=== PATIENT | female | born 1960 | race African-American/Black ===

== ENCOUNTER 2017-12-11 13:56 | Emergency (ER) | payer MEDICARE, MEDICAID ==
--- OUTSIDE RECORDS SUMMARY | 2017-12-11 14:58 | XMS REPORT ---
:1960 External Reference #:[id number] Author Organization [place] Address [address] [facility] [address] [place] [address] Phone [phone] Care Team Providers Name Role Phone Andrea Engle MD Primary Care Physician Unavailable Payers Type Date Identification Numbers Payment Provider Subscriber Medicare Primary Effective: Policy Number: Medicare Chasity Jefferson 2013 [id number] PayID: [id number] [address] [place] [address] Medigap Part B Effective: 2012 Policy Number: Medicaid Chasity Jefferson [id number] PayID: [id number] [address] [place] [address] Commercial Effective: Policy Number: [employer] Chasity Guerrero 2010 [id number] Medicaid Li Expires: 2012 PayID: [id number] [address] [address] [place] [address] Workers Compensation Onset: 2008 Policy Number: Antony Andrew Chasity Guerrero [id number] Li Group Number: [id number] [facility] [address] PayID: [id number] [place] [address] Advance Directives Type Date Description Status Comment Other Directive 06/17/2017 [facility] Care Proxy Current and Verified Problems Date Description Provider Status Onset: 08/25/2013 Type II diabetes mellitus Andrea Engle, Active uncontrolled Doc,FACP Onset: 06/02/2011 Essential hypertension Almaz Sherwood M.D. Active Onset: 06/02/2011 Tobacco user Yosvany Del Real M.D. Active Onset: 06/02/2011 Hyperlipidemia Milagros Tadeo M.D. Active Onset: 06/02/2011 Depressive disorder Yosvany Del Real M.D. Active Onset: 08/04/2011 Shoulder joint pain Yosvany Del Real M.D. Active Onset: 08/04/2011 Chronic obstructive lung disease Yosvany Del Real M.D. Active Onset: 09/17/2011 Disorder of lumbar disc Yosvany Del Real M.D. Active Onset: 01/03/2013 Morbid obesity Yosvany Del Real M.D. Active Onset: 02/08/2013 Lumbosacral spondylosis without Yosvany Del Real M.D. Active myelopathy Onset: 11/15/2014 Vaginal pessary in situ Kushal Clark M.D., FACP Note: for prolapse/incontinence Onset: 11/15/2014 Osteoarthritis of knee Andrea Engle M.D.,JAYSHREEP Active Note: LEFT Onset: 03/27/2016 Spinal stenosis of lumbar region Dipak Chavarria M.D. Active Onset: 04/23/2016 Microalbuminuria due to type 2 Kushal Clark diabetes mellitus Doc,FACP Onset: 06/02/2011 Type 2 diabetes mellitus Yosvany Del Real M.D. Inactive Inactive: 08/25/2013 Onset: 06/23/2012 Staphylococcal infectious disease Yosvany Del Real M.D. Inactive Inactive: 08/25/2013 Onset: 06/02/2011 Disruption Old Other Ligaments Of Yosvany Del Real M.D. Inactive Knee Inactive: 07/27/2014 Onset: 03/14/2013 Gastritis Yosvany Del Real M.D. Inactive Inactive: 11/15/2014 Onset: 11/27/2011 Mixed urinary incontinence Almaz hSerwood M.D. Inactive Inactive: 11/15/2014 Onset: 06/02/2011 Obesity Yosvany Del Real M.D. 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 Cigarette Use Former Cigarette Smoker 2 Packs Daily Cigarette Use Pack Years - 35 1-2 PPD from age [age], then cut down Cigarette Use 03/05/2017 Patient is a current 6 cigarettes per day cigarette smoker, smokes every day ETOH Use 04/23/2016 Denies alcohol use Recreational Drug Use Denies Drug Use Smoking Light tobacco smoker (10 1 cig daily or fewer cigarettes/day) Exercise Type/Frequency Does not exercise General Hx Text 4 children Allergies, Adverse Reactions, Alerts Date Description Reaction Status Severity Comments 09/25/2010 cashews active Moderate throat swelling 11/24/2012 Cymbalta dizziness, burning active sensation in back. 01/03/2013 Celebrex active 03/20/2016 Prandin active vomiting 03/20/2016 Lyrica active swelling 12/17/2011 No Known Drug Allergy inactive Medications Medication Date Status Form Strength Qnty SIG Indications Ordering Provider Opana 11/16 Active Tablets 10mg 120ta by mouth M54.42 bs four times Vladimir Engle, a day as Doc,FACP needed Jardiance 09/16 Active Tablets 25mg 30tab 1 by mouth s every day Vladimir Engle M.D.,FACP Cyclobenzaprine 12/12 Active Tablets 10mg 60tab Take 1 s Tablet By Vladimir Engle, Mouth Two M.Vladimir,FACP Times Daily as Needed Maximum Daily Dose Of 2 Per Day Flovent HFA 12/10 Active Aerosol 110mcg/Ac 12gm inhale two t puffs by Vladimir Engle mouth M.DSylwia,FACP twice a day Pen [place] 11/28 Active Misc 31G X 8 100un 3x/day for E11.9 mm its touangel and kenji Kimball M.D.,FACP Vitamin D 10/31 Active Tablets 1000Unit 30tab 2 tabs (Cholecalciferol) s once a day Vladimir Engle in Doc,FACP fall/winte r, 1 tab/day spring/ iemlda Onetouch Ultra 2 09/17 Active Kit w/Device 1unit test 3 E11.65 s times a Vladimir Engle, day and as Doc,FACP needed. dx: e11.65 last visit 09/17/16 Onetouch Ultra 09/17 Active Strips 200un test up to its 3 times a Vladimir Engle, day or as MGibson,FACP directed dx: e11.65, type 2 diabetes mellitus w/hypergly cemia last visit date: 09/17/16 Byetta 10 mcg Pen 09/17 Active Solution 10mcg/0.0 7.2ml inject 1 E11. Pen-Inject 4ML dose (10 Vladimir Engle, mcg) under M.DSylwia,FACP the skin two times daily Juan Daniel Davalosostar 07/16 Active Solution 300Unit/M 13.5m 50 units . Pen-Inject L l sc once a Vladimir Engle, gonsalo M.Vladimir,FACP Alcohol Swabs 06/15 Active Pads 1box use as 250.00 directed DIANA Brito for dm testing Metoprolol 03/28 Active Tablets 50mg 90tab Take 1 And Yosvany Tartrate s 1/2 Pachikara, Tablets By Doc Mouth Two Times Daily Bupropion HCL ER 01/23 Active Tablets ER 150mg 90tab take 1 Andrea (XL) 24HR s tablet by Vladimir Engle, mouth M.DSylwia,FACP every day Metformin HCL 10/19 Active Tablets 500mg 120ta Take 2 bs Tablets By Vladimir Engle, Mouth Two M.D.,FACP Times Daily Albuterol Sulfate 03/14 Active Nebulizer (2.5mg/3M 120un use 1 vial J44.9 L) 0.083% its via DIANA Maza nebulizer every 4 hours as needed Citalopram 03/14 Active Tablets 20mg 90tab take 1 F33.9 Andrea Hydrobromide s tablet by Vladimir Engle, mouth M.DSylwia,FACP every day Pravastatin 02/01 Active Tablets 20mg 90tab take one Andrea Sodium s tablet by Vladimir Engle, mouth at M.D.,FACP bedtime Lisinopril 02/01 Active Tablets 20mg 90tab take 1 I10 Andrea s tablet by D. Lacombe, mouth M.D.,FACP every day Proair HFA 01/06 Active Aerosol 108(90Bas 8.5un inhale two e) its puffs by Vladimir Engle, mcg/Act mouth M.D.,FACP every 6 hours as needed Hydrochlorothiazi 01/04 Active Tablets 25mg 90tab take one s tablet by Vladimir Engle, mouth once M.D.,FACP daily Azithromycin 11/11 Hx Tablets 250mg 6tabs 2 every day for 1 Vladimir Engle, - day, then M.D.,FACP 11/16 1 every day Hydromorphone HCL 10/16 Hx Tablets 4mg 28tab 1 tab by M54.42 s mouth Vladimir Engle, - every 6 M.D.,FACP 02 hours as needed Jardiance 06/17 Hx Tablets 10mg 30tab 1 by mouth s every Vladimir Engle, - night M.D.,FACP 09/16 Vitamin D 11/10 Hx Capsules [id number] 8caps 1 tablet E66.01 Rishi Higuera (Ergocalciferol) /2016 weekly for MD Gina - 8 weeks 01/05 Freestyle Lite 04/23 Hx Device 1unit check Andrea Blood Glucose s fingerstic Vladimir Engle, Monitoring System - k bid and M.D.,FACP 09/17 prn /201504/23/16 e11.65 Humalog 03/25 Hx Solution 100Unit/M 3ml 5 units E11.65 Cartridge L tid [facility] Vladimir Engle, - M.D.,FACP 03/25 Humalog Kwikpen 03/25 Hx Solution 100Unit/M 3ml 10 units E11.65 Pen-Inject L three Vladimir Engle, - times a M.D.,FACP 09/17 day before meal, if FS >150 Humalog Kwikpen 03/20 Hx Solution 200Unit/M 3ml 5 units E11.65 Pen-Inject L tid qac DSindy Monahan M.D.,[facility] 03/25 Opana 03/20 Hx Tablets 10mg 120ta by mouth M54.42 bs four times Vladimir Engle, - a day as Doc,[facility] 10/16 Clindamycin HCL 11/09 Hx Capsules 300mg 20cap 1 capsule Paulie s by mouth Cuban, SAMPLE CUTTER - four times 11/14 a day x' 5 days Clindamycin HCL 10/26 Hx Capsules 300mg 56cap 1 capsule K12.2 Paulie s by mouth Cuban, SAMPLE CUTTER - four times 11/09 a day x' 14 days Peridex 10/26 Hx Solution 0.12% 118ml rinse K12.2 mouth tid Cuban, SAMPLE CUTTER - after 03/11 brushing Augmentin 07/17 Hx Tablets 875-125mg 20tab 1 tab by J06.9 s mouth Cuban, SAMPLE CUTTER - twice a 07/27 day x's days Freestyle Lite 06/15 Hx Strips 2Boxe test up to 250.00 Paulie Test s 4 times a Daryl SAMPLE CUTTER - day dx 09/17 code: /2015 250.52 Opana 04/19 Hx Tablets 10mg 120ta po qid prn Sindy Yanez M.D.,[facility] 03/20 Amoxicillin/Clavu 01/24 Hx Tablets 875-125mg 20tab 1 tablet 461.0 Paulie lanate s by mouth Cuban, SAMPLE CUTTER - twice a 02/03 day x's days Prednisone 01/24 Hx Tablets 20mg 10tab 2 tablets 461.0 Paulie /2014 s by mouth Cuban, SAMPLE CUTTER - daily x's 04/17 5 days in the morning Flexeril 12/07 Hx Tablets 10mg 20tab take one s tablet by Sindy Kimball M.D.,[facility] 12/12 twice a day as needed; maximum 2 per day mdd 2 Omeprazole 11/[address] 20mg 90tab 1 by mouth 535.51 Paulie s every day Daryl SAMPLE CUTTER - 07/17 Clarithromycin 11/15 Hx Tablets 500mg 20tab 1 by mouth 490 Andrea /2015 s twice a Vladimir Engle, - day for 10 M.D.,FACP 11/25 days ( pravastati n when taking) Byetta 10 mcg Pen 11/15 Hx Solution 10mcg/0.0 7.2un inject 1 E11.65 Pen-Inject 4ML its dose DIANA Brito - (10mcg) 09/17 under the skin two times daily Lantus Solostar 07/27 Hx Solution 100Unit/M 15uni inject 75 E11. Pen-Inject L ts units DIANA Brito - under the 07/16 skin time daily Novofine 05/08 Hx Misc 30G X 8 30uni Use Every E11.9 mm ts Day DIANA Brito - 11/28 Victoza 02/28 Hx Solution 18mg/3ML 6unit inject 1.8 250.02 Pen-Inject s mg under Vladimir Engle - the skin Gibson,FACP 11/15 once daily Bupropion HCL ER 01/23 Hx Tablets ER 150mg 30tab 1 by mouth 311 12HR s qd [facility]ball [facility] 01/23 Metformin HCL 08/25 Hx Tablets 1000mg 180ta 1 po bid bs Sindy Kimball [facility].D[facility] 10/19 Lancets 28G 08/25 Hx Misc 28G 100un tid E11.65 Barry Hardy its diagnosis: Kirsty, - 250.02 M.D. 06/17 Prandin 08/25 Hx Tablets 1mg 90tab take one E11.65 s tablet by DIANA Brito - mouth 03/20 times a day with meals Flovent HFA 07/07 Hx Aerosol 110mcg/Ac 12uni inhale two t ts puffs by Daryl SAMPLE CUTTER - mouth 11/21 twice a /2015 day Novofine [id number] 04/26 Hx Misc 30G X 8 30uni once daily 250.00 Barry Hardy mm ts diagnosis: Kirsty, - 250.02 M.D. 05/08 Lantus Davalosostar 04/26 Hx Sopn 100Unit/M 5unit inject 40 250.00 [facility] 07/27 usly at bedtime, Alcohol Preps 04/26 Hx Misc 30uni once daily 250.00 Paulie ts Cuban, SAMPLE CUTTER - 06/15 Bupropion HCL XL 03/14 Hx Tablets ER 150mg 30tab once daily 311 24HR s in the Vladimir Engle - morning Doc,FACP 01/23 Omeprazole 03/14 Hx Capsules 20mg 30cap Take One 535.40 s Capsule By Vladimir Engle, - Mouth MGibson,[facility] 07/27 Every In The Morning On An Empty Stomach Oxybutynin 02/08 Hx Tablets 5mg 30tab 1 po qd 625.6 Sofiya Chloride Sindy Fraser M.D. 04/26 Bupropion HCL XL 02/01 Hx Tablets ER 300mg 30tab 1 po qd 311 24HR Sindy Diaz M.D. 03/14 Losartan 01/04 Hx Tablets 100mg 30tab 1 po qd Sindy Diaz M.D. 01/04 Lisinopril 01/04 Hx Tablets 10mg 30tab 1 po qd Sindy Diaz M.D. 02/01 Toprol XL 01/03 Hx Tablets ER 100mg 30tab 1 tab 401.9 24HR s daily Sindy Del Real M.D. 01/03 Wellbutrin XL 01/03 Hx Tablets ER 150mg 30tab 1 po qd x2 311 24HR s weeks then Nasima - 2/day Am M.DSylwia 02/01 Glipizide 01/03 Hx Tablets 10mg 60tab 1 tab bid Sindy Diaz M.D. 06/23 Metoprolol 01/03 Hx Tablets 50mg 60tab Take One Andrea Tartrate s Tablet By Vladimir Engle - Mouth Xavier.Vladimir,FACP 02/28 Twice A Day Citalopram 12/02 Hx Tablets 20mg 30tab 1 po qd [place] Hydrobromide s Sindy Del RealDSylwia 12/02 Citalopram 12/02 Hx Tablets 20mg 30tab 1 po qd [place] Hydrobromide s Sindy Del RealDSylwia 01/03 Celebrex 12/01 Hx Capsules 200mg 30cap 1 po qd s Nasima - Xavier.DSylwia 01/03 Flexeril 12/01 Hx Tablets 10mg 20tab Take One Andrea s Tablet By Vladimir Engle - Mouth Doc,FACP 07/27 Twice A Day as Needed; Maximum 2 Per Day Cymbalta 10/[address] 60mg 1 po qd Barry ESylwia Sindy Figueredo M.D. 11/24 Celebrex 09/08 Hx Capsules 200mg 30cap 1 po qd 722.93 s Sindy Del RealDSylwia 11/24 Lidoderm 09/08 Hx Patches 5% 30uni one patch 722.93 ts daily on Nasima, - for 12 h M.D. 02/08 Toprol XL 08/30 Hx Tablets ER 50mg 30tab 1 po qd 401.9 24HR s Sindy Del Real M.D. 02/01 Heating Pad For 07/05 Hx 1unit as 722.93 [facility] Back s ditected Nasima - M.DSylwia 11/24 Losartan 05/03 Hx Tablets 100-25mg 30tab 1 tab po [place] Potassium/Hydroch s every day Nasima lorothiazide - M.DSylwia 01/04 Toprol XL 03/10 Hx Tablets ER 25mg 30tab 1 tablet Nelia 24HR s by mouth Bear, - daily D.O. 08/30 Flexeril 03/09 Hx Tablets 10mg 30tab 1 po bid 722.93 Almaz /2012 s Sindy Sanabria M.D. 11/24 Chantix Starting 03/03 Hx Tablets 0.5mg X 1tabs use as 305.1 [place] 11 & directed Nasima, - 1 mg X M.D. 05/21 Azithromycin 03/02 Hx Tablets 250mg 6tabs 2 tab today and Nasima, - then 1tab M.DSylwia 05/21 Nicorette 12/23 Hx Gum 4mg 120un upto 4 its times Nasima, - daily M.D. 07/19 Nicoderm CQ 12/16 Hx Patches 14mg/24HR 30uni once daily 305.1 24HR ts Sindy Del Real M.D. 12/23 Proair HFA 12/16 Hx Aerosol 108(90Bas 1unit 2 puffs ih e) mcg/ac s q6h Sindy Restrepo M.D. 01/06 Sanctura 11/27 Hx Tablets 20mg 30tab 1 tab po 788.33 Almaz Sindy Kat M.D. 12/16 Amlodipine 10/15 Hx Tablets 5mg 30tab 1 po qd [place] Sindy Diaz M.D. 12/16 Tecturna 09/17 Hx 150mg 30uni once daily 401.9 Sindy Jarvis M.D. 10/15 Pulmicort 09/11 Hx Aerosol 180mcg/Ac 1mon 2 puffs Andrea Michaels t varsha Engle, - daily M.Vladimir,FACP 07/07 Diovan HCT 08/26 Hx Tablets 320-25mg 30tab 1 po qd 401.9 Sindy Diaz M.D. 05/21 BP Machine 08/26 Hx 401.9 Sindy Del Real M.D. 05/21 Opana ER 10/24 Hx Tablets ER 10mg 60tab 1 po 717.85 12HR s q12hrs Sindy Del Real M.D. 12/16 Opana 10/24 Hx Tablets 5mg 90tab 1 tab q 4h 717.85 s rosen Sindy Del Real M.D. 12/16 Mobic 07/09 Hx Tablets 15mg 30tab once daily 719.41 s Sindy Del Real M.D. 03/02 Diovan HCT 05/15 Hx Tablets 320-25mg 90tab 1 po qd 401.9 Sindy Barney M.D. 06/02 Vesicare 05/15 Hx Tablets 5mg 30tab 1 tab po 788.30 s every day Sindy Sherwood M.D. 06/02 Chantix Starter 04/23 Hx Tablets 1tabs use as 305.1 directed Sindy Del Real M.D. 03/03 Asmanex 30 03/14 Hx Aerosol 110mcg/In 1mon 1 [place] Metered Doses h inhalation Nasima - qd Doc 09/11 Zithromax Z-Luke 03/12 Hx Tablets 250mg 1tabs 2tab today 466.0 and 1tab Nasima - daily x Doc 03/26 4d Freestyle Lite 01/29 Hx 100un two times 250.00 Paulie Test its daily or Cuban, SAMPLE CUTTER - as needed 06/15 diagnosis: 250.02 Onglyza 01/22 Hx Tablets 5mg 30tab once daily 250.00 Sindy Diaz M.D. 03/12 Metformin HCL 01/22 Hx Tablets 500mg 120ta 2tab po 250.00 bs bid Sindy Del Real M.D. 12/16 Mobic 11/25 Hx Tablets 15mg 30tab once daily Sindy Diaz M.D. 01/29 Levaquin 11/19 Hx Tablets 750mg 7tabs once daily 466.0 Sindy Del Real M.D. 01/22 Kombiglyze XR 11/19 Hx Tablets ER 2.5-1000m 60tab 2 po qam 24HR g Sindy Diaz M.D. 01/22 Glipizide XL 15 Hx Tablets ER 10mg 60tab 1 tab po 24HR s bid Sindy Del Real M.D. 06/23 Diovan HCT 15 Hx Tablets 320-25mg 90tab 1 po qd Sindy Diaz M.D. 03/12 Simvastatin 12 Hx Tablets 80mg 90tab 1/2 po qhs Sindy Diaz M.D. 03/12 Citalopram 09/25 Hx Tablets 20mg 30tab 1 po qd [place] Hydrobromide Sindy Diaz M.D. 10/28 Metformin HCL ER 09/25 Hx Tablets ER 750mg 90tab Take 2 24HR s tabs daily Sindy Del Real M.D. 11/19 Flexeril 15 Hx Tablets 10mg 60tab 1 po tid s prn Sindy Del Real M.D. 06/02 Opana 15 Hx Tablets 10mg 90tab po q4h prn 719.46 Sindy Diaz M.D. 08/04 Ibuprofen 12/01 Hx Tablets 400mg 50tab po q4-6h Sylwia s prn Sindy Isidro M.D. 01/22 Flexeril 12/01 Hx Tablets 10mg 40tab 1 po tid Sylwia s prn For Sindy Isidro Muscle Doc 01/22 Spasms Ultram 10/24 Hx Tablets 50mg 50tab 1 Or 2 Sylwia s Tabs Q 4 Dwaine, - Hours gina Roach 11/25 Pain Aleve Hx Tablets 220mg po qday - 01/29 Ventolin HFA Hx Aerosol 108(90Bas 1mont 2 puffs po e) mcg/ac h qid Sindy Gutierrez M.D. 12/16 Metformin HCL Hx Tablets 500mg 60tab 1 po bid [facility] s Sindy Kimball M.D.,FACP 08/25 Metoprolol /00 Hx Tablets ER 25mg 30tab 2 qd Unknown Succinate ER /0000 24HR s - 06/23 Oxymorphone 00/ Hx Tablets 5mg 90tab 1 po Q Unknown Hydrochloride /0000 s 8HRS - 07/05 Januvia Hx Tablets 100mg 30tab 1 po qd [place] /0000 s Sindy Del Real M.D. 08/25 Thera Flu 00/ Hx Unknown /0000 - 09/08 Oxycodone HCL Hx Capsules 10mg 240ca 1-2 qid Unknown /0000 ps prn - 04/19 Immunizations CPT Code Status Date Vaccine Lot # [id number] Given 06/17/2017 Influenza Virus Vaccine, Quadrivalent, Split, [id number] Preservative Free [id number] Given 07/17/2015 Influenza Virus Vaccine, Quadrivalent, Split, [id number] Preservative Free 62565 Given 07/27/2014 Flu Vaccine Split Virus Preservative Free For [id number] Indiv 3Yr Older 37418 Given 08/25/2013 Flu Vaccine Split Virus Preservative Free For [id number] Indiv 3Yr Older 97962 Given 06/09/2012 Pneumonia Vaccine [id number] 39989 Given 06/09/2012 Influenza Virus 3Yrs & Over 54400 Given 07/09/2011 Influenza Virus 3Yrs & Over [id number] Vital Signs Date Vital Result Comment 11/23/2017 Weight 275.00 lb Heart Rate 90 /min BP Systolic 115 mmHg BP Diastolic 72 mmHg Body Temperature 98.8 F O2 % BldC Oximetry 93 % 11/11/2017 Weight 277.00 lb Heart Rate 74 /min BP Systolic Sitting 134 mmHg BP Diastolic Sitting 80 mmHg Body Temperature 98.4 F O2 % BldC Oximetry 98 % 09/16/2017 Weight 283.00 lb Heart Rate 88 /min BP Systolic Sitting 138 mmHg BP Diastolic Sitting 80 mmHg Body Temperature 97.3 F O2 % BldC Oximetry 98 % 06/17/2017 Weight 290.00 lb Heart Rate 75 /min BP Systolic Sitting 138 mmHg BP Diastolic Sitting 80 mmHg Body Temperature 98.5 F O2 % BldC Oximetry 95 % 03/05/2017 Height 64 inches 5'4" Weight 284.25 lb Heart Rate 86 /min BP Systolic Sitting 150 mmHg BP Diastolic Sitting 84 mmHg Body Temperature 97.8 F O2 % BldC Oximetry 98 % BMI (Body Mass Index) 48.8 kg/m2 12/10/2016 Weight 278.00 lb Heart Rate 93 /min BP Systolic Sitting 167 mmHg BP Diastolic Sitting 97 mmHg BP Systolic Recheck 130 mmHg BP Diastolic Recheck 84 mmHg Body Temperature 98.4 F O2 % BldC Oximetry 96 % 11/10/2016 Height 64.5 inches 5'4.50" Weight 277.00 lb Heart Rate 84 /min BP Systolic 140 mmHg BP Diastolic 80 mmHg Respiratory Rate 18 /min Body Temperature 97.4 F BMI (Body Mass Index) 46.8 kg/m2 10/31/2016 Height 64.5 inches 5'4.50" Weight 272.00 lb Heart Rate 80 /min BP Systolic Sitting 136 mmHg BP Diastolic Sitting 87 mmHg Body Temperature 97.8 F O2 % BldC Oximetry 97 % BMI (Body Mass Index) 46.0 kg/m2 09/29/2016 Height 64.5 inches 5'4.50" Weight 275.00 lb Heart Rate 80 /min BP Systolic Sitting 140 mmHg BP Diastolic Sitting 88 mmHg Respiratory Rate 18 /min Body Temperature 98.3 F BMI (Body Mass Index) 46.5 kg/m2 Neck Circumference in inches 16.5 Hip Circumference 55 Waist Circumference 55 Waist to Hip Ratio 1.0 09/17/2016 Height 64.5 inches 5'4.50" Weight 276.00 lb Heart Rate 102 /min BP Systolic Sitting 148 mmHg BP Diastolic Sitting 78 mmHg Body Temperature 98.4 F O2 % BldC Oximetry 94 % BMI (Body Mass Index) 46.6 kg/m2 07/16/2016 Height 64.5 inches 5'4.50" Weight 263.00 lb Heart Rate 94 /min BP Systolic Sitting 162 mmHg BP Diastolic Sitting 104 mmHg Body Temperature 97.7 F O2 % BldC Oximetry 98 % BMI (Body Mass Index) 44.4 kg/m2 04/23/2016 Height 64.5 inches 5'4.50" Weight 276.00 lb Heart Rate 100 /min BP Systolic Sitting 118 mmHg BP Diastolic Sitting 72 mmHg O2 % BldC Oximetry 98 % BMI (Body Mass Index) 46.6 kg/m2 03/27/2016 Height 64.5 inches 5'4.50" Weight 276.00 lb Heart Rate 82 /min BP Systolic Sitting 150 mmHg BP Diastolic Sitting 90 mmHg Pain Level 10 BMI (Body Mass Index) 46.6 kg/m2 03/20/2016 Height 64.5 inches 5'4.50" Weight 276.00 lb Heart Rate 97 /min BP Systolic Sitting 150 mmHg BP Diastolic Sitting 100 mmHg Body Temperature 98.0 F O2 % BldC Oximetry 97 % BMI (Body Mass Index) 46.6 kg/m2 03/11/2016 Height 64.5 inches 5'4.50" Weight 275.00 lb Heart Rate 86 /min BP Systolic Sitting 118 mmHg BP Diastolic Sitting 78 mmHg Body Temperature 96.7 F Pain Level 9 9/10 pain level O2 % BldC Oximetry 96 % BMI (Body Mass Index) 46.5 kg/m2 10/26/2015 Height 64.5 inches 5'4.50" Weight 265.00 lb Heart Rate 116 /min BP Systolic Sitting 120 mmHg BP Diastolic Sitting 80 mmHg Body Temperature 97.9 F O2 % BldC Oximetry 97 % BMI (Body Mass Index) 44.8 kg/m2 07/17/2015 Height 64.5 inches 5'4.50" Weight 264.00 lb Heart Rate 109 /min BP Systolic Sitting 146 mmHg BP Diastolic Sitting 98 mmHg Body Temperature 98.4 F O2 % BldC Oximetry 98 % BMI (Body Mass Index) 44.6 kg/m2 04/18/2015 Height 64.5 inches 5'4.50" Weight 278.38 lb Heart Rate 86 /min BP Systolic Sitting 181 mmHg left arm BP Diastolic Sitting 102 mmHg left arm Body Temperature 98.1 F O2 % BldC Oximetry 97 % BMI (Body Mass Index) 47.0 kg/m2 01/24/2015 Height 64.5 inches 5'4.50" Weight 294.00 lb Heart Rate 100 /min BP Systolic Sitting 122 mmHg BP Diastolic Sitting 80 mmHg O2 % BldC Oximetry 94 % BMI (Body Mass Index) 49.7 kg/m2 12/20/2014 Height 64.5 inches 5'4.50" Weight 252.50 lb Heart Rate 110 /min BP Systolic Sitting 130 mmHg BP Diastolic Sitting 68 mmHg O2 % BldC Oximetry 98 % BMI (Body Mass Index) 42.7 kg/m2 11/15/2014 Weight 293.50 lb BP Systolic Sitting 175 mmHg BP Diastolic Sitting 112 mmHg Body Temperature 98.4 F O2 % BldC Oximetry 98.0 % 07/27/2014 Weight 284.25 lb Heart Rate 86 /min BP Systolic Sitting 134 mmHg BP Diastolic Sitting 73 mmHg Body Temperature 97.0 F 02/28/2014 Weight 280.00 lb Heart Rate 92 /min BP Systolic Sitting 138 mmHg BP Diastolic Sitting 88 mmHg 10/19/2013 Height 64 inches 5'4" Weight 292.00 lb Heart Rate 84 /min BP Systolic Sitting 140 mmHg BP Diastolic Sitting 90 mmHg BMI (Body Mass Index) 50.1 kg/m2 08/25/2013 Weight 287.00 lb Heart Rate 88 /min BP Systolic Sitting 126 mmHg BP Diastolic Sitting 84 mmHg 06/23/2013 Height 64.25 inches 5'4.25" Weight 295.00 lb Heart Rate 91 /min BP Systolic Sitting 128 mmHg BP Diastolic Sitting 78 mmHg BMI (Body Mass Index) 50.2 kg/m2 04/26/2013 Weight 291.00 lb Heart Rate 89 /min BP Systolic Sitting 162 mmHg BP Diastolic Sitting 94 mmHg O2 % BldC Oximetry 98 % 03/14/2013 Weight 297.00 lb Heart Rate 96 /min BP Systolic Sitting 150 mmHg BP Diastolic Sitting 90 mmHg Body Temperature 98.2 F O2 % BldC Oximetry 98 % 96 before, after she walked 94 02/08/2013 Weight 297.00 lb Heart Rate 76 /min BP Systolic 164 mmHg BP Diastolic 100 mmHg BP Systolic Sitting 156 mmHg BP Diastolic Sitting 100 mmHg 02/01/2013 Height 64.50 inches 5'4.50" Weight 293.00 lb Heart Rate 80 /min BP Systolic Sitting 126 mmHg BP Diastolic Sitting 100 mmHg BMI (Body Mass Index) 49.5 kg/m2 01/03/2013 Height 65 inches 5'5" Weight 297.50 lb Heart Rate 96 /min BP Systolic Sitting 166 mmHg BP Diastolic Sitting 102 mmHg BMI (Body Mass Index) 49.5 kg/m2 11/24/2012 Height 65 inches 5'5" Weight 293.00 lb Heart Rate 94 /min BP Systolic Sitting 164 mmHg BP Diastolic Sitting 101 mmHg BMI (Body Mass Index) 48.8 kg/m2 10/28/2012 Height 65 inches 5'5" Weight 298.00 lb Heart Rate 94 /min BP Systolic Sitting 145 mmHg lower arm/auto cuff BP Diastolic Sitting 85 mmHg lower arm/auto cuff BMI (Body Mass Index) 49.6 kg/m2 09/08/2012 Height 64.25 inches 5'4.25" Weight 283.00 lb Heart Rate 88 /min BP Systolic Sitting 150 mmHg BP Diastolic Sitting 102 mmHg BMI (Body Mass Index) 48.2 kg/m2 08/30/2012 Height 64.25 inches 5'4.25" Weight 284.00 lb Heart Rate 89 /min BP Systolic Sitting 150 mmHg BP Diastolic Sitting 104 mmHg BMI (Body Mass Index) 48.4 kg/m2 07/19/2012 Height 64.25 inches 5'4.25" Weight 280.00 lb Heart Rate 105 /min BP Systolic Sitting 128 mmHg BP Diastolic Sitting 84 mmHg Body Temperature 97.4 F O2 % BldC Oximetry 97 % BMI (Body Mass Index) 47.7 kg/m2 07/05/2012 Height 64.25 inches 5'4.25" Weight 274.00 lb Heart Rate 100 /min BP Systolic Sitting 150 mmHg BP Diastolic Sitting 96 mmHg BMI (Body Mass Index) 46.7 kg/m2 06/23/2012 Height 64.25 inches 5'4.25" Weight 270.00 lb Heart Rate 76 /min BP Systolic Sitting 140 mmHg BP Diastolic Sitting 86 mmHg BMI (Body Mass Index) 46.0 kg/m2 06/09/2012 Height 64.25 inches 5'4.25" Weight 271.00 lb Heart Rate 80 /min BP Systolic Sitting 128 mmHg BP Diastolic Sitting 92 mmHg BMI (Body Mass Index) 46.2 kg/m2 05/21/2012 Height 64.25 inches 5'4.25" Weight 265.00 lb BMI (Body Mass Index) 45.1 kg/m2 03/10/2012 Height 64.25 inches 5'4.25" Weight 279.75 lb Heart Rate 84 /min Regular BP Systolic Sitting 110 mmHg BP Diastolic Sitting 80 mmHg BMI (Body Mass Index) 47.6 kg/m2 03/09/2012 Height 64.25 inches 5'4.25" Weight 281.00 lb Heart Rate 84 /min BP Systolic Sitting 146 mmHg BP Diastolic Sitting 90 mmHg BMI (Body Mass Index) 47.9 kg/m2 03/02/2012 Height 64.25 inches 5'4.25" Weight 277.00 lb BP Systolic Sitting 104 mmHg BP Diastolic Sitting 80 mmHg BMI (Body Mass Index) 47.2 kg/m2 01/13/2012 Height 64.25 inches 5'4.25" Weight 278.00 lb Heart Rate 82 /min BP Systolic Sitting 110 mmHg lg BP Diastolic Sitting 80 mmHg lg BMI (Body Mass Index) 47.3 kg/m2 12/17/2011 Height 64.25 inches 5'4.25" Weight 278.00 lb Heart Rate 96 /min BP Systolic Sitting 136 mmHg lg cuff BP Diastolic Sitting 96 mmHg lg cuff BMI (Body Mass Index) 47.3 kg/m2 11/27/2011 Height 64.25 inches 5'4.25" Weight 279.00 lb Heart Rate 80 /min BP Systolic Sitting 124 mmHg BP Diastolic Sitting 74 mmHg BMI (Body Mass Index) 47.5 kg/m2 09/17/2011 Height 64.25 inches 5'4.25" Weight 275.00 lb Heart Rate 100 /min BP Systolic Sitting 164 mmHg BP Diastolic Sitting 108 mmHg BMI (Body Mass Index) 46.8 kg/m2 08/26/2011 Height 64.25 inches 5'4.25" Weight 279.50 lb Heart Rate 92 /min BP Systolic Sitting 168 mmHg BP Diastolic Sitting 112 mmHg BMI (Body Mass Index) 47.6 kg/m2 08/04/2011 Height 64.75 inches 5'4.75" Weight 279.00 lb BP Systolic Sitting 145 mmHg BP Diastolic Sitting 100 mmHg BMI (Body Mass Index) 46.8 kg/m2 07/09/2011 Weight 273.00 lb Heart Rate 92 /min BP Systolic Sitting 148 mmHg BP Diastolic Sitting 84 mmHg 06/02/2011 Weight 262.00 lb Heart Rate 86 /min BP Systolic Sitting 138 mmHg BP Diastolic Sitting 82 mmHg 05/15/2011 Weight 264.00 lb Heart Rate 104 /min BP Systolic Sitting 168 mmHg BP Diastolic Sitting 108 mmHg 04/23/2011 Weight 264.00 lb Heart Rate 70 /min BP Systolic Sitting 142 mmHg BP Diastolic Sitting 86 mmHg 03/12/2011 Weight 265.00 lb Heart Rate 100 /min BP Systolic Sitting 138 mmHg BP Diastolic Sitting 88 mmHg Body Temperature 96.5 F lt ear 01/29/2011 Weight 276.00 lb Heart Rate 80 /min BP Systolic Sitting 142 mmHg BP Diastolic Sitting 96 mmHg 01/22/2011 Weight 282.00 lb Heart Rate 86 /min BP Systolic 140 mmHg BP Diastolic 90 mmHg 11/25/2010 Weight 247.00 lb Heart Rate 94 /min BP Systolic Sitting 140 mmHg BP Diastolic Sitting 100 mmHg 11/19/2010 Weight 277.00 lb Heart Rate 98 /min BP Systolic Sitting 147 mmHg BP Diastolic Sitting 100 mmHg Body Temperature 96.3 F O2 % BldC Oximetry 98 % 10/22/2010 Weight 279.00 lb Heart Rate 101 /min BP Systolic Sitting 158 mmHg BP Diastolic Sitting 90 mmHg O2 % BldC Oximetry 97 % 09/25/2010 Height 64 inches 5'4" Weight 282.00 lb Heart Rate 88 /min BP Systolic Sitting 166 mmHg BP Diastolic Sitting 110 mmHg BMI (Body Mass Index) 48.4 kg/m2 Results Test Date Test Result H/L Range Note Laboratory test 09/16/2017 Hemoglobin A1c 10.3 High 5-7 finding Laboratory test 07/14/2017 Surgical Interface SEE RESULT 1 finding Order BELOW Laboratory test 07/14/2017 Clotest SEE RESULT 2 finding BELOW Laboratory test 07/14/2017 Point of Care Glucose 82 mg/dL 70-100 3 finding Lipid Profile 06/16/2017 Triglycerides 318 mg/dL 4 (Trig/Chol/HDL) Cholesterol 234 mg/dL 5 HDL Cholesterol 43.3 mg/dL 6 LDL Cholesterol 127 mg/dL 7 Urine Microalbumin Random 06/16/2017 Urine Creatinine 102.50 mg/dL Ur Microalbumin (mg/L) 52.5 mg/L Urine Microalbumin/Creatinine 51.2 ug/mg High <31 Laboratory test 06/16/2017 Hemoglobin A1c (Glyco 11.1 % High Less than 6.0 8 finding HGB) Laboratory test 03/05/2017 Hemoglobin A1c 8.0 High 5-7 finding Laboratory test 12/10/2016 Hemoglobin A1c (Glyco 8.9 % High Less than 6.0 9 finding HGB) Comp Metabolic Panel 12/10/2016 Sodium 139 mmol/L 133-145 Potassium 4.5 mmol/L 3.5-5.0 Chloride 107 mmol/L 101-111 Co2 Carbon Dioxide 27 mmol/L 22-32 Anion Gap 5 mmol/L 2-11 Glucose 146 mg/dL High 70-100 Blood Urea Nitrogen 13 mg/dL 6-24 Creatinine 0.82 mg/dL 0.51-0.95 BUN/Creatinine Ratio 15.9 8-20 Calcium 9.8 mg/dL 8.6-10.3 Total Protein 6.7 g/dL 6.4-8.9 Albumin 3.8 g/dL 3.2-5.2 Globulin 2.9 g/dL 2-4 Albumin/Globulin Ratio 1.3 1-3 Total Bilirubin 0.50 mg/dL 0.2-1.0 Alkaline Phosphatase 96 U/L 34-104 Alt 13 U/L 7-52 Ast 16 U/L 13-39 Egfr Non- 71.6 >60 Egfr 92.1 >60 10 Bariatric Panel Pre-Op 10/14/2016 Ferritin 188.7 ng/mL 11-307 Vitamin B12 367 pg/mL 180-914 11 Folic Acid (Folate) 10.80 ng/mL >3.99 Vitamin D Total 25(Oh) 14.8 ng/mL Low 30-50 Vitamin B1 (Whole Blood) 94 nmol/L 70-180 12 Vitamin E Level 11.3 mg/L 5.5 - 17.0 13 TSH (Thyroid Stim Horm) 1.40 mcIU/mL 0.34-5.60 Cortisol 10.29 ?g/dL 14 Comp Metabolic Panel 10/14/2016 Sodium 138 mmol/L 133-145 Potassium 4.3 mmol/L 3.5-5.0 Chloride 107 mmol/L 101-111 Co2 Carbon Dioxide 26 mmol/L 22-32 Anion Gap 5 mmol/L 2-11 Glucose 85 mg/dL 70-100 Blood Urea Nitrogen 11 mg/dL 6-24 Creatinine 0.70 mg/dL 0.51-0.95 BUN/Creatinine Ratio 15.7 8-20 Calcium 8.9 mg/dL 8.6-10.3 Total Protein 6.6 g/dL 6.4-8.9 Albumin 3.7 g/dL 3.2-5.2 Globulin 2.9 g/dL 2-4 Albumin/Globulin Ratio 1.3 1-3 Total Bilirubin 0.50 mg/dL 0.2-1.0 Alkaline Phosphatase 98 U/L 34-104 Alt 14 U/L 7-52 Ast 14 U/L 13-39 Egfr Non- 86.2 >60 Egfr 110.9 >60 15 CBC Auto Diff 10/14/2016 White Blood Count 7.4 10^3/uL 3.5-10.8 Red Blood Count 4.69 10^6/uL 4.0-5.4 Hemoglobin 12.8 g/dL 12.0-16.0 Hematocrit 40 % 35-47 Mean Corpuscular Volume 84 fL 80-97 Mean Corpuscular Hemoglobin 27 pg 27-31 Mean Corpuscular HGB Conc 32 g/dL 31-36 Red Cell Distribution Width 14 % 10.5-15 Platelet Count 180 10^3/uL 150-450 Mean Platelet Volume 9 um3 7.4-10.4 Abs Neutrophils 4.7 10^3/uL 1.5-7.7 Abs Lymphocytes 2.1 10^3/uL 1.0-4.8 Abs Monocytes 0.3 10^3/uL 0-0.8 Abs Eosinophils 0.2 10^3/uL 0-0.6 Abs Basophils 0.1 10^3/uL 0-0.2 Abs Nucleated RBC 0 10^3/uL Granulocyte % 64.1 % 38-83 Lymphocyte % 28.3 % 25-47 Monocyte % 3.9 % 1-9 Eosinophil % 2.5 % 0-6 Basophil % 1.2 % 0-2 Nucleated Red Blood Cells % 0 Iron & Iron Binding Capacity 10/14/2016 Iron 52 g/dL 50-212 Unsaturated Iron Binding 302 g/dL Total Iron Binding Capacity 354 g/dL 250-450 % Iron Saturation 15 % 15-55 Laboratory test 10/14/2016 Hemoglobin A1c (Glyco 9.5 % High Less than 6.0 16 finding HGB) Laboratory test 09/17/2016 Hemoglobin A1c 11.0 High 5-7 finding Laboratory test 07/16/2016 Hemoglobin A1c 14.0 High 5-7 finding Laboratory test 03/21/2016 Hemoglobin A1c (Glyco 11.5 % High Less than 6.0 17 finding HGB) Lipid Profile 03/21/2016 Triglycerides 330 mg/dL 18 (Trig/Chol/HDL) Cholesterol 212 mg/dL 19 HDL Cholesterol 39.9 mg/dL 20 LDL Cholesterol 106 mg/dL 21 Comp Metabolic Panel 03/21/2016 Sodium 136 mmol/L 133-145 Potassium 4.3 mmol/L 3.5-5.0 Chloride 102 mmol/L 101-111 Co2 Carbon Dioxide 27 mmol/L 22-32 Anion Gap 7 mmol/L 2-11 Glucose 264 mg/dL High 70-100 Blood Urea Nitrogen 13 mg/dL 6-24 Creatinine 0.73 mg/dL 0.51-0.95 BUN/Creatinine Ratio 17.8 8-20 Calcium 9.2 mg/dL 8.6-10.3 Total Protein 6.7 g/dL 6.4-8.9 Albumin 3.9 g/dL 3.2-5.2 Globulin 2.8 g/dL 2-4 Albumin/Globulin Ratio 1.4 1-3 Total Bilirubin 0.50 mg/dL 0.2-1.0 Alkaline Phosphatase 119 U/L High 34-104 Alt 19 U/L 7-52 Ast 21 U/L 13-39 Egfr Non- 82.2 >60 Egfr 105.7 >60 22 Urine Microalbumin Random 03/21/2016 Ur Microalbumin (mg/L) 15.0 mg/L Urine Creatinine 31.25 mg/dL Urine Microalbumin/Creatinine 48.0 ug/mg High <31 Laboratory test finding 03/20/2016 Hemoglobin A1c 10.7 High 5-7 Urine Microalbumin Random 03/20/2016 Ur Microalbumin (mg/L) 40.0 mg/L Urine Creatinine 167.49 mg/dL Urine Microalbumin/Creatinine 23.8 ug/mg <31 Laboratory test 11/15/2014 Hemoglobin A1c 13.2 High 5-7 finding HIV 1/2 AB 07/27/2014 HIV 1 2 Antibody Nonreactive Nonreactive 23 Evaluation Laboratory test 07/27/2014 Hepatitis C Antibody Nonreactive Nonreactive finding Lipid Profile 07/27/2014 Triglycerides 192 mg/dL 24 (Trig/Chol/HDL) Cholesterol 199 mg/dL 25 HDL Cholesterol 52.1 mg/dL 26 LDL Cholesterol 109 mg/dL 27 Basic Metabolic Panel 07/27/2014 Sodium 138 mmol/L 133-145 Potassium 4.3 mmol/L 3.7-5.6 Chloride 101 mmol/L 101-111 Co2 Carbon Dioxide 28 mmol/L 22-32 Anion Gap 9 mmol/L 2-11 Glucose 101 mg/dL High 70-100 Blood Urea Nitrogen 8 mg/dL 6-24 Creatinine 0.78 mg/dL 0.51-0.95 BUN/Creatinine Ratio 10.3 8-20 Calcium 9.9 mg/dL 8.6-10.3 Egfr Non- 76.7 >60 Egfr 98.6 >60 28 Laboratory test finding 07/27/2014 Hemoglobin A1c 10.5 High 5-7 Laboratory test finding 02/28/2014 Hemoglobin A1c 13.7 High 5-7 Urine Microalbumin Random 02/28/2014 Ur Microalbumin (mg/L) 24.0 mg/dL & lt;30 29 Urine Creatinine 109.59 mg/dL Urine Microalbumin/Creatinine 21.8 Less Than 31 Ua Routine 08/25/2013 Ua Specific [place] 1.025 Ua PH 5 Ua Color yellow Ua Appera clear Ua WBC neg Ua Protein neg Ua Glucose neg Ua Ketones neg Ua Bilirubin neg Ua Urobilinogen neg Ua Nitrite neg Ua Occult Blood neg Laboratory test finding 08/25/2013 Hemoglobin A1c 12.3 High 5-7 Laboratory test finding 04/26/2013 Hemoglobin A1c 9.6 High 5-7 Laboratory test finding 02/08/2013 Cytology RUN DATE: 02/09/ <SEE NOTE> Urine Microalbumin 02/01/2013 Ur Microalbumin (Mg/L) 1.0 mg/L 31 Random Urine Creatinine < 6 mg/dL Urine Microalbumin/Creatinine 0 ug/mg Less Than 31 Laboratory test finding 01/03/2013 Hemoglobin A1c 8.5 High 5-7 Comp Metabolic Panel 08/30/2012 Sodium 139 mmol/L 133-145 Potassium 4.5 mmol/L 3.5-5.0 Chloride 109 mmol/L 101-111 Co2 Carbon Dioxide 26.0 mmol/L 22-32 Anion Gap 4.0 mmol/L 2-11 Glucose 145 mg/dL High 70-100 Blood Urea Nitrogen 10 mg/dL 6-24 Creatinine 0.70 mg/dL 0.50-1.40 BUN/Creatinine Ratio 14.3 8-20 Calcium 9.4 mg/dL 8.1-9.9 Total Protein 5.8 GM/DL Low 6.2-8.1 Albumin 3.6 GM/DL 3.6-5.4 Globulin 2.2 GM/DL 2-4 Albumin/Globulin Ratio 1.6 1-3 Total Bilirubin 0.4 mg/dL 0.1-1.0 32 Alkaline Phosphatase 85 U/L 30-110 Alt 19 U/L 14-54 Ast 18 U/L 12-42 Egfr Non- 87.5 >60 Egfr 112.6 >60 33 Lipid Profile (Trig/Chol/HDL) 08/30/2012 Triglycerides 169 mg/dL 40-200 Cholesterol 211 mg/dL High Less than 200 HDL Cholesterol 47 mg/dL 40-60 34 Cholesterol/HDL Ratio 4.5 AVERAGE High 1-4.44 LDL Cholesterol 130.2 mg/dL High Less Than 100 35 Laboratory test finding 05/21/2012 Hemoglobin A1c 6.9 5-7 CBC Auto Diff 05/15/2012 White Blood Count 11.4 CUMM High 4.8-10.8 36 Red Cell Count 4.58 CUMM 4.2-5.4 36 Hemoglobin 12.7 g/dL 12.0-16.0 36 Hematocrit 38 % 35-47 36 Mean Corpuscular Volume 84 um3 79-97 36 Mean Corpuscular Hemoglob 28 pg 27-31 36 Mean Corpuscular HGB Cone 33 g/dL 32-36 36 Redcell Distribution WDTH 16 % High 10.5-15 36 Platelet Count 246 CUMM 150-450 36 Mean Platelet Volume 8.8 um3 7.4-10.4 36 Gran % 70.9 % 38-83 36 Lymph % 21.0 % 20-45 36 Mononuclear % 5.3 % 1-9 36 Eosinophil % 1.7 % 0-6 36 Basophil % 1.1 % 0-2 36 Abs Lymphs 2.4 1.0-4.8 36 Abs Mononuclear 0.6 0-0.8 36 Absolute Neutrophil Count 8.1 High 1.5-7.7 36 Abs Eosinophils 0.2 0-0.6 36 Abs Basophils 0.1 0-0.2 36 Comp Metabolic Panel 05/15/2012 Sodium 135 mmol/L 135-145 36 Potassium 4.2 mmol/L 3.5-5.0 36 Chloride 104 mmol/L 101-111 36 Co2 (Carbon Dioxide) 22.0 mmol/L 22-32 36 Anion Gap 9.0 mmol/L 2-11 36, 37 Glucose 235 mg/dL High 70-100 36 BUN 15 mg/dL 6-24 36 Creatinine 1.1 mg/dL 0.50-1.40 36 One Over Creatinine 0.90 36 BUN/Creatinine Ratio 13.6 8-20 36 Calcium 9.9 mg/dL 8.1-9.9 36 Total Protein 6.9 GM/DL 6.2-8.1 36 Albumin 3.8 GM/DL 3.6-5.4 36 Globulin 3.1 GM/DL 2-4 36 Albumin/Globulin Ratio 1.2 1-3 36 Bilirubin Total 0.8 mg/dL 0.4-1.5 36, 38 Alkaline Phosphatase 88 U/L 30-110 36 Alt (SGPT) 18 U/L 14-54 36 Ast (Sgot) 22 U/L 12-42 36 eGFR Non- 52.0 > 60 36 eGFR 66.8 > 60 36, 39 Laboratory test 05/15/2012 C Reactive Protein 4.5 mg/dL High Less Than 0.5 36 finding Protime 05/15/2012 Inr 0.89 0.88-1.13 36, 40 Protime 10.6 SEC 10.3-13.5 36, 41 Laboratory test finding 05/15/2012 PTT (Aptt) 29.0 SEC 25.1-38.5 36 Culture And Sensitivity 04/26/2012 M 42 <SEE NOTE> Laboratory test finding 04/26/2012 PTT (Aptt) 27.0 SEC 25.1-38.5 International Normalized 04/26/2012 Inr 0.82 Low 0.88-1.13 43 Ratio Protime 9.7 SEC Low 10.3-13.5 44 Blood Culture 04/24/2012 M 45 <SEE NOTE> Culture And 04/24/2012 M 46 Sensitivity <SEE NOTE> Laboratory test 04/24/2012 C Reactive 1.2 mg/dL High Less Than finding Protein 0.5 Erythrocyte Sed Rate 35 MM/HR High 0-30 Comp Metabolic Panel 04/24/2012 Sodium 140 mmol/L 135-145 Potassium 4.2 mmol/L 3.5-5.0 Chloride 110 mmol/L 101-111 Co2 (Carbon Dioxide) 25.0 mmol/L 22-32 Anion Gap 5.0 mmol/L 2-11 47 Glucose 129 mg/dL High 70-100 BUN 12 mg/dL 6-24 Creatinine 0.7 mg/dL 0.50-1.40 One Over Creatinine 1.42 BUN/Creatinine Ratio 17.1 8-20 Calcium 9.1 mg/dL 8.1-9.9 Total Protein 7.1 GM/DL 6.2-8.1 Albumin 3.7 GM/DL 3.6-5.4 Globulin 3.4 GM/DL 2-4 Albumin/Globulin Ratio 1.1 1-3 Bilirubin Total 0.8 mg/dL 0.4-1.5 48 Alkaline Phosphatase 87 U/L 30-110 Alt (SGPT) 18 U/L 14-54 Ast (Sgot) 23 U/L 12-42 eGFR Non- 87.5 > 60 eGFR 112.6 > 60 49 CBC Auto Diff 04/24/2012 White Blood Count 5.0 CUMM 4.8-10.8 Red Cell Count 4.25 CUMM 4.2-5.4 Hemoglobin 12.2 g/dL 12.0-16.0 Hematocrit 36 % 35-47 Mean Corpuscular Volume 85 um3 79-97 Mean Corpuscular Hemoglob 29 pg 27-31 Mean Corpuscular HGB Cone 34 g/dL 32-36 Redcell Distribution WDTH 16 % High 10.5-15 Platelet Count 178 CUMM 150-450 Mean Platelet Volume 8.5 um3 7.4-10.4 Gran % 52.6 % 38-83 Lymph % 38.9 % 20-45 Mononuclear % 4.4 % 1-9 Eosinophil % 2.9 % 0-6 Basophil % 1.2 % 0-2 Abs Lymphs 1.9 1.0-4.8 Abs Mononuclear 0.2 0-0.8 Absolute Neutrophil Count 2.6 1.5-7.7 Abs Eosinophils 0.1 0-0.6 Abs Basophils 0.1 0-0.2 Comments 1 50 Urinalysis 03/17/2012 Ua Color YELLOW Yellow Appearance-Urine TURBID Clear Specific [place]-Ur 1.027 1.010-1.030 Esterase-Urine NEGATIVE Negative Nitrite NEGATIVE Negative [id number] NEGATIVE Negative Protein-Urine NEGATIVE Negative PH-Urine 5.0 5-9 Blood-Urine NEGATIVE Negative Ketones-Urine NEGATIVE Negative Bilirubin-Ur NEGATIVE Negative Glucose-Urine NEGATIVE Negative Protime 03/17/2012 Inr 0.85 Low 0.88-1.13 51 Protime 10.0 SEC Low 10.3-13.5 52 Laboratory test finding 03/17/2012 PTT (Aptt) 30.4 SEC 25.1-38.5 CBC No Diff 03/17/2012 White Blood Count 6.6 CUMM 4.8-10.8 Red Cell Count 4.68 CUMM 4.2-5.4 Hemoglobin 13.6 g/dL 12.0-16.0 Hematocrit 40 % 35-47 Mean Corpuscular Volume 84 um3 79-97 Mean Corpuscular Hemoglob 29 pg 27-31 Mean Corpuscular HGB Cone 34 g/dL 32-36 Redcell Distribution WDTH 15 % 10.5-15 Platelet Count 187 CUMM 150-450 Mean Platelet Volume 10.1 um3 7.4-10.4 Comp Metabolic Panel 03/17/2012 Sodium 137 mmol/L 135-145 Potassium 4.0 mmol/L 3.5-5.0 Chloride 104 mmol/L 101-111 Co2 (Carbon Dioxide) 27.0 mmol/L 22-32 Anion Gap 6.0 mmol/L 2-11 53 Glucose 102 mg/dL High 70-100 BUN 11 mg/dL 6-24 Creatinine 0.8 mg/dL 0.50-1.40 One Over Creatinine 1.25 BUN/Creatinine Ratio 13.8 8-20 Calcium 9.7 mg/dL 8.1-9.9 Total Protein 6.5 GM/DL 6.2-8.1 Albumin 3.7 GM/DL 3.6-5.4 Globulin 2.8 GM/DL 2-4 Albumin/Globulin Ratio 1.3 1-3 Bilirubin Total 0.5 mg/dL 0.4-1.5 54 Alkaline Phosphatase 90 U/L 30-110 Alt (SGPT) 20 U/L 14-54 Ast (Sgot) 20 U/L 12-42 eGFR Non- 75.0 > 60 eGFR 96.5 > 60 55 Type And Screen (Pre-Adm) 03/17/2012 Patient Blood Type B POSITIVE Antibody Screen NEGATIVE Specimen Discard Date 03/31/12 56 Laboratory test finding 03/02/2012 PTT (Aptt) 28.3 SEC 25.1-38.5 Protime 03/02/2012 Inr 0.84 Low 0.88-1.13 57 Protime 9.9 SEC Low 10.3-13.5 58 Manual Differential 03/02/2012 Polysegmented Neutrophil 63 % 38-83 Lymphocyte 32 % 25-47 Eosinophil 5 % 0-6 RBC Morphology NORMAL Comp Metabolic Panel 03/02/2012 Sodium 137 mmol/L 135-145 Potassium 4.4 mmol/L 3.5-5.0 Chloride 102 mmol/L 101-111 Co2 (Carbon Dioxide) 28.0 mmol/L 22-32 Anion Gap 7.0 mmol/L 2-11 59 Glucose 127 mg/dL High 70-100 BUN 13 mg/dL 6-24 Creatinine 0.8 mg/dL 0.50-1.40 One Over Creatinine 1.25 BUN/Creatinine Ratio 16.3 8-20 Calcium 9.6 mg/dL 8.1-9.9 Total Protein 6.8 GM/DL 6.2-8.1 Albumin 3.8 GM/DL 3.6-5.4 Globulin 3.0 GM/DL 2-4 Albumin/Globulin Ratio 1.3 1-3 Bilirubin Total 0.4 mg/dL 0.4-1.5 60 Alkaline Phosphatase 93 U/L 30-110 Alt (SGPT) 20 U/L 14-54 Ast (Sgot) 40 U/L 12-42 eGFR Non- 75.0 > 60 eGFR 96.5 > 60 61 CBC Auto Diff 03/02/2012 White Blood Count 5.8 CUMM 4.8-10.8 Red Cell Count 4.56 CUMM 4.2-5.4 Hemoglobin 13.1 g/dL 12.0-16.0 Hematocrit 39 % 35-47 Mean Corpuscular Volume 85 um3 79-97 Mean Corpuscular Hemoglob 29 pg 27-31 Mean Corpuscular HGB Cone 34 g/dL 32-36 Redcell Distribution WDTH 15 % 10.5-15 Platelet Count 202 CUMM 150-450 Mean Platelet Volume 10.1 um3 7.4-10.4 Absolute Neutrophil Count 3.7 1.5-7.7 62 Laboratory test finding 03/02/2012 Hemoglobin A1c 6.8 5-7 Comp Metabolic Panel 12/17/2011 Sodium 138 mmol/L 135-145 Potassium 4.5 mmol/L 3.5-5.0 Chloride 104 mmol/L 101-111 Co2 (Carbon Dioxide) 27.0 mmol/L 22-32 Anion Gap 7.0 mmol/L 2-11 63 Glucose 167 mg/dL High 70-100 BUN 10 mg/dL 6-24 Creatinine 0.8 mg/dL 0.50-1.40 One Over Creatinine 1.25 BUN/Creatinine Ratio 12.5 8-20 Calcium 9.6 mg/dL 8.1-9.9 Total Protein 7.0 GM/DL 6.2-8.1 Albumin 3.9 GM/DL 3.6-5.4 Globulin 3.1 GM/DL 2-4 Albumin/Globulin Ratio 1.3 1-3 Bilirubin Total 0.4 mg/dL 0.4-1.5 64 Alkaline Phosphatase 86 U/L 30-110 Alt (SGPT) 21 U/L 14-54 Ast (Sgot) 19 U/L 12-42 eGFR Non- 75.0 > 60 eGFR 96.5 > 60 65 Lipid Profile (Trig/Chol/HDL) 12/17/2011 Triglyceride 173 mg/dL 40-200 Cholesterol 206 mg/dL High Less Than 200 66 High Density Lipoprotein 49 mg/dL 40-60 67 Cholesterol/HDL Ratio 4.20 AVERAGE 1-4.44 Low Density Lipoprotein 122 mg/dL High Less Than 100 68 Urine Microalbumin Random 12/17/2011 Microalbumin (MG/L) 17.0 mg/L Urine Creatinine 118.0 mg/dL [place]/Creatinine Ratio 14.4 UG/MG Less Than 30 69 Laboratory test finding 12/17/2011 Cortisol 8.6 g/dL 70 TSH 1.77 MIU/ML 0.34-5.60 Lipid Panel - [facility] 12/17/2011 CPK (Creatine Kinase) 202 U/L High 0-170 Laboratory test finding 11/27/2011 Hemoglobin A1c 7.4 High 5-7 Oxycodone/Oxymorphone 08/04/2011 Oxycodone Quantitation NEGATIVE ng/mL ( ) Quant Oxymorphone Quant NEGATIVE ng/mL () 71 Drug Abuse 20 Urine 08/04/2011 Urine Ampetamines Negative ng/mL () 72 Urine Barbiturates Negative ng/mL () 73 Urine Benzodiazepines Negative ng/mL () 74 Urine Cocaine Negative ng/mL () 75 Urine Methadone Negative ng/mL () 76 Urine Opiates Negative ng/mL () 77 Urine Phencyclidine Negative ng/mL Cutoff: 25 Urine Propoxyphene Negative ng/mL () 78 Urine Tetrahydrocannabinol Negative ng/mL Cutoff: 20 79 Laboratory test finding 08/04/2011 Hemoglobin A1c 6.9 5-7 Urine Microalbumin Random 07/09/2011 Microalbumin (MG/L) 15.0 mg/L Urine Creatinine 57.79 mg/dL [place]/Creatinine Ratio 25.9 UG/MG Less Than 30 80 Laboratory test finding 06/02/2011 Hemoglobin A1c 8.3 High 5-7 Laboratory test finding 05/15/2011 Cytology 81 <SEE NOTE> Laboratory test finding 01/22/2011 Hemoglobin A1c 9.4 High 5-7 Comp Metabolic Panel 11/25/2010 Sodium 137 mmol/L 135-145 Potassium 4.4 mmol/L 3.5-5.0 Chloride 105 mmol/L 101-111 Co2 (Carbon Dioxide) 22.0 mmol/L 22-32 Anion Gap 10.0 mmol/L 2-11 82 Glucose 188 mg/dL High 70-100 BUN 11 mg/dL 6-24 Creatinine 0.70 mg/dL 0.50-1.40 One Over Creatinine 1.40 BUN/Creatinine Ratio 15.7 8-20 Calcium 9.0 mg/dL 8.1-9.9 Total Protein 6.3 GM/DL 6.2-8.1 Albumin 3.8 GM/DL 3.6-5.4 Globulin 2.5 GM/DL 2-4 Albumin/Globulin Ratio 1.5 1-3 Bilirubin Total 0.6 mg/dL 0.4-1.5 83 Alkaline Phosphatase 95 U/L 30-110 Alt (SGPT) 37 U/L 14-54 Ast (Sgot) 35 U/L 12-42 eGFR Non- 87.9 > 60 eGFR 113.0 > 60 84 Lipid Panel - [facility] 11/25/2010 CPK (Creatine Kinase) 187 U/L High 0-170 Lipid Profile 11/25/2010 Triglyceride 200 mg/dL 40-200 (Trig/Chol/HDL) Cholesterol 171 mg/dL Less Than 200 85 High Density Lipoprotein 49 mg/dL 40-60 86 Cholesterol/HDL Ratio 3.49 AVERAGE 1-4.44 Low Density Lipoprotein 82 mg/dL Less Than 100 87 Laboratory test finding 10/22/2010 Hemoglobin A1c 10.3 High 5-7 1 SEE RESULT BELOW Name: CHASITY JEFFERSON : [address]: Robbie Buck MD Acct: [id number] Unit: [id number] AGE: 56 Location: ENDO Re07/14/17 SEX: F Status: DEP REF SPEC: [id number] GE[place]GIN[place]: 07/14/17 [facility] DR: Robbie Buck MD REQ: [id number] RECD: 07/14/17-1252 STATUS: LADONNA CASTILLO DR: Andrea Engle MD _ ORDERED: LEVEL 4/2 FINAL DIAGNOSIS 1. Colon, descending, biopsy: -- Tubular adenoma. -- No high grade dysplasia or malignancy. 2. Colon, transverse, biopsy: -- Hyperplastic polyp. CLINICAL HISTORY Considering GI bleed POST-OPERATIVE DIAGNOSIS Larynx - symmetric; esophagus - normal x 40, snug, ? varices, CLOtest; stomach and duodenum - normal. Colonoscopy - poor prep - views fair - 2 nodules, all rest negative. Digital rectal exam - vaginal foreign body. Conclusions/Plan: Normal EGD; ? esophageal views; colon polyps, vaginal foreign body GROSS DESCRIPTION 1. The specimen is received in formalin labeled, Biopsy Descending Colon Polyp, and consists of a 0.7 x 0.2 x 0.2 cm kothari-pink irregular soft tissue fragment which is submitted entirely in one cassette. 2. The specimen is received in formalin labeled, Biopsy Transverse Colon Polyp, and consists of a 0.6 by up to 0.2 x 0.2 cm kothari-pink irregular soft tissue fragment which is submitted entirely in one cassette. Signed (signature on file) Shy Cerna MD 01/26 1043 END OF REPORT * ML=Testing performed at Main Lab DEPARTMENT OF PATHOLOGY, [address] [place] [address] Kev Tyler M.D. Director [facility] # [id number] 2 SEE RESULT BELOW Name: CHASITY JEFFERSON : [address]: Robbie Buck MD Acct: [id number] Unit: [id number] AGE: 56 Location: ENDO Re07/14/17 SEX: F Status: REG REF SPEC: [id number] [place]: 07/14/17 [facility] DR: Robbie Buck MD REQ: [id number] RECD: 07/14/17 STATUS: LEWIS CASTILLO DR: Andrea Engle MD _ SOURCE: GAS ANTRUM SPDESC: ORDERED: Clotest Procedure Result Reported Site Clotest Final 07/14/17- 1512 ML Clotest Positive * ML - MAIN LAB (PSC1) . END OF REPORT * ML=Testing performed at Main Lab DEPARTMENT OF PATHOLOGY, [address] [place] [address] Kev Tyler M.D. Director [facility] # [id number] 3 Nuclear Medicine Technician: [id number] Desirable <150 Borderline high 150-199 High 200-499 Very High >500 5 Desirable <200 Borderline high 200-239 High >239 6 Low <40 Desirable: 40-60 High: >60 7 Desirable: <100 mg/dL Near Optimal: 100-129 mg/dL Borderline High: 130-159 mg/dL High: 160-189 mg/dL Very High: >189 mg/dL 8 Therapeutic target for the treatment of diabetes Mellitus patients is <7% HBA1C, and in selective patients <6.0%.Please refer to [place] [employer] Diabetic care guidelines for further information. 9 Therapeutic target for the treatment of diabetes Mellitus patients is <7% HBA1C, and in selective patients <6.0%.Please refer to [place] [employer] Diabetic care guidelines for further information. 10 Because ethnic data is not always readily available, this report includes an eGFR for both -Americans and non- Americans. The National Kidney Disease Education Program (NKDEP) does not endorse the use of the MDRD equation for patients that are not between the ages of 18 and 70, are , have extremes of body size, muscle mass, or nutritional status, or are non- or non-. According to the National Kidney Foundation, irrespective of diagnosis, the stage of the disease is based on the level of kidney function: Stage Description GFR(mL/min/1.73 m(2)) 1 Kidney damage with normal or decreased GFR 90 2 Kidney damage with mild decrease in GFR 60-89 3 Moderate decrease in GFR 30-59 4 Severe decrease in GFR 15-29 5 Kidney failure <15 (or dialysis) 11 Normal Range 180 to 914 Indeterminate Range 145 to 180 Deficient Range <145 12 ADDITIONAL INFORMATION This test was developed and its performance characteristics determined by [facility] in a manner consistent with CLIA requirements. This test has not been cleared or approved by the U.S. Food and Drug Administration. Test Performed by: [facility] [place] [address] Provider Network Analyst: Pierre Park II, M.D., Ph.D. 13 ADDITIONAL INFORMATION This test was developed and its performance characteristics determined by [facility] in a manner consistent with CLIA requirements. This test has not been cleared or approved by the U.S. Food and Drug Administration. Test Performed by: [place] [address] Provider Network Analyst: Pierre Park II, M.D., Ph.D. 14 AM 8.7-22.4 PM <10 15 Because ethnic data is not always readily available, this report includes an eGFR for both -Americans and non- Americans. The National Kidney Disease Education Program (NKDEP) does not endorse the use of the MDRD equation for patients that are not between the ages of 18 and 70, are , have extremes of body size, muscle mass, or nutritional status, or are non- or non-. According to the National Kidney Foundation, irrespective of diagnosis, the stage of the disease is based on the level of kidney function: Stage Description GFR(mL/min/1.73 m(2)) 1 Kidney damage with normal or decreased GFR 90 2 Kidney damage with mild decrease in GFR 60-89 3 Moderate decrease in GFR 30-59 4 Severe decrease in GFR 15-29 5 Kidney failure <15 (or dialysis) 16 Therapeutic target for the treatment of diabetes Mellitus patients is <7% HBA1C, and in selective patients <6.0%.Please refer to [place] Diabetes Association Diabetic care guidelines for further information. 17 Therapeutic target for the treatment of diabetes Mellitus patients is <7% HBA1C, and in selective patients <6.0%.Please refer to [place] Diabetes Association Diabetic care guidelines for further information. 18 Desirable <150 Borderline high 150-199 High 200-499 Very High >500 19 Desirable <200 Borderline high 200-239 High >239 20 Low <40 Desirable: 40-60 High: >60 21 Desirable: <100 mg/dL Near Optimal: 100-129 mg/dL Borderline High: 130-159 mg/dL High: 160-189 mg/dL Very High: >189 mg/dL 22 Because ethnic data is not always readily available, this report includes an eGFR for both -Americans and non- Americans. The National Kidney Disease Education Program (NKDEP) does not endorse the use of the MDRD equation for patients that are not between the ages of 18 and 70, are , have extremes of body size, muscle mass, or nutritional status, or are non- or non-. According to the National Kidney Foundation, irrespective of diagnosis, the stage of the disease is based on the level of kidney function: Stage Description GFR(mL/min/1.73 m(2)) 1 Kidney damage with normal or decreased GFR 90 2 Kidney damage with mild decrease in GFR 60-89 3 Moderate decrease in GFR 30-59 4 Severe decrease in GFR 15-29 5 Kidney failure <15 (or dialysis) 23 It is recognized that currently available assays for the detection of antibodies to HIV-1 and/or HIV-2 may not detect all infected individuals. HIV antibodies may be undetectable in some stages of the infection and in some clinical conditions. The performance of this assay has not been established for populations of infants or children. Assayed by Chemiluminescence Microparticle Immunoassay on the Siemens Advia Centaur CP. Values obtained with different methods or kits cannot be used interchangeably.The diagnostic specificity of the ADVIA Centaur 1/O/2 Enhanced assay in the low risk population was 99.90% (6052/6058) with a 95% confidence interval of 99.78 to 99.96%. 24 Desirable <150 Borderline high 150-199 High 200-499 Very High >500 25 Desirable <200 Borderline high 200-239 High >239 26 Low <40 Desirable: 40-60 High: >60 27 Desirable <100 Near Optimal 100-129 Borderline high 130-159 High 160-189 Very High >189 28 Because ethnic data is not always readily available, this report includes an eGFR for both -Americans and non- Americans. The National Kidney Disease Education Program (NKDEP) does not endorse the use of the MDRD equation for patients that are not between the ages of 18 and 70, are , have extremes of body size, muscle mass, or nutritional status, or are non- or non-. According to the National Kidney Foundation, irrespective of diagnosis, the stage of the disease is based on the level of kidney function: Stage Description GFR(mL/min/1.73 m(2)) 1 Kidney damage with normal or decreased GFR 90 2 Kidney damage with mild decrease in GFR 60-89 3 Moderate decrease in GFR 30-59 4 Severe decrease in GFR 15-29 5 Kidney failure <15 (or dialysis) 29 Microalbuminuria in a random sample is defined as: Microalbumin/Creatinine ratio of 30-299 ug/mg. 30 RUN DATE: 02/09/13 [facility] LAB LIVE PAGE 1 RUN TIME: [address] [place] [address] Specimen Inquiry Name: CHASITY JEFFERSON : [address]: Sofiya Webber MD Acct: [id number] Unit: [id number] AGE: 52 Location: [facility] Re02/08/13 SEX: F Status: REG REF SPEC: [id number] GEORGINA: 02/08/13-9624 [facility] DR: Sofiya Webber MD REQ: [id number] RECD: 02/08/13 STATUS: SOUT _ ORDERED: IMAGE ANALYSIS FINAL DIAGNOSIS Negative for Intraepithelial lesion or Malignancy A. Ectocervical/Endocervical Specimen Adequacy: Satisfactory of evaluation Transformation zone component not identified Patient Information: HPV: Thin Layer Pap Test w/reflex to high risk HPV DNA testing when ASCUS Actual Specimen Date: 02/08/13 Post Menopausal?: Y Previous Abnormal Pap Smears?:N Signed (signature on file) DARRON Jeffers (ASCP) 02/09 7653 This Pap test was evaluated with the assistance of the ThinPrep Test Imaging System. Due to cytologic findings at the central sterile technician microscope, comprehensive manual rescreening by a General Counselor may be required. The Pap Smear is a screening test designed to aid in the detection of premalignant and malignant conditions of the uterine cervix. It is not a diagnostic procedure and should not be used as the sole means of detecting cervical cancer. Both false- positive and false- negative reports do occur. Depending on your risk status, a Pap smear shoudl be obtained and evaluated every 1-3 years. END OF REPORT * ML=Testing performed at Main Lab DEPARTMENT OF PATHOLOGY, [address] [place] [address] Kev Tyler M.D. Director [facility] Permit #[id number] 31 Microalbuminuria in a random sample is defined as: Microalbumin/Creatinine ratio of 30-299 ug/mg. 32 A metabolite of Naproxen, O-desmethylnaproxen, has been shown to interfere with the Jendrassik-Morro method for measuring total bilirubin. Samples from patients who have taken Naproxen have shown spurious elevation in total bilirubin levels. 33 Because ethnic data is not always readily available, this report includes an eGFR for both -Americans and non- Americans. The National Kidney Disease Education Program (NKDEP) does not endorse the use of the MDRD equation for patients that are not between the ages of 18 and 70, are , have extremes of body size, muscle mass, or nutritional status, or are non- or non-. According to the National Kidney Foundation, irrespective of diagnosis, the stage of the disease is based on the level of kidney function: Stage Description GFR(mL/min/1.73 m(2)) 1 Kidney damage with normal or decreased GFR 90 2 Kidney damage with mild decrease in GFR 60-89 3 Moderate decrease in GFR 30-59 4 Severe decrease in GFR 15-29 5 Kidney failure <15 (or dialysis) 34 HDL Interpretation: Undesirable: High Risk: Less than 40 MG/DL Desirable: Low Risk: Greater than 60 MG/DL 35 LDL Interpretation: Low Risk Optimal Level: LDL Less than 100 MG/DL Near or Above Optimal: LDL 100-129 MG/DL Borderline High Risk: LDL 130-159 MG/DL High Risk: LDL 160-189 MG/DL Very High Risk: LDL Greater than 189 MG/DL 36 COMMENTS: U 37 Anion gap measurement may be of limited value in the presence of any alkalosis, especially in a combined acid base disorder. . 38 A metabolite of Naproxen, O-desmethylnaproxen, has been shown to interfere with the Jendrassik-Morro method for measuring total bilirubin. Samples from patients who have taken Naproxen have shown spurious elevation in total bilirubin levels. 39 Because ethnic data is not always readily available, this report includes an eGFR for both -Americans and non- Americans. The National Kidney Disease Education Program (NKDEP) does not endorse the use of the MDRD equation for patients that are not between the ages of 18 and 70, are , have extremes of body size, muscle mass, or nutritional status, or are non- or non-. According to the National Kidney Foundation, irrespective of diagnosis, the stage of the disease is based on the level of kidney function: Stage Description GFR(mL/min/1.73 m(2)) 1 Kidney damage with normal or decreased GFR 90 2 Kidney damage with mild decrease in GFR 60-89 3 Moderate decrease in GFR 30-59 4 Severe decrease in GFR 15-29 5 Kidney failure <15 (or dialysis) 40 Recommended INR for Patients on Oral Anticoagulants Prophylaxis 2.0 - 3.0 Treatment of thrombosis 2.0 - 3.0 Prevention of embolism 2.0 - 3.0 Prevention of embolism from prosthetic heart valves 2.5 - 3.5 41 DIAGNOSIS,TREATMENT,AND THERAPY MUST BE BASED ON THE INR VALUE ALONE. 42 RUN DATE: 04/27/12 [facility] NMI LIVE PAGE 1 RUN TIME: 1128 Specimen Inquiry RUN USER: INTERFACE Name: CHASITY JEFFERSON Status: REG [facility] Re04/26/12 Age/Sex: 51/F Unit#: [id number] Location: [facility] : 56 SPEC #: [id number] GEORGINA: 04/26/12 STATUS: RES REQ #: [id number] RECD: 04/26/[address]: Kia DANIELLE,Alan Thompson SOURCE: WOUND ENTR: 04/26/[address]: Nasima DANIELLE, Yosvany Bowden SPDESC: KNEE,RIGHT ORDERED: CULT SENS/GS, ANAEROBIC CULT COMMENTS: LOOK FOR MRSA VRE ACT WKST: B 04/27/12 #1 Procedure Result Verified Site > CULTURE SENSITIVITY Preliminary -1127 ML PRELIMINARY: NO GROWTH DAY 1 > GRAM STAIN SMEAR Final -1514 ML POLYS FEW SMEAR: NO ORGANISMS SEEN BY DIRECT SMEAR > ANAEROBIC CULTURE Preliminary -1127 ML PRELIMINARY: NO GROWTH DAY 1 ML - [facility] Permit #[id number] [address] [place] [address] DEPARTMENT OF PATHOLOGY, [address] [place] [address] [facility] Permit #[id number] Doc Franco M.D. Physical Therapy Manager 43 Recommended INR for Patients on Oral Anticoagulants Prophylaxis 2.0 - 3.0 Treatment of thrombosis 2.0 - 3.0 Prevention of embolism 2.0 - 3.0 Prevention of embolism from prosthetic heart valves 2.5 - 3.5 44 DIAGNOSIS,TREATMENT,AND THERAPY MUST BE BASED ON THE INR VALUE ALONE. 45 RUN DATE: 04/29/12 [facility] NMI LIVE PAGE 1 RUN TIME: 3 Specimen Inquiry RUN USER: INTERFACE Name: JEFFERSONCHASITY Status: EMILY COULTER Re04/24/12 Age/Sex: 51/F Unit#: [id number] Location: [place] : 56 SPEC #: [id number] GEORGINA: 04/24/12-3 STATUS: LEWIS LOPEZ #: [id number] RECD: 04/24/12-1642 [facility] DR: Ed DANIELLE,Jaylon Thompson SOURCE: BLOOD ENTR: 04/24/12-[address]: Nasima DANIELLE, Yosvany Bowden [facility]: BLOOD,VENO ORDERED: BLOOD CULTURE ACT WKST: 04/25/12 #1 Procedure Result Verified Site > AEROBIC CULTURE BOTTLE Final ML NO GROWTH AFTER 5 DAYS > ANAEROBIC CULTURE BOTTLE Final ML NO GROWTH AFTER 5 DAYS ML - [facility] Permit #[id number] [address] [place] [address] DEPARTMENT OF PATHOLOGY, [address] [place] [address] [facility] Permit #[id number] Kev Tyler M.D. Director Dede Mendoza M.D. Physical Therapy Manager 46 RUN DATE: 04/26/12 [facility] NMI LIVE PAGE 1 RUN TIME: 1220 Specimen Inquiry RUN USER: INTERFACE Name: JEFFERSONCHASITY Status: EMILY COULTER Re04/24/12 Age/Sex: 51/F Unit#: [id number] Location: [place] [facility]. : 56 SPEC #: [id number] GEORGINA: 04/24/12 STATUS: LEWIS REQ #: [id number] RECD: 04/24/12 [facility] DR: Ed DANIELLE,Jaylon Thompson SOURCE: WOUND ENTR: 04/24/[address]: Nasima DANIELLE, Yosvany Bowden SPDESC: KNEE,RIGHT ORDERED: CULT SENS/GS ACT WKST: B 04/26/12 #1 Procedure Result Verified Site > CULTURE SENSITIVITY Final -1220 ML NORMAL CUTANEOUS ERVIN SUGGEST RESUBMISSION. > GRAM STAIN SMEAR Final -07 ML POLYS RARE SMEAR: FEW EPITHELIAL CELLS MANY GRAM POSITIVE COCCI MANY GRAM POSITIVE BACILLI ML - [facility] Permit #[id number] [address] [place] [address] DEPARTMENT OF PATHOLOGY, [address] [place] [address] [facility] Permit #[id number] Kev Tyler M.D. Director Dede Mendoza M.D. Physical Therapy Manager 47 Anion gap measurement may be of limited value in the presence of any alkalosis, especially in a combined acid base disorder. . 48 A metabolite of Naproxen, O-desmethylnaproxen, has been shown to interfere with the Jendrassik-Morro method for measuring total bilirubin. Samples from patients who have taken Naproxen have shown spurious elevation in total bilirubin levels. 49 Because ethnic data is not always readily available, this report includes an eGFR for both -Americans and non- Americans. The National Kidney Disease Education Program (NKDEP) does not endorse the use of the MDRD equation for patients that are not between the ages of 18 and 70, are , have extremes of body size, muscle mass, or nutritional status, or are non- or non-. According to the National Kidney Foundation, irrespective of diagnosis, the stage of the disease is based on the level of kidney function: Stage Description GFR(mL/min/1.73 m(2)) 1 Kidney damage with normal or decreased GFR 90 2 Kidney damage with mild decrease in GFR 60-89 3 Moderate decrease in GFR 30-59 4 Severe decrease in GFR 15-29 5 Kidney failure <15 (or dialysis) 50 [id number] 51 Recommended INR for Patients on Oral Anticoagulants Prophylaxis 2.0 - 3.0 Treatment of thrombosis 2.0 - 3.0 Prevention of embolism 2.0 - 3.0 Prevention of embolism from prosthetic heart valves 2.5 - 3.5 52 DIAGNOSIS,TREATMENT,AND THERAPY MUST BE BASED ON THE INR VALUE ALONE. 53 Anion gap measurement may be of limited value in the presence of any alkalosis, especially in a combined acid base disorder. . 54 A metabolite of Naproxen, O-desmethylnaproxen, has been shown to interfere with the Jendrassik-[place] method for measuring total bilirubin. Samples from patients who have taken Naproxen have shown spurious elevation in total bilirubin levels. 55 Because ethnic data is not always readily available, this report includes an eGFR for both -Americans and non- Americans. The National Kidney Disease Education Program (NKDEP) does not endorse the use of the MDRD equation for patients that are not between the ages of 18 and 70, are , have extremes of body size, muscle mass, or nutritional status, or are non- or non-. According to the National Kidney Foundation, irrespective of diagnosis, the stage of the disease is based on the level of kidney function: Stage Description GFR(mL/min/1.73 m(2)) 1 Kidney damage with normal or decreased GFR 90 2 Kidney damage with mild decrease in GFR 60-89 3 Moderate decrease in GFR 30-59 4 Severe decrease in GFR 15-29 5 Kidney failure <15 (or dialysis) 56 PREADMISSION TESTING SAMPLES FOR BLOOD BANK WILL BE HELD FOR 14 DAYS FROM THE DATE OF COLLECTION *IF* THE FOLLOWING CRITERIA ARE MET: 1) THE PATIENT HAS *NOT* BEEN IN THE LAST 3 MONTHS. 2) THE PATIENT HAS *NOT* BEEN TRANSFUSED IN THE LAST 3 MONTHS. PREADMISSION TESTING SAMPLES WILL *NOT* BE HELD FOR 14 DAYS FROM PATIENTS WHO IN THE LAST 3 MONTHS: 1) HAVE BEEN 2) HAVE BEEN TRANSFUSED THESE PATIENTS *MUST* BE COLLECTED WITHIN 3 DAYS OF THE SURGERY DATE. 57 Recommended INR for Patients on Oral Anticoagulants Prophylaxis 2.0 - 3.0 Treatment of thrombosis 2.0 - 3.0 Prevention of embolism 2.0 - 3.0 Prevention of embolism from prosthetic heart valves 2.5 - 3.5 58 DIAGNOSIS,TREATMENT,AND THERAPY MUST BE BASED ON THE INR VALUE ALONE. 59 Anion gap measurement may be of limited value in the presence of any alkalosis, especially in a combined acid base disorder. . 60 A metabolite of Naproxen, O-desmethylnaproxen, has been shown to interfere with the Jendrassik-[place] method for measuring total bilirubin. Samples from patients who have taken Naproxen have shown spurious elevation in total bilirubin levels. 61 Because ethnic data is not always readily available, this report includes an eGFR for both -Americans and non- Americans. The National Kidney Disease Education Program (NKDEP) does not endorse the use of the MDRD equation for patients that are not between the ages of 18 and 70, are , have extremes of body size, muscle mass, or nutritional status, or are non- or non-. According to the National Kidney Foundation, irrespective of diagnosis, the stage of the disease is based on the level of kidney function: Stage Description GFR(mL/min/1.73 m(2)) 1 Kidney damage with normal or decreased GFR 90 2 Kidney damage with mild decrease in GFR 60-89 3 Moderate decrease in GFR 30-59 4 Severe decrease in GFR 15-29 5 Kidney failure <15 (or dialysis) 62 Imm. NE 1 63 Anion gap measurement may be of limited value in the presence of any alkalosis, especially in a combined acid base disorder. . 64 A metabolite of Naproxen, O-desmethylnaproxen, has been shown to interfere with the Jendrassik-Morro method for measuring total bilirubin. Samples from patients who have taken Naproxen have shown spurious elevation in total bilirubin levels. 65 Because ethnic data is not always readily available, this report includes an eGFR for both -Americans and non- Americans. The National Kidney Disease Education Program (NKDEP) does not endorse the use of the MDRD equation for patients that are not between the ages of 18 and 70, are , have extremes of body size, muscle mass, or nutritional status, or are non- or non-. According to the National Kidney Foundation, irrespective of diagnosis, the stage of the disease is based on the level of kidney function: Stage Description GFR(mL/min/1.73 m(2)) 1 Kidney damage with normal or decreased GFR 90 2 Kidney damage with mild decrease in GFR 60-89 3 Moderate decrease in GFR 30-59 4 Severe decrease in GFR 15-29 5 Kidney failure <15 (or dialysis) 66 CHOLESTEROL INTERPRETATION: Desirable: Less than 200 MG/DL Borderline-High Risk: 200-239 MG/DL High-Risk: 240 MG/DL and over 67 HDL INTERPRETATION: Undesirable: High Risk: Less than 40 MG/DL Desirable: Low Risk: Greater than 60 MG/DL 68 LDL INTERPRETATION: Low Risk Optimal Level: LDL Less than 100 MG/DL Near or Above Optimal: LDL 100-129 MG/DL Borderline High Risk: LDL 130-159 MG/DL High Risk: LDL 160-189 MG/DL Very High Risk: LDL Greater than 189 MG/DL 69 MICROALBUMINURIA IN A RANDOM SAMPLE IS DEFINED : MICROALBUMIN/CREATININE RATIO OF 30-299 ug/mg. . 70 REFERENCE RANGE: AM 8.7-22.4 PM LESS THAN 10 . 71 Reference ranges have not been established for urine specimens. This specimen was handled by [facility] as a forensic specimen under chain of custody protocol. Test Performed by:[facility], [employer]. [address] [place] [address] 72 -- REFERENCE VALUE -- Cutoff: 500 73 -- REFERENCE VALUE -- Cutoff: 200 74 -- REFERENCE VALUE -- Cutoff: 200 75 -- REFERENCE VALUE -- Cutoff: 300 76 -- REFERENCE VALUE -- Cutoff: 300 77 -- REFERENCE VALUE -- Cutoff: 300 78 -- REFERENCE VALUE -- Cutoff: 300 79 This report is intended for use in clinical monitoring or management of patients. It is not intended for use in employment-related testing. Test Performed by: [facility] Dpt of Lab Med and Pathology [address] [place], [place] [id number] Provider Network Analyst: Ash R. Cockerill, III, M.D. 80 MICROALBUMINURIA IN A RANDOM SAMPLE IS DEFINED : MICROALBUMIN/CREATININE RATIO OF 30-299 ug/mg. . 81 ---- RUN DATE: 05/16/11 [facility] NMI LIVE PAGE 1 RUN TIME: 1507 Specimen Inquiry RUN USER: INTERFACE -- Name: CHASITY JEFFERSON Yolanda Status: REG REF Re05/15/11 Age/Sex: 50/F Unit#: [id number] Location: [facility] : 56 -- Specimen: [id number] SOUT Spec Date: 05/15/[address]: Almaz jonas MD Spec Type: CYTOLOGY Received: 05/16/11 Copies to: SOURCE ECTOCERVICAL/ENDOCERVICAL Thin Prep with Reflex HPV Test PATIENT INFORMATION ACTUAL COLLECTION DATE: 05/15/11 POST MENOPAUSAL? Yes ADEQUACY OF SPECIMEN Satisfactory for evaluation * Transformation zone component identified * DIAGNOSIS NEGATIVE FOR INTRAEPITHELIAL LESION OR MALIGNANCY * This Pap test was evaluated with the assistance of the Amie Street[employer] Pap Test Imaging System. The Pap Smear is a screening test designed to aid in the detection of premalign ant and malignant conditions of the uterine cervix. It is not a diagnostic procedure a nd should not be used as the sole means of detecting cervical cancer. Both false- positiv e and false-negative reports do occur. Depending on your risk status, a Pap smear paola uld be obtained and evaluated every one to three years. Final Interpretation electronically signed by: Yolanda CARDONA([facility]) 05/16/11 150 6 -- -- DEPARTMENT OF PATHOLOGY, [address] [place] [address] [facility] Permit #[id number] Kev Tyler M.D. Director Dede Mendoza M.D. Integrative Medicine Physician Dir swartz -- 82 Anion gap measurement may be of limited value in the presence of any alkalosis, especially in a combined acid base disorder. . 83 A metabolite of Naproxen, O-desmethylnaproxen, has been shown to interfere with the Jendrassik-[place] method for measuring total bilirubin. Samples from patients who have taken Naproxen have shown spurious elevation in total bilirubin levels. 84 Because ethnic data is not always readily available, this report includes an eGFR for both -Americans and non- Americans. The National Kidney Disease Education Program (NKDEP) does not endorse the use of the MDRD equation for patients that are not between the ages of 18 and 70, are , have extremes of body size, muscle mass, or nutritional status, or are non- or non-. According to the National Kidney Foundation, irrespective of diagnosis, the stage of the disease is based on the level of kidney function: Stage Description GFR(mL/min/1.73 m(2)) 1 Kidney damage with normal or decreased GFR 90 2 Kidney damage with mild decrease in GFR 60-89 3 Moderate decrease in GFR 30-59 4 Severe decrease in GFR 15-29 5 Kidney failure <15 (or dialysis) 85 CHOLESTEROL INTERPRETATION: Desirable: Less than 200 MG/DL Borderline-High Risk: 200-239 MG/DL High-Risk: 240 MG/DL and over 86 HDL INTERPRETATION: Undesirable: High Risk: Less than 40 MG/DL Desirable: Low Risk: Greater than 60 MG/DL 87 LDL INTERPRETATION: Low Risk Optimal Level: LDL Less than 100 MG/DL Near or Above Optimal: LDL 100-129 MG/DL Borderline High Risk: LDL 130-159 MG/DL High Risk: LDL 160-189 MG/DL Very High Risk: LDL Greater than 189 MG/DL Procedures Date CPT Code Description Status Comment 07/14/2017 Colonoscopy Completed 12/08/2016 Mammogram Completed 11/14/2016 Diabetic Retinal Eye Exam Completed 12/21/2014 96845 Diffusing Capacity Completed 12/21/2014 62701 Plethysmography Determination Completed Lung Volumes & Per Airway Resist 12/21/2014 49202 Pulmonary Completed Function><Bronchodil 09/20/2013 Diabetic Retinal Eye Exam Completed 03/14/2013 99537 Pulse Oximetry-Mutl Determ Completed 03/14/2013 80846 Inhalation TX For Acute Airway Completed Obstruction W/Nebulizer/Inhaler 01/13/2013 Mammogram Completed 03/12/2012 97542 Color Flow Doppler/Interp & Completed Reprt 03/12/2012 64615 Pulse Wave/Continuous-Interp.RPT Completed 03/12/2012 56361 ECHO Transthorasic Realtime 2D W Completed Doppler & Color Flow Hosp 03/02/2012 31476 EKG Tracing & Interpretation Completed 05/21/2011 Mammogram Completed 02/27/2011 41129 Stress Test Supervsn W/Out I/R Completed 02/27/2011 23487 Treadmill Interp/Report Only Completed 01/22/2011 34731 EKG Tracing & Interpretation Completed 10/12/2008 Colonoscopy Completed Document: 09/25/10 - History 09/13/2008 33410 Deposition Completed Encounters Type Date Location Provider CPT E/M Dx Office Visit 11/11/2017 9:40a [facility] Internal Andera Eng[place], [address] E11.22 Medicine - [place] Surinder Roach,FACP G89.4 J45.41 Office Visit 09/16/2017 8:20a [facility] Internal Andrea Engle, 56992 E11.22 Medicine - [place] Surinder Roach,FACP Office Visit 06/17/2017 11:20a [facility] Internal Andrea Engle, 11506 E11.22 Medicine - [place] Surinder Roach,FACP E78.2 I10 E66.01 Z23 Office Visit 03/05/2017 8:30a [facility] Internal Andrea Engle, 30354 Z00.01 Medicine - [place] Surinder Roach,FACP E11.65 J44.9 E66.01 M48.06 Z12.11 Office Visit 12/10/2016 1:00p [facility] Internal Andrea Engle, 09489 Z01.810 Medicine - [place] Surinder Roach,FACP E11.65 H33.311 J44.9 Office Visit 11/10/2016 8:30a [facility] [place] [address] E66.01 Enamel Sprayer E11.65 Z71.3 Office Visit 10/31/2016 9:40a [facility] Internal Andrea Engle, 53390 E11.65 Medicine - [place] Surinder Roach,FACP E66.01 Z12.31 Office Visit 09/29/2016 1:45p [facility] [place] [address] E66.01 Enamel Sprayer I10 E11.65 Z72.0 M48.06 Office Visit 09/17/2016 2:20p [facility] Internal Andrea Engle, 64851 E11.65 Medicine - [place] Surinder Roach,FACP E66.01 I10 Office Visit 07/16/2016 2:00p [facility] Internal Andrea Engle, 14496 E11.65 Medicine - [place] Surinder Roach,FACP Z12.2 Z72.0 Office Visit 04/23/2016 2:40p [facility] Internal Andrea Engle, 63039 E11.65 Medicine - [place] Surinder Roach,FACP M48.06 Office Visit 03/27/2016 11:15a [facility] [place], 61469 M48.06 Of Lianet Roach Office Visit 03/20/2016 3:00p [facility] Internal Medicine - Andrea Engle, 70648 E11.65 [place] Surinder Roach,FACP M54.42 Office Visit 03/11/2016 11:20a [facility] Internal Medicine Sindy Brito, DIANA [address] Office Visit 10/26/2015 4:00p [facility] [place] [address] Office Visit 07/17/2015 1:00p [facility] Internal Medicine Sindy Brito, DIANA [address] R05 Z23 493.00 Office Visit 04/18/2015 3:00p [facility] Internal Andrea Engle, 13048 716.98 Medicine - [place] Surinder Roach,FACP 724.4 Office Visit 01/24/2015 10:30a [facility] Internal Medicine Sindy Brito, DIANA [address] 786.07 786.2 305.1 Office Visit 12/20/2014 9:30a [facility] Internal Medicine Sindy Brito, DIANA [address] 250.02 278.01 493.00 305.1 401.1 493.90 Office Visit 11/15/2014 11:50a [facility] Internal Andrea Engle, 17052 250.02 Medicine - [place] Surinder Roach,FACP 715.16 535.51 490 786.30 Office Visit 07/27/2014 10:10a [facility] Internal Medicine Andrea Engle, 68324 250.02 - Awa Roach,FACP 721.3 535.41 V65.44 618.2 V02.62 V04.81 Office Visit 02/28/2014 10:30a [facility] Internal Medicine Andrea Engle, 70398 250.02 - Awa Roach,FACP Office Visit 10/19/2013 10:30a [facility] Internal Medicine [facility] 86751 366.8 - Awa Mendez, N.PSylwia 786.50 794.31 250.02 272.4 401.9 305.1 Office Visit 08/25/2013 9:50a [facility] Internal Medicine Andrea Engle, 66567 250.02 - Awa Roach,FACP 788.39 305.1 V04.81 788.41 Office Visit 06/23/2013 10:10a [facility] Internal Medicine Andrea Engle, 55179 250.02 - Awa Roach,FACP Office Visit 04/26/2013 1:40p [facility] Internal Medicine Yosvany Del Real 93598 250.00 - Awa Roach 311 535.40 496 Office Visit 04/26/2013 1:23p [facility] Internal Yosvany [place] 86831 722.93 Tina Billings M.D. Office Visit 03/14/2013 9:20a [facility] Internal Yosvany [place] 86772 535.40 Tina Billings M.D. 496 311 Office Visit 02/08/2013 1:00p [facility] Internal Medicine Yosvany Del Real 96575 721.3 - Awa Roach 722.93 Office Visit 02/08/2013 2:30p [facility] Internal Medicine Sofiya Webber M.D. 40996 V76.2 - Awa 625.6 401.9 V72.31 Office Visit 02/01/2013 9:40a [facility] Internal Medicine Yosvany Del [place], 97642 401.9 - Awa Roach 272.4 496 305.1 311 278.01 V70.0 250.00 Office Visit 01/03/2013 10:40a [facility] Internal Medicine Yosvany Del [place], 01104 272.4 - Awa Roach 401.9 401.9 272.4 496 496 250.00 250.00 V76.10 305.1 311 278.01 Office Visit 11/24/2012 9:30a [facility] Internal Medicine - Andrea Enlge, 95986 721.3 Awa Roach,[facility] Office Visit 11/03/2012 9:00a [facility] Georges Lora, 70178 721.3 Of Lianet Roach 721.3 Office Visit 10/28/2012 10:40a [facility] Internal Medicine Barry Lofton, 89066 722.93 - Awa Roach Office Visit 09/08/2012 10:00a [facility] Internal Medicine Yosvany Del Real, 44746 722.93 - Awa Roach Office Visit 08/30/2012 8:20a [facility] Internal Medicine Yosvany Del Real, 02852 401.9 - Awa Roach 272.4 496 250.00 278.00 Office Visit 07/19/2012 8:40a [facility] Internal Yosvany Del Real 29025 722.93 Tina Billings M.D. Office Visit 07/05/2012 10:40a [facility] Internal Yosvany [place], 26123 722.93 Tina Billings M.D. Office Visit 06/23/2012 8:00a [facility] Internal Yosvany [place] 06489 250.00 Tina Billings M.D. 041.19 Office Visit 06/09/2012 8:00a [facility] Internal Yosvany Del [place], 03814 250.00 Medicine Sindy Billings M.D. 278.00 305.1 401.9 V03.82 V04.81 Office Visit 05/21/2012 11:20a [facility] Internal Medicine Almaz Sherwood M.D. 67661 250.00 - [place] Office Visit 03/10/2012 1:40p [facility] Nelia Sifuentes, 36622 V72.81 D.O. 794.31 786.09 401.9 250.00 496 466.0 272.4 Office Visit 03/09/2012 1:40p [facility] Internal [facility], 36129 722.93 [facility] M.D. Office Visit 03/02/2012 8:20a [facility] Internal [facility], 83715 401.9 [facility] M.D. 250.00 496 305.1 717.85 786.05 466.0 V72.84 Office Visit 01/13/2012 9:40a [facility] Internal [facility], 78218 722.93 [facility] M.D. Office Visit 12/17/2011 8:20a [facility] Internal [facility], 67875 401.9 [facility] M.D. 250.00 496 305.1 278.00 Office Visit 11/27/2011 9:40a [facility] Internal Medicine Almaz Sherwood M.D. 15599 250.00 - [place] 788.33 Office Visit 08/26/2011 9:00a DO Not Use Enamel Sprayer At [facility], 37523 717.85 Wildrosearian Roach 401.9 Office Visit 08/04/2011 8:00a DO Not Use Enamel Sprayer At [facility], 72048 719.41 Jennifer Roach 717.85 250.00 496 311 401.1 Office Visit 07/09/2011 8:00a DO Not Use Enamel Sprayer At [facility], 79753 719.41 Jennifer Roach 717.85 v04.81 Office Visit 06/02/2011 11:40a DO Not Use Enamel Sprayer At Yosvany Del Real M.D. 03834 401.9 [facility] 250.00 278.00 305.1 311 Office Visit 05/15/2011 9:40a DO Not Use Enamel Sprayer At Almaz Sherwood M.D. 71982 V76.19 [facility] V76.2 V76.51 401.9 788.30 V70.0 Office Visit 04/23/2011 8:40a DO Not Use Enamel Sprayer At [facility], M.D. 34772 V76.9 [facility] 278.00 466.0 305.1 717.85 Office Visit 03/12/2011 8:00a DO Not Use Enamel Sprayer At [facility], 04165 250.00 [place] M.D. 466.0 Office Visit 02/27/2011 10:30a [facility] Daquan Saunders, 61262 794.31 M.D. 786.50 272.4 401.1 Office Visit 01/29/2011 8:40a DO Not Use Enamel Sprayer At [facility], 77958 250.00 [facility] M.D. Office Visit 01/22/2011 8:00a DO Not Use Enamel Sprayer At [facility], 60625 250.00 [facility] M.D. 401.9 272.4 278.00 305.1 V72.84 311 Office Visit 12/25/2010 9:30a [facility] Cabezas M.D. 49776 716.96 [facility] Office Visit 11/25/2010 8:20a DO Not Use Enamel Sprayer At [facility], 04625 717.85 [facility] M.D. 250.00 V70.0 466.0 Office Visit 11/19/2010 9:20a DO Not Use Enamel Sprayer At [facility], 39225 466.0 [facility] M.D. Office Visit 11/06/2010 9:00a [facility] Jeffry Cabezas M.D. 97586 716.96 Of C.M.A. Office Visit 10/22/2010 9:20a DO Not Use Enamel Sprayer At [facility], 34844 717.85 [facility] M.D. Office Visit 09/25/2010 10:20a DO Not Use Enamel Sprayer At [facility], 82144 719.46 [place] M.D. 250.00 401.9 272.4 278.00 305.1 Office Visit 02/16/2009 1:00p [facility] Maksim [facility], 62791 847.2 Enamel Sprayer M.D. 805.6 Office Visit 01/11/2009 10:00a [facility], 96743 847.2 Lianet Roach Office Visit 12/01/2008 10:00a [facility], 54369 847.2 [facility] Doc Office Visit 11/01/2008 1:45p [facility] Maksim Isirdo, 51595 847.2 Lianet Roach 719.41 847.2 Office Visit 10/24/2008 1:45p [facility] Maksim Isidro, 59631 922.31 Of Lianet Roach Office Visit 09/18/2008 10:15a [facility] Maksim Isidro, 18689 805.6 Of Lianet Roach Plan of Care Future Appointment(s):01/11/2018 10:00 am - Andrea Engle M.D.,FACP at [facility] Internal Medicine - [address]11/23/2017 - Erika Oliver, NPR05 CoughNew Xrays: Chest PA & Lat 2 VWSN93.9 Abnormal uterine and vaginal bleeding, unspecifiedReferral:Mustapha Burdick MD, Obstetrics
--- OUTSIDE RECORDS SUMMARY | 2017-12-11 15:00 | XMS REPORT ---
:1960 External Reference #:[id number] Author Organization [facility] Address [address] [facility] [address] [place] [address] Phone [phone] Care Team Providers Name Role Phone Andrea Engle MD Primary Care Physician Unavailable Payers Type Date Identification Numbers Payment Provider Subscriber Medicare Primary Effective: Policy Number: Medicare Chasity Jefferson 2013 [id number] PayID: [id number] [address] [place] [address] Medigap Part B Effective: 2012 Policy Number: Medicaid Chasity Jefferson [id number] PayID: [id number] [address] [place] [address] Commercial Effective: Policy Number: [place]/[employer] Chasity Guerrero 2010 [id number] Medicaid Li Expires: 2012 PayID: [id number] [address] [address] [place] [address] Workers Compensation Onset: 2008 Policy Number: Antony Andrew Chasity Guerrero [id number] Li Group Number: [id number] [facility] [address] PayID: [id number] [place] [address] Advance Directives Type Date Description Status Comment [...] 11/15/2014 Onset: 11/27/2011 Mixed urinary incontinence Almaz Sherwood M.D. Inactive Inactive: 11/15/2014 Onset: 06/02/2011 Obesity Yosvany Del Real M.D. 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[employer] Cigarette Use Former Cigarette Smoker 2 Packs [...] Form Strength Qnty SIG Indications Ordering Provider Azithromycin 11/11 Hx Tablets 250mg 6tabs 2 every day for 1 Vladimir Engle, - day, then M.DSylwia,FACP 11/16 1 day Hydromorphone HCL 10/16 Active Tablets 4mg 28tab 1 tab by M54.42 s mouth Vladimir Engle, every 6 M.DSylwia,FACP hours as needed Jardiance 09/16 Active Tablets 25mg 30tab 1 by mouth s every day Vladimir Engle M.D.,FACP Cyclobenzaprine 12/12 Active Tablets 10mg 60tab Take 1 s Tablet By Vladimir Engle Mouth Two M.D.,FACP Times Daily as Needed Maximum Daily Dose Of 2 Per Day Flovent HFA 12/10 Active Aerosol 110mcg/Ac 12gm inhale two t puffs by Vladimir Engle, mouth M.DSylwia,FACP twice a day Pen Liberty 11/28 Active Misc 31G X 8 100un 3x/day for E11.9 mm its tounedao and kenji Kimball M.D.,FACP Vitamin D 10/31 Active Tablets 1000Unit 30tab 2 tabs (Cholecalciferol) s once a day Vladimir Engle in Doc,FACP fall/winte r, 1 tab/day spring/ imelda Onetouch Ultra 2 09/17 Active Kit w/Device 1unit test 3 E11. s times a Vladimir Engle day and as Doc,FACP needed. dx: e11.65 last visit 09/17/16 Onetouch Ultra 09/17 Active Strips 200un test up to its 3 times a Vladimir Engle, day or as Doc,FACP directed dx: e11.65, type 2 diabetes mellitus w/hypergly cemia last visit date: 09/17/16 Byetta 10 mcg Pen 09/17 Active Solution 10mcg/0.0 7.2ml inject 1 E11. Pen-Inject 4ML dose (10 Vladimir Engle, trisha) under Doc,FACP the skin two times daily Juan Daniel Davalosostar 07/16 Active Solution 300Unit/M 13.5m 50 units E11. Pen-Inject L l sc once a Vladimir Engle, gonsalo Roach,FACP Alcohol Swabs 06/15 Active Pads 1box use as 250.00 Paulie directed DIANA Brito for dm testing Metoprolol 03/28 Active Tablets 50mg 90tab Take 1 And Yosvany Tartrate s 10/13 Pachikara, Tablets By Doc Mouth Two Times Daily Bupropion HCL ER 01/23 Active Tablets ER 150mg 90tab take 1 Andrea (XL) 24HR s tablet by Vladimir Engle, mouth M.DSylwia,FACP every day Metformin HCL 10/19 Active Tablets 500mg 120ta Take 2 bs Tablets By Vladimir Engle, Mouth Two M.D.,FACP Times Daily Albuterol Sulfate 03/14 Active Nebulizer (2.5mg/3M 120un use 1 vial J44.9 [place] L) 0.083% its via DIANA Maza nebulizer every 4 hours as needed Citalopram 03/14 Active Tablets 20mg 90tab take 1 F33.9 Andrea Hydrobromide s tablet by Vladimir Engle, mouth M.DSylwia,FACP every day Pravastatin 02/01 Active Tablets 20mg 90tab take one Andrea s tablet by Vladimir Engle, mouth at M.D.,FACP bedtime Lisinopril 02/01 Active Tablets 20mg 90tab take 1 I10 Andrea s tablet by Vladimir Engle, mouth M.D.,FACP every day Proair HFA 01/06 Active Aerosol 108(90Bas 8.5un inhale two e) its puffs by Vladimir Engle, mcg/Act mouth M.D.,FACP every 6 hours as needed Hydrochlorothiazi 01/04 Active Tablets 25mg 90tab take one Andrea s tablet by Vldaimir Engle, mouth once M.D.,FACP daily Jardiance 06/17 Hx Tablets 10mg 30tab 1 by mouth s every Vladimir Engle, - night M.D.,FACP 09/16 Vitamin D 11/10 Hx Capsules 32068Dong 8caps 1 tablet E66.01 Rishi Higuera (Ergocalciferol) /2016 weekly for MD Gina - 8 weeks 01/05 Freestyle Lite 04/23 Hx Device 1unit check Blood Glucose /2015 s fingerstic Vladimir Engle, Monitoring System - k bid and M.D.,FACP 09/17 prn /201504/23/16 e11.65 Humalog 03/25 Hx Solution 100Unit/M 3ml 5 units E11.65 Cartridge L tid [facility] Vladimir Engle, - M.D.,FACP 03/25 Humalog Kwikpen 03/25 Hx Solution 100Unit/M 3ml 10 units E11.65 Pen-Inject L three Valdimir Engle, - times a M.D.,FACP 09/17 day before meal, if FS >150 Humalog Kwikpen 03/20 Hx Solution 200Unit/M 3ml 5 units E11.65 Pen-Inject L tid alex Engle, - M.D.,FACP 03/25 Opana 03/20 Hx Tablets 10mg 120ta by mouth M54.42 bs four times Vladimir Engle, - a day as M.D.,FACP 10/16 Clindamycin HCL 11/09 Hx Capsules 300mg 20cap 1 capsule s by mouth Sinhala, LOGGING SUPERINTENDENT - four times 11/14 a day x' 5 days Clindamycin HCL 10/26 Hx Capsules 300mg 56cap 1 capsule K12.2 s by mouth Sinhala, LOGGING SUPERINTENDENT - four times 11/09 a day x' 14 days Peridex 10/26 Hx Solution 0.12% 118ml rinse K12.2 mouth tid Sinhala, LOGGING SUPERINTENDENT - after 03/11 brushing Augmentin 07/17 Hx Tablets 875-125mg 20tab 1 tab by J06.9 s mouth Sinhala, LOGGING SUPERINTENDENT - twice a 07/27 day x's days Freestyle Lite 06/15 Hx Strips 2Boxe test up to 250.00 Paulie Test s 4 times a Daryl LOGGING SUPERINTENDENT - day dx 09/17 code: 250.52 Opana 04/19 Hx Tablets 10mg 120ta po qid prn bs Vladimir Engle, - M.D.,FACP 03/20 Amoxicillin/Clavu 01/24 Hx Tablets 875-125mg 20tab 1 tablet 461.0 Paulie lanate s by mouth Sinhala, LOGGING SUPERINTENDENT - twice a 02/03 day x's days Prednisone 01/24 Hx Tablets 20mg 10tab 2 tablets 461.0 Paulie s by mouth Daryl LOGGING SUPERINTENDENT - daily x's 04/17 5 days in the morning Flexeril 12/07 Hx Tablets 10mg 20tab take one s tablet by Vladimir Engle, - mouth M.D.,FACP 12/12 twice day as needed; maximum 2 per day mdd 2 Omeprazole 11/[address] 20mg 90tab 1 by mouth 535.51 Paulie s every day Daryl LOGGING SUPERINTENDENT - 07/17 Clarithromycin 11/15 Hx Tablets 500mg 20tab 1 by mouth 490 Andrea s twice a Vladimir Engle, - day for 10 M.D.,FACP 11/25 days ( pravastati n when taking) Byetta 10 mcg Pen 11/15 Hx Solution 10mcg/0.0 7.2un inject 1 E11.65 Pen-Inject 4ML its dose DIANA Brito - (10mcg) 09/17 under the skin two times daily Lantus Solostar 07/27 Hx Solution 100Unit/M 15uni inject 75 E11.65 Pen-Inject L ts units DIANA Brito - under the 07/16 skin time daily Novofine 05/08 Hx Misc 30G X 8 30uni Use Every E11.9 mm ts Day DIANA Brito - 11/28 Victoza 02/28 Hx Solution 18mg/3ML 6unit inject 1.8 250.02 Pen-Inject s mg under Vladimir Engle - the skin Doc,FACP 11/15 once daily Bupropion HCL ER 01/23 Hx Tablets ER 150mg 30tab 1 by mouth 311 12HR s qd Sindy Kimball M.D.,FACP 01/23 Metformin HCL 08/25 Hx Tablets 1000mg 180ta 1 po bid bs Sindy Kimball M.D.,FACP 10/19 Lancets 28G 08/25 Hx Misc 28G 100un tid E11.65 Sylwia its diagnosis: Kirsty, - 250.02 M.D. 06/17 Prandin 08/25 Hx Tablets 1mg 90tab take one E11.65 s tablet by DIANA Brito - mouth 03/20 times a day with meals Flovent HFA 07/07 Hx Aerosol 110mcg/Ac 12uni inhale two t ts puffs by DIANA Brito - mouth 11/21 twice a day Novofine 13TX2KO 04/26 Hx Misc 30G X 8 30uni once daily 250.00 Barry Hardy mm ts diagnosis: Kirsty, - 250.02 M.D. 05/08 Lantus Solostar 04/26 Hx Sopn 100Unit/M 5unit inject 40 250.00 DavidSindy L s units Vladimir Engle, Sindy guzmán M.D.,FACP 07/27 usly at bedtime, Alcohol Preps 04/26 Hx Misc 30uni once daily 250.00 Paulie rika Brito, LOGGING SUPERINTENDENT - 06/15 Bupropion HCL XL 03/14 Hx Tablets ER 150mg 30tab once daily 311 24HR s in the Vladimir Engle, - morning Doc,FACP 01/23 Omeprazole 03/14 Hx Capsules 20mg 30cap Take One 535.40 DR s Capsule By Vladimir Engle, - Mouth Doc,FACP 07/27 Every Day In The Morning On An Empty Stomach [...] s weeks then Nasima - 2/day Am M.Vladimir 02/01 Glipizide 01/03 Hx Tablets 10mg 60tab 1 tab bid Sindy Diaz M.D. 06/23 Metoprolol 01/03 Hx Tablets 50mg 60tab Take One Andrea Tartrate s Tablet By Vladimir Engle, Sindy Mouth Doc,FACP 02/28 Twice A Day Citalopram 12/02 Hx Tablets 20mg 30tab 1 po qd [place] Hydrobromide Sindy Diaz M.D. 12/02 Citalopram 12/02 Hx Tablets 20mg 30tab 1 po qd [place] Hydrobromide s Sindy Del Real M.D. 01/03 Celebrex 12/01 Hx Capsules 200mg 30cap 1 po qd s Sindy Del Real M.D. 01/03 Flexeril 12/01 Hx Tablets 10mg 20tab Take One Andrea s Tablet By Sindy Kimball M.D.,FACP 07/27 Twice A Day as Needed; Maximum 2 Per Day Cymbalta 10/[address] 60mg 1 po qd Barry Hardy Sindy Figueredo M.D. 11/24 Celebrex 09/08 Hx Capsules 200mg 30cap 1 po qd 722.93 Sindy Diaz M.D. 11/24 Lidoderm 09/08 Hx Patches 5% 30uni one patch 722.93 ts daily on Nasima, - for 12 h M.DSylwia 02/08 Toprol XL 08/30 Hx Tablets ER 50mg 30tab 1 po qd 401.9 24HR s Sindy Del Real M.D. 02/01 Heating Pad For 07/05 Hx 1unit as 722.93 [facility] s ditected Sindy Del Real M.D. 11/24 Losartan 05/03 Hx Tablets 100-25mg 30tab 1 tab po [place] Potassium/Hydroch s every day Nasima lorothiazide - Doc 01/04 Toprol XL 03/10 Hx Tablets ER 25mg 30tab 1 tablet Nelia /2012 24HR s by mouth Bear, - daily D.O. 08/30 Flexeril 03/09 Hx Tablets 10mg 30tab 1 po bid 722.93 Almaz /2012 Sindy Vallejo M.D. 11/24 Chantix Starting 03/03 Hx Tablets 0.5mg X 1tabs use as 305.1 [facility] 11 & directed Pachikara, - 1 mg X M.D. 05/21 Azithromycin 03/02 Hx Tablets 250mg 6tabs 2 tab today and Nasima, - then 1tab M.D. 05/21 Nicorette 12/23 Hx Gum 4mg 120un upto 4 its times Nasima, - daily M.D. 07/19 Nicoderm CQ 12/16 Hx Patches 14mg/24HR 30uni once daily 305.1 24HR ts Nasima - M.DSylwia 12/23 Proair HFA 12/16 Hx Aerosol 108(90Bas 1unit 2 puffs ih Sofiya /2012 e) mcg/ac s q6h Sindy Restrepo M.D. 01/06 Sanctura 11/27 Hx Tablets 20mg 30tab 1 tab po 788.33 Sindy Kat M.D. 12/16 Amlodipine 10/15 Hx Tablets 5mg 30tab 1 po qd [facility] s Nasima - Xavier.DSylwia 12/16 Tecturna 09/17 Hx 150mg 30uni once daily 401.9 rika Del Real - M.DSylwia 10/15 Pulmicort 09/11 Hx Aerosol 180mcg/Ac 1mon 2 puffs Andrea [place] t twice Vladimir Engle, - daily M.D.,FACP 07/07 Diovan HCT 08/26 Hx Tablets 320-25mg 30tab 1 po qd 401.9 Sindy Diaz M.D. 05/21 BP Machine 08/26 Hx 401.9 Sindy Del Real.DSylwia 05/21 Opana ER 10/24 Hx Tablets ER 10mg 60tab 1 po 717.85 12HR s q12hrs Sindy Del RealDSylwia 12/16 Opana 10/24 Hx Tablets 5mg 90tab 1 tab q 4h 717.85 s prSindy Cardoso M.D. 12/16 Mobic 07/09 Hx Tablets 15mg 30tab once daily 719.41 Sindy Diaz M.D. 03/02 Diovan HCT 05/15 Hx Tablets 320-25mg 90tab 1 po qd 401.9 Sindy Barney M.D. 06/02 Vesicare 05/15 Hx Tablets 5mg 30tab 1 tab po 788.30 s every day Sindy Sherwood M.D. 06/02 Chantix Starter 04/23 Hx Tablets 1tabs use as 305.1 Yosvany directed Sindy Del Real M.D. 03/03 Asmanex 30 03/14 Hx Aerosol 110mcg/In 1mon 1 Yosvany Metered Doses h inhalation Nasima - qd Xavier.DSylwia 09/11 Zithromax Z-Luke 03/12 Hx Tablets 250mg 1tabs 2tab today 466.0 and 1tab Nasima - daily x Doc 03/26 4d Freestyle Lite 01/29 Hx 100un two times 250.00 Paulie Test Strips its daily or Sinhala, LOGGING SUPERINTENDENT - as needed 06/15 diagnosis: 250.02 Onglyza [...] g Sindy Diaz M.D. 01/22 Glipizide XL 09/25 Hx Tablets ER 10mg 60tab 1 tab po 24HR s Sindy Ruggiero M.D. 06/23 Diovan HCT 09/25 Hx Tablets 320-25mg 90tab 1 po qd Sindy Diaz M.D. 03/12 Simvastatin 09/25 Hx Tablets 80mg 90tab 1/2 po qhs Sindy Diaz M.D. 03/12 Citalopram 09/25 Hx Tablets 20mg 30tab 1 po qd [place] Hydrobromide Sindy Diaz M.D. 10/28 Metformin HCL ER 09/25 Hx Tablets ER 750mg 90tab Take 2 24HR s tabs daily Sindy Del Real M.D. 11/19 Flexeril 09/25 Hx Tablets 10mg 60tab 1 po tid s prn Sindy Del Real M.D. 06/02 Opana 09/25 Hx Tablets 10mg 90tab po q4h prn 719.46 Sindy Diaz M.D. 08/04 Ibuprofen 12/01 Hx Tablets 400mg 50tab po q4-6h Maksim MSylwia s prn Sindy Isidro M.D. 01/22 Flexeril 12/01 Hx Tablets 10mg 40tab 1 po tid . s prn For Dwaine - Muscle Xavier.Vladimir 01/22 Spasms Ultram 10/24 Hx Tablets 50mg 50tab 1 Or 2 Sylwia s Tabs Q 4 Zupsergey, - Hours prn Doc 11/25 Pain Aleve Hx Tablets 220mg po qday Unknown / - 01/29 Ventolin HFA Hx Aerosol 108(90Bas 1mont 2 puffs po e) mcg/ac h qid prn Sindy Del Real M.D. 12/16 Metformin HCL Hx Tablets 500mg 60tab 1 po bid Andrea Sindy Hanson M.D.,FACP 08/25 Metoprolol Hx Tablets ER 25mg 30tab 2 qd Unknown Succinate ER /0000 24HR s - 06/23 Oxymorphone 00/00 Hx Tablets 5mg 90tab 1 po Q Unknown Hydrochloride /0000 s 8HRS - 07/05 Januvia 00/ Hx Tablets 100mg 30tab 1 po qd Yosvany /0000 s Sindy Del Real M.D. 08/25 Thera Flu 00/00 Hx Unknown /0000 - 09/08 Oxycodone HCL 00/00 Hx Capsules 10mg 240ca 1-2 qid Unknown /0000 ps prn - 04/19 Immunizations CPT Code Status Date Vaccine Lot # [id number] Given 06/17/2017 Influenza Virus Vaccine, Quadrivalent, Split, [id number] Preservative Free [id number] Given 07/17/2015 Influenza Virus Vaccine, Quadrivalent, Split, [id number] Preservative Free 87506 Given 07/27/2014 Flu Vaccine Split Virus Preservative Free For [id number] Indiv 3Yr Older 44936 Given 08/25/2013 Flu Vaccine Split Virus Preservative Free For [id number] Indiv 3Yr Older 87403 Given 06/09/2012 Pneumonia Vaccine [id number] 56613 Given 06/09/2012 Influenza Virus 3Yrs & Over 15999 Given 07/09/2011 Influenza Virus 3Yrs & Over [id number] Vital Signs Date Vital Result Comment 11/11/2017 Weight 277.00 lb Heart Rate 74 [...] Body Temperature 96.7 F Pain Level 9 06/21 pain level O2 % BldC Oximetry 96 [...] Non- 71.6 >60 Egfr 92.1 >60 10 Laboratory test 10/14/2016 Hemoglobin A1c (Glyco 9.5 % High Less than 6.0 11 finding HGB) Iron & Iron 10/14/2016 Iron 52 g/dL 50-212 Binding Capacity Unsaturated Iron Binding 302 g/dL Total Iron Binding Capacity 354 g/dL 250-450 % Iron Saturation 15 % 15-55 CBC Auto Diff 10/14/2016 White Blood Count [...] 0-2 Nucleated Red Blood Cells % 0 Comp Metabolic Panel 10/14/2016 Sodium 138 mmol/L [...] Egfr Non- 86.2 >60 Egfr 110.9 >60 12 Bariatric Panel Pre-Op 10/14/2016 Ferritin 188.7 ng/mL 11-307 Vitamin B12 367 pg/mL 180-914 13 Folic Acid (Folate) 10.80 ng/mL >3.99 Vitamin D Total 25(Oh) 14.8 ng/mL Low 30-50 Vitamin B1 (Whole Blood) 94 nmol/L 70-180 14 Vitamin E Level 11.3 mg/L 5.5 - 17.0 15 TSH (Thyroid Stim Horm) 1.40 mcIU/mL 0.34-5.60 Cortisol 10.29 ?g/dL 16 Laboratory test 09/17/2016 Hemoglobin A1c 11.0 High [...] mg/dL Urine Microalbumin/Creatinine 21.8 Less Than 31 Laboratory test finding 08/25/2013 Hemoglobin A1c 12.3 High 5-7 Ua Routine 08/25/2013 Ua Specific [place] 1.025 Ua PH 5 Ua Color yellow Ua Appera clear Ua WBC neg Ua Protein neg Ua Glucose neg Ua Ketones neg Ua Bilirubin neg Ua Urobilinogen neg Ua Nitrite neg Ua Occult Blood neg Laboratory test finding 04/26/2013 Hemoglobin A1c 9.6 High 5-7 Laboratory test finding 02/08/2013 Cytology RUN DATE: 02/09/ <SEE NOTE> Urine Microalbumin 02/01/2013 Ur Microalbumin (Mg/L) 1.0 mg/L 31 Random Urine Creatinine < 6 mg/dL Urine Microalbumin/Creatinine 0 ug/mg Less Than 31 Laboratory test finding 01/03/2013 Hemoglobin A1c 8.5 High 5-7 Lipid Profile (Trig/Chol/HDL) 08/30/2012 Triglycerides 169 mg/dL 40-200 Cholesterol 211 mg/dL High Less than 200 HDL Cholesterol 47 mg/dL 40-60 32 Cholesterol/HDL Ratio 4.5 AVERAGE High 1-4.44 LDL Cholesterol 130.2 mg/dL High Less Than 100 33 Comp Metabolic Panel 08/30/2012 Sodium 139 mmol/L [...] 1.6 1-3 Total Bilirubin 0.4 mg/dL 0.1-1.0 34 Alkaline Phosphatase 85 U/L 30-110 Alt 19 U/L 14-54 Ast 18 U/L 12-42 Egfr Non- 87.5 >60 Egfr 112.6 >60 35 Laboratory test finding 05/21/2012 Hemoglobin A1c [...] And Sensitivity 04/26/2012 M 42 <SEE NOTE> International Normalized 04/26/2012 Inr 0.82 Low 0.88-1.13 43 Ratio Protime 9.7 SEC Low 10.3-13.5 44 Laboratory test 04/26/2012 PTT (Aptt) 27.0 SEC 25.1-38.5 finding Culture And 04/24/2012 M 45 Sensitivity --- <SEE NOTE> Blood Culture 04/24/2012 M 46 --- <SEE NOTE> Laboratory test 04/24/2012 C Reactive Protein 1.2 mg/dL High Less Than 0.5 finding Erythrocyte Sed Rate 35 MM/HR High 0-30 [...] Color YELLOW Yellow Appearance-Urine TURBID Clear Specific [place]-Ur 1.027 1.010-1.030 Esterase-Urine NEGATIVE Negative Nitrite NEGATIVE Negative Urwyzaodlbia-Ce-YWH NEGATIVE Negative Protein-Urine NEGATIVE Negative PH-Urine 5.0 [...] Screen NEGATIVE Specimen Discard Date 03/31/12 56 Protime 03/02/2012 Inr 0.84 Low 0.88-1.13 57 Protime 9.9 SEC Low 10.3-13.5 58 Laboratory test finding 03/02/2012 PTT (Aptt) 28.3 SEC 25.1-38.5 Comp Metabolic Panel 03/02/2012 Sodium 137 mmol/L [...] 7.4-10.4 Absolute Neutrophil Count 3.7 1.5-7.7 62 Manual Differential 03/02/2012 Polysegmented Neutrophil 63 % 38-83 Lymphocyte 32 % 25-47 Eosinophil 5 % 0-6 RBC Morphology NORMAL Laboratory test finding 03/02/2012 Hemoglobin A1c 6.8 5-7 Urine Microalbumin Random 12/17/2011 Microalbumin (MG/L) 17.0 mg/L Urine Creatinine 118.0 mg/dL Lloyd Alb/Creatinine Ratio 14.4 UG/MG Less Than 30 63 Laboratory test finding 12/17/2011 Cortisol 8.6 g/dL 64 TSH 1.77 MIU/ML 0.34-5.60 Lipid Panel - [facility] 12/17/2011 CPK (Creatine Kinase) 202 U/L High 0-170 Comp Metabolic Panel 12/17/2011 Sodium 138 mmol/L 135-145 Potassium 4.5 mmol/L 3.5-5.0 Chloride 104 mmol/L 101-111 Co2 (Carbon Dioxide) 27.0 mmol/L 22-32 Anion Gap 7.0 mmol/L 2-11 65 Glucose 167 mg/dL High 70-100 BUN 10 mg/dL 6-24 Creatinine 0.8 mg/dL 0.50-1.40 One Over Creatinine 1.25 BUN/Creatinine Ratio 12.5 8-20 Calcium 9.6 mg/dL 8.1-9.9 Total Protein 7.0 GM/DL 6.2-8.1 Albumin 3.9 GM/DL 3.6-5.4 Globulin 3.1 GM/DL 2-4 Albumin/Globulin Ratio 1.3 1-3 Bilirubin Total 0.4 mg/dL 0.4-1.5 66 Alkaline Phosphatase 86 U/L 30-110 Alt (SGPT) 21 U/L 14-54 Ast (Sgot) 19 U/L 12-42 eGFR Non- 75.0 > 60 eGFR 96.5 > 60 67 Lipid Profile (Trig/Chol/HDL) 12/17/2011 Triglyceride 173 mg/dL 40-200 Cholesterol 206 mg/dL High Less Than 200 68 High Density Lipoprotein 49 mg/dL 40-60 69 Cholesterol/HDL Ratio 4.20 AVERAGE 1-4.44 Low Density Lipoprotein 122 mg/dL High Less Than 100 70 Laboratory test finding 11/27/2011 Hemoglobin A1c 7.4 [...] UG/MG Less Than 30 80 Laboratory test 06/02/2011 Hemoglobin A1c 8.3 High 5-7 finding Laboratory test 05/15/2011 Cytology 81 finding -- <SEE NOTE> Laboratory test 01/22/2011 Hemoglobin A1c 9.4 High 5-7 finding Lipid Panel - [facility] 11/25/2010 CPK (Creatine Kinase) 187 U/L High 0-170 Comp Metabolic Panel 11/25/2010 Sodium 137 mmol/L [...] 60 eGFR 113.0 > 60 84 Lipid Profile (Trig/Chol/HDL) 11/25/2010 Triglyceride 200 mg/dL 40-200 Cholesterol 171 mg/dL Less Than 200 85 High Density Lipoprotein 49 mg/dL 40-60 86 Cholesterol/HDL Ratio 3.49 AVERAGE 1-4.44 Low Density Lipoprotein 82 mg/dL Less Than 100 87 Laboratory test finding 10/22/2010 Hemoglobin A1c 10.3 High 5-7 1 SEE RESULT BELOW Name: CHASITY JEFFERSON : [address]: Robbie Buck MD Acct: [id number] Unit: [id number] AGE: 56 Location: ENDO Re07/14/17 SEX: F Status: DEP REF SPEC: [id number] GEORGINA: 07/14/[address] [facility] [address]: Robbie Buck MD REQ: [id number] RECD: 07/14/17 STATUS: LADONNA CASTILLO DR: Andrea Engle MD [...] performed at Main Lab DEPARTMENT OF PATHOLOGY, [address] [place] [address] Kev Tyler M.D. Director YADI # [id number] 2 SEE RESULT BELOW Name: CHASITY JEFFERSON : [address]: Robbie Buck MD Acct: [id number] Unit: [id number] AGE: 56 Location: ENDO Re07/14/17 SEX: F Status: REG REF SPEC: [id number] GEORGINA: 07/14/[address] [facility] [address]: Robbie Buck MD REQ: [id number] RECD: 07/14/17 STATUS: LEWIS CASTILLO DR: Andrea Engle MD _ SOURCE: GAS ANTRUM SPDESC: ORDERED: Clotest Procedure Result Reported Site Clotest Final 07/14/17- 1512 ML Clotest Positive * ML - MAIN LAB ([facility]) . END OF REPORT * ML=Testing performed at Main Lab DEPARTMENT OF PATHOLOGY, [address] [place] [address] Kev Tyler M.D. Director [facility] # [id number] 3 Public Relations Studies Director: [id number] Desirable <150 Borderline high 150-199 High [...] and in selective patients <6.0%.Please refer to [place] [employer] Diabetic care guidelines for further information. 9 Therapeutic target for the treatment of diabetes Mellitus patients is <7% HBA1C, and in selective patients <6.0%.Please refer to [place] [employer] Diabetic care guidelines for further [...] 5 Kidney failure <15 (or dialysis) 11 Therapeutic target for the treatment of diabetes Mellitus patients is <7% HBA1C, and in selective patients <6.0%.Please refer to [place] [employer] Diabetic care guidelines for further information. 12 Because ethnic data is not always readily [...] 15-29 5 Kidney failure <15 (or dialysis) 13 Normal Range 180 to 914 Indeterminate Range 145 to 180 Deficient Range <145 14 ADDITIONAL INFORMATION This test was developed and its performance characteristics determined by [facility] in a manner consistent with CLIA requirements. This test has not been cleared or approved by the U.S. Food and Drug Administration. Test Performed by: [facility] - [address] [address] Teacher Public Health: Pierre Park II, M.D., Ph.D. 15 ADDITIONAL INFORMATION This test was developed and its performance characteristics determined by [facility] in a manner consistent with CLIA requirements. This test has not been cleared or approved by the U.S. Food and Drug Administration. Test Performed by: [facility] [place] [address] Teacher Public Health: Pierre Park II, M.D., Ph.D. 16 AM 8.7-22.4 PM <10 17 Therapeutic target for the treatment of diabetes Mellitus patients is <7% HBA1C, and in selective patients <6.0%.Please refer to [place] [employer] Association Diabetic care guidelines for further [...] of 30-299 ug/mg. 30 RUN DATE: 02/09/13 [facility] LAB LIVE PAGE 1 RUN TIME: [address] [place] [id number] Specimen Inquiry Name: CHASITY JEFFERSON : [address]: Sofiya Webber MD Acct: [id number] Unit: [id number] AGE: 52 Location: [facility] Re02/08/13 SEX: F Status: REG REF SPEC: [id number] GEORGINA: 02/08/13-[address]: Sofiya Webber MD REQ: [id number] RECD: 02/08/13 STATUS: SOUT _ ORDERED: IMAGE ANALYSIS FINAL DIAGNOSIS Negative for Intraepithelial lesion or Malignancy A. Ectocervical/Endocervical Specimen Adequacy: Satisfactory of evaluation Transformation zone component not identified Patient Information: HPV: Thin Layer Pap Test w/reflex to high risk HPV DNA testing when ASCUS Actual Specimen Date: 02/08/13 Post Menopausal?: Y Previous Abnormal Pap Smears?:N Signed (signature on file) DARRON Jeffers (ASCP) 02/09 1558 This Pap test was evaluated with the assistance of the ThinPrep Test Imaging System. Due to cytologic findings at the shellac polisher microscope, comprehensive manual rescreening by a Revenue Research Analyst may be required. The Pap Smear is [...] performed at Main Lab DEPARTMENT OF PATHOLOGY, [address] [place] [address] Kev Tyler M.D. Director [facility] Permit #[id number] 31 Microalbuminuria in a random sample is defined as: Microalbumin/Creatinine ratio of 30-299 ug/mg. 32 HDL Interpretation: Undesirable: High Risk: Less than 40 MG/DL Desirable: Low Risk: Greater than 60 MG/DL 33 LDL Interpretation: Low Risk Optimal Level: LDL Less than 100 MG/DL Near or Above Optimal: LDL 100-129 MG/DL Borderline High Risk: LDL 130-159 MG/DL High Risk: LDL 160-189 MG/DL Very High Risk: LDL Greater than 189 MG/DL 34 A metabolite of Naproxen, O-desmethylnaproxen, has been shown to interfere with the Jendrassik-Knappa method for measuring total bilirubin. Samples from patients who have taken Naproxen have shown spurious elevation in total bilirubin levels. 35 Because ethnic data is not always readily [...] 15-29 5 Kidney failure <15 (or dialysis) 36 COMMENTS: U 37 Anion gap measurement [...] INR VALUE ALONE. 42 RUN DATE: 04/27/12 [facility] NMI LIVE PAGE 1 RUN TIME: 1128 Specimen Inquiry RUN USER: INTERFACE Name: CHASITY JEFFERSON Status: [facility] [place]04[place]26[place]12 Age/Sex: 51/F Unit#: [id number] Location: [facility] : 58 SPEC #: [id number] GEORGINA: 04/26/12 STATUS: RES REQ #: [id number] RECD: 04/26/[address]: Kia DANIELLE,Alan Thompson SOURCE: WOUND ENTR: 04/26/[address]: Nasima DANIELLE, Yosvany Bowden SPDESC: KNEE,RIGHT [...] -1127 ML PRELIMINARY: NO GROWTH DAY 1 - [facility] Permit #[id number] [address] [place] [address] DEPARTMENT OF PATHOLOGY, [address] [place] [address] [facility] Permit #[id number] Doc Franco M.D. Airline Transport Pilot 43 Recommended INR for Patients on Oral Anticoagulants Prophylaxis 2.0 - 3.0 Treatment of thrombosis 2.0 - 3.0 Prevention of embolism 2.0 - 3.0 Prevention of embolism from prosthetic heart valves 2.5 - 3.5 44 DIAGNOSIS,TREATMENT,AND THERAPY MUST BE BASED ON THE INR VALUE ALONE. 45 RUN DATE: 04/26/12 [facility] NMI LIVE PAGE 1 RUN TIME: 1220 Specimen Inquiry RUN USER: INTERFACE Name: CHASITY JEFFERSON Status: DEP ER Re04/24/12 Age/Sex: 51/F Unit#: [id number] Location: : 58 SPEC #: [id number] GEORGINA: 04/24/12 STATUS: COMP REQ #: [id number] RECD: 04/24/[address]: Jaylon Ward MD SOURCE: WOUND ENTR: 04/24/12-[address]: Nasima DANIELLE, Yosvany Bowden SPDESC: KNEE,RIGHT ORDERED: CULT SENS/GS ACT WKST: B 04/26/12 #1 Procedure Result Verified Site > CULTURE SENSITIVITY Final -1220 ML NORMAL CUTANEOUS ERVIN SUGGEST RESUBMISSION. > GRAM STAIN SMEAR Final -0719 ML POLYS RARE SMEAR: FEW EPITHELIAL CELLS MANY GRAM POSITIVE COCCI MANY GRAM POSITIVE BACILLI ML - [facility] State Permit #[id number] [facility] [place] [address] [place] [address] DEPARTMENT OF PATHOLOGY, [facility] [employer] [place], [place] [address] [place] State Permit #[id number] Doc Franco M.D. Airline Transport Pilot 46 RUN DATE: 04/29/12 [facility] NMI LIVE PAGE 1 RUN TIME: 1642 Specimen Inquiry RUN USER: INTERFACE Name: CHASITY JEFFERSON Status: EMILY COUTLER Re04/24/12 Age/Sex: 51/F Unit#: [id number] Location: [facility] : 56 SPEC #: [id number] GEORGINA: 04/24/12-1634 STATUS: LEWIS REQ #: [id number] RECD: 04/24/[address]: Ed DANIELLE,Jaylon Thompson SOURCE: BLOOD ENTR: 04/24/12-[address]: Nasima DANIELLE, Yosvany Bowden [facility]LOOD,VENO ORDERED: BLOOD CULTURE ACT WKST: 04/25/12 #1 Procedure Result Verified Site > AEROBIC CULTURE BOTTLE Final -1642 ML NO GROWTH AFTER 5 DAYS > ANAEROBIC CULTURE BOTTLE Final -1642 ML NO GROWTH AFTER 5 DAYS ML - [facility] State Permit #[id number] [address] [place] [address] DEPARTMENT OF PATHOLOGY, [address] [place] [address] [facility] Permit #[id number] Kev Tyler M.D. Director Dede Mendoza M.D. Airline Transport Pilot 47 Anion gap measurement may be of limited value in the presence of any alkalosis, especially in a combined acid base disorder. . 48 A metabolite of Naproxen, O-desmethylnaproxen, has been shown to interfere with the Jendrassik-Knappa method for measuring total bilirubin. Samples from [...] 5 Kidney failure <15 (or dialysis) 50 [id number] 51 Recommended INR for Patients on Oral [...] (or dialysis) 62 Imm. NE 1 63 MICROALBUMINURIA IN A RANDOM SAMPLE IS DEFINED : MICROALBUMIN/CREATININE RATIO OF 30-299 ug/mg. . 64 REFERENCE RANGE: AM 8.7-22.4 PM LESS THAN 10 . 65 Anion gap measurement may be of limited value in the presence of any alkalosis, especially in a combined acid base disorder. . 66 A metabolite of Naproxen, O-desmethylnaproxen, has been shown to interfere with the Jendrassik-Knappa method for measuring total bilirubin. Samples from patients who have taken Naproxen have shown spurious elevation in total bilirubin levels. 67 Because ethnic data is not always readily [...] 15-29 5 Kidney failure <15 (or dialysis) 68 CHOLESTEROL INTERPRETATION: Desirable: Less than 200 MG/DL Borderline-High Risk: 200-239 MG/DL High-Risk: 240 MG/DL and over 69 HDL INTERPRETATION: Undesirable: High Risk: Less than 40 MG/DL Desirable: Low Risk: Greater than 60 MG/DL 70 LDL INTERPRETATION: Low Risk Optimal Level: LDL Less than 100 MG/DL Near or Above Optimal: LDL 100-129 MG/DL Borderline High Risk: LDL 130-159 MG/DL High Risk: LDL 160-189 MG/DL Very High Risk: LDL Greater than 189 MG/DL 71 Reference ranges have not been established for urine specimens. This specimen was handled by [employer] as a forensic specimen under chain of custody protocol. Test Performed by:[employer], Reaction. [address] [place] [address] 72 -- REFERENCE VALUE -- Cutoff: 500 [...] use in employment-related testing. Test Performed by: [facility] Dpt of Lab Med and Pathology [address] [place] [address] Teacher Public Health: Ash Kline III, M.D. 80 MICROALBUMINURIA IN A RANDOM SAMPLE IS DEFINED : MICROALBUMIN/CREATININE RATIO OF 30-299 ug/mg. . 81 ---- RUN DATE: 05/16/11 [facility] NMI LIVE PAGE 1 RUN TIME: 1507 Specimen Inquiry RUN USER: INTERFACE -- Name: CHASITY JEFFERSON Yolanda Status: REG REF Re05/15/11 Age/Sex: 50/F Unit#: [id number] Location: [facility]. : 56 -- Specimen: [id number] SOUT Spec Date: 05/15/[address]: Almaz jonas MD Spec Type: CYTOLOGY Received: 05/16/11-49 Copies to: SOURCE ECTOCERVICAL/ENDOCERVICAL Thin Prep with Reflex HPV Test PATIENT INFORMATION ACTUAL COLLECTION DATE: 05/15/11 POST MENOPAUSAL? Yes ADEQUACY OF SPECIMEN Satisfactory for evaluation * Transformation zone component identified * DIAGNOSIS NEGATIVE FOR INTRAEPITHELIAL LESION OR MALIGNANCY * This Pap test was evaluated with the assistance of the ThinPrep Pap Test Imaging System. The Pap Smear [...] years. Final Interpretation electronically signed by: Yolanda CARDONA([facility]) 05/16/11 150 6 -- -- DEPARTMENT OF PATHOLOGY, [address] [place] [address] [facility] Permit #[id number] Doc Franco M.D. Mechanic Helper Dir swartz -- 82 Anion gap measurement may be of limited value in the presence of any alkalosis, especially in a combined acid base disorder. . 83 A metabolite of Naproxen, O-desmethylnaproxen, has been shown to interfere with the Gabriela-Knappa method for measuring total bilirubin. Samples from [...] 11/14/2016 Diabetic Retinal Eye Exam Completed 12/21/2014 61699 Diffusing Capacity Completed 12/21/2014 99475 Plethysmography Determination Completed Lung Volumes & Per Airway Resist 12/21/2014 38986 Pulmonary Completed Function><Bronchodil 09/20/2013 Diabetic Retinal Eye Exam Completed 03/14/2013 51227 Pulse Oximetry-Mutl Determ Completed 03/14/2013 06677 Inhalation TX For Acute Airway Completed Obstruction W/Nebulizer/Inhaler 01/13/2013 Mammogram Completed 03/12/2012 58380 Color Flow Doppler/Interp & Completed Reprt 03/12/2012 46503 Pulse Wave/Continuous-Interp.RPT Completed 03/12/2012 91583 ECHO Transthorasic Realtime 2D W Completed Doppler & Color Flow Hosp 03/02/2012 97398 EKG Tracing & Interpretation Completed 05/21/2011 Mammogram Completed 02/27/2011 08303 Stress Test Supervsn W/Out I/R Completed 02/27/2011 98984 Treadmill Interp/Report Only Completed 01/22/2011 52055 EKG Tracing & Interpretation Completed 10/12/2008 Colonoscopy Completed Document: 09/25/10 - History 09/13/2008 42220 Deposition Completed Encounters Type Date Location Provider CPT E/M Dx Office Visit 09/16/2017 8:20a [facility] Internal Andrea Engle, 39729 E11.22 Medicine - [place] Surinder Roach,FACP Office Visit 06/17/2017 11:20a [facility] Internal Andrea Engle, 50318 E11.22 Medicine - [place] Surinder Roach,FACP E78.2 I10 E66.01 Z23 Office Visit 03/05/2017 8:30a [facility] Internal Andrea Engle, 29809 Z00.01 Medicine - [place] Surinder Roach,FACP E11.65 J44.9 E66.01 M48.06 Z12.11 Office Visit 12/10/2016 1:00p [facility] Internal Andrea Engle, 20972 Z01.810 Medicine - [place] Surinder Roach,FACP E11.65 H33.311 J44.9 Office Visit 11/10/2016 8:30a [facility] [place] [address] 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.65 Z71.3 Office Visit 10/31/2016 9:40a [facility] Internal Andrea Engle, 68286 E11.65 Medicine - [place] Surinder Roach,FACP E66.01 Z12.31 Office Visit 09/29/2016 1:45p [facility] [place] [address] E66.01 [facility] I10 E11.65 Z72.0 M48.06 Office Visit 09/17/2016 2:20p [facility] Internal Andrea Engle, 73141 E11.65 Medicine - [place] Surinder Roach,FACP E66.01 I10 Office Visit 07/16/2016 2:00p [facility] Internal Andrea Vladimir Engle, 95865 E11.65 Medicine - [place] Surinder Roach,FACP Z12.2 Z72.0 Office Visit 04/23/2016 2:40p [facility] Internal Andrea Engle, 64812 E11.65 Medicine - [place] Surinder Roach,FACP M48.06 Office Visit 03/27/2016 11:15a [facility] Dipak Chavarria, 95753 M48.06 Of Lianet Roach Office Visit 03/20/2016 3:00p [facility] Internal Medicine - Andrea Engle, 42623 E11.65 [place] Surinder Roach,FACP M54.42 Office Visit 03/11/2016 11:20a [facility] Internal Medicine - Paulie Brito, LOGGING SUPERINTENDENT [address] Office Visit 10/26/2015 4:00p [facility] Internal Medicine - Paulie Brito, LOGGING SUPERINTENDENT [address] Office Visit 07/17/2015 1:00p [facility] Internal Medicine - Paulie Brito, LOGGING SUPERINTENDENT [address] R05 Z23 493.00 Office Visit 04/18/2015 3:00p [facility] Internal Andrea Engle, 94101 716.98 Medicine - [place] Surinder Roach,FACP 724.4 Office Visit 01/24/2015 10:30a [facility] Internal Medicine - Paulie Brito, LOGGING SUPERINTENDENT [address] 786.07 786.2 305.1 Office Visit 12/20/2014 9:30a [facility] Internal Medicine - Paulie Brito, LOGGING SUPERINTENDENT [address] 250.02 278.01 493.00 305.1 401.1 493.90 Office Visit 11/15/2014 11:50a [facility] Internal Andrea Engle, 13825 250.02 Medicine - [place] Surinder Roach,FACP 715.16 535.51 490 786.30 Office Visit 07/27/2014 10:10a [facility] Internal Medicine Andrea Engle, 19160 250.02 Sindy Billings M.D.,FACP 721.3 535.41 V65.44 618.2 V02.62 V04.81 Office Visit 02/28/2014 10:30a [facility] Internal Medicine Andrea Engle, 55649 250.02 - Awa Roach,FAC Office Visit 10/19/2013 10:30a [facility] Internal Medicine [facility] 18940 366.8 - Awa Mendez N.P. 786.50 794.31 250.02 272.4 401.9 305.1 Office Visit 08/25/2013 9:50a [facility] Internal Medicine Andrea Engle, 50691 250.02 - Awa Roach,[facility] 788.39 305.1 V04.81 788.41 Office Visit 06/23/2013 10:10a [facility] Internal Medicine Andrea Engle, 55355 250.02 - Awa Roach,[facility] Office Visit 04/26/2013 1:40p [facility] Internal Medicine Yosvany Del Real 74987 250.00 - Awa Roach 311 535.40 496 Office Visit 04/26/2013 1:23p [facility] Internal Yosvany [place] 37038 722.93 Medicine Sindy Billings M.D. Office Visit 03/14/2013 9:20a [facility] Internal Yosvany Del Real 04606 535.40 Medicine - Awa Roach 496 311 Office Visit 02/08/2013 1:00p [facility] Internal Medicine Yosvany Del Real 54950 721.3 - Awa Roach 722.93 Office Visit 02/08/2013 2:30p [facility] Internal Medicine Sofiya Webber M.D. 40780 V76.2 - Awa 625.6 401.9 V72.31 Office Visit 02/01/2013 9:40a [facility] Internal Medicine Yosvany Del Real, 31547 401.9 - Awa Roach 272.4 496 305.1 311 278.01 V70.0 250.00 Office Visit 01/03/2013 10:40a [facility] Internal Medicine Yosvany Del Real 89265 272.4 - Awa Roach 401.9 401.9 272.4 496 496 250.00 250.00 V76.10 305.1 311 278.01 Office Visit 11/24/2012 9:30a [facility] Internal Medicine - Andrea Engle, 49200 721.3 Awa Roach,[facility] Office Visit 11/03/2012 9:00a [facility] Georges NgoSylwia Lora, 88272 721.3 Of Lianet Roach 721.3 Office Visit 10/28/2012 10:40a [facility] Internal Medicine Barry Lofton, 52666 722.93 - [place] Office Visit 09/08/2012 10:00a [facility] Internal Medicine Yosvany Del Real, 32635 722.93 - [place] Doc Office Visit 08/30/2012 8:20a [facility] Internal Medicine Yosvany Del Real, 74580 401.9 - [place] Doc 272.4 496 250.00 278.00 Office Visit 07/19/2012 8:40a [facility] Internal Yosvany Del Real, 36762 722.93 Medicine - [place] Doc Office Visit 07/05/2012 10:40a [facility] Internal Yosvany Del Real, 87800 722.93 Medicine - [place] Doc Office Visit 06/23/2012 8:00a [facility] Internal Yosvany Del Real, 65747 250.00 Medicine - [place] Doc 041.19 Office Visit 06/09/2012 8:00a [facility] Internal Yosvany Del Real, 03598 250.00 Medicine - [place] Xavier.Vladimir 278.00 305.1 401.9 V03.82 V04.81 Office Visit 05/21/2012 11:20a [facility] Internal Medicine Almaz Sherwood M.D. 31705 250.00 - [place] Office Visit 03/10/2012 1:40p [facility] Nelia Sifuentes, 62673 V72.81 D.O. 794.31 786.09 401.9 250.00 496 466.0 272.4 Office Visit 03/09/2012 1:40p [facility] Internal Yosvany Del Real, 89030 722.93 Medicine - [place] Doc Office Visit 03/02/2012 8:20a [facility] Internal Yosvany Del Real, 23764 401.9 Medicine - [place] Xavier.Vladimir 250.00 496 305.1 717.85 786.05 466.0 V72.84 Office Visit 01/13/2012 9:40a Marine Driller Internal [facility], 70321 722.93 [facility].DSylwia Office Visit 12/17/2011 8:20a [facility] Internal [facility] 35689 401.9 [facility].Vladimir 250.00 496 305.1 278.00 Office Visit 11/27/2011 9:40a [facility] Internal Medicine Almaz Sherwood M.D. 74252 250.00 - [place] 788.33 Office Visit 08/26/2011 9:00a DO Not Use Marine Driller At [facility], 30564 717.85 [facility] Doc 401.9 Office Visit 08/04/2011 8:00a DO Not Use Marine Driller At [facility] 60897 719.41 Jennifer Roach 717.85 250.00 496 311 401.1 Office Visit 07/09/2011 8:00a DO Not Use Marine Driller At [facility], 72281 719.41 Jennifer Roach 717.85 v04.81 Office Visit 06/02/2011 11:40a DO Not Use Marine Driller At Yosvanythomas Del Real M.D. 71474 401.9 [facility] 250.00 278.00 305.1 311 Office Visit 05/15/2011 9:40a DO Not Use Marine Driller At Almaz Sherwood M.D. 08607 V76.19 [facility] V76.2 V76.51 401.9 788.30 V70.0 Office Visit 04/23/2011 8:40a DO Not Use Marine Driller At Yosvanythomas Del Real M.D. 15960 V76.9 [facility] 278.00 466.0 305.1 717.85 Office Visit 03/12/2011 8:00a DO Not Use Marine Driller At [facility], 36241 250.00 Jeromearian Roach 466.0 Office Visit 02/27/2011 10:30a [facility] Daquan Tadeo, 14267 794.31 M.Vladimir 786.50 272.4 401.1 Office Visit 01/29/2011 8:40a DO Not Use Marine Driller At [facility], 78980 250.00 [place] M.D. Office Visit 01/22/2011 8:00a DO Not Use Marine Driller At [facility], 74091 250.00 [place] M.D. 401.9 272.4 278.00 305.1 V72.84 311 Office Visit 12/25/2010 9:30a [facility] Jeffry Cabezas M.D. 84715 716.96 C.M.A. Office Visit 11/25/2010 8:20a DO Not Use Marine Driller At [facility], 36125 717.85 [place] M.D. 250.00 V70.0 466.0 Office Visit 11/19/2010 9:20a DO Not Use Marine Driller At [facility], 99447 466.0 [place] M.D. Office Visit 11/06/2010 9:00a [facility] Jeffry Cabezas M.D. 33225 716.96 Of C.M.A. Office Visit 10/22/2010 9:20a DO Not Use Marine Driller At [facility], 63331 717.85 [place] M.D. Office Visit 09/25/2010 10:20a DO Not Use Marine Driller At [facility], 54812 719.46 [place] M.D. 250.00 401.9 272.4 278.00 305.1 Office Visit 02/16/2009 1:00p [facility] [place] ParkS[place]ia Is[place], 41521 847.2 Marine Driller M.D. 805.6 Office Visit 01/11/2009 10:00a [facility] [place], 00595 847.2 Marine Driller M.D. Office Visit 12/01/2008 10:00a [facility] [place] Park[place], 05103 847.2 Marine Driller M.D. Office Visit 11/01/2008 1:45p [facility] [place] Park[place] Is[place], 94287 847.2 Marine Driller M.D. 719.41 847.2 Office Visit 10/24/2008 1:45p [facility] Maksim XavierSylwia Isidro, 71992 922.31 Of Lianet Roach Office Visit 09/18/2008 10:15a [facility] Maksim Cancino Dwaine, 97198 805.6 Of Lianet Roach Plan of Care Future Appointment(s):01/11/2018 10:00 am - Andrea Engle M.D.,FACP at [facility] Internal Medicine - [address]11/11/2017 - Andrea Engle M.D.,FACPE11.22 Type 2 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Comments:You are not meeting goal for blood sugar control. Goal A1c is under 7.0%, you were at 10.3% in September. Have fasting bloodwork completed at the end of November.You are on a moderate-potency statinto prevent new or recurrent heart disease, which is common in diabetics.Follow up:3 months, 20 minGoals:Goal Hemoglobin A1c is less than 7.0% in ages 18-74 Goal Hemoglobin A1c is between 7.0% and 8.0 % in age over 75 Goal Blood pressure is less than 130/85. Cholesterol should be lowered by a high or moderate-dose statin.G89.4 Chronic pain syndromeComments: Reviewed [place] [employer] (Prescription Monitoring Program.) Patient is not receiving medications from otherproviders.Take Dilaudid as directed for 1 week. If your pain persists or worsens, give me a call Anastacia will switch you back to Opana.J45.41 Moderate persistent asthma with (acute) exacerbationComments:Take 2 puffs of Flovent twice a day. Use ProAir inhaler as needed, this is a rescue inhaler for acute exacerbations. Take Azithromycin as directed for acute asthma exacerbation. Give me a call if your symptoms worsen.
[2017-12-11] MEDS ORDERED: Albuterol/Ipratropium NEB.SOL* Albuterol 2.5 MG/Ipratropium 0.5 MG 3 ML INH ONE (15:30)
[2017-12-11 15:31] LABS: ABS Basophils 0.1 10^3/ul (0-0.2); ABS Eosinophils 0.1 10^3/ul (0-0.6); ABS Lymphocytes 1.8 10^3/ul (1.0-4.8); ABS Monocytes 0.3 10^3/ul (0-0.8); ABS Neutrophils 3.8 10^3/ul (1.5-7.7); ABS Nucleated RBC 0 10^3/ul; Hematocrit 37 % (35-47); Hemoglobin 12.2 g/dl (12.0-16.0); Lymphocyte % 30.1 % (25-47); Mean Corpuscular HGB Conc 33 g/dl (31-36); Mean Corpuscular Hemoglobin 28 pg (27-31); Mean Corpuscular Volume 85 fL (80-97); Mean Platelet Volume 9 um3 (7.4-10.4); Nucleated Red Blood Cells % 0.1; Platelet Count 187 10^3/ul (150-450); Red Cell Distribution Width 16 % (10.5-15); White Blood Count 6.1 10^3/ul (3.5-10.8)
[2017-12-11] MEDS ORDERED: predniSONE TAB* 20 MG PO ONE (15:31)
[2017-12-11 15:37] LABS: INR 0.87 (0.77-1.02)
[2017-12-11 15:41] LABS: EGFR Non-African American 54.8 (>60)
--- NOTE | 2017-12-11 16:12 | RAD ---
INDICATION: Dizziness. Nosebleeds. Chronic obstructive pulmonary disease. COMPARISON: November 23, 2017 chest radiograph and January 30, 2017 CT. TECHNIQUE: Dual energy PA and routine lateral views of the chest were obtained. REPORT: Obese body habitus limits image quality. Elevated lung volumes with increased AP thoracic diameter. Mild prominence of the interstitial markings. Thickened peripheral interlobular septa. Mild cardiomegaly. Mildly prominent central pulmonary vasculature with suggestion of cephalization. Unremarkable mediastinal contours. IMPRESSION: Stigmata of probable chronic obstructive pulmonary disease and probable correlate with clinical assessment as a bronchopneumonia could've a similar appearance. Mild pulmonary vascular congestion and interstitial edema.
[2017-12-11] MEDS ORDERED: Lisinopril TAB* 10 MG PO ONE (17:25)
[2017-12-11 17:33] VITALS: BP 188/103
--- NOTE | 2017-12-11 21:07 | ED ---
Boris Camarena Nilda, scribed for Marianna Self MD on 12/11/17 at 1540 . Complex/Multi-Sys Presentation - HPI Summary HPI Summary: This patient is a 57 year old F presenting to [facility] with a chief complaint of multiple epistaxis episodes (mostly right nostril) for the past couple of days. Pt states she's had 3 episodes epistaxis today, 4 episodes yesterday, and 2 episodes a couple days ago. The patient rates the pain 0/10 in severity. Symptoms aggravated by dry heat at home, but alleviated by fresh air outside. Patient reports vaginal bleeding (resolved), cough, wheezing, and lightheadedness, but denies fever. Pt recently had a pessary removed by Dr. Burdick ([employer]). She also states she's recently been treated for URI by Dr. Engle ( PCP). - History Of Current Complaint Chief Complaint: EDEpistaxis Time Seen by Provider: 12/11/17 15:07 Hx Obtained From: Patient Onset/Duration: Sudden Onset, Lasting Days, Still Present Timing: Constant Severity Currently: None Severity Initially: Moderate Location: Negative Aggravating Factor(s): dry heat at home Alleviating Factor(s): fresh air Associated Signs And Symptoms: Positive: Cough, Wheezing, Other - reports vaginal bleeding (resolved), cough, wheezing, and lightheadedness, but denies fever Related History: Recent Illness - URI - Allergies/Home Medications Allergies/Adverse Reactions: Allergies Allergy/AdvReac Type Severity Reaction Status Date / Time nut - unspecified Allergy Severe Swelling Verified 12/11/17 14:22 Of Face,Lips,& Throat PMH/Surg Hx/FS Hx/Imm Hx Previously Healthy: No Endocrine/Hematology History: Reports: Hx Diabetes - TYPE II- ORAL AND INSULIN Cardiovascular History: Reports: Hx Hypertension Denies: Hx Pacemaker/ICD, Other Cardiovascular Problems/Disorders Respiratory History: Reports: Hx Chronic Obstructive Pulmonary Disease (COPD) Denies: Hx Pulmonary Embolism History: Denies: Hx Renal Disease Musculoskeletal History: Reports: Hx Arthritis Sensory History: Reports: Hx Cataracts - LEFT EYE, Hx Contacts or Glasses - GLASSES Denies: Hx Hearing Aid Opthamlomology History: Reports: Hx Cataracts - LEFT EYE, Hx Contacts or Glasses - GLASSES Psychiatric History: Reports: Hx Depression Denies: Hx Panic Disorder - Cancer History Hx Chemotherapy: No Hx Radiation Therapy: No - Surgical History Surgery Procedure, Year, and Place: right knee REPLACEMENT march 2012. 2010- RIGHT EYE CATARACT REMOVED, UN SUCCESSFUL FOR Lt EYE. Xs 4 Hx Anesthesia Reactions: No Infectious Disease History: No Infectious Disease History: Denies: Traveled Outside the [place] in Last 30 Days - Family History Known Family History: Positive: Other - uterine CA (mother) - Social History Lives: Alone Alcohol Use: None Substance Use Type: Reports: None Smoking Status (MU): Light Every Day Tobacco Smoker Review of Systems Negative: Fever Positive: Epistaxis Cardiovascular: Negative Positive: Cough, Other - wheezing Gastrointestinal: Negative Positive: other - vaginal bleeding (resolved) Neurological: Other - lightheadedness Psychological: Normal All Other Systems Reviewed And Are Negative: Yes Physical Exam - Summary Physical Exam Summary: Appearance: obese female in moderate distress. No active nose bleed. Hypertensive Skin: Warm, color reflects adequate perfusion Head: Normal Head/Face inspection Eyes: Conjunctiva clear ENT: Eroded mucosal tissue in right nostril with no active bleeding. Left nostril has swollen turbinates, no evidence of bleeding. No blood running down posterior pharynx. Neck: Supple, no nodes, no JVD. Respiratory: SOB with minimal exertion on stretcher. Expiratory wheezes bilat with every breath. Cardio: RRR, No murmur, pulses normal, brisk capillary refill Abdomen: soft, nontender Bowel sounds: present Musculoskeletal: Strength Intact/ ROM intact. No calf tenderness. No edema. Neuro: Alert, muscle tone normal, facial symmetry, speech normal, sensory/motor intact Psychological: tearful Triage Information Reviewed: Yes Vital Signs On Initial Exam: Initial Vitals Temp Pulse Resp BP Pulse Ox 96.7 F 99 17 184/93 97 12/11/17 13:57 12/11/17 13:57 12/11/17 13:57 12/11/17 13:57 12/11/17 13:57 Vital Signs Reviewed: Yes Diagnostics - Vital Signs Vital Signs Temp Pulse Resp BP Pulse Ox 12/11/17 13:57 96.7 F 99 17 184/93 97 - Laboratory Result Diagrams: 12/11/17 15:20 12/11/17 15:20 Lab Statement: Any lab studies that have been ordered have been reviewed, and results considered in the medical decision making process. - Radiology CXR Radiology Interpretation Completed By: Radiologist - CXR, per radiologist, reveals Stigmata of probable chronic obstructive pulmonary disease and probable correlate with clinical assessment as a bronchopneumonia could've a similar appearance. Mild pulmonary vascular congestion and interstitial edema. Dr. Self has reviewed this radiology report. Re-Evaluation - Re-Evaluation First Eval Re-Evaluation Time: 16:58 Change: Unchanged Comment: Reviewed labs with pt. No nosebleed. Lungs clear after duoneb and oral prednisone 60mg. Second Eval Re-Evaluation Time: 17:20 Change: Improved Comment: Nurse notified Dr. Self that pt had elevated BP at 188/103 with 97 bpm. Pt will be given Lisinopril (10mg). Pt told nurse that she could not wait for written discharge papers. Pt had been given oral discharge instructions by me. Complex Multi-Symp Course/Dx Assessment/Plan: This pt is a 57 y/o F with a recent Hx of URI c/o multiple episodes of epistaxis for the past few days after recent URI. Pt with hx HTN in past, not on meds recently. Pt medications reviewed this visit. High blood pressure noted. Allergies Noted. At 1720 nurse reported pt had BP of 188/103, 97 bpm. Pt was given Lisinopril 10 mg. CXR, per radiologist, reveals Stigmata of probable chronic obstructive pulmonary disease and probable correlate with clinical assessment as a bronchopneumonia could've a similar appearance. Mild pulmonary vascular congestion and interstitial edema. Dr. Self has reviewed this radiology report. Pt has no fever, and no consolidation auscultated on exam. Will treat as COPD exacerbation at this time. Pt did not even c/o URI in her chief complaint. The hx of the URI came out as I asked pt ROS questions. Do not feel pt has pneumonia at this time. In the ED course, the patient was given a duoneb and prednisone. The pt is stable and will be D/C with a diagnosis of COPD exacerbation, bronchitis, epistaxis, HTN under poor control, and Tobacco Abuse Disorder, and a prescription for Lisinopril and prednisone. She was advised to f/u with Dr. Engle definitely this week. Daughter was with pt at time of discharge instructions. Pt advised to take her DM medications and to restart lisinopril and try vaseline in her nose, and get humidity in her home. Pt also advised to use her inhaler and to stop smoking. Pt told nurse she could not wait for written DC instructions. (critical pts in ED at time I need to write DC instructions). Pt left without formal D/C instructions so we will mail them to her. - Diagnoses Provider Diagnoses: Tobacco abuse disorder, Hypertension, poor control, COPD exacerbation, Bronchitis, Epistaxis Discharge - Discharge Plan Condition: Stable Disposition: HOME Prescriptions: Lisinopril TAB* [Prinivil TAB 10 MG*] 10 mg PO DAILY #20 tab predniSONE TAB* [Deltasone TAB*] 20 mg PO DAILY #5 tab Patient Education Materials: Nosebleed (ED), Type 2 Diabetes in Adults (ED), Acute Bronchitis (ED), COPD (Chronic Obstructive Pulmonary Disease) (ED), Hypertension (ED) Referrals: Andrea Engle MD [Primary Care Provider] - 3 Days (definite. ) Additional Instructions: You were given an albuterol neb in the ER which really helped your wheezing. Ask Dr. Engle to help you get a nebulizer if you can. Your glucose was over 300. You need to resume all of your diabetes medications. Your blood pressure was elevated. We have restarted your lisinopril medication for hypertension. The hypertension, the upper respiratory infection, and the dry heat in your home will make your nose bleed. We showed you how to use vaseline to keep your mucous membranes in your nose moist so they don't bleed. Return to the ER if you have new or worsening problems. The documentation as recorded by the Boris wheat Nilda accurately reflects the service I personally performed and the decisions made by me, Marianna Self MD.
== END 2017-12-11 17:46 | disposition home or self-care (01) ==
LOC: ED 13:56
DX: J44.1 Chronic obstructive pulmonary disease with (acute) exacerbation (principal); R04.0 Epistaxis; I10 Essential (primary) hypertension; F32.9 Major depressive disorder, single episode, unspecified; Z72.0 Tobacco use
CPT/HCPCS: 36415; 71046; 80053; 83880; 85025; 85610; 86140; 94640; 99282; A9270-GY; J7512

== ENCOUNTER 2018-09-19 22:55 | Emergency (ER) | payer MEDICARE, MEDICAID ==
--- OUTSIDE RECORDS SUMMARY | 2018-09-19 23:23 | XMS REPORT | Continuity of Care Document ---
:1960 External Reference #:[id number] Author Name Aida Harp Care Team Providers Name Role Phone Andrea Engle MD Primary Care Physician Unavailable Payers Type Date Identification Numbers Payment Provider Subscriber Policy Number: [id number] Medicare Chasity Jefferson PayID: [id number] [address] [place] [address] Effective: 2013 Policy Number: [id number] Medicare Chasity Jefferson Expires: 2018 PayID: [id number] [address] [place] [address] Effective: 2012 Policy Number: [id number] Medicaid Chasity Jefferson PayID: [id number] [address] [place] [address] Effective: 2010 Policy Number: [place] Medicaid Chasity Jefferson [id number] Expires: 2012 PayID: [id number] [address] [address] [place] [address] Onset: 2008 Policy Number: [id number] [facility] Chasity Jefferson Group Number: [id number] PayID: [id number] [place] [address] Advance Directives Type Date Description Status Comment Other Directive 06/17/2017 [facility] Care Proxy Current and Verified Problems Date Description Provider Status Onset: 08/25/2013 Type II diabetes mellitus Andrea Engle, Active uncontrolled Doc,FACP Onset: 06/02/2011 Essential hypertension Almaz Sherwood M.D. Active Onset: 06/02/2011 Tobacco user Yosvany Del Real M.D. Active Onset: 06/02/2011 Hyperlipidemia Lexxybprudencio Tadeo M.D. Active Onset: 06/02/2011 Depressive disorder [...] Del Real M.D. Active myelopathy Onset: 11/15/2014 Osteoarthritis of knee Andrea Engle, Active Doc,JAYSHREEP Note: LEFT Onset: 03/27/2016 Spinal stenosis of lumbar region Dipak Chavarria M.D. Active Onset: 04/23/2016 Microalbuminuria due to type 2 Andrea Engle Active diabetes mellitus Doc,FACP Onset: 06/02/2011 Type 2 [...] Del Real M.D. Inactive Inactive: 11/15/2014 Onset: 11/15/2014 Vaginal pessary in situ Andrea Engle M.D.,FACP Resolved Resolved: 03/26/2018 Note: for prolapse/incontinence Family History Date Family Member(s) Problem(s) Comments General Diabetes Type II General Obesity Father Diabetes Type II Mother due to Colon Cancer () Mother Hypertension First Sister Diabetes Type II Social History Type Date Description Comments Sex Unknown Marital Status Lives With Daughter Occupation Unemployed Tobacco Use Start: Unknown Former Cigarette Smoker End: Unknown 2 Packs Daily Cigarette Use Pack Years - 33 1-2 PPD from age [age], then cut down Tobacco Use Reviewed: 03/05/17 Patient is a current 6 cigarettes per day cigarette smoker, smokes every day Smoking Status Reviewed: 09/15/18 Patient is a current 6 cigarettes per day cigarette smoker, smokes every day ETOH Use Rarely consumes alcohol on special occassions Recreational Drug Use Denies Drug Use Tobacco Use Start: Unknown Light tobacco smoker 5-6 cig daily (10 or fewer cigarettes/day) Exercise Type/Frequency Exercises sporadically house cleaning Allergies, Adverse Reactions, Alerts Date Description Reaction Status Severity Comments 09/25/2010 cashews Active Moderate throat swelling 11/24/2012 Cymbalta dizziness, burning Active sensation in back. 01/03/2013 Celebrex Active 03/20/2016 Prandin Active vomiting 03/20/2016 Lyrica Active swelling 12/17/2011 No Known Drug Allergy Inactive Medications Medication Date Status Form Strength Qnty SIG Indications Ordering Provider Nortriptyline 07/28/ Active Capsules 10mg 60caps Take 2 AT Andrea [facility] 2018 Bedtime PO Vladimir Engle M.D.,FACP Ozempic 07/15/ Active Solution 0.25or 0.5 1.500m Start E11.22 Cramer 2017 Pen-Inject mg/Dose l 0.25mg MD Latha once weekly for 2 weeks, then increase to 0.5mg once weekly Ezetimibe 07/15/ Active Tablets 10mg 30tabs take 10mg E78.5 Cramer 2018 by mouth MD Latha daily Pravastatin 06/29/ Active Tablets 40mg 90tabs Take one [place] Sodium 2018 tablet by Nasima mouth at , M.D. bedtime. Wegmans Pen 01/15/ Active 100uni Use as Andrea Needle 8mm 31G 2018 ts Directed Vladimir Engle, Three M.D.,FACP Times Daily For Toujeo And Byetta Nebulizer 12/31/ Active Device 1units use for J44.1 Andrea 2018 albuterol Vladimir Engle, nebulized M.D.,FACP solution up to 4 times a day. last visit: 12/24/17 J45.40 Opana 11/16/2017 Active Tablets 10mg 120tabs by mouth four M54.42 Mayra Goss times a day as Vladimir Engle, needed FRANSISCO Roach Jardiance 09/16/2017 Active Tablets 25mg 30tabs Take 1 Tablet David- Wolfgang By Mouth Every D. Kadie, Day Doc,FRANSISCO Cyclobenzapri 12/12/2016 Active Tablets 10mg 60tabs take 1 tablet David Christie ne HCL by mouth two Vladimir Engle, times daily as FRANSISCO Roach needed maximum daily dose of 2 per day Flovent HFA 12/10/2016 Active Aerosol 110mc 12units Inhale 2 Puffs Andrea g/Act By Mouth Two Vladimir Engle, Times Daily Doc,FRANSISCO Vitamin D 10/31/2016 Active Tablets 1000U 30tabs 2 tabs once a Mayra Goss (Cholecalcife nit day in mario Kimball) fall/winter, 1 M.Vladimir,FRANSISCO tab/day spring/summer( pt has not been taking) Onetouch 09/17/2016 Active Kit w/Dev 1units test 3 times a E11.65 Mayra Goss Ultra 2 ice day and as Vladimir Engle, needed. dx: FRANSISCO Roach e11.65 last visit 09/17/16 Onetouch 09/17/2016 Active Strips 200units test up to 3 Andrea Ultra Blue times a day or Vladimir Engle, as directed FRANSISCO Roach dx: e11.65, type 2 diabetes mellitus w/hyperglycemi a last visit date: 09/17/16 Toujeo 07/16/2016 Active Solution 300Un 13.5ml 65 units sc E11.65 Mayra Goss Solostar Pen-Inject it/ML once a day Vladimir Engle M.D.,FRANSISCO Alcohol Swabs 06/15/2015 Active Pads 1box use as 250.00 Paulie directed for DIANA Brito dm testing Metoprolol 03/28/2014 Active Tablets 50mg 90tabs Take 1 And 1/2 Mayra Goss Tartrate Tablets By Vladimir Engle, Mouth Two FRANSISCO Roach Times Daily Bupropion HCL 01/23/2014 Active Tablets ER 150mg 90tabs Take 1 Tablet Andrea ER (XL) 24HR By Mouth Every D. [place], Day M.D.,FACP Metformin HCL 10/19/2013 Active Tablets 500mg 120tabs Take 2 Tablets Andrea By Mouth Two D. [place], Times Daily M.D.,FACP Albuterol 03/14/2013 Active Nebulizer (2.5m 120units use 1 vial via J44.9 Andrea Sulfate g/3ML nebulizer Vladimir Engle, ) every 4 hours M.D.,FACP 0.083 as needed last % visit: 12/24/17 Citalopram 03/14/2013 Active Tablets 20mg 90tabs Take 1 Tablet F33.9 Andrea Hydrobromide By Mouth Every D. [place], Day M.D.,FACP Lisinopril 02/01/2013 Active Tablets 20mg 90tabs take 1 tablet I10 David -Wolfgang by mouth every D. Kadie, day M.D.,FACP Proair HFA 01/06/2013 Active Aerosol 108(9 8.5units Inhale 2 Puffs Andrea 0Base By Mouth Every D. Kadie, ) 6 Hours as M.D.,FACP mcg/A Needed ct Hydrochloroth 01/04/2013 Active Tablets 25mg 90tabs take one Andrea iazide tablet by Vladimir Engle, mouth once M.D.,FACP daily Humalog 03/26/2018 Hx Solution 100Un 3ml inject 10 Andrea Kwikpen - Pen-Inject it/ML units D. Kadie, 09/14/2018 subcutaneously M.D.,FACP in the morning before breakfast Nebulizer 12/24/2017 Hx Device 1units use with J44.1 Andrea - albuterol nebs Vladimir Engle, 12/31/2017 as directed M.D.,FACP J45.40 Azithromycin 11/11/2017 - Hx Tablets 250mg 6tabs 2 every day for David- Wolfgang 11/16/2017 1 day, then 1 D. [place], every day M.D.,FACP Hydromorphone 10/16/2017 - Hx Tablets 4mg 28tabs 1 tab by mouth M54. Andrea HCL 11/16/2017 every 6 hours 42 D. Kadie, as needed M.D.,FACP Jardiance 06/17/2017 - Hx Tablets 10mg 30tabs 1 by mouth Andrea 09/16/2017 every night Vladimir Engle M.D.,FACP Pen [place] 11/28/2016 - Hx Misc 31G X 8 100unit 3x/day for E11. Mayra Goss 01/15/2018 mm s jess and 9 D. Kadie, kenji Roach,FACP Vitamin D 11/10/2016 - Hx Capsules [id number] 8caps 1 tablet weekly E66. Rishi Higuera (Ergocalciferol) 01/05/2017 it for 8 weeks 01 MD Gina, FACS Bymedina 10 mcg 09/17/2016 - Hx Solution 10mcg/0 7.2unit Inject 1 Dose E11. Andrea Pen 07/28/2018 Pen-Inject .04ML s (10mcg) Under 65 DSylwia Engle, The Skin Doc,FACP Freestyle Lite 04/23/2016 - Hx Device 1units check Andrea Blood Glucose 09/17/2016 fingerstick bid Vladimir Engle, Monitoring and prn 04/23/16 Doc,FACP System e11.65 Humalog 03/25/2016 - Hx Solution 100Unit 3ml 5 units tid qac E11. Mayra Goss 03/25/2016 Cartridge /ML 65 DSylwia Engle M.D.,FACP Humalog Kwikpen 03/25/2016 - Hx Solution 100Unit 3ml 10 units three E11. Andrea 09/17/2016 Pen-Inject /ML times a day 65 Vladimir Engle, before meal, if M.DSylwia,FACP FS >150 Humalog Kwikpen 03/20/2016 - Hx Solution 200Unit 3ml 5 units tid qac E11. Andrea 03/25/2016 Pen-Inject /ML 63 DSylwia Engle M.D.,FACP Opana 03/20/2016 - Hx Tablets 10mg 120tabs by mouth four M54. Andrea 10/16/2017 times a day as 40 DSylwia Engle, needed Doc,FACP Clindamycin HCL 11/09/2015 - Hx Capsules 300mg 20caps 1 capsule by Paulie 11/14/2015 mouth four [place], [employer] times a day x's 5 days Clindamycin HCL 10/26/2015 - Hx Capsules 300mg 56caps 1 capsule by K12. Paulie 11/09/2015 mouth four 2 [place], [employer] times a day x's 14 days Peridex 10/26/2015 - Hx Solution 0.12% 118ml rinse mouth tid K12. Paulie 03/11/2016 after brushing 2 [place], [employer] Augmentin 07/17/2015 - Hx Tablets 875-125 20tabs 1 tab by mouth J06. Paulie 07/27/2015 mg twice a day x's 9 [place], [employer] 10 days Freestyle Lite 06/15/2015 - Hx Strips 2Boxes test up to 4 250. Paulie Test 09/17/2016 times a day dx 00 [place], [employer] code: 250.52 Opana 04/19/2015 - Hx Tablets 10mg 120tabs po qid prn Andrea 03/20/2016 Vladimir Engle M.D.,FACP Amoxicillin/Clav 01/24/2015 - Hx Tablets 875-125 20tabs 1 tablet by 461. Paulie ulanate 02/03/2015 mg mouth twice a 0 [place], [employer] Potassium day x's 10 days Prednisone 01/24/2015 - Hx Tablets 20mg 10tabs 2 tablets by 461. Paulie 04/17/2015 mouth daily x's 0 [place], [employer] 5 days in the morning Flexeril 12/07/2014 - Hx Tablets 10mg 20tabs take one tablet Andrea 12/12/2016 by mouth twice Vladimir Engle, a day as M.D.,FACP needed; maximum 2 per day mdd 2 Omeprazole 11/15/2014 - Hx Tablets DR 20mg 90tabs 1 by mouth 535. Paulie 07/17/2015 every day 51 [place], [employer] Clarithromycin 11/15/2014 - Hx Tablets 500mg 20tabs 1 by mouth 490 David Christie 11/25/2014 twice a day for Vladimir Engle, 10 days (hold M.DSylwia,FACP pravastatin when taking) Byetta 10 mcg 11/15/2014 - Hx Solution 10mcg/0 7.2unit inject 1 dose E11. Paulie Pen 09/17/2016 Pen-Inject .04ML s (10mcg) under 65 [place], [employer] the skin two times daily Lantus Solostar 07/27/2014 - Hx Solution 100Unit 15units inject 75 units E11. Paulie 07/16/2016 Pen-Inject /ML under the skin 65 [place], DIANA one time daily Novofine 05/08/2014 - Hx Misc 30G X 8 30units Use Every Day E11. Paulie 11/28/2016 mm 9 DIANA Brito Victoza 02/28/2014 - Hx Solution 18mg/3M 6units inject 1.8 mg 250. David Christie 11/15/2014 Pen-Inject L under the skin 02 Vladimir Engle, once daily M.Vladimir,FACP Bupropion HCL ER 01/23/2014 - Hx Tablets ER 150mg 30tabs 1 by mouth qd 311 Andrea 01/23/2014 12HR Vladimir Engle M.D.,FACP Metformin HCL 08/25/2013 - Hx Tablets 1000mg 180tabs 1 po bid Mayra Goss 10/19/2013 Vladimir Engle M.D.,FACP Lancets 28G 08/25/2013 - Hx Misc 28G 100unit tid diagnosis: E11. Barry Hardy 06/17/2017 s 250.02 63 Doc Lofton Prandin 08/25/2013 - Hx Tablets 1mg 90tabs take one tablet E11. Paulie 03/20/2016 by mouth three 63 [place], [employer] times a day with meals Flovent HFA 07/07/2013 - Hx Aerosol 110mcg/ 12units inhale two Paulie 11/21/2015 Act puffs by mouth DIANA Brito twice a day Novofine [id number] 04/26/2013 - Hx Misc 30G X 8 30units once daily 250. Barry Hardy 05/08/2014 mm diagnosis: 00 Kirsty 250.02 M.DSylwia Lantus Solostar 04/26/2013 - Hx Sopn 100Unit 5units inject 40 units 250. Andrea 07/27/2014 /ML subcutaneously 00 Vladimir Engle, at bedtime, MGibson,FACP Alcohol Preps 04/26/2013 - Hx Misc 30units once daily 250. Paulie 06/15/2015 00 DIANA Brito Bupropion HCL XL 03/14/2013 - Hx Tablets ER 150mg 30tabs once daily in 311 Andrea 01/23/2014 24HR the morning Vladimir Engle M.D.,FACP Omeprazole 03/14/2013 - Hx Capsules DR 20mg 30caps Take One 535. Mayra Goss 07/27/2014 Capsule By 40 Vladimir Engle, Mouth Every Day Doc,FACP In The Morning On An Empty Stomach Oxybutynin 02/08/2013 - Hx Tablets 5mg 30tabs 1 po qd 625. Sofiya Chloride 04/26/2013 6 Doc Webber Bupropion HCL XL 02/01/2013 - Hx Tablets ER 300mg 30tabs 1 po qd 311 [place] 03/14/2013 24HR Doc Del Real Pravastatin 02/01/2013 - Hx Tablets 20mg 90tabs take one tablet David- Wolfgang Sodium 06/29/2018 by mouth at Vladimir Engle, bedtime Doc,FACP Losartan 01/04/2013 - Hx Tablets 100mg 30tabs 1 po qd [place] Potassium 01/04/2013 Doc Del Real Lisinopril 01/04/2013 - Hx Tablets 10mg 30tabs 1 po qd [place] 02/01/2013 Doc Del Real Toprol XL 01/03/2013 - Hx Tablets ER 100mg 30tabs 1 tab daily 401. [place] 01/03/2013 24HR 9 Doc Del Real Wellbutrin XL 01/03/2013 - Hx Tablets ER 150mg 30tabs 1 po qd x2 311 [place] 02/01/2013 24HR weeks then Nasima, 2/day Am Doc Glipizide 01/03/2013 - Hx Tablets 10mg 60tabs 1 tab bid [place] 06/23/2013 Doc Del Real Metoprolol 01/03/2013 - Hx Tablets 50mg 60tabs Take One Tablet David- Wolfgang Tartrate 02/28/2014 By Mouth Twice Vladimir Engle, A Day Doc,FACP Citalopram 12/02/2012 - Hx Tablets 20mg 30tabs 1 po qd [place] Hydrobromide 12/02/2012 Doc Del Real Citalopram 12/02/2012 - Hx Tablets 20mg 30tabs 1 po qd Yosvany Hydrobromide 01/03/2013 Doc Del Real Celebrex 12/01/2012 - Hx Capsules 200mg 30caps 1 po qd Yosvany 01/03/2013 Doc Del Real Flexeril 12/01/2012 - Hx Tablets 10mg 20tabs Take One Tablet Andrea 07/27/2014 By Mouth Twice DSylwia [place], A Day as M.DSylwia,FACP Needed; Maximum 2 Per Day Cymbalta 10/28/2012 - Hx Caps DR 60mg 1 po qd Barry Hardy 11/24/2012 Part Doc Lofton Celebrex 09/08/2012 - Hx Capsules 200mg 30caps 1 po qd 722. [place] 11/24/2012 93 Doc Del Real Lidoderm 09/08/2012 - Hx Patches 5% 30units one patch daily 722. [place] 02/08/2013 on for 12 h 93 Doc Del Real Toprol XL 08/30/2012 - Hx Tablets ER 50mg 30tabs 1 po qd 401. [place] 02/01/2013 24HR 9 Doc Del Real Heating Pad For 07/05/2012 - Hx 1units as ditected 722. [place] Low Back 11/24/2012 93 Doc Del Real Losartan 05/03/2012 - Hx Tablets 100-25m 30tabs 1 tab po every [place] Potassium/Hydroc 01/04/2013 g day amy Del Real M.D. Toprol XL 03/10/2012 - Hx Tablets ER 25mg 30tabs 1 tablet by Nelia 08/30/2012 24HR mouth daily Ceci Sifuentes Flexeril 03/09/2012 - Hx Tablets 10mg 30tabs 1 po bid prn 722. Almaz 11/24/2012 93 Doc Sherwood Chantix Starting 03/03/2012 - Hx Tablets 0.5mg X 1tabs use as directed 305. [place] Month Luke 05/21/2012 11 & 1 1 mg Nasima X BarakDSylwia Azithromycin 03/02/2012 - Hx Tablets 250mg 6tabs 2 tab today and [place] 05/21/2012 then 1tab daily Doc Del Real Nicorette 12/24/2011 - Hx Gum 4mg 120unit upto 4 times [place] 07/19/2012 s daily Doc Del Real Nicoderm CQ 12/17/2011 - Hx Patches 14mg/24 30units once daily 305. [place] 12/24/2011 24HR HR 1 Doc Del Real Proair HFA 12/17/2011 - Hx Aerosol 108(90B 1units 2 puffs ih q6h Sofiya 01/06/2013 ase) prn trisha Webber/monika Roach [place] 11/27/2011 - Hx Tablets 20mg 30tabs 1 tab po 788. Almaz 12/17/2011 everyday 33 Doc Sherwood Amlodipine 10/15/2011 - Hx Tablets 5mg 30tabs 1 po qd [place] Besylate 12/17/2011 Doc Del Real Tecturna 09/17/2011 - Hx 150mg 30units once daily 401. [place] 10/15/2011 9 Doc Del Real Pulmicort 09/11/2011 - Hx Aerosol 180mcg/ 1mon 2 puffs twice Andrea Flexhaler 07/07/2013 Act daily Vladimir Engle M.D.,FACP Diovan HCT 08/26/2011 - Hx Tablets 320-25m 30tabs 1 po qd 401. [place] 05/21/2012 g Dudley Del Real M.D. BP Machine 08/26/2011 - Hx 401. [place] 05/21/2012 9 Doc Del Real Opana ER 08/04/2011 - Hx Tablets ER 10mg 60tabs 1 po q12hrs 717. [place] 12/17/2011 12HR 85 Doc Del Real Opana 08/04/2011 - Hx Tablets 5mg 90tabs 1 tab q 4h prn 717. [place] 12/17/2011 85 Doc Del Real Mobic 07/09/2011 - Hx Tablets 15mg 30tabs once daily 719. [place] 03/02/2012 41 Doc Del Real Diovan HCT 05/15/2011 - Hx Tablets 320-25m 90tabs 1 po qd 401. Almaz 06/02/2011 fátima Sherwood M.D. Vesicare 05/15/2011 - Hx Tablets 5mg 30tabs 1 tab po every 788. Almaz 06/02/2011 day 30 Doc Sherwood Chantix Starter 04/23/2011 - Hx Tablets 1tabs use as directed 305. [place] Pack 03/03/2012 1 Doc Del Real Asmanex 30 03/14/2011 - Hx Aerosol 110mcg/ 1mon 1 inhalation qd [place] Metered Doses 09/11/2011 Inh Doc Del Real Zithromax Z-Luke 03/12/2011 - Hx Tablets 250mg 1tabs 2tab today and 466. [place] 03/26/2011 1tab daily x 0 Nasima 4days Doc Freestyle Lite 01/29/2011 - Hx 100unit two times daily 250. Paulie Test Strips 06/15/2015 s or as needed 00 DIANA Brito diagnosis: 250.02 Onglyza 01/22/2011 - Hx Tablets 5mg 30tabs once daily 250. [place] 03/12/2011 00 Doc Del Real Metformin HCL 01/22/2011 - Hx Tablets 500mg 120tabs 2tab po bid 250. [place] 12/17/2011 00 Doc Del Real Mobic 11/25/2010 - Hx Tablets 15mg 30tabs once daily Yosvany 01/29/2011 Doc Del Real Levaquin 11/19/2010 - Hx Tablets 750mg 7tabs once daily 466. [place] 01/22/2011 0 Doc Del Real Kombiglyze XR 11/19/2010 - Hx Tablets ER 2.5-100 60tabs 2 po qam [place] 01/22/2011 24HR 0mg Doc Del Real Glipizide XL 09/25/2010 - Hx Tablets ER 10mg 60tabs 1 tab po bid [place] 06/23/2013 24HR Doc Del Real Diovan HCT 09/25/2010 - Hx Tablets 320-25m 90tabs 1 po qd [place] 03/12/2011 g Doc Del Real Simvastatin 09/25/2010 - Hx Tablets 80mg 90tabs 1/2 po qhs [place] 03/12/2011 Doc Del Real Citalopram 09/25/2010 - Hx Tablets 20mg 30tabs 1 po qd [place] Hydrobromide 10/28/2012 Doc Del Real Metformin HCL ER 09/25/2010 - Hx Tablets ER 750mg 90tabs Take 2 tabs [place] 11/19/2010 24HR daily Doc Del Real Flexeril 09/25/2010 - Hx Tablets 10mg 60tabs 1 po tid prn Yosvany 06/02/2011 Doc Del Real Opana 09/25/2010 - Hx Tablets 10mg 90tabs po q4h prn 719. [place] 08/04/2011 46 Doc Del Real Ibuprofen 12/01/2008 - Hx Tablets 400mg 50tabs po q4-6h prn Maksim Cancino 01/22/2011 Doc Isidro Flexeril 12/01/2008 - Hx Tablets 10mg 40tabs 1 po tid prn Maksim Cancino 01/22/2011 For Muscle Dwaine Spasms Doc Ultram 10/24/2008 - Hx Tablets 50mg 50tabs 1 Or 2 Tabs Q 4 Maksim Cancino 11/25/2010 Hours prn Pain Doc Isidro Aleve - Hx Tablets 220mg po qday Unknown 01/29/2011 Ventolin HFA - Hx Aerosol 108(90B 1month 2 puffs po qid [place] 12/17/2011 ase) prn trisha Del Real/monika Roach Metformin HCL - Hx Tablets 500mg 60tabs 1 po bid Andrea 08/25/2013 Vladimir Engle M.D.,FACP Metoprolol - Hx Tablets ER 25mg 30tabs 2 qd Unknown Succinate ER 06/23/2013 24HR Oxymorphone - Hx Tablets 5mg 90tabs 1 po Q 8HRS Unknown Hydrochloride 07/05/2012 Januvia - Hx Tablets 100mg 30tabs 1 po qd [place] 08/25/2013 Doc Del Real Thera Flu - Hx Unknown 09/08/2012 Oxycodone HCL - Hx Capsules 10mg 240caps 1-2 qid prn Unknown 04/19/2015 Immunizations CPT Code Status Date Vaccine Lot # [id number] Given 06/17/2017 Influenza Virus Vaccine, Quadrivalent, Split, [id number] Preservative Free [id number] Given 07/17/2015 Influenza Virus Vaccine, Quadrivalent, Split, [id number] Preservative Free 38726 Given 07/27/2014 Flu Vaccine Split Virus Preservative Free For [id number] Indiv 3Yr Older 80277 Given 08/25/2013 Flu Vaccine Split Virus Preservative Free For [id number] Indiv 3Yr Older 14457 Given 06/09/2012 Pneumonia Vaccine [id number] [id number] Given 06/09/2012 Influenza Virus 3Yrs & Over [id number] Given 07/09/2011 Influenza Virus 3Yrs & Over [id number] Vital Signs Date Vital Result Comment 09/15/2018 9:16am Height 64 inches 5'4" Weight 278.00 lb w/ shoes Heart Rate 70 /min BP Systolic Sitting 161 mmHg BP Diastolic Sitting 95 mmHg BP Systolic Standing 132 mmHg recheck at end of visit. BP Diastolic Standing 80 mmHg recheck at end of visit. BMI (Body Mass Index) 47.7 kg/m2 07/28/2018 9:32am Height 64 inches 5'4" Weight 281.00 lb Heart Rate 93 /min BP Systolic Sitting 138 mmHg BP Diastolic Sitting 76 mmHg Body Temperature 97.2 F O2 % BldC Oximetry 99 % BMI (Body Mass Index) 48.2 kg/m2 07/27/2018 2:49pm Height 64 inches 5'4" Weight 281.25 lb Heart Rate 85 /min BP Systolic 110 mmHg BP Diastolic 88 mmHg Body Temperature 97.8 F O2 % BldC Oximetry 95 % BMI (Body Mass Index) 48.3 kg/m2 07/15/2018 12:51pm Height 64 inches 5'4" Weight 281.00 lb w/ shoes Heart Rate 82 /min BP Systolic Sitting 160 mmHg BP Diastolic Sitting 97 mmHg BP Systolic Standing 158 mmHg manual sitting at end of visit BP Diastolic Standing 82 mmHg manual sitting at end of visit BMI (Body Mass Index) 48.2 kg/m2 06/28/2018 9:04am Height 64 inches 5'4" Weight 277.38 lb BMI (Body Mass Index) 47.6 kg/m2 03/26/2018 9:52am Weight 269.00 lb Heart Rate 80 /min BP Systolic Sitting 140 mmHg BP Diastolic Sitting 82 mmHg Body Temperature 96.2 F O2 % BldC Oximetry 92 % 12/24/2017 11:06am Weight 278.00 lb Heart Rate 81 /min BP Systolic Sitting 130 mmHg BP Diastolic Sitting 78 mmHg Body Temperature 96.8 F O2 % BldC Oximetry 94 % 11/23/2017 10:39am Weight 275.00 lb Heart Rate 90 /min BP Systolic 115 mmHg BP Diastolic 72 mmHg Body Temperature 98.8 F O2 % BldC Oximetry 93 % 11/11/2017 9:39am Weight 277.00 lb Heart Rate 74 /min BP Systolic Sitting 134 mmHg BP Diastolic Sitting 80 mmHg Body Temperature 98.4 F O2 % BldC Oximetry 98 % 09/16/2017 8:06am Weight 283.00 lb Heart Rate 88 /min BP Systolic Sitting 138 mmHg BP Diastolic Sitting 80 mmHg Body Temperature 97.3 F O2 % BldC Oximetry 98 % 06/17/2017 10:54am Weight 290.00 lb Heart Rate 75 /min BP Systolic Sitting 138 mmHg BP Diastolic Sitting 80 mmHg Body Temperature 98.5 F O2 % BldC Oximetry 95 % 03/05/2017 8:24am Height 64 inches 5'4" Weight 284.25 lb Heart Rate 86 /min BP Systolic Sitting 150 mmHg BP Diastolic Sitting 84 mmHg Body Temperature 97.8 F O2 % BldC Oximetry 98 % BMI (Body Mass Index) 48.8 kg/m2 12/10/2016 12:45pm Weight 278.00 lb Heart Rate 93 /min BP Systolic Sitting 167 mmHg BP Diastolic Sitting 97 mmHg BP Systolic Recheck 130 mmHg BP Diastolic Recheck 84 mmHg Body Temperature 98.4 F O2 % BldC Oximetry 96 % 11/10/2016 8:31am Height 64.5 inches 5'4.50" Weight 277.00 lb Heart Rate 84 /min BP Systolic 140 mmHg BP Diastolic 80 mmHg Respiratory Rate 18 /min Body Temperature 97.4 F BMI (Body Mass Index) 46.8 kg/m2 10/31/2016 9:36am Height 64.5 inches 5'4.50" Weight 272.00 lb Heart Rate 80 /min BP Systolic Sitting 136 mmHg BP Diastolic Sitting 87 mmHg Body Temperature 97.8 F O2 % BldC Oximetry 97 % BMI (Body Mass Index) 46.0 kg/m2 09/29/2016 1:37pm Height 64.5 inches 5'4.50" Weight 275.00 lb Heart Rate 80 /min BP Systolic Sitting 140 mmHg BP Diastolic Sitting 88 mmHg Respiratory Rate 18 /min Body Temperature 98.3 F BMI (Body Mass Index) 46.5 kg/m2 Neck Circumference in inches 16.5 Hip Circumference 55 Waist Circumference 55 Waist to Hip Ratio 1.0 09/17/2016 2:50pm Height 64.5 inches 5'4.50" Weight 276.00 lb Heart Rate 102 /min BP Systolic Sitting 148 mmHg BP Diastolic Sitting 78 mmHg Body Temperature 98.4 F O2 % BldC Oximetry 94 % BMI (Body Mass Index) 46.6 kg/m2 07/16/2016 1:33pm Height 64.5 inches 5'4.50" Weight 263.00 lb Heart Rate 94 /min BP Systolic Sitting 162 mmHg BP Diastolic Sitting 104 mmHg Body Temperature 97.7 F O2 % BldC Oximetry 98 % BMI (Body Mass Index) 44.4 kg/m2 04/23/2016 3:00pm Height 64.5 inches 5'4.50" Weight 276.00 lb Heart Rate 100 /min BP Systolic Sitting 118 mmHg BP Diastolic Sitting 72 mmHg O2 % BldC Oximetry 98 % BMI (Body Mass Index) 46.6 kg/m2 03/27/2016 10:45am Height 64.5 inches 5'4.50" Weight 276.00 lb Heart Rate 82 /min BP Systolic Sitting 150 mmHg BP Diastolic Sitting 90 mmHg Pain Level 10 BMI (Body Mass Index) 46.6 kg/m2 03/20/2016 2:44pm Height 64.5 inches 5'4.50" Weight 276.00 lb Heart Rate 97 /min BP Systolic Sitting 150 mmHg BP Diastolic Sitting 100 mmHg Body Temperature 98.0 F O2 % BldC Oximetry 97 % BMI (Body Mass Index) 46.6 kg/m2 03/11/2016 11:31am Height 64.5 inches 5'4.50" Weight 275.00 lb Heart Rate 86 /min BP Systolic Sitting 118 mmHg BP Diastolic Sitting 78 mmHg Body Temperature 96.7 F Pain Level 9 9/10 pain level O2 % BldC Oximetry 96 % BMI (Body Mass Index) 46.5 kg/m2 10/26/2015 3:36pm Height 64.5 inches 5'4.50" Weight 265.00 lb Heart Rate 116 /min BP Systolic Sitting 120 mmHg BP Diastolic Sitting 80 mmHg Body Temperature 97.9 F O2 % BldC Oximetry 97 % BMI (Body Mass Index) 44.8 kg/m2 07/17/2015 12:40pm Height 64.5 inches 5'4.50" Weight 264.00 lb Heart Rate 109 /min BP Systolic Sitting 146 mmHg BP Diastolic Sitting 98 mmHg Body Temperature 98.4 F O2 % BldC Oximetry 98 % BMI (Body Mass Index) 44.6 kg/m2 04/18/2015 2:51pm Height 64.5 inches 5'4.50" Weight 278.38 lb Heart Rate 86 /min BP Systolic Sitting 181 mmHg left arm BP Diastolic Sitting 102 mmHg left arm Body Temperature 98.1 F O2 % BldC Oximetry 97 % BMI (Body Mass Index) 47.0 kg/m2 01/24/2015 10:22am Height 64.5 inches 5'4.50" Weight 294.00 lb Heart Rate 100 /min BP Systolic Sitting 122 mmHg BP Diastolic Sitting 80 mmHg O2 % BldC Oximetry 94 % BMI (Body Mass Index) 49.7 kg/m2 12/20/2014 9:08am Height 64.5 inches 5'4.50" Weight 252.50 lb Heart Rate 110 /min BP Systolic Sitting 130 mmHg BP Diastolic Sitting 68 mmHg O2 % BldC Oximetry 98 % BMI (Body Mass Index) 42.7 kg/m2 11/15/2014 10:41am Weight 293.50 lb BP Systolic Sitting 175 mmHg BP Diastolic Sitting 112 mmHg Body Temperature 98.4 F O2 % BldC Oximetry 98.0 % 07/27/2014 10:05am Weight 284.25 lb Heart Rate 86 /min BP Systolic Sitting 134 mmHg BP Diastolic Sitting 73 mmHg Body Temperature 97.0 F 02/28/2014 10:36am Weight 280.00 lb Heart Rate 92 /min BP Systolic Sitting 138 mmHg BP Diastolic Sitting 88 mmHg 10/19/2013 10:55am Height 64 inches 5'4" Weight 292.00 lb Heart Rate 84 /min BP Systolic Sitting 140 mmHg BP Diastolic Sitting 90 mmHg BMI (Body Mass Index) 50.1 kg/m2 08/25/2013 9:42am Weight 287.00 lb Heart Rate 88 /min BP Systolic Sitting 126 mmHg BP Diastolic Sitting 84 mmHg 06/23/2013 9:57am Height 64.25 inches 5'4.25" Weight 295.00 lb Heart Rate 91 /min BP Systolic Sitting 128 mmHg BP Diastolic Sitting 78 mmHg BMI (Body Mass Index) 50.2 kg/m2 04/26/2013 1:35pm Weight 291.00 lb Heart Rate 89 /min BP Systolic Sitting 162 mmHg BP Diastolic Sitting 94 mmHg O2 % BldC Oximetry 98 % 03/14/2013 9:15am Weight 297.00 lb Heart Rate 96 /min BP Systolic Sitting 150 mmHg BP Diastolic Sitting 90 mmHg Body Temperature 98.2 F O2 % BldC Oximetry 98 % 96 before, after she walked 94 02/08/2013 12:41pm Weight 297.00 lb Heart Rate 76 /min BP Systolic 164 mmHg BP Diastolic 100 mmHg BP Systolic Sitting 156 mmHg BP Diastolic Sitting 100 mmHg 02/01/2013 9:32am Height 64.50 inches 5'4.50" Weight 293.00 lb Heart Rate 80 /min BP Systolic Sitting 126 mmHg BP Diastolic Sitting 100 mmHg BMI (Body Mass Index) 49.5 kg/m2 01/03/2013 9:33am Height 65 inches 5'5" Weight 297.50 lb Heart Rate 96 /min BP Systolic Sitting 166 mmHg BP Diastolic Sitting 102 mmHg BMI (Body Mass Index) 49.5 kg/m2 11/24/2012 9:28am Height 65 inches 5'5" Weight 293.00 lb Heart Rate 94 /min BP Systolic Sitting 164 mmHg BP Diastolic Sitting 101 mmHg BMI (Body Mass Index) 48.8 kg/m2 10/28/2012 10:32am Height 65 inches 5'5" Weight 298.00 lb Heart Rate 94 /min BP Systolic Sitting 145 mmHg lower arm/auto cuff BP Diastolic Sitting 85 mmHg lower arm/auto cuff BMI (Body Mass Index) 49.6 kg/m2 09/08/2012 10:14am Height 64.25 inches 5'4.25" Weight 283.00 lb Heart Rate 88 /min BP Systolic Sitting 150 mmHg BP Diastolic Sitting 102 mmHg BMI (Body Mass Index) 48.2 kg/m2 08/30/2012 8:35am Height 64.25 inches 5'4.25" Weight 284.00 lb Heart Rate 89 /min BP Systolic Sitting 150 mmHg BP Diastolic Sitting 104 mmHg BMI (Body Mass Index) 48.4 kg/m2 07/19/2012 8:42am Height 64.25 inches 5'4.25" Weight 280.00 lb Heart Rate 105 /min BP Systolic Sitting 128 mmHg BP Diastolic Sitting 84 mmHg Body Temperature 97.4 F O2 % BldC Oximetry 97 % BMI (Body Mass Index) 47.7 kg/m2 07/05/2012 10:42am Height 64.25 inches 5'4.25" Weight 274.00 lb Heart Rate 100 /min BP Systolic Sitting 150 mmHg BP Diastolic Sitting 96 mmHg BMI (Body Mass Index) 46.7 kg/m2 06/23/2012 8:05am Height 64.25 inches 5'4.25" Weight 270.00 lb Heart Rate 76 /min BP Systolic Sitting 140 mmHg BP Diastolic Sitting 86 mmHg BMI (Body Mass Index) 46.0 kg/m2 06/09/2012 8:05am Height 64.25 inches 5'4.25" Weight 271.00 lb Heart Rate 80 /min BP Systolic Sitting 128 mmHg BP Diastolic Sitting 92 mmHg BMI (Body Mass Index) 46.2 kg/m2 05/21/2012 11:07am Height 64.25 inches 5'4.25" Weight 265.00 lb BMI (Body Mass Index) 45.1 kg/m2 03/10/2012 1:42pm Height 64.25 inches 5'4.25" Weight 279.75 lb Heart Rate 84 /min Regular BP Systolic Sitting 110 mmHg BP Diastolic Sitting 80 mmHg BMI (Body Mass Index) 47.6 kg/m2 03/09/2012 1:28pm Height 64.25 inches 5'4.25" Weight 281.00 lb Heart Rate 84 /min BP Systolic Sitting 146 mmHg BP Diastolic Sitting 90 mmHg BMI (Body Mass Index) 47.9 kg/m2 03/02/2012 7:52am Height 64.25 inches 5'4.25" Weight 277.00 lb BP Systolic Sitting 104 mmHg BP Diastolic Sitting 80 mmHg BMI (Body Mass Index) 47.2 kg/m2 01/13/2012 9:34am Height 64.25 inches 5'4.25" Weight 278.00 lb Heart Rate 82 /min BP Systolic Sitting 110 mmHg lg BP Diastolic Sitting 80 mmHg lg BMI (Body Mass Index) 47.3 kg/m2 12/17/2011 7:57am Height 64.25 inches 5'4.25" Weight 278.00 lb Heart Rate 96 /min BP Systolic Sitting 136 mmHg lg cuff BP Diastolic Sitting 96 mmHg lg cuff BMI (Body Mass Index) 47.3 kg/m2 11/27/2011 9:41am Height 64.25 inches 5'4.25" Weight 279.00 lb Heart Rate 80 /min BP Systolic Sitting 124 mmHg BP Diastolic Sitting 74 mmHg BMI (Body Mass Index) 47.5 kg/m2 09/17/2011 9:57am Height 64.25 inches 5'4.25" Weight 275.00 lb Heart Rate 100 /min BP Systolic Sitting 164 mmHg BP Diastolic Sitting 108 mmHg BMI (Body Mass Index) 46.8 kg/m2 08/26/2011 9:19am Height 64.25 inches 5'4.25" Weight 279.50 lb Heart Rate 92 /min BP Systolic Sitting 168 mmHg BP Diastolic Sitting 112 mmHg BMI (Body Mass Index) 47.6 kg/m2 08/04/2011 8:06am Height 64.75 inches 5'4.75" Weight 279.00 lb BP Systolic Sitting 145 mmHg BP Diastolic Sitting 100 mmHg BMI (Body Mass Index) 46.8 kg/m2 07/09/2011 7:56am Weight 273.00 lb Heart Rate 92 /min BP Systolic Sitting 148 mmHg BP Diastolic Sitting 84 mmHg 06/02/2011 11:58am Weight 262.00 lb Heart Rate 86 /min BP Systolic Sitting 138 mmHg BP Diastolic Sitting 82 mmHg 05/15/2011 9:46am Weight 264.00 lb Heart Rate 104 /min BP Systolic Sitting 168 mmHg BP Diastolic Sitting 108 mmHg 04/23/2011 8:49am Weight 264.00 lb Heart Rate 70 /min BP Systolic Sitting 142 mmHg BP Diastolic Sitting 86 mmHg 03/12/2011 7:41am Weight 265.00 lb Heart Rate 100 /min BP Systolic Sitting 138 mmHg BP Diastolic Sitting 88 mmHg Body Temperature 96.5 F lt ear 01/29/2011 8:53am Weight 276.00 lb Heart Rate 80 /min BP Systolic Sitting 142 mmHg BP Diastolic Sitting 96 mmHg 01/22/2011 7:55am Weight 282.00 lb Heart Rate 86 /min BP Systolic 140 mmHg BP Diastolic 90 mmHg 11/25/2010 8:19am Weight 247.00 lb Heart Rate 94 /min BP Systolic Sitting 140 mmHg BP Diastolic Sitting 100 mmHg 11/19/2010 9:01am Weight 277.00 lb Heart Rate 98 /min BP Systolic Sitting 147 mmHg BP Diastolic Sitting 100 mmHg Body Temperature 96.3 F O2 % BldC Oximetry 98 % 10/22/2010 9:41am Weight 279.00 lb Heart Rate 101 /min BP Systolic Sitting 158 mmHg BP Diastolic Sitting 90 mmHg O2 % BldC Oximetry 97 % 09/25/2010 10:48am Height 64 inches 5'4" Weight 282.00 lb Heart Rate 88 /min BP Systolic Sitting 166 mmHg BP Diastolic Sitting 110 mmHg BMI (Body Mass Index) 48.4 kg/m2 Results Test Date Facility Test Result H/L Range Note Laboratory test finding 09/15/2018 [facility] Glucose Random 151 Hemoglobin A1c 7.5 High 5-7 Laboratory test finding 07/15/2018 [facility] Glucose Random 80 Laboratory test finding 07/15/2018 [facility] Glucose Random 60 Laboratory test finding 07/15/2018 [facility] Glucose Random 77 Laboratory test finding 07/15/2018 [facility] Glucose Random 56 Lipid Profile 06/29/2018 [facility] Triglycerides 289 mg/dL 1 (Trig/Chol/HDL) [address] [place] [address] [phone] Cholesterol 220 mg/dL 2 HDL Cholesterol 45.4 mg/dL 3 LDL Cholesterol 117 mg/dL 4 Urine Microalbumin 06/28/2018 [facility] Ur Microalbumin < 15.[address] (mg/L) [place] [address] [phone] Urine Creatinine 19.61 mg/dL Urine Microalbumin/Creatinine TNP <31 5 Laboratory test 06/28/2018 [facility] Hemoglobin A1c 8.6 High 5-7 finding Laboratory test 03/26/2018 [facility] Hemoglobin A1c 9.1 High 5-7 finding Laboratory test 12/24/2017 [facility] Hemoglobin A1c 8.9 High 5-7 finding Comp Metabolic 12/11/2017 [facility] Sodium 138 mmol/L N 133- [address] [place] [address] [phone] Potassium 4.3 mmol/L N 3.5-5.0 Chloride 108 mmol/L N 101-111 Co2 Carbon Dioxide 25 mmol/L N 22-32 Anion Gap 5 mmol/L N 2-11 Glucose 325 mg/dL High 70-100 Blood Urea Nitrogen 16 mg/dL N 6-24 Creatinine 1.03 mg/dL High 0.51-0.95 BUN/Creatinine Ratio 15.5 N 8-20 Calcium 9.2 mg/dL N 8.6-10.3 Total Protein 6.6 g/dL N 6.4-8.9 Albumin 3.6 g/dL N 3.2-5.2 Globulin 3.0 g/dL N 2-4 Albumin/Globulin Ratio 1.2 N 1-3 Total Bilirubin 0.30 mg/dL N 0.2-1.0 Alkaline Phosphatase 83 U/L N 34-104 Alt 10 U/L N 7-52 Ast 12 U/L Low 13-39 Egfr Non- 54.8 >60 Egfr 70.5 >60 6 Laboratory test 12/11/2017 [facility] C Reactive 28.37 mg/L High < 5.00 [address] [place] [address] [phone] CBC Auto Diff 12/11/2017 [facility] White Blood 6.1 N 3.5- 10.[address] Count 10^3/[place] [address] [phone] Red Blood Count 4.40 10^6/uL N 4.0-5.4 Hemoglobin 12.2 g/dL N 12.0-16.0 Hematocrit 37 % N 35-47 Mean Corpuscular Volume 85 fL N 80-97 Mean Corpuscular Hemoglobin 28 pg N 27-31 Mean Corpuscular HGB Conc 33 g/dL N 31-36 Red Cell Distribution Width 16 % High 10.5-15 Platelet Count 187 10^3/uL N 150-450 Mean Platelet Volume 9 um3 N 7.4-10.4 Abs Neutrophils 3.8 10^3/uL N 1.5-7.7 Abs Lymphocytes 1.8 10^3/uL N 1.0-4.8 Abs Monocytes 0.3 10^3/uL N 0-0.8 Abs Eosinophils 0.1 10^3/uL N 0-0.6 Abs Basophils 0.1 10^3/uL N 0-0.2 Abs Nucleated RBC 0 10^3/uL Granulocyte % 61.4 % N 38-83 Lymphocyte % 30.1 % N 25-47 Monocyte % 5.1 % N 0-7 Eosinophil % 2.0 % N 0-6 Basophil % 1.4 % N 0-2 Nucleated Red Blood Cells % 0.1 Inr/Protime 12/11/2017 [facility] Inr 0.87 N 0.77-1.[address] [place] [address] [phone] Laboratory test 12/11/2017 [facility] B-Type 17 pg/mL [address] [place] [address] Peptide BNP [phone] CBC Auto Diff 11/23/2017 [facility] White Blood 4.0 N 3.5- 10.[address] Count 10^3/[place] [address] [phone] Red Blood Count 4.87 10^6/uL N 4.0-5.4 Hemoglobin 13.7 g/dL N 12.0-16.0 Hematocrit 42 % N 35-47 Mean Corpuscular Volume 85 fL N 80-97 Mean Corpuscular Hemoglobin 28 pg N 27-31 Mean Corpuscular HGB Conc 33 g/dL N 31-36 Red Cell Distribution Width 16 % High 10.5-15 Platelet Count 157 10^3/uL N 150-450 Mean Platelet Volume 9 um3 N 7.4-10.4 Abs Neutrophils 2.2 10^3/uL N 1.5-7.7 Abs Lymphocytes 1.3 10^3/uL N 1.0-4.8 Abs Monocytes 0.5 10^3/uL N 0-0.8 Abs Eosinophils 0 10^3/uL N 0-0.6 Abs Basophils 0 10^3/uL N 0-0.2 Abs Nucleated RBC 0 10^3/uL Granulocyte % 54.4 % N 38-83 Lymphocyte % 32.1 % N 25-47 Monocyte % 12.3 % High 1-9 Eosinophil % 0.6 % N 0-6 Basophil % 0.6 % N 0-2 Nucleated Red Blood Cells % 0.1 Comp Metabolic Panel 11/23/2017 [facility] Sodium 139 mmol/L N 133-[address] [place] [address] [phone] Potassium 4.5 mmol/L N 3.5-5.0 Chloride 106 mmol/L N 101-111 Co2 Carbon Dioxide 26 mmol/L N 22-32 Anion Gap 7 mmol/L N 2-11 Glucose 116 mg/dL High 70-100 Blood Urea Nitrogen 10 mg/dL N 6-24 Creatinine 0.99 mg/dL High 0.51-0.95 BUN/Creatinine Ratio 10.1 N 8-20 Calcium 8.8 mg/dL N 8.6-10.3 Total Protein 6.7 g/dL N 6.4-8.9 Albumin 3.8 g/dL N 3.2-5.2 Globulin 2.9 g/dL N 2-4 Albumin/Globulin Ratio 1.3 N 1-3 Total Bilirubin 0.40 mg/dL N 0.2-1.0 Alkaline Phosphatase 83 U/L N 34-104 Alt 21 U/L N 7-52 Ast 39 U/L N 13-39 Egfr Non- 57.4 >60 Egfr 73.8 >60 9 Laboratory test 09/16/2017 [facility] Hemoglobin A1c 10.3 High 5-7 finding Laboratory test 07/14/2017 [facility] Point of Care 82 mg/dL N 70-100 [address] [place] [address] [phone] Laboratory test 07/14/2017 [facility] Clotest SEE RESULT [address] [place] [address] [phone] Laboratory test 07/14/2017 [facility] Surgical SEE RESULT [address] [place] [address] [phone] Laboratory test 06/16/2017 [facility] Hemoglobin A1c 11.1 % High Less than [address] (Glyco HGB) 6.0 [place] [address] [phone] Urine Microalbumin 06/16/2017 [facility] Urine 102.50 N Random [address] Creatinine mg/[place] [address] [phone] Ur Microalbumin (mg/L) 52.5 mg/L N Urine Microalbumin/Creatinine 51.2 ug/mg High <31 Lipid Profile 06/16/2017 [facility] Triglycerides 318 mg/dL N 14 (Trig/Chol/HDL) [address] [place] [address] [phone] Cholesterol 234 mg/dL N 15 HDL Cholesterol 43.3 mg/dL N 16 LDL Cholesterol 127 mg/dL N 17 Laboratory test 03/05/2017 [facility] Hemoglobin A1c 8.0 High 5-7 finding Laboratory test 12/10/2016 [facility] Hemoglobin A1c 8.9 % High Less than 18 finding (Glyco HGB) 6.0 [place] [address] [phone] Comp Metabolic 12/10/2016 [facility] Sodium 139 N 133-145 Panel 101 mmol/[place] [address] [phone] Potassium 4.5 mmol/L N 3.5-5.0 Chloride 107 mmol/L N 101-111 Co2 Carbon Dioxide 27 mmol/L N 22-32 Anion Gap 5 mmol/L N 2-11 Glucose 146 mg/dL High 70-100 Blood Urea Nitrogen 13 mg/dL N 6-24 Creatinine 0.82 mg/dL N 0.51-0.95 BUN/Creatinine Ratio 15.9 N 8-20 Calcium 9.8 mg/dL N 8.6-10.3 Total Protein 6.7 g/dL N 6.4-8.9 Albumin 3.8 g/dL N 3.2-5.2 Globulin 2.9 g/dL N 2-4 Albumin/Globulin Ratio 1.3 N 1-3 Total Bilirubin 0.50 mg/dL N 0.2-1.0 Alkaline Phosphatase 96 U/L N 34-104 Alt 13 U/L N 7-52 Ast 16 U/L N 13-39 Egfr Non- 71.6 N >60 Egfr 92.1 N >60 19 Bariatric Panel 10/14/2016 [facility] Ferritin 188.7 ng/mL N 11-307 Pre-Op [address] [place] [address] [phone] Vitamin B12 367 pg/mL N 180-914 20 Folic Acid (Folate) 10.80 ng/mL N >3.99 Vitamin D Total 25(Oh) 14.8 ng/mL Low 30-50 Vitamin B1 (Whole Blood) 94 nmol/L N 70-180 21 Vitamin E Level 11.3 mg/L N 5.5 - 17.0 22 TSH (Thyroid Stim Horm) 1.40 mcIU/mL N 0.34-5.60 Cortisol 10.29 ?g/dL N 23 Comp Metabolic Panel 10/14/2016 [facility] Sodium 138 mmol/L N 133-[address] [place] [address] [phone] Potassium 4.3 mmol/L N 3.5-5.0 Chloride 107 mmol/L N 101-111 Co2 Carbon Dioxide 26 mmol/L N 22-32 Anion Gap 5 mmol/L N 2-11 Glucose 85 mg/dL N 70-100 Blood Urea Nitrogen 11 mg/dL N 6-24 Creatinine 0.70 mg/dL N 0.51-0.95 BUN/Creatinine Ratio 15.7 N 8-20 Calcium 8.9 mg/dL N 8.6-10.3 Total Protein 6.6 g/dL N 6.4-8.9 Albumin 3.7 g/dL N 3.2-5.2 Globulin 2.9 g/dL N 2-4 Albumin/Globulin Ratio 1.3 N 1-3 Total Bilirubin 0.50 mg/dL N 0.2-1.0 Alkaline Phosphatase 98 U/L N 34-104 Alt 14 U/L N 7-52 Ast 14 U/L N 13-39 Egfr Non- 86.2 N >60 Egfr 110.9 N >60 24 Laboratory test 10/14/2016 [facility] Hemoglobin A1c 9.5 % High Less than [address] (Glyco HGB) 6.0 [place] [address] [phone] Iron & Iron 10/14/2016 [facility] Iron 52 N 50-[address] g/[place] [address] [phone] Unsaturated Iron Binding 302 g/dL N Total Iron Binding Capacity 354 g/dL N 250-450 % Iron Saturation 15 % N 15-55 CBC Auto Diff 10/14/2016 [facility] White Blood 7.4 10^3/uL N 3.5-10.[address] [place] [address] [phone] Red Blood Count 4.69 10^6/uL N 4.0-5.4 Hemoglobin 12.8 g/dL N 12.0-16.0 Hematocrit 40 % N 35-47 Mean Corpuscular Volume 84 fL N 80-97 Mean Corpuscular Hemoglobin 27 pg N 27-31 Mean Corpuscular HGB Conc 32 g/dL N 31-36 Red Cell Distribution Width 14 % N 10.5-15 Platelet Count 180 10^3/uL N 150-450 Mean Platelet Volume 9 um3 N 7.4-10.4 Abs Neutrophils 4.7 10^3/uL N 1.5-7.7 Abs Lymphocytes 2.1 10^3/uL N 1.0-4.8 Abs Monocytes 0.3 10^3/uL N 0-0.8 Abs Eosinophils 0.2 10^3/uL N 0-0.6 Abs Basophils 0.1 10^3/uL N 0-0.2 Abs Nucleated RBC 0 10^3/uL N Granulocyte % 64.1 % N 38-83 Lymphocyte % 28.3 % N 25-47 Monocyte % 3.9 % N 1-9 Eosinophil % 2.5 % N 0-6 Basophil % 1.2 % N 0-2 Nucleated Red Blood Cells % 0 N Laboratory test 09/17/2016 [facility] Hemoglobin A1c 11.0 High 5-7 finding Laboratory test 07/16/2016 [facility] Hemoglobin A1c 14.0 High 5-7 finding Laboratory test 03/21/2016 [facility] Hemoglobin A1c 11.5 % High Less than 26 finding [address] [facility] (Glyco HGB) 6.0 [place] [address] [phone] Lipid Profile 03/21/2016 [facility] Triglycerides 330 mg/dL N 27 (Trig/Chol/HDL) [address] [place] [address] [phone] Cholesterol 212 mg/dL N 28 HDL Cholesterol 39.9 mg/dL N 29 LDL Cholesterol 106 mg/dL N 30 Comp Metabolic Panel 03/21/2016 [facility] Sodium 136 mmol/L N 133-[address] [place] [phone] Potassium 4.3 mmol/L N 3.5-5.0 Chloride 102 mmol/L N 101-111 Co2 Carbon Dioxide 27 mmol/L N 22-32 Anion Gap 7 mmol/L N 2-11 Glucose 264 mg/dL High 70-100 Blood Urea Nitrogen 13 mg/dL N 6-24 Creatinine 0.73 mg/dL N 0.51-0.95 BUN/Creatinine Ratio 17.8 N 8-20 Calcium 9.2 mg/dL N 8.6-10.3 Total Protein 6.7 g/dL N 6.4-8.9 Albumin 3.9 g/dL N 3.2-5.2 Globulin 2.8 g/dL N 2-4 Albumin/Globulin Ratio 1.4 N 1-3 Total Bilirubin 0.50 mg/dL N 0.2-1.0 Alkaline Phosphatase 119 U/L High 34-104 Alt 19 U/L N 7-52 Ast 21 U/L N 13-39 Egfr Non- 82.2 N >60 Egfr 105.7 N >60 31 Urine Microalbumin 03/21/2016 [facility] Ur Microalbumin 15.0 mg /L N Random [address] (mg/L) [place], [place] [id number] [phone] Urine Creatinine 31.25 mg/dL N Urine Microalbumin/Creatinine 48.0 ug/mg High <31 Laboratory test 03/20/2016 [facility] Hemoglobin A1c 10.7 High 5-7 finding Urine Microalbumin 03/20/2016 [facility] Ur Microalbumin 40.0 mg /L N Random [address] (mg/L) [place] [address] [phone] Urine Creatinine 167.49 mg/dL N Urine Microalbumin/Creatinine 23.8 ug/mg N <31 Laboratory 11/15/2014 [facility] Hemoglobin A1c 13.2 High 5-7 test finding HIV 1/2 AB 07/27/2014 [facility] HIV 1 2 Antibody Nonreactive N Nonreactive [address] [place] [address] [phone] Laboratory 07/27/2014 [facility] Hepatitis C Nonreactive N Nonreactive test finding [address] [place] [address] [phone] Lipid Profile 07/27/2014 [facility] Triglycerides 192 mg/dL N 33 (Trig/Chol/HDL [address] ) [place] [address] [phone] Cholesterol 199 mg/dL N 34 HDL Cholesterol 52.1 mg/dL N 35 LDL Cholesterol 109 mg/dL N 36 Basic Metabolic Panel 07/27/2014 [facility] Sodium 138 mmol/L N 133-[address] [place] [address] [phone] Potassium 4.3 mmol/L N 3.7-5.6 Chloride 101 mmol/L N 101-111 Co2 Carbon Dioxide 28 mmol/L N 22-32 Anion Gap 9 mmol/L N 2-11 Glucose 101 mg/dL High 70-100 Blood Urea Nitrogen 8 mg/dL N 6-24 Creatinine 0.78 mg/dL N 0.51-0.95 BUN/Creatinine Ratio 10.3 N 8-20 Calcium 9.9 mg/dL N 8.6-10.3 Egfr Non- 76.7 N >60 Egfr 98.6 N >60 37 Laboratory test 07/27/2014 [facility] Hemoglobin A1c 10.5 High 5-7 finding Laboratory test 02/28/2014 [facility] Hemoglobin A1c 13.7 High 5-7 finding Urine Microalbumin 02/28/2014 [facility] Ur Microalbumin 24.0 mg /dL N <30 [address] (mg/L) [place] [address] [phone] Urine Creatinine 109.59 mg/dL N Urine Microalbumin/Creatinine 21.8 N Less Than 31 Ua Routine 08/25/2013 [facility] Ua Specific [place] 1.025 Ua PH 5 Ua Color yellow Ua Appera clear Ua WBC neg Ua Protein neg Ua Glucose neg Ua Ketones neg Ua Bilirubin neg Ua Urobilinogen neg Ua Nitrite neg Ua Occult Blood neg Laboratory test 08/25/2013 [facility] Hemoglobin A1c 12.3 High 5-7 finding Laboratory test 04/26/2013 [facility] Hemoglobin A1c 9.6 High 5-7 finding Laboratory test 02/08/2013 [facility] Cytology RUN DATE: [address] 02/09/ [place] [address] <SEE NOTE> [phone] Urine Microalbumin 02/01/2013 [facility] Ur Microalbumin 1.0 mg/ L [address] (Mg/L) [place] [address] [phone] Urine Creatinine < 6 mg/dL Urine Microalbumin/Creatinine 0 ug/mg Less Than 31 Laboratory test 01/03/2013 [facility] Hemoglobin A1c 8.5 High 5-7 finding Comp Metabolic 08/30/2012 [facility] Sodium 139 mmol/L 133- [address] [place] [address] [phone] Potassium 4.5 mmol/L 3.5-5.0 Chloride 109 mmol/L [...] 1.6 1-3 Total Bilirubin 0.4 mg/dL 0.1-1.0 41 Alkaline Phosphatase 85 U/L 30-110 Alt 19 U/L 14-54 Ast 18 U/L 12-42 Egfr Non- 87.5 >60 Egfr 112.6 >60 42 Lipid Profile 08/30/2012 [facility] Triglycerides 169 mg/dL 40-200 (Trig/Chol/HDL) [address] [place] [address] [phone] Cholesterol 211 mg/dL High Less than 200 HDL Cholesterol 47 mg/dL 40-60 43 Cholesterol/HDL Ratio 4.5 AVERAGE High 1-4.44 LDL Cholesterol 130.2 mg/dL High Less Than 100 44 Laboratory test 05/21/2012 [facility] Hemoglobin A1c 6.9 5-7 finding CBC Auto Diff 05/15/2012 [facility] White Blood 11.4 CUMM High 4.8-10.[address] [place] [address] [phone] Red Cell Count 4.58 CUMM 4.2-5.4 Hemoglobin 12.7 g/dL 12.0-16.0 Hematocrit 38 % 35-47 Mean Corpuscular Volume 84 um3 79-97 Mean Corpuscular Hemoglob 28 pg 27-31 Mean Corpuscular HGB [place] 33 g/dL 32-36 Redcell Distribution WDTH 16 % High 10.5-15 Platelet Count 246 CUMM 150-450 Mean Platelet Volume 8.8 um3 7.4-10.4 Gran % 70.9 % 38-83 Lymph % 21.0 % 20-45 Mononuclear % 5.3 % 1-9 Eosinophil % 1.7 % 0-6 Basophil % 1.1 % 0-2 Abs Lymphs 2.4 1.0-4.8 Abs Mononuclear 0.6 0-0.8 Absolute Neutrophil Count 8.1 High 1.5-7.7 Abs Eosinophils 0.2 0-0.6 Abs Basophils 0.1 0-0.2 Comp Metabolic Panel 05/15/2012 [facility] Sodium 135 mmol/L 135-145 [place] [address] [phone] Potassium 4.2 mmol/L 3.5-5.0 Chloride 104 mmol/L 101-111 Co2 (Carbon Dioxide) 22.0 mmol/L 22-32 Anion Gap 9.0 mmol/L 2-11 46 Glucose 235 mg/dL High 70-100 BUN 15 mg/dL 6-24 Creatinine 1.1 mg/dL 0.50-1.40 One Over Creatinine 0.90 BUN/Creatinine Ratio 13.6 8-20 Calcium 9.9 mg/dL 8.1-9.9 Total Protein 6.9 GM/DL 6.2-8.1 Albumin 3.8 GM/DL 3.6-5.4 Globulin 3.1 GM/DL 2-4 Albumin/Globulin Ratio 1.2 1-3 Bilirubin Total 0.8 mg/dL 0.4-1.5 47 Alkaline Phosphatase 88 U/L 30-110 Alt (SGPT) 18 U/L 14-54 Ast (Sgot) 22 U/L 12-42 eGFR Non- 52.0 > 60 eGFR 66.8 > 60 48 Laboratory test 05/15/2012 [facility] C Reactive 4.5 mg/dL High Less Than finding [facility] Protein 0.5 [place] [address] [phone] Protime 05/15/2012 [facility] Inr 0.89 0.88-1.13 [address] [place] [address] [phone] Protime 10.6 SEC 10.3-13.5 50 Laboratory test 05/15/2012 [facility] PTT (Aptt) 29.0 SEC 25.1-38.5 [place] [address] [phone] Laboratory test 04/26/2012 [facility] PTT (Aptt) 27.0 SEC 25.1-38.5 [place] [address] [phone] International 04/26/2012 [facility] Inr 0.82 Low 0.88-1.13 51 Normalized Ratio [address] [place] [address] [phone] Protime 9.7 SEC Low 10.3-13.5 52 Culture And 04/26/2012 [facility] M [address] <SEE NOTE> [place] [address] [phone] CBC Auto Diff 04/24/2012 [facility] White 5.0 CUMM 4.8- [address] Blood 10.8 [place] [address] Count [phone] Red Cell Count 4.25 CUMM 4.2-5.4 Hemoglobin [...] 0-0.6 Abs Basophils 0.1 0-0.2 Comments 1 54 Comp Metabolic Panel 04/24/2012 [facility] Sodium 140 mmol/L 135-[address] [place] [address] [phone] Potassium 4.2 mmol/L 3.5-5.0 Chloride 110 mmol/L 101-111 Co2 (Carbon Dioxide) 25.0 mmol/L 22-32 Anion Gap 5.0 mmol/L 2-11 55 Glucose 129 mg/dL High 70-100 BUN 12 mg/dL 6-24 Creatinine 0.7 mg/dL 0.50-1.40 One Over Creatinine 1.42 BUN/Creatinine Ratio 17.1 8-20 Calcium 9.1 mg/dL 8.1-9.9 Total Protein 7.1 GM/DL 6.2-8.1 Albumin 3.7 GM/DL 3.6-5.4 Globulin 3.4 GM/DL 2-4 Albumin/Globulin Ratio 1.1 1-3 Bilirubin Total 0.8 mg/dL 0.4-1.5 56 Alkaline Phosphatase 87 U/L 30-110 Alt (SGPT) 18 U/L 14-54 Ast (Sgot) 23 U/L 12-42 eGFR Non- 87.5 > 60 eGFR 112.6 > 60 57 Laboratory test 04/24/2012 [facility] C Reactive 1.2 mg/dL High Less Than finding [address] Protein 0.5 [place] [address] [phone] Erythrocyte Sed Rate 35 MM/HR High 0-30 Blood Culture 04/24/2012 [facility] M [address] <SEE NOTE> [place] [address] [phone] Culture And 04/24/2012 [facility] M [address] <SEE NOTE> [place] [address] [phone] Type And Screen 03/17/2012 [facility] Patient B POSITIVE (Pre-Adm) [address] [place] [address] [phone] Antibody Screen NEGATIVE Specimen Discard Date 03/31/12 60 Comp Metabolic Panel 03/17/2012 [facility] Sodium 137 mmol/L 135-[address] [place] [address] [phone] Potassium 4.0 mmol/L 3.5-5.0 Chloride 104 mmol/L 101-111 Co2 (Carbon Dioxide) 27.0 mmol/L 22-32 Anion Gap 6.0 mmol/L 2-11 61 Glucose 102 mg/dL High 70-100 BUN 11 mg/dL 6-24 Creatinine 0.8 mg/dL 0.50-1.40 One Over Creatinine 1.25 BUN/Creatinine Ratio 13.8 8-20 Calcium 9.7 mg/dL 8.1-9.9 Total Protein 6.5 GM/DL 6.2-8.1 Albumin 3.7 GM/DL 3.6-5.4 Globulin 2.8 GM/DL 2-4 Albumin/Globulin Ratio 1.3 1-3 Bilirubin Total 0.5 mg/dL 0.4-1.5 62 Alkaline Phosphatase 90 U/L 30-110 Alt (SGPT) 20 U/L 14-54 Ast (Sgot) 20 U/L 12-42 eGFR Non- 75.0 > 60 eGFR 96.5 > 60 63 Urinalysis 03/17/2012 [facility] Ua Color YELLOW Yellow [address] [place] [address] [phone] Appearance-Urine TURBID Clear Specific [place]-Ur 1.027 1.010-1.030 Esterase-Urine NEGATIVE Negative Nitrite NEGATIVE Negative Acnuslwbfisn-By-YAT NEGATIVE Negative Protein-Urine NEGATIVE Negative PH-Urine 5.0 5-9 Blood-Urine NEGATIVE Negative Ketones-Urine NEGATIVE Negative Bilirubin-Ur NEGATIVE Negative Glucose-Urine NEGATIVE Negative Protime 03/17/2012 [facility] Inr 0.85 Low 0.88-1.[address] [place] [address] [phone] Protime 10.0 SEC Low 10.3-13.5 65 Laboratory test 03/17/2012 [facility] PTT (Aptt) 30.4 SEC 25.1-38.[address] [place] [phone] CBC No Diff 03/17/2012 [facility] White Blood 6.6 CUMM 4.8- 10.[address] [place] [phone] Red Cell Count 4.68 CUMM 4.2-5.4 Hemoglobin 13.6 g/dL 12.0-16.0 Hematocrit 40 % 35-47 Mean Corpuscular Volume 84 um3 79-97 Mean Corpuscular Hemoglob 29 pg 27-31 Mean Corpuscular HGB Cone 34 g/dL 32-36 Redcell Distribution WDTH 15 % 10.5-15 Platelet Count 187 CUMM 150-450 Mean Platelet Volume 10.1 um3 7.4-10.4 CBC Auto Diff 03/02/2012 [facility] White Blood 5.8 CUMM 4.8- 10.[address] [place] [address], [place] [address] [phone] Red Cell Count 4.56 CUMM 4.2-5.4 Hemoglobin 13.1 g/dL 12.0-16.0 Hematocrit 39 % 35-47 Mean Corpuscular Volume 85 um3 79-97 Mean Corpuscular Hemoglob 29 pg 27-31 Mean Corpuscular HGB Cone 34 g/dL 32-36 Redcell Distribution WDTH 15 % 10.5-15 Platelet Count 202 CUMM 150-450 Mean Platelet Volume 10.1 um3 7.4-10.4 Absolute Neutrophil Count 3.7 1.5-7.7 66 Laboratory test 03/02/2012 [facility] Hemoglobin A1c 6.8 5-7 finding Comp Metabolic Panel 03/02/2012 [facility] Sodium 137 mmol/L 135-[address] [place] [address] [phone] Potassium 4.4 mmol/L 3.5-5.0 Chloride 102 mmol/L 101-111 Co2 (Carbon Dioxide) 28.0 mmol/L 22-32 Anion Gap 7.0 mmol/L 2-11 67 Glucose 127 mg/dL High 70-100 BUN 13 mg/dL 6-24 Creatinine 0.8 mg/dL 0.50-1.40 One Over Creatinine 1.25 BUN/Creatinine Ratio 16.3 8-20 Calcium 9.6 mg/dL 8.1-9.9 Total Protein 6.8 GM/DL 6.2-8.1 Albumin 3.8 GM/DL 3.6-5.4 Globulin 3.0 GM/DL 2-4 Albumin/Globulin Ratio 1.3 1-3 Bilirubin Total 0.4 mg/dL 0.4-1.5 68 Alkaline Phosphatase 93 U/L 30-110 Alt (SGPT) 20 U/L 14-54 Ast (Sgot) 40 U/L 12-42 eGFR Non- 75.0 > 60 eGFR 96.5 > 60 69 Manual Differential 03/02/2012 [facility] Polysegmented 63 % 38-[address] [place] [address] [phone] Lymphocyte 32 % 25-47 Eosinophil 5 % 0-6 RBC Morphology NORMAL Protime 03/02/2012 [facility] Inr 0.84 Low 0.88-1.[address] [place] [address] [phone] Protime 9.9 SEC Low 10.3-13.5 71 Laboratory test 03/02/2012 [facility] PTT (Aptt) 28.3 SEC 25.1-38.5 finding [place], [place] [phone] Lipid Panel - 12/17/2011 [facility] CPK 202 U/L High 0-170 JFM ([place] [address] Kinase) [phone] Comp Metabolic 12/17/2011 [facility] Sodium 138 135-145 Panel mmol/[place] [address] [phone] Potassium 4.5 mmol/L 3.5-5.0 Chloride 104 mmol/L 101-111 Co2 (Carbon Dioxide) 27.0 mmol/L 22-32 Anion Gap 7.0 mmol/L 2-11 72 Glucose 167 mg/dL High 70-100 BUN 10 mg/dL 6-24 Creatinine 0.8 mg/dL 0.50-1.40 One Over Creatinine 1.25 BUN/Creatinine Ratio 12.5 8-20 Calcium 9.6 mg/dL 8.1-9.9 Total Protein 7.0 GM/DL 6.2-8.1 Albumin 3.9 GM/DL 3.6-5.4 Globulin 3.1 GM/DL 2-4 Albumin/Globulin Ratio 1.3 1-3 Bilirubin Total 0.4 mg/dL 0.4-1.5 73 Alkaline Phosphatase 86 U/L 30-110 Alt (SGPT) 21 U/L 14-54 Ast (Sgot) 19 U/L 12-42 eGFR Non- 75.0 > 60 eGFR 96.5 > 60 74 Lipid Profile 12/17/2011 [facility] Triglyceride 173 mg/dL 40 -200 (Trig/Chol/HDL) [place] [address] [phone] Cholesterol 206 mg/dL High Less Than 200 75 High Density Lipoprotein 49 mg/dL 40-60 76 Cholesterol/HDL Ratio 4.20 AVERAGE 1-4.44 Low Density Lipoprotein 122 mg/dL High Less Than 100 77 Urine Microalbumin 12/17/2011 [facility] Microalbumin 17.0 mg/L Random [address] (MG/L) [place] [address] [phone] Urine Creatinine 118.0 mg/dL Lloyd Alb/Creatinine Ratio 14.4 UG/MG Less Than 30 78 Laboratory test finding 12/17/2011 [facility] Cortisol 8.6 g/ dL [address] [place] [address] [phone] TSH 1.77 MIU/ML 0.34-5.60 Laboratory test 11/27/2011 [facility] Hemoglobin A1c 7.4 High 5-7 finding Drug Abuse 20 08/04/2011 [facility] Urine Ampetamines Negative ng/mL () [address] [place] [address] [phone] Urine Barbiturates Negative ng/mL () 81 Urine Benzodiazepines Negative ng/mL () 82 Urine Cocaine Negative ng/mL () 83 Urine Methadone Negative ng/mL () 84 Urine Opiates Negative ng/mL () 85 Urine Phencyclidine Negative ng/mL Cutoff: 25 Urine Propoxyphene Negative ng/mL () 86 Urine Tetrahydrocannabinol Negative ng/mL Cutoff: 20 87 Oxycodone/Oxymorphone 08/04/2011 [facility] Oxycodone NEGATIVE () Quant [address] Quantitation ng/[place] [address] [phone] Oxymorphone Quant NEGATIVE ng/mL () 88 Laboratory test 08/04/2011 [facility] Hemoglobin A1c 6.9 5-7 finding Urine Microalbumin 07/09/2011 [facility] Microalbumin (MG/L) 15.0 mg/L Random [address] [place] [address] [phone] Urine Creatinine 57.79 mg/dL Lloyd Alb/Creatinine Ratio 25.9 UG/MG Less Than 30 89 Laboratory test 06/02/2011 [facility] Hemoglobin A1c 8.3 High 5-7 finding Laboratory test 05/15/2011 [facility] Cytology [address] ----- <[place] [address] NOTE> [phone] Laboratory test 01/22/2011 [facility] Hemoglobin A1c 9.4 High 5-7 finding Lipid Profile 11/25/2010 [facility] Triglyceride 200 mg/dL 40 -200 (Trig/Chol/HDL) [address] [place] [address] [phone] Cholesterol 171 mg/dL Less Than 200 91 High Density Lipoprotein 49 mg/dL 40-60 92 Cholesterol/HDL Ratio 3.49 AVERAGE 1-4.44 Low Density Lipoprotein 82 mg/dL Less Than 100 93 Comp Metabolic Panel 11/25/2010 [facility] Sodium 137 mmol/L 135-145 [address] [place] [address] [phone] Potassium 4.4 mmol/L 3.5-5.0 Chloride 105 mmol/L 101-111 Co2 (Carbon Dioxide) 22.0 mmol/L 22-32 Anion Gap 10.0 mmol/L 2-11 94 Glucose 188 mg/dL High 70-100 BUN 11 mg/dL 6-24 Creatinine 0.70 mg/dL 0.50-1.40 One Over Creatinine 1.40 BUN/Creatinine Ratio 15.7 8-20 Calcium 9.0 mg/dL 8.1-9.9 Total Protein 6.3 GM/DL 6.2-8.1 Albumin 3.8 GM/DL 3.6-5.4 Globulin 2.5 GM/DL 2-4 Albumin/Globulin Ratio 1.5 1-3 Bilirubin Total 0.6 mg/dL 0.4-1.5 95 Alkaline Phosphatase 95 U/L 30-110 Alt (SGPT) 37 U/L 14-54 Ast (Sgot) 35 U/L 12-42 eGFR Non- 87.9 > 60 eGFR 113.0 > 60 96 Lipid Panel - JFM 11/25/2010 [facility] CPK (Creatine 187 U/L High 0-[address] Kinase) [place] [address] [phone] Laboratory test 10/22/2010 [facility] Hemoglobin A1c 10.3 High 5-7 finding 1 Desirable: <150 Borderline High: 150-199 High: 200-499 Very High: >500 2 Desirable: <200 Borderline High: 200-239 High: >239 3 Low: <40 Desirable: 40-60 High: >60 4 Desirable: <100 Near Optimal: 100-129 Borderline High: 130-159 High: 160-189 Very High: >189 5 Unable to calculate due to low microalbumin 6 Because ethnic data is not always readily [...] 15-29 5 Kidney failure <15 (or dialysis) 7 Acute inflammation: >10.00 8 >100 to <200 pg/mL: likely compensated congestive heart failure (CHF) 200 to 400 pg/mL: likely moderate CHF >400 pg/mL: likely moderate to severe CHF 9 Because ethnic data is not always readily [...] 15-29 5 Kidney failure <15 (or dialysis) 10 Branch Operation Evaluation Manager: [id number] 11 SEE RESULT BELOW Name: CHASITY JEFFERSON : [address]: Robbie Buck MD Acct: [id number] Unit: [id number] AGE: 56 Location: ENDO Re07/14/17 SEX: F Status: REG REF SPEC: [id number] GEORGINA: 07/14/[address]: Robbie Buck MD REQ: [id number] RECD: 07/14/17 STATUS: LEWIS CASTILLO DR: Andrea Engle MD _ SOURCE: GAS ANTRUM SPDESC: ORDERED: Clotest Procedure Result Reported Site Clotest Final 07/14/17- 1512 ML Clotest Positive * ML - MAIN LAB ([facility]) . END OF REPORT * ML=Testing performed at Main Lab DEPARTMENT OF PATHOLOGY, [address] [place] [address] Kev Tyler M.D. Director [facility] # [id number] 12 SEE RESULT BELOW Name: CHASITY JEFFERSON : [address]: Robbie Buck MD Acct: [id number] Unit: [id number] AGE: 56 Location: ENDO Re07/14/17 SEX: F Status: DEP REF SPEC: [id number] GEORGINA: 07/14/[address] [facility] [address]: Robbie Buck MD REQ: [id number] RECD: 07/14/173081 STATUS: LADONNA CASTILLO DR: Andrea Engle MD [...] performed at Main Lab DEPARTMENT OF PATHOLOGY, [address] [place] [address] Kev Tyler M.D. Director [facility] # [id number] 13 Therapeutic target for the treatment of diabetes Mellitus patients is <7% HBA1C, and in selective patients <6.0%.Please refer to [place] [employer] Diabetic care guidelines for further information. 14 Desirable <150 Borderline high 150-199 High 200-499 Very High >500 15 Desirable <200 Borderline high 200-239 High >239 16 Low <40 Desirable: 40-60 High: >60 17 Desirable: <100 mg/dL Near Optimal: 100-129 mg/dL Borderline High: 130-159 mg/dL High: 160-189 mg/dL Very High: >189 mg/dL 18 Therapeutic target for the treatment of diabetes Mellitus patients is <7% HBA1C, and in selective patients <6.0%.Please refer to [place] [employer] Diabetic care guidelines for further information. 19 Because ethnic data is not always readily [...] 15-29 5 Kidney failure <15 (or dialysis) 20 Normal Range 180 to 914 Indeterminate Range 145 to 180 Deficient Range <145 21 ADDITIONAL INFORMATION This test was developed and its performance characteristics determined by [facility] in a manner consistent with CLIA requirements. This test has not been cleared or approved by the U.S. Food and Drug Administration. Test Performed by: [facility] [place] [address] Pinball Machine Repairer: Pierre Park II, M.D., Ph.D. 22 ADDITIONAL INFORMATION This test was developed and its performance characteristics determined by [facility] in a manner consistent with CLIA requirements. This test has not been cleared or approved by the U.S. Food and Drug Administration. Test Performed by: [facility] [place] [address] Pinball Machine Repairer: Pierre Park II, M.D., Ph.D. 23 AM 8.7-22.4 PM <10 24 Because ethnic data is not always readily [...] 15-29 5 Kidney failure <15 (or dialysis) 25 Therapeutic target for the treatment of diabetes Mellitus patients is <7% HBA1C, and in selective patients <6.0%.Please refer to [place] [employer] Diabetic care guidelines for further information. 26 Therapeutic target for the treatment of diabetes Mellitus patients is <7% HBA1C, and in selective patients <6.0%.Please refer to [place] [employer] Diabetic care guidelines for further information. 27 Desirable <150 Borderline high 150-199 High 200-499 Very High >500 28 Desirable <200 Borderline high 200-239 High >239 29 Low <40 Desirable: 40-60 High: >60 30 Desirable: <100 mg/dL Near Optimal: 100-129 mg/dL Borderline High: 130-159 mg/dL High: 160-189 mg/dL Very High: >189 mg/dL 31 Because ethnic data is not always readily [...] 15-29 5 Kidney failure <15 (or dialysis) 32 It is recognized that currently available assays [...] 95% confidence interval of 99.78 to 99.96%. 33 Desirable <150 Borderline high 150-199 High 200-499 Very High >500 34 Desirable <200 Borderline high 200-239 High >239 35 Low <40 Desirable: 40-60 High: >60 36 Desirable <100 Near Optimal 100-129 Borderline high 130-159 High 160-189 Very High >189 37 Because ethnic data is not always readily [...] 15-29 5 Kidney failure <15 (or dialysis) 38 Microalbuminuria in a random sample is defined as: Microalbumin/Creatinine ratio of 30-299 ug/mg. 39 RUN DATE: 02/09/13 [facility] LAB LIVE PAGE 1 RUN TIME: 3047 [address] [place], [place] [address] Specimen Inquiry Name: CHASITY JEFFERSON : [address]: Sofiya Webber MD Acct: [id number] Unit: [id number] AGE: 52 Location: [facility] Re02/08/13 SEX: F Status: REG REF SPEC: [id number] GEORGINA: 02/08/13-[address] [facility] [address]: Sofiya Webber MD REQ: [id number] RECD: 02/08/13 STATUS: SOUT _ ORDERED: IMAGE ANALYSIS FINAL DIAGNOSIS Negative for Intraepithelial lesion or Malignancy A. Ectocervical/Endocervical Specimen Adequacy: Satisfactory of evaluation Transformation zone component not identified Patient Information: HPV: Thin Layer Pap Test w/reflex to high risk HPV DNA testing when ASCUS Actual Specimen Date: 02/08/13 Post Menopausal?: Y Previous Abnormal Pap Smears?:N Signed (signature on file) DARRON Jeffers (ASCP) 02/09 5454 This Pap test was evaluated with the assistance of the ThinPrep Test Imaging System. Due to cytologic findings at the manager access microscope, comprehensive manual rescreening by a Sr Risk Management Consultant may be required. The Pap Smear is [...] performed at Main Lab DEPARTMENT OF PATHOLOGY, [address] [place] [address] Kev Tyler M.D. Director [facility] Permit #[id number] 40 Microalbuminuria in a random sample is defined as: Microalbumin/Creatinine ratio of 30-299 ug/mg. 41 A metabolite of Naproxen, O-desmethylnaproxen, has been shown to interfere with the [employer] method for measuring total bilirubin. Samples from patients who have taken Naproxen have shown spurious elevation in total bilirubin levels. 42 Because ethnic data is not always readily [...] 15-29 5 Kidney failure <15 (or dialysis) 43 HDL Interpretation: Undesirable: High Risk: Less than 40 MG/DL Desirable: Low Risk: Greater than 60 MG/DL 44 LDL Interpretation: Low Risk Optimal Level: LDL Less than 100 MG/DL Near or Above Optimal: LDL 100-129 MG/DL Borderline High Risk: LDL 130-159 MG/DL High Risk: LDL 160-189 MG/DL Very High Risk: LDL Greater than 189 MG/DL 45 COMMENTS: U 46 Anion gap measurement may be of limited value in the presence of any alkalosis, especially in a combined acid base disorder. . 47 A metabolite of Naproxen, O-desmethylnaproxen, has been shown to interfere with the [employer] method for measuring total bilirubin. Samples from patients who have taken Naproxen have shown spurious elevation in total bilirubin levels. 48 Because ethnic data is not always readily [...] 15-29 5 Kidney failure <15 (or dialysis) 49 Recommended INR for Patients on Oral Anticoagulants Prophylaxis 2.0 - 3.0 Treatment of thrombosis 2.0 - 3.0 Prevention of embolism 2.0 - 3.0 Prevention of embolism from prosthetic heart valves 2.5 - 3.5 50 DIAGNOSIS,TREATMENT,AND THERAPY MUST BE BASED ON THE INR VALUE ALONE. 51 Recommended INR for Patients on Oral Anticoagulants Prophylaxis 2.0 - 3.0 Treatment of thrombosis 2.0 - 3.0 Prevention of embolism 2.0 - 3.0 Prevention of embolism from prosthetic heart valves 2.5 - 3.5 52 DIAGNOSIS,TREATMENT,AND THERAPY MUST BE BASED ON THE INR VALUE ALONE. 53 RUN DATE: 04/27/12 [facility] NMI LIVE PAGE 1 RUN TIME: 1128 Specimen Inquiry RUN USER: INTERFACE Name: CHASITY JEFFERSON Status[place] [facility] [place] Age/Sex: 51/F Unit#: [id number] Location: [facility].O.B. : [birth year] SPEC #: [id number] GEORGINA: 04/26/12 STATUS: RES REQ #: [id number] RECD: 04/26/[address]: Kia DANIELLE,Alan Thompson SOURCE: WOUND ENTR: 04/26/[address]: Nasima DANIELLE, Yosvany Bowden SPDESC: KNEE,RIGHT ORDERED: CULT SENS/GS, ANAEROBIC CULT COMMENTS: LOOK FOR MRSA VRE ACT WKST: B 04/27/12 #1 Procedure Result Verified Site > CULTURE SENSITIVITY Preliminary 04/27/12- 1127 ML PRELIMINARY: NO GROWTH DAY 1 > GRAM STAIN SMEAR Final 04/26/12- 1514 ML POLYS FEW SMEAR: NO ORGANISMS SEEN BY DIRECT SMEAR > ANAEROBIC CULTURE Preliminary 04/27/12- 1127 ML PRELIMINARY: NO GROWTH DAY 1 ML - [facility] Permit #[id number] [address] [place] [address] DEPARTMENT OF PATHOLOGY, [address] [place] [address] [facility] Permit #[id number] Doc Franco M.D. It Applications Developer 54 [id number] 55 Anion gap measurement may be of limited value in the presence of any alkalosis, especially in a combined acid base disorder. . 56 A metabolite of Naproxen, O-desmethylnaproxen, has been shown to interfere with the [employer] method for measuring total bilirubin. Samples from patients who have taken Naproxen have shown spurious elevation in total bilirubin levels. 57 Because ethnic data is not always readily [...] 15-29 5 Kidney failure <15 (or dialysis) 58 RUN DATE: 04/29/12 [facility] NMI LIVE PAGE 1 RUN TIME: 1643 Specimen Inquiry RUN USER: INTERFACE Name: CHASITY JEFFERSON Status: EMILY MARYLIN Re04/24/12 Age/Sex: 51/F Unit#: [id number] Location: [facility] OrnelasB. : 56 SPEC #: [id number] GEORGINA: 04/24/12 STATUS: LEWIS REQ #: [id number] RECD: 04/24/[address] [facility] [address]: Ed DANIELLE,Jaylon Thompson SOURCE: BLOOD ENTR: 04/24/12 [facility] DR: Nasima DANIELLE, Yosvany Bowden [facility]ENO ORDERED: BLOOD CULTURE ACT WKST: 04/25/12 #1 Procedure Result Verified Site > AEROBIC CULTURE BOTTLE Final 04/29/12- 3 ML NO GROWTH AFTER 5 DAYS > ANAEROBIC CULTURE BOTTLE Final 04/29/12- 164 ML NO GROWTH AFTER 5 DAYS [facility] Permit #[id number] [address] [place] [address] DEPARTMENT OF PATHOLOGY, [address] [place] [address] [facility] Permit #[id number] Doc Franco M.D. It Applications Developer 59 RUN DATE: 04/26/12 [facility] NMI LIVE PAGE 1 RUN TIME: 1220 Specimen Inquiry RUN USER: INTERFACE Name: CHASITY JEFFERSON Status: EMILY COULTER Re04/24/12 Age/Sex: 51/F Unit#: [id number] Location: : 56 SPEC #: [id number] GEORGINA: 04/24/12 STATUS: COMP REQ #: [id number] RECD: 04/24/[address]: Ed DANIELLE,Jaylon Thompson SOURCE: WOUND ENTR: 04/24/[address]: Nasima DANIELLE, Yosvany Bowden SPDESC: KNEE,RIGHT ORDERED: CULT SENS/GS ACT WKST: B 04/26/12 #1 Procedure Result Verified Site > CULTURE SENSITIVITY Final 04/26/12- 1220 ML NORMAL CUTANEOUS ERVIN SUGGEST RESUBMISSION. > GRAM STAIN SMEAR Final 04/25/12- 07 ML POLYS RARE SMEAR: FEW EPITHELIAL CELLS MANY GRAM POSITIVE COCCI MANY GRAM POSITIVE BACILLI ML - [facility] Permit #[id number] [address] [place] [address] DEPARTMENT OF PATHOLOGY, [address] [place] [address] [facility] Permit #[id number] Doc Franco M.D. It Applications Developer 60 PREADMISSION TESTING SAMPLES FOR BLOOD BANK WILL [...] WITHIN 3 DAYS OF THE SURGERY DATE. 61 Anion gap measurement may be of limited value in the presence of any alkalosis, especially in a combined acid base disorder. . 62 A metabolite of Naproxen, O-desmethylnaproxen, has been shown to interfere with the [employer] method for measuring total bilirubin. Samples from patients who have taken Naproxen have shown spurious elevation in total bilirubin levels. 63 Because ethnic data is not always readily [...] 15-29 5 Kidney failure <15 (or dialysis) 64 Recommended INR for Patients on Oral Anticoagulants Prophylaxis 2.0 - 3.0 Treatment of thrombosis 2.0 - 3.0 Prevention of embolism 2.0 - 3.0 Prevention of embolism from prosthetic heart valves 2.5 - 3.5 65 DIAGNOSIS,TREATMENT,AND THERAPY MUST BE BASED ON THE INR VALUE ALONE. 66 Imm. NE 1 67 Anion gap measurement may be of limited value in the presence of any alkalosis, especially in a combined acid base disorder. . 68 A metabolite of Naproxen, O-desmethylnaproxen, has been shown to interfere with the [employer] method for measuring total bilirubin. Samples from patients who have taken Naproxen have shown spurious elevation in total bilirubin levels. 69 Because ethnic data is not always readily [...] 15-29 5 Kidney failure <15 (or dialysis) 70 Recommended INR for Patients on Oral Anticoagulants Prophylaxis 2.0 - 3.0 Treatment of thrombosis 2.0 - 3.0 Prevention of embolism 2.0 - 3.0 Prevention of embolism from prosthetic heart valves 2.5 - 3.5 71 DIAGNOSIS,TREATMENT,AND THERAPY MUST BE BASED ON THE INR VALUE ALONE. 72 Anion gap measurement may be of limited value in the presence of any alkalosis, especially in a combined acid base disorder. . 73 A metabolite of Naproxen, O-desmethylnaproxen, has been shown to interfere with the [employer] method for measuring total bilirubin. Samples from patients who have taken Naproxen have shown spurious elevation in total bilirubin levels. 74 Because ethnic data is not always readily [...] 15-29 5 Kidney failure <15 (or dialysis) 75 CHOLESTEROL INTERPRETATION: Desirable: Less than 200 MG/DL Borderline-High Risk: 200-239 MG/DL High-Risk: 240 MG/DL and over 76 HDL INTERPRETATION: Undesirable: High Risk: Less than 40 MG/DL Desirable: Low Risk: Greater than 60 MG/DL 77 LDL INTERPRETATION: Low Risk Optimal Level: LDL Less than 100 MG/DL Near or Above Optimal: LDL 100-129 MG/DL Borderline High Risk: LDL 130-159 MG/DL High Risk: LDL 160-189 MG/DL Very High Risk: LDL Greater than 189 MG/DL 78 MICROALBUMINURIA IN A RANDOM SAMPLE IS DEFINED : MICROALBUMIN/CREATININE RATIO OF 30-299 ug/mg. . 79 REFERENCE RANGE: AM 8.7-22.4 PM LESS THAN 10 . 80 -- REFERENCE VALUE -- Cutoff: 500 81 -- REFERENCE VALUE -- Cutoff: 200 82 -- REFERENCE VALUE -- Cutoff: 200 83 -- REFERENCE VALUE -- Cutoff: 300 84 -- REFERENCE VALUE -- Cutoff: 300 85 -- REFERENCE VALUE -- Cutoff: 300 86 -- REFERENCE VALUE -- Cutoff: 300 87 This report is intended for use in clinical monitoring or management of patients. It is not intended for use in employment-related testing. Test Performed by: [facility] [address] [place] [id number] Pinball Machine Repairer: Ash Kline III, M.D. 88 Reference ranges have not been established for urine specimens. This specimen was handled by [employer] as a forensic specimen under chain of custody protocol. Test Performed by:[employer] [address] [place] [id number] MICROALBUMINURIA IN A RANDOM SAMPLE IS DEFINED : MICROALBUMIN/CREATININE RATIO OF 30-299 ug/mg. . 90 ---- RUN DATE: 05/16/11 [facility] NMI LIVE PAGE 1 RUN TIME: 1507 Specimen Inquiry RUN USER: INTERFACE -- Name: CHASITY JEFFERSON Status: REG REF Re05/15/11 Age/Sex: 50/F Unit#: [id number] Location: [facility] : 56 -- Specimen: [id number] SOUT Spec Date: 05/15/[address] [facility] [address]: Almaz jonas MD Spec Type: CYTOLOGY Received: 05/16/1180 Copies to: SOURCE ECTOCERVICAL/ENDOCERVICAL Thin Prep with [...] years. Final Interpretation electronically signed by: Yolanda CARDONA([facility]) 05/16/11 150 6 -- -- DEPARTMENT OF PATHOLOGY, [address] [place] [address] [facility] Permit #[id number] Kev Tyler M.D. Director Dede Mendoza M.D. Nail Professional sheridan -- 91 CHOLESTEROL INTERPRETATION: Desirable: Less than 200 MG/DL Borderline-High Risk: 200-239 MG/DL High-Risk: 240 MG/DL and over 92 HDL INTERPRETATION: Undesirable: High Risk: Less than 40 MG/DL Desirable: Low Risk: Greater than 60 MG/DL 93 LDL INTERPRETATION: Low Risk Optimal Level: LDL Less than 100 MG/DL Near or Above Optimal: LDL 100-129 MG/DL Borderline High Risk: LDL 130-159 MG/DL High Risk: LDL 160-189 MG/DL Very High Risk: LDL Greater than 189 MG/DL 94 Anion gap measurement may be of limited value in the presence of any alkalosis, especially in a combined acid base disorder. . 95 A metabolite of Naproxen, O-desmethylnaproxen, has been shown to interfere with the Jendrassik-Morro method for measuring total bilirubin. Samples from patients who have taken Naproxen have shown spurious elevation in total bilirubin levels. 96 Because ethnic data is not always readily [...] 15-29 5 Kidney failure <15 (or dialysis) Procedures Date Code Description Status 07/12/2018 [id number] Diabetic Foot Exam Completed 07/14/2017 [id number] Colonoscopy Completed 12/08/2016 [id number] Mammogram Completed 11/14/2016 [id number] Diabetic Retinal Eye Exam Completed 12/21/2014 57955 Diffusing Capacity Completed 12/21/2014 33466 Plethysmography Determination Lung Volumes & Per Completed Airway Resist 12/21/2014 06905 Pulmonary Function><Bronchodil Completed 09/20/2013 [id number] Diabetic Retinal Eye Exam Completed 03/14/2013 45611 Pulse Oximetry-Mutl Determ Completed 03/14/2013 05782 Inhalation TX For Acute Airway Obstruction Completed W/Nebulizer/Inhaler 01/13/2013 [id number] Mammogram Completed 03/12/2012 45658 Color Flow Doppler/Interp & Reprt Completed 03/12/2012 75719 Pulse Wave/Continuous-Interp.RPT Completed 03/12/2012 67017 ECHO Transthorasic Realtime 2D W Doppler & Color Flow Completed Hosp 03/02/2012 46580 EKG Tracing & Interpretation Completed 05/21/2011 [id number] Mammogram Completed 02/27/2011 92729 Stress Test Supervsn W/Out I/R Completed 02/27/2011 92731 Treadmill Interp/Report Only Completed 01/22/2011 37643 EKG Tracing & Interpretation Completed 10/12/2008 [id number] Colonoscopy Completed 09/13/2008 61303 Deposition Completed Encounters Type Date Location Provider Dx Diagnosis Office Visit 07/28/2018 [facility] Internal Andrea Gilbert M54.41 Lumbago with 9:40a Tina Engle M.D.,FACP sciatica, right Rd side E11.40 Type 2 diabetes mellitus with diabetic neuropathy, unsp E66.01 Morbid (severe) obesity due to excess calories Office Visit 07/27/2018 3:00p [facility] Internal Alana Suttone, M79.604 Pain in right Medicine - [place] Surinder DANIELLE leg Office Visit 07/15/2018 1:00p [facility] Cramer Coch, E11.22 Type 2 [facility] of [facility] 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 E78.5 Hyperlipidemia, unspecified E11.621 Type 2 diabetes mellitus with foot ulcer E11.40 Type 2 diabetes mellitus with diabetic neuropathy, unsp Office Visit 06/28/2018 9:00a [facility] Internal Kandace Marker, E11.22 Type 2 diabetes Medicine - [place] RPA-C 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 Z72.0 Tobacco use M25.562 Pain in left knee 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 Office Visit 03/26/2018 10:00a [facility] Internal Andrea Gilbert E11.22 Type 2 diabetes Tina Engle M.D.,FACP 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 I10 Essential (primary) hypertension Z12.2 Encntr screen for malignant neoplasm of respiratory organs Z72.0 Tobacco use Office Visit 12/24/2017 11:00a [facility] Internal Andrea Gilbert E11.22 Type 2 diabetes Tina Engle M.D.,FACP 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 J44.1 Chronic obstructive pulmonary disease w (acute) exacerbation I10 Essential (primary) hypertension R04.0 Epistaxis Office Visit 11/23/2017 10:40a [facility] Internal Medicine - Erika Oliver, EYE DROPPER ASSEMBLER R[address] [place] [address] N93.9 Abnormal uterine and vaginal bleeding, unspecified R11.2 Nausea with vomiting, unspecified Office Visit 11/11/2017 9:40a [facility] Internal Andrea Gilbert E11.22 Type 2 diabetes Tina Engle M.D.,FACP 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 G89.4 Chronic pain syndrome J45.41 Moderate persistent asthma with (acute) exacerbation Office Visit 09/16/2017 8:20a [facility] Internal Andrea Gilbert E11.22 Type 2 diabetes Tina Engle M.D.,FACP 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 Office Visit 06/17/2017 11:20a [facility] Internal Andrea Gilbert E11.22 Type 2 diabetes Tina Engle M.D.,FACP 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 E78.2 Mixed hyperlipidemia I10 Essential (primary) hypertension E66.01 Morbid (severe) obesity due to excess calories Z23 Encounter for immunization Office Visit 03/05/2017 8:30a [facility] Maki Gilbert Z00.01 Encounter for Tina Engle M.D.,FACP general adult [address] medical exam w abnormal findings E11.65 Type 2 diabetes mellitus with hyperglycemia J44.9 Chronic obstructive pulmonary disease, unspecified E66.01 Morbid (severe) obesity due to excess calories M48.06 Spinal stenosis, lumbar region Z12.11 Encounter for screening for malignant neoplasm of colon Office Visit 12/10/2016 [facility] Internal Andrea Gilbert Z01.810 Encounter for 1:00p Tina Engle M.D.,FACP preprocedural [address] cardiovascular examination E11.65 Type 2 diabetes mellitus with hyperglycemia H33.311 Horseshoe tear of retina without detachment, right eye J44.9 Chronic obstructive pulmonary disease, unspecified Office Visit 11/10/2016 8:30a Surgical Rishi Higuera E66.01 Morbid (severe) [facility] MD Gina, obesity due to FACS excess calories E11.65 Type 2 diabetes mellitus with hyperglycemia Z71.3 Dietary counseling and surveillance Office Visit 10/31/2016 9:40a [facility] Internal Andrea Gilbert E11.65 Type 2 diabetes Tina Engle M.D.,FACP mellitus with [address] hyperglycemia E66.01 Morbid (severe) obesity due to excess calories Z12.31 Encntr screen mammogram for malignant neoplasm of breast Office Visit 09/29/2016 1:45p Surgical Rishi Higuera E66.01 Morbid (severe) [facility] Lianet Fuentes MD, obesity due to FACS excess calories I10 Essential (primary) hypertension E11.65 Type 2 diabetes mellitus with hyperglycemia Z72.0 Tobacco use M48.06 Spinal stenosis, lumbar region Office Visit 09/17/2016 2:20p [facility] Maki Gilbert E11.65 Type 2 diabetes Tina Engle M.D.,FACP mellitus with [address] hyperglycemia E66.01 Morbid (severe) obesity due to excess calories I10 Essential (primary) hypertension Office Visit 07/16/2016 2:00p [facility] Maki Gilbert E11.65 Type 2 diabetes Tina Engle M.D.,FACP mellitus with [address] hyperglycemia Z12.2 Encntr screen for malignant neoplasm of respiratory organs Z72.0 Tobacco use Office Visit 04/23/2016 2:40p [facility] Maki Gilbert E11.65 Type 2 diabetes Tina Engle M.D.,FACP mellitus with [address] hyperglycemia M48.06 Spinal stenosis, lumbar region Office Visit 03/27/2016 Neurosurgery Dipak Chavarria, M48.06 Spinal stenosis , 11:15a Services Of Lianet Roach lumbar region Office Visit 03/20/2016 [facility] Maki Gilbert E11.65 Type 2 diabetes 3:00p Medicine - [place] Kadie, mellitus with Rd Dco,FACP hyperglycemia M54.42 Lumbago with sciatica, left side Office Visit 03/11/2016 11:20a [facility] Internal Paulie Brito M54.42 Lumbago with Medicine - EYE DROPPER ASSEMBLER sciatica, left [place] [address] side Office Visit 10/26/2015 4:00p [facility] Internal Paulie Brito, K12.2 Cellulitis and Medicine - EYE DROPPER ASSEMBLER abscess of mouth [address] Office Visit 07/17/2015 1:00p [facility] Internal Paulie Brito, J06.9 Acute upper Medicine - EYE DROPPER ASSEMBLER respiratory [address] infection, unspecified R05 Cough Z23 Encounter for immunization 493.00 Asthma Extrinsic Unspecified Office Visit 04/18/2015 3:00p [facility] Internal Andrea Gilbert 716.98 Arthropathy Tina Engle M.D.,FACP Unspec Other Spec [address] Sites 724.4 Neuritis Or Radiculitis Thoracic Or Lumbosacral Unspec Office Visit 01/24/2015 10:30a [facility] Internal Paulie Brito, 461.0 Sinusitis Acute Medicine - [place] EYE DROPPER ASSEMBLER [address] 786.07 Wheezing 786.2 Cough 305.1 Tobacco Use Disorder Office Visit 12/20/2014 9:30a [facility] Internal Paulie Scottish, 401.9 Hypertension Unspec Medicine - EYE DROPPER ASSEMBLER [address] 250.02 Diabetes Mellitus W/O Compl Type II Or Unspec Type Uncontrol 278.01 Obesity Morbid 493.00 Asthma Extrinsic Unspecified 305.1 Tobacco Use Disorder 401.1 Hypertension Benign 493.90 Asthma Unspec W/O Status Asthmaticus Office Visit 11/15/2014 11:50a [facility] Internal Andrea Gilbert 250.02 Diabetes Tina Engle M.D.,FACP Mellitus W/O [place] [address] Compl Type II Or Unspec Type Uncontrol 715.16 Osteoarthrosis Localized Prim Lower Leg 535.51 Gastritis & Gastroduodenitis Unspec W/ Hemorrhage 490 Bronchitis Acute Or Chronic Not Spec 786.30 Hemoptysis, Unspecified Office Visit 07/27/2014 10:10a [facility] Internal Andrea Gilbert 250.02 Diabetes Tina Engle M.D.,FACP Mellitus W/O Deposit Compl Type II Or Unspec Type Uncontrol 721.3 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 535.41 Gastritis Other Spec W/ Hemorrhage V65.44 Human Immunodeficiency Virus (HIV) Counseling 618.2 Prolapse Uterovaginal Incomplete V02.62 Hepatitis C Carrier V04.81 Need For Prophylactic Vaccination & Inoculation/Influenza Office Visit 02/28/2014 10:30a [facility] Internal Andrea Gilbert 250.02 Carlos Manuel Engle M.D.,FACP Mellitus W/O Deposit Compl Type II Or Unspec Type Uncontrol Office Visit 10/19/2013 10:30a [facility] Internal Corie 366.8 Cataract Other Medicine - Awa Mendez N.PSylwia 786.50 Pain Chest Unspec 794.31 Electrocardiogram (ECG) (EKG) Abnormal 250.02 Diabetes Mellitus W/O Compl Type II Or Unspec Type Uncontrol 272.4 Hyperlipidemia Other Unspec 401.9 Hypertension Unspec 305.1 Tobacco Use Disorder Office Visit 08/25/2013 9:50a [facility] Internal Andrea Gilbert 250.02 Diabetes Tina Engle M.D.,FACP Mellitus W/O Deposit Compl Type II Or Unspec Type Uncontrol 788.39 Incontinence Urinary Other 305.1 Tobacco Use Disorder V04.81 Need For Prophylactic Vaccination & Inoculation/Influenza 788.41 Urinary Frequency Office Visit 06/23/2013 10:10a [facility] Internal Andrea Gilbert 250.02 Diabetes Tina Engle M.D.,FACP Mellitus W/O Deposit Compl Type II Or Unspec Type Uncontrol Office Visit 04/26/2013 1:23p [facility] Internal Yosvany 722.93 Disc Disorder Tina Del Real M.D. Other & Unspec Deposit Lumbar Region Office Visit 04/26/2013 1:40p [facility] Internal [place] 250.00 Diabetes Tina Del Real M.D. Mellitus W/O Deposit Compl Type II Or Unspec Controlled 311 Depressive Disorder Not Elsewhere Spec 535.40 Gastritis Other Spec W/O Hemorrhage 496 COPD Airway Obstruction Chronic Not Class Elsewhere Office Visit 03/14/2013 9:20a [facility] Internal Yosvany 535.40 Gastritis Other Tina Del Real M.D. Spec W/O Deposit Hemorrhage 496 COPD Airway Obstruction Chronic Not Class Elsewhere 311 Depressive Disorder Not Elsewhere Spec Office Visit 02/08/2013 1:00p [facility] Internal Y[place] 721.3 Spondylosis Tina Del Real M.D. Lumbar W/O Deposit Myelopathy 722.93 Disc Disorder Other & Unspec Lumbar Region Office Visit 02/08/2013 2:30p [facility] Internal Sofiya Webber, V76.2 Screening Tina Callahan M.D. 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 Unspec Deposit 272.4 Hyperlipidemia Other Unspec 496 COPD Airway Obstruction Chronic Not Class Elsewhere 305.1 Tobacco Use Disorder 311 Depressive Disorder Not Elsewhere Spec 278.01 Obesity Morbid V70.0 Examination General Medical Routine AT Health Care Facility 250.00 Diabetes Mellitus W/O Compl Type II Or Unspec Controlled Office Visit 01/03/2013 [facility] Internal Y[place] 272.4 Hyperlipidemia Other 10:40a Tina Del Real M.D. Unspec Deposit 401.9 Hypertension Unspec 401.9 Hypertension Unspec 272.4 Hyperlipidemia Other Unspec 496 COPD Airway Obstruction Chronic Not Class Elsewhere 496 COPD Airway Obstruction Chronic Not Class Elsewhere 250.00 Diabetes Mellitus W/O Compl Type II Or Unspec Controlled 250.00 Diabetes Mellitus W/O Compl Type II Or Unspec Controlled V76.10 Screening For Malignant Neoplasm Breast 305.1 Tobacco Use Disorder 311 Depressive Disorder Not Elsewhere Spec 278.01 Obesity Morbid Office Visit 11/24/2012 [facility] Internal Andrea Gilbert 721.3 Spondylosis 9:30a Tina Engle M.D.,[facility] Lumbar W/O Deposit Myelopathy Office Visit 11/03/2012 Neurosurgery Georges Kim 721.3 Spondylosis 9:00a Services [facility] Doc Lora Lumbar W/O Myelopathy 721.3 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 Office Visit 10/28/2012 10:40a [facility] Internal Barry Hardy 722.93 Disc Disorder Tina Lofton M.D. Other & Unspec Deposit Lumbar Region Office Visit 09/08/2012 10:00a [facility] Internal [place] 722.93 Disc Disorder Tina Del Real Other & Unspec Deposit M.DSylwia Lumbar Region Office Visit 08/30/2012 8:20a [facility] Internal [place] 401.9 Hypertension Tina Del Real Unspec Deposit Doc 272.4 Hyperlipidemia Other Unspec 496 COPD Airway Obstruction Chronic Not Class Elsewhere 250.00 Diabetes Mellitus W/O Compl Type II Or Unspec Controlled 278.00 Obesity Unspec Office Visit 07/19/2012 8:40a [facility] Internal [place] 722.93 Disc Disorder Tina Del Real M.D. Other & Unspec Deposit Lumbar Region Office Visit 07/05/2012 10:40a [facility] Internal [place] 722.93 Disc Disorder Tina Del Real M.D. Other & Unspec Deposit Lumbar Region Office Visit 06/23/2012 8:00a [facility] Internal [place] 250.00 Diabetes Tina Del Real M.D. Mellitus W/O Deposit Compl Type II Or Unspec Controlled 041.19 Staphylococcus Other Office Visit 06/09/2012 8:00a [facility] Internal [place] 250.00 Diabetes Tina Del Real M.D. Mellitus W/O Deposit Compl Type II Or Unspec Controlled 278.00 Obesity Unspec 305.1 Tobacco Use Disorder 401.9 Hypertension Unspec V03.82 Streptococcus Pneumoniae Vaccination Spec Other V04.81 Need For Prophylactic Vaccination & Inoculation/Influenza Office Visit 05/21/2012 [facility] Internal Almaz Sherwood, 250.00 Diabetes Mellitus 11:20a Tina Callahan M.D. W/O Compl Type II Deposit Or Unspec Controlled Office Visit 03/10/2012 Shagufta Pickens V72.81 Examination 1:40p Cardiology Ceci Sifuentes Preoperative Cardiovascular 794.31 Electrocardiogram (ECG) (EKG) Abnormal 786.09 Dyspnea & Respiratory Abnormalities Other 401.9 Hypertension Unspec 250.00 Diabetes Mellitus W/O Compl Type II Or Unspec Controlled 496 COPD Airway Obstruction Chronic Not Class Elsewhere 466.0 Bronchitis Acute 272.4 Hyperlipidemia Other Unspec Office Visit 03/09/2012 [facility] Internal [place] 722.93 Disc Disorder 1:40p Tina Del Real M.D. Other & Unspec Deposit Lumbar Region Office Visit 03/02/2012 [facility] Internal [place] 401.9 Hypertension 8:20a Tina Del Real M.D. Unspec Deposit 250.00 Diabetes Mellitus W/O Compl Type II Or Unspec Controlled 496 COPD Airway Obstruction Chronic Not Class Elsewhere 305.1 Tobacco Use Disorder 717.85 Disruption Old Other Ligaments Of Knee 786.05 Shortness Of Breath 466.0 Bronchitis Acute V72.84 Examination Preoperative Unspec Office Visit 01/13/2012 [facility] Internal [place] 722.93 Disc Disorder 9:40a Tina Del Real M.D. Other & Unspec Deposit Lumbar Region Office Visit 12/17/2011 [facility] Internal [place] 401.9 Hypertension 8:20a Tina Del Real M.D. Unspec Deposit 250.00 Diabetes Mellitus W/O Compl Type II Or Unspec Controlled 496 COPD Airway Obstruction Chronic Not Class Elsewhere 305.1 Tobacco Use Disorder 278.00 Obesity Unspec Office Visit 11/27/2011 9:40a [facility] Internal Almaz Sherwood, 250.00 Diabetes Mellitus Tina Callahan M.D. W/O Compl Type II Deposit Or Unspec Controlled 788.33 Incontinence Mixed (Male) (Female) Office Visit 08/26/2011 9:00a DO Not Use Pen Tender [place] Pachikara, 717.85 Disruption Old AT [facility] Other Ligaments Of Knee 401.9 Hypertension Unspec Office Visit 08/04/2011 8:00a DO Not Use Pen Tender [place] Pachikara, 719.41 Pain Joint AT [facility] Shoulder Region 717.85 Disruption Old Other Ligaments Of Knee 250.00 Diabetes Mellitus W/O Compl Type II Or Unspec Controlled 496 COPD Airway Obstruction Chronic Not Class Elsewhere 311 Depressive Disorder Not Elsewhere Spec 401.1 Hypertension Benign Office Visit 07/09/2011 8:00a DO Not Use Pen Tender [place] Pachikara, 719.41 Pain Joint AT [facility] Shoulder Region 717.85 Disruption Old Other Ligaments Of Knee v04.81 Need For Prophylactic Vaccination & Inoculation/Influenza Office Visit 06/02/2011 11:40a DO Not Use Pen Tender [place] 401.9 [facility] Unspec 250.00 Diabetes Mellitus W/O Compl Type II Or Unspec Controlled 278.00 Obesity Unspec 305.1 Tobacco Use Disorder 311 Depressive Disorder Not Elsewhere Spec Office Visit 05/15/2011 9:40a DO Not Use Pen Tender Almaz Sherwood, V76.19 Screening Breast AT [facility] Exam Malignant Neoplasms Other V76.2 Screening Malignant Neoplasm Cervix V76.51 Special Screening For Malignant Neoplasms Colon 401.9 Hypertension Unspec 788.30 Incontinence Urinary Unspec V70.0 Examination General Medical Routine AT Health Care Facility Office Visit 04/23/2011 8:40a DO Not Use Pen Tender Yosvany Pachikara, V76.9 Screening AT [facility] Malignant Neoplasm Unspec 278.00 Obesity Unspec 466.0 Bronchitis Acute 305.1 Tobacco Use Disorder 717.85 Disruption Old Other Ligaments Of Knee Office Visit 03/12/2011 8:00a DO Not Use Pen Tender Y[place]vany Pachikara, 250.00 Diabetes AT [facility] Mellitus W/O Compl Type II Or Unspec Controlled 466.0 Bronchitis Acute Office 02/27/2011 Shagufta Butt 794.31 Electrocardiogram Visit 10:30a Cardiology Doc Tadeo (ECG) (EKG) Abnormal 786.50 Pain Chest Unspec 272.4 Hyperlipidemia Other Unspec 401.1 Hypertension Benign Office Visit 01/29/2011 8:40a DO Not Use Pen Tender [place] Pach[place]ara, 250.00 Diabetes AT Jennifer Roach Mellitus W/O Compl Type II Or Unspec Controlled Office Visit 01/22/2011 8:00a DO Not Use Pen Tender [place] Del Real, 250.00 Diabetes AT Jennifer Roach Mellitus W/O Compl Type II Or Unspec Controlled 401.9 Hypertension Unspec 272.4 Hyperlipidemia Other Unspec 278.00 Obesity Unspec 305.1 Tobacco Use Disorder V72.84 Examination Preoperative Unspec 311 Depressive Disorder Not Elsewhere Spec Office Visit 12/25/2010 9:30a Orthopedic Jeffry Cabezas 716.96 Arthropathy Unspec Services Of M.D. Lower Leg C.M.A. Office Visit 11/25/2010 8:20a DO Not Use Pen Tender AT [place] 717.85 Disruption Old Jennifer Del Real Other Ligaments Of M.Vladimir Knee 250.00 Diabetes Mellitus W/O Compl Type II Or Unspec Controlled V70.0 Examination General Medical Routine AT Health Care Facility 466.0 Bronchitis Acute Office Visit 11/19/2010 DO Not Use Pen Tender [place] 466.0 Bronchitis Acute 9:20a AT Jennifer Del Real M.D. Office Visit 11/06/2010 Orthopedic Jeffry Cabezas M.D. 716.96 Arthropathy 9:00a Services Of Unspec Lower Leg C.M.A. Office Visit 10/22/2010 DO Not Use Pen Tender [place] 717.85 Disruption Old 9:20a AT Jennifer Del Real M.D. Other Ligaments Of Knee Office Visit 09/25/2010 DO Not Use Pen Tender [place] 719.46 Pain Joint Lower 10:20a AT Jennifer Del Real M.D. Leg 250.00 Diabetes Mellitus W/O Compl Type II Or Unspec Controlled 401.9 Hypertension Unspec 272.4 Hyperlipidemia Other Unspec 278.00 Obesity Unspec 305.1 Tobacco Use Disorder Office Visit 02/16/2009 1:00p Neurosurgery Maksim Pedro7.2 Sprains & Services Of Lianet Isidro M.D. Strains Lumbar 805.6 FX Sacrum & Coccyx Closed W/O Spinal Cord Injury Office Visit 01/11/2009 10:00a Neurosurgery Maksim Pedro7.2 Sprains & Services Of Lianet Isidro M.D. Strains Lumbar Office Visit 12/01/2008 10:00a Neurosurgery Maksim Pedro7.2 Sprains & Services Of Lianet Isidro M.D. Strains Lumbar Office Visit 11/01/2008 1:45p Neurosurgery Maksim Cancino 847.2 Sprains & Services Of Lianet Isidro M.D. Strains Lumbar 719.41 Pain Joint Shoulder Region 847.2 Sprains & Strains Lumbar Office Visit 10/24/2008 1:45p Neurosurgery Maksim Cancino 922.31 Contusion Back Services Of Lianet Isidro M.D. Office Visit 09/18/2008 10:15a Neurosurgery Maksim Cancino 805.6 FX Sacrum & Services Of Lianet Isidro M.D. Coccyx Closed W/O Spinal Cord Injury Plan of Treatment Future Appointment(s):12/15/2018 9:20 am - Shoaib Azul MD at [facility]09/15/2018 - Shoaib Azul MDE11.40 Type 2 diabetes mellitus with diabetic neuropathy, unspFollow up:3 wioeloR91.5 Hyperlipidemia, unspecifiedNew Labs:Comp Metabolic Panel, Scheduled: 09/16/18Lipid Profile (Trig /Chol/HDL), Scheduled: 09/16/18I10 Essential (primary) hypertension
[2018-09-19] MEDS ORDERED: NS 0.9% 1000 ML* 1,000 ML IV ONE (23:27)
[2018-09-19] MEDS ORDERED: Morphine VIAL* 4 MG/ML VIAL (1 ml vial) IV ONE (23:28)
[2018-09-19] MEDS ORDERED: Metoclopramide IV* 5 MG/ML 2 ML VIAL IV SLOW PU ONE (23:28)
--- NOTE | 2018-09-19 23:30 | ED ---
GI/ HPI - HPI Summary HPI Summary: Patient is a 57 y/o F presenting to ED with chief complaint of N/V onsetting last night. She also reports fatigue and abdominal "soreness". Patient reports no prior episodes of such Sx. PMHx of diabetes is noted. Patient is on insulin. She states she measured BG once today to be 154, patient does not remember at what time. PCP is Dr. Engle, patient states she sees Dr. Gómez for diabetes. On triage, pain is rated 6/10, nothing is noted to aggravate/alleviate Sx. Home medications and allergies are reviewed. - History of Current Complaint Chief Complaint: EDGeneral Time Seen by Provider: 09/19/18 23:02 Stated Complaint: VOMITING BLOOD/WEAKNESS Hx Obtained From: Patient Onset/Duration: Started Days Ago - last night, Still Present Timing: Constant, Lasting Days - last night Severity: Moderate - 6/10 Current Severity: Moderate - 6/10 Pain Intensity: 6 Location of Pain: Diffuse Pain Characteristics: Other: - "soreness" Associated Signs and Symptoms: Positive: Nausea, Vomiting, Other: - fatigue Aggravating Factor(s): Nothing Alleviating Factor(s): Nothing - Allergy/Home Medications Allergies/Adverse Reactions: Allergies Allergy/AdvReac Type Severity Reaction Status Date / Time nut - unspecified Allergy Severe Swelling Verified 12/11/17 14:22 Of Face,Lips,& Throat pregabalin [From Lyrica] Allergy Unknown Verified 09/19/18 23:03 Reaction Details varenicline [From Chantix] Allergy Unknown Verified 09/19/18 23:03 Reaction Details PMH/Surg Hx/FS Hx/Imm Hx Endocrine/Hematology History: Reports: Hx Diabetes - TYPE II- ORAL AND INSULIN Cardiovascular History: Reports: Hx Hypertension Denies: Hx Pacemaker/ICD, Other Cardiovascular Problems/Disorders Respiratory History: Reports: Hx Asthma - ROUTINE NEBULIZER AND PRN INHALER, Hx Chronic Obstructive Pulmonary Disease (COPD) Denies: Hx Pulmonary Embolism History: Denies: Hx Renal Disease Musculoskeletal History: Reports: Hx Arthritis Sensory History: Reports: Hx Cataracts - LEFT EYE, Hx Contacts or Glasses - GLASSES Denies: Hx Hearing Aid Opthamlomology History: Reports: Hx Cataracts - LEFT EYE, Hx Contacts or Glasses - GLASSES Psychiatric History: Reports: Hx Depression Denies: Hx Panic Disorder - Cancer History Hx Chemotherapy: No Hx Radiation Therapy: No - Surgical History Surgery Procedure, Year, and Place: right knee REPLACEMENT march 2012. 2010- RIGHT EYE CATARACT REMOVED, UN SUCCESSFUL FOR Lt EYE. Xs 4 Hx Anesthesia Reactions: No Infectious Disease History: No Infectious Disease History: Denies: Traveled Outside the [place] in Last 30 Days - Family History Known Family History: Positive: Other - uterine CA (mother) - Social History Alcohol Use: None Substance Use Type: Reports: None Smoking Status (MU): Light Every Day Tobacco Smoker Review of Systems Positive: Fatigue Positive: Abdominal Pain, Vomiting, Nausea All Other Systems Reviewed And Are Negative: Yes Physical Exam - Summary Physical Exam Summary: VITAL SIGNS: Reviewed. GENERAL: Patient is a well-developed and morbidly obese female who is lying comfortable in the stretcher. Patient is not in any acute respiratory distress. HEAD AND FACE: No signs of trauma. No ecchymosis, hematomas or skull depressions. No sinus tenderness. EYES: PERRLA, EOMI x 2, No injected conjunctiva, no nystagmus. EARS: Hearing grossly intact. Ear canals and tympanic membranes are within normal limits. MOUTH: Oropharynx within normal limits. NECK: Supple, trachea is midline, no adenopathy, no JVD, no carotid bruit, no c- spine tenderness, neck with full ROM. CHEST: Symmetric, no tenderness at palpation LUNGS: Clear to auscultation bilaterally. No wheezing or crackles. CVS: Regular rate and rhythm, S1 and S2 present, no murmurs or gallops appreciated. ABDOMEN: Soft, diffuse tenderness. No signs of distention. No rebound no guarding, and no masses palpated. Bowel sounds are normal. EXTREMITIES: FROM in all major joints, no edema, no cyanosis or clubbing. NEURO: Alert and oriented x 3. No acute neurological deficits. Speech is normal and follows commands. SKIN: Dry and warm Triage Information Reviewed: Yes Vital Signs On Initial Exam: Initial Vitals Temp Pulse Resp BP Pulse Ox 97.3 F 112 18 128/81 98 09/19/18 22:59 12 22:59 09/19/18 22:59 09/19/18 22:59 09/19/18 22:59 Vital Signs Reviewed: Yes Diagnostics - Vital Signs Vital Signs Temp Pulse Resp BP Pulse Ox 09/19/18 22:59 97.3 F 112 18 128/81 98 - Laboratory Result Diagrams: 09/19/18 23:37 09/19/18 23:37 Lab Statement: Any lab studies that have been ordered have been reviewed, and results considered in the medical decision making process. - CT CT ABD/PEL CT Interpretation Completed By: Radiologist Summary of CT Findings: CT ABD/PEL IMPRESSION: No acute findings. THIS REPORT WAS REVIEWED BY ED PHYSICIAN. Re-Evaluation - Re-Evaluation First Eval Re-Evaluation Time: 02:01 Change: Improved Comment: Patient reports improvement of Sx, she will be discharged to home and follow up with PCP. She is agreeable with this. GIGU Course/Dx - Course Course Of Treatment: Patient is a 57 y/o F presenting to ED with chief complaint of N/V onsetting last night. She also reports fatigue and abdominal "soreness". Patient reports no prior episodes of such Sx. PMHx of diabetes is noted. Patient is on insulin. She states she measured BG once today to be 154, patient does not remember at what time. PCP is Dr. Engle, patient states she sees Dr. Gómez for diabetes. On physical exam, patient is noted to be morbidly obese, has diffuse abdominal tenderness. CT ABD/PEL IMPRESSION: No acute findings. Labs showed RDW 16, absolute lymphs 0.5, glucose 205, CRP 40.40. Lactic acid was 1.9, lipase 13, amylase 53. During ED course, patient received fluids, morphine 4 mg IV ED ONCE ONE, reglan 10 mg IV SLOW PU ONCE ONE. 0201 - Patient reports improvement of Sx, she will be discharged to home and follow up with PCP. She is agreeable with this. Patient possibly has gastroparesis, but as she feels better after ED course, she will be discharged to home with Dx of vomiting and PCP follow up. - Diagnoses Provider Diagnoses: Vomiting Discharge - Sign-Out/Discharge Documenting (check all that apply): Patient Departure - DISCHARGE - Discharge Plan Condition: Stable Disposition: HOME Prescriptions: Metoclopramide TAB* [Reglan TAB*] 10 mg PO Q6H PRN #20 tab PRN Reason: Nausea/Vomiting Pantoprazole TAB (NF) [Protonix TAB (NF)] 40 mg PO DAILY #30 tab Patient Education Materials: Acute Nausea and Vomiting (ED) Referrals: Andrea Engle MD [Primary Care Provider] - 2 Days Additional Instructions: RETURN TO THE EMERGENCY DEPARTMENT FOR CHANGING OR WORSENING SYMPTOMS. FOLLOW UP WITH PRIMARY CARE PHYSICIAN IN 1-2 DAYS. - Attestation Statements Document Initiated by Scribe: Yes Documenting Scribe: PONCE DUMONT Provider For Whom Scribe is Documenting (Include Credential): ELIEZER DESHPANDE MD Scribe Attestation: I, PONCE DUMONT , scribed for ELIEZER DESHPANDE MD on 09/20/18 at 0230. Status of Scribe Document: Ready
[2018-09-19 23:48] LABS: ABS Basophils 0 10^3/ul (0-0.2); ABS Eosinophils 0.1 10^3/ul (0-0.6); ABS Lymphocytes 0.5 10^3/ul (1.0-4.8); ABS Monocytes 0.2 10^3/ul (0-0.8); ABS Neutrophils 6.3 10^3/ul (1.5-7.7); ABS Nucleated RBC 0 10^3/ul; Eosinophil % 1.4 %; Hematocrit 45 % (35-47); Hemoglobin 14.9 g/dl (12.0-16.0); Lymphocyte % 6.7 %; Mean Corpuscular HGB Conc 33 g/dl (31-36); Mean Corpuscular Hemoglobin 28 pg (27-31); Mean Corpuscular Volume 85 fL (80-97); Mean Platelet Volume 8.7 fL (7.4-10.4); Nucleated Red Blood Cells % 0; Platelet Count 208 10^3/ul (150-450); Red Blood Count 5.28 10^6/ul (4.00-5.40); Red Cell Distribution Width 16 % (10.5-15); White Blood Count 7.1 10^3/ul (3.5-10.8)
[2018-09-20 00:06] LABS: EGFR Non-African American 68.5 (>60)
[2018-09-20] MEDS ORDERED: Iodixanol* (CONTRAST) 320 MG/ML 100 ML SDV IV ONE (01:06)
[2018-09-20 02:07] VITALS: BP 130/91
== END 2018-09-20 02:20 | disposition home or self-care (01) ==
LOC: ED 22:55
DX: R11.2 Nausea with vomiting, unspecified (principal); R53.83 Other fatigue; E11.9 Type 2 diabetes mellitus without complications; Z79.4 Long term (current) use of insulin; Z79.84 Long term (current) use of oral hypoglycemic drugs; I10 Essential (primary) hypertension; F17.210 Nicotine dependence, cigarettes, uncomplicated
CPT/HCPCS: 36415; 74177; 80053; 82150; 83605; 83690; 83735; 85025; 86140; 96361; 96374; 96375; 99282; J2270; J2765; Q9967

== ENCOUNTER 2019-01-24 22:08 | Emergency (ER) | payer MEDICARE, MEDICAID ==
[2019-01-24] MEDS ORDERED: NS 0.9% 1000 ML** 2,000 ML IV ONE (22:51)
[2019-01-24] MEDS ORDERED: Metoclopramide IV* 5 MG/ML 2 ML VIAL IV SLOW PU ONE (22:52)
[2019-01-24] MEDS ORDERED: Morphine 4 MG/ML VIAL (1 ml) 4 MG/ML VIAL IV ONE (22:59)
[2019-01-24 23:19] LABS: ABS Basophils 0 10^3/ul (0-0.2); ABS Eosinophils 0.2 10^3/ul (0-0.6); ABS Lymphocytes 1.6 10^3/ul (1.0-4.8); ABS Monocytes 0.3 10^3/ul (0-0.8); ABS Neutrophils 5.6 10^3/ul (1.5-7.7); ABS Nucleated RBC 0 10^3/ul; Hematocrit 43 % (33-41); Hemoglobin 13.9 g/dL (12.0-16.0); Mean Corpuscular HGB Conc 32 g/dL (31-36); Mean Corpuscular Hemoglobin 28 pg (27-31); Mean Corpuscular Volume 85 fL (80-97); Mean Platelet Volume 9.1 fL (7.4-10.4); Nucleated Red Blood Cells % 0; Platelet Count 194 10^3/uL (150-450); Red Blood Count 5.06 10^6 /uL (3.70-4.87); Red Cell Distribution Width 16 % (10.5-15); White Blood Count 7.8 10^3/uL (3.5-10.8)
--- OUTSIDE RECORDS SUMMARY | 2019-01-24 23:28 | XMS REPORT | Continuity of Care Document ---
:1960 External Reference #:[id number] Author Name Nahomy Cruz Care Team Providers Name Role Phone Alana Auguste M.D. Primary Care Physician Unavailable Payers Date Identification Numbers Payment Provider Subscriber Policy Number: [id number] Medicare Chasity Jefferson PayID: [id number] [address] [place] [address] Effective: 2013 Policy Number: [id number] Medicare Chasity Jefferson Expires: 2018 PayID: [id number] [address] [place] [address] Effective: 2012 Policy Number: [id number] Medicaid Chasity Jefferson PayID: [id number] [address] [place] [address] Effective: 2010 Policy Number: [place]/[employer] Medicaid Chasity Jefferson [id number] Expires: 2012 PayID: [id number] [address] [address] [place] [address] Onset: 2008 Policy Number: [id number] Rust Chasity Jefferson Group Number: [id number] PayID: [id number] [address] Advance Directives Type Date Description Status Comment [...] for prolapse/incontinence Family History Date Family Member(s) Observation Comments General Diabetes Type II General Obesity [...] smoker, smokes every day Smoking Status Reviewed: 01/18/19 Patient is a current 6 cigarettes per day cigarette smoker, smokes every day ETOH Use 10/27/2018 Rarely consumes alcohol on special occassions Recreational [...] Form Strength Qnty SIG Indications Ordering Provider Lisinopril 01/18 Active Tablets 20mg 60tab take 1 tablet I10 s by mouth 2x Auguste, daily Shingrix 10/27 Active Suspension 50mcg/0.5 2unit 0.5 Rec ML s milliliters Vladimir Engle intramuscular M.DSylwia,FACP now and 2-3 months later repeat Ozempic 10/06 Active Solution 0.25or 1.500 inject 0.5mg E11.22 Pen-Inject 0.5 ml once weekly MD Latha mg/Dose Nortriptyline 07/28 Active Capsules 10mg 60cap Take 2 AT Andrea HCL s Bedtime PO Vladimir Engle M.D.,FACP Ezetimibe 07/15 Active Tablets 10mg 30tab take 10mg by E78.5 Cramer s mouth daily MD Latha Pravastatin 06/29 Active Tablets 40mg 90tab Take one Yosvany Sodium /2017 s tablet by Pachikara mouth at , M.D. bedtime. Wegmans Pen 01/15 Active 100un Use as Andrea Needle 8mm 31G /2018 its Directed Vladimir Engle, Three Times M.D.,FACP Daily For Toujeo And Byetta Nebulizer 12/31 Active Device 1unit use for J44.1 Andrea s albuterol Vladimir Engle nebulized Xavier.DSylwia,FACP solution up to 4 times a day. last visit: 12/24/17 J45.40 Opana 11/16/2017 Active Tablets 10mg 120tabs by mouth four M54.42 Sue times a day as Telly, needed MD Mcmahon 09/16/2017 Active Tablets 25mg 30tabs Take 1 Tablet Alana By Mouth Every Auguste, Day Cyclobenzaprine 12/12/2016 Active Tablets 10mg 60tabs take 1 tablet Alana HCL by mouth two Auguste, times daily as needed maximum daily dose of 2 per day Flovent HFA 12/10/2016 Active Aerosol 110mc 12units Inhale 2 Puffs Francisco g/Act By Mouth Two ul D. Times Daily Doc Engle,FA CP Vitamin D 10/31/2016 Active Tablets 1000U 30tabs 2 tabs once a Francisco (Cholecalcifero nit day in ul D. l) fall/winter, 1 [place], tab/day M.DSylwia,FA spring/summer( CP pt has not been taking) Onetouch Ultra 09/17/2016 Active Kit w/Dev 1units test 3 times a E11.65 Francisco 2 ice day and as ul D. needed. dx: Kadie, e11.65 last M.D.,FA visit 09/17/16 CP Onetouch Ultra 09/17/2016 Active Strips 200units test up to 3 David-Pa Blue times a day or ul D. as directed dx: Kadie, e11.65, type 2 M.D.,FA diabetes CP mellitus w/hyperglycemia last visit date: 09/17/16 Toujeo Solostar 07/16/2016 Active Solution 300Un 13.5ml 65 units sc E11.65 Alana Pen-Inject it/ML once a day MD Molina Alcohol Swabs 06/15/2015 Active Pads 1box use as directed E11.9 Paulie for dm testing DIANA Brito Metoprolol 03/28/2014 Active Tablets 50mg 90tabs Take 1 And 1/2 David- Pa Tartrate Tablets By ul D. Mouth Two Times [place], Daily M.D.,FA CP Bupropion HCL 01/23/2014 Active Tablets ER 150mg 90tabs Take 1 Tablet Alana ER (XL) 24HR By Mouth Every Auguste, Day Metformin HCL 10/19/2013 Active Tablets 500mg 120tabs Take 2 Tablets David-Pa By Mouth Two ul D. Times Daily Kadie, Doc,FA CP Albuterol 03/14/2013 Active Nebulizer (2.5m 120units use 1 vial via J44.9 David-Pa Sulfate g/3ML nebulizer every ul D. ) 4 hours as [place], 0.083 needed last M.D.,FA % visit: 12/24/17 CP Citalopram 03/14/2013 Active Tablets 20mg 90tabs Take 1 Tablet F33.9 David-Pa Hydrobromide By Mouth Every ul D. Day Doc Engle,FA CP Proair HFA 01/06/2013 Active Aerosol 108(9 8.5units Inhale 2 Puffs David-Pa 0Base By Mouth Every ul D. ) 6 Hours as [place], mcg/A Needed M.D.,FA ct CP Ozempic 10/06/2018 Hx Solution 0.25O 0.5 mg weekly E11.22 Cramer - Pen-Inject r 0.5 Coch, 10/06/2018 mg/Do MD price Protonix 09/22/[address] 40mg 30tabs one po daily K29.00 Alana - Auguste, 12/17/2018 MD Jarrett 09/22/2018 Hx Tablets 10mg 90tabs one po q6hrs R11.0 Alana - prn nausea, 30 Auguste, 12/12/2018 minutes before meals Ozempic 07/15/2018 Hx Solution 0.25o 1.500ml inject 0.5mg E11.22 Cramer - Pen-Inject r 0.5 once weekly Coch, 10/06/2018 mg/Do MD price Humalog Kwikpen 03/26/2018 Hx Solution 100Un 3ml inject 10 units David- Pa - Pen-Inject it/ML subcutaneously ul D. 09/14/2018 in the morning [place], before M.D.,FA breakfast CP Nebulizer 12/24/2017 Hx Device 1units use with J44.1 Francisco - albuterol nebs ul D. 12/31/2017 as directed Doc Engle,FA CP J45.40 Azithromycin 11/11/2017 Hx Tablets 250mg 6tabs 2 every day for Mayra Goss - 1 day, then 1 D. Kadie, 11/16/2017 every day Doc,FACP Hydromorphone HCL 10/16/2017 Hx Tablets 4mg 28tabs 1 tab by mouth M54. Andrea - every 6 hours 42 D. Kadie, 11/16/2017 as needed Doc,FACP Jardiance 06/17/2017 Hx Tablets 10mg 30tabs 1 by mouth Andrea - every night Vladimir Engle, 09/16/2017 Doc,FACP Pen [place] 11/28/2016 Hx Misc 31G X 100uni 3x/day for E11Sylwia Mendez - 8 mm ts toujeo and 9 D. Kadie, 01/15/2018 rolan Roach,FACP Vitamin D 11/10/2016 Hx Capsules [id number] 8caps 1 tablet weekly E66. Rishi Higuera (Ergocalciferol) - nit for 8 weeks 01 MD Gina, 01/05/2017 FACS Rolan 10 mcg Pen 09/17/2016 Hx Solution 10mcg/ 7.2uni Inject 1 Dose E11Sylwia Mendez - Pen-Inject 0.04ML ts (10mcg) Under 65 D. Kadie, 07/28/2018 The Skin Doc,FACP Freestyle Lite Blood 04/23/2016 Hx Device 1units check Andrea Glucose Monitoring - fingerstick bid Vladimir Engle, System 09/17/2016 and prn 04/23/16 Doc,FACP e11.65 Humalog 03/25/2016 Hx Solution 100Uni 3ml 5 units tid qac Adam Goss - Cartridge t/ML 65 D. Kadie, 03/25/2016 Doc,FACP Humalog Kwikpen 03/25/2016 Hx Solution 100Uni 3ml 10 units three E11Sylwia Mendez - Pen-Inject t/ML times a day 65 D. Kadie, 09/17/2016 before meal, if M.D.,FACP FS >150 Humalog Kwikpen 03/20/2016 Hx Solution 200Uni 3ml 5 units tid qac E11. Andrea - Pen-Inject t/ML 65 D. Kadie, 03/25/2016 Doc,FACP Opana 03/20/2016 Hx Tablets 10mg 120tab by mouth four M54. Andrea nicholson times a day as 42 DSylwia Engle, 10/16/2017 needed Doc,FACP Clindamycin HCL 11/09/2015 Hx Capsules 300mg 20caps 1 capsule by Paulie - mouth four Andorran, FIRST OFFICER 11/14/2015 times a day x's 5 days Clindamycin HCL 10/26/2015 Hx Capsules 300mg 56caps 1 capsule by K12. Paulie - mouth four 2 Andorran, FIRST OFFICER 11/09/2015 times a day x's 14 days Peridex 10/26/2015 Hx Solution 0.12% 118ml rinse mouth tid K12. Paulie - after brushing 2 Daryl FIRST OFFICER 03/11/2016 Augmentin 07/17/2015 Hx Tablets 875-12 20tabs 1 tab by mouth J06. Paulie - 5mg twice a day x's 9 Andorran, FIRST OFFICER 07/27/2015 10 days Freestyle Lite Test 06/15/2015 Hx Strips 2Boxes test up to 4 250. Paulie - times a day dx 00 Andorran, FIRST OFFICER 09/17/2016 code: 250.52 Opana 04/19/2015 Hx Tablets 10mg 120tab po qid prn Andrea Engle, 03/20/2016 Doc,FACP Amoxicillin/Clavulan 01/24/2015 Hx Tablets 875-12 20tabs 1 tablet by 461. Paulie ate Potassium - 5mg mouth twice a 0 [place]orran, FIRST OFFICER 02/03/2015 day x's 10 days Prednisone 01/24/2015 Hx Tablets 20mg 10tabs 2 tablets by 461. Paulie - mouth daily x's 0 Andorran, FIRST OFFICER 04/17/2015 5 days in the morning Flexeril 12/07/2014 Hx Tablets 10mg 20tabs take one tablet Andrea - by mouth twice DSylwia Engle, 12/12/2016 a day as MGibson,FACP needed; maximum 2 per day mdd 2 Omeprazole 11/15/[address] 20mg 90tabs 1 by mouth 535. Paulie - every day 51 [place]orran, DIANA 07/17/2015 Clarithromycin 11/15/2014 Hx Tablets 500mg 20tabs 1 by mouth 490 Mayra Goss - twice a day for Vladimir Engle, 11/25/2014 10 days (hold M.DSylwia,FACP pravastatin when taking) Byetta 10 mcg Pen 11/15/2014 Hx Solution 10mcg/ 7.2uni inject 1 dose E11. Paulie - Pen-Inject 0.04ML ts (10mcg) under 65 Andorran, FIRST OFFICER 09/17/2016 the skin two times daily Lantus Solostar 07/27/2014 Hx Solution 100Uni 15unit inject 75 units E11. Paulie - Pen-Inject t/ML s under the skin 65 [place]orran, DIANA 07/16/2016 one time daily Novofine 05/08/2014 Hx Misc 30G X 30unit Use Every Day E11. Paulie - 8 mm s 9 DIANA Brito 11/28/2016 Victoza 02/28/2014 Hx Solution 18mg/3 6units inject 1.8 mg 250. Mayra Goss - Neil-Inject ML under the skin 02 Vladimir [place], 11/15/2014 once daily Doc,FACP Bupropion HCL ER 01/23/2014 Hx Tablets ER 150mg 30tabs 1 by mouth qd 311 Andrea - 12HR Vladimir Engle, 01/23/2014 Doc,FACP Metformin HCL 08/25/2013 Hx Tablets 1000mg 180tab 1 po bid Andrea Engle, 10/19/2013 Doc,FACP Lancets 28G 08/25/2013 Hx Misc 28G 100uni tid diagnosis: E11. Barry Callahan ts 250.02 Devon Lofton, 06/17/2017 Doc Prandin 08/25/2013 Hx Tablets 1mg 90tabs take one tablet E11. Paulie - by mouth three 63 Andorran, DIANA 03/20/2016 times a day with meals Flovent HFA 07/07/2013 Hx Aerosol 110mcg 12unit inhale two Paulie - /Act s puffs by mouth DIANA Brito 11/21/2015 twice a day Novofine [id number] 04/26/2013 Hx Misc 30G X 30unit once daily 250. Barry Hayley Callahan 8 mm s diagnosis: 00 Kirsty, 05/08/2014 250.02 M.DSylwia Lucious Davalosostar 04/26/2013 Hx Sopn 100Uni 5units inject 40 units 250. Andrea - t/ML subcutaneously 00 Vladimir Engle, 07/27/2014 at bedtime, Doc,FACP Alcohol Preps 04/26/2013 Hx Misc 30unit once daily 250. Paulie - s 00 Andorran, FIRST OFFICER 06/15/2015 Bupropion HCL XL 03/14/2013 Hx Tablets ER 150mg 30tabs once daily in 311 Andrea - 24HR the morning Vladimir Engle, 01/23/2014 Doc,FACP Omeprazole 03/14/2013 Hx Capsules 20mg 30caps Take One 535. Andrea Callahan DR Capsule By 40 Vladimir Engle, 07/27/2014 Mouth Every Day Doc,FACP In The Morning On An Empty Stomach Oxybutynin Chloride 02/08/2013 Hx Tablets 5mg 30tabs 1 po qd 625. Sofiya - 6 Webber, 04/26/2013 MGibson Bupropion HCL XL 02/01/2013 Hx Tablets ER 300mg 30tabs 1 po qd 311 [place] - 24HR Pachikara, 03/14/2013 Doc Pravastatin Sodium 02/01/2013 Hx Tablets 20mg 90tabs take one tablet Andrea - by mouth at Vladimir Engle, 06/29/2018 bedtime Doc,FACP Lisinopril 02/01/2013 Hx Tablets 20mg 90tabs take 1 tablet I10 Cramer - by mouth every CochMD 01/18/2019 day Losartan Potassium 01/04/2013 Hx Tablets 100mg 30tabs 1 po qd Yosvany - Lissethikara, 01/04/2013 MGibson Lisinopril 01/04/2013 Hx Tablets 10mg 30tabs 1 po qd Yosvany - Lissethikara, 02/01/2013 MGibson Hydrochlorothiazide 01/04/2013 Hx Tablets 25mg 90tabs take one tablet Andrea - by mouth once Vladimir Engle, 01/18/2019 daily M.Vladimir,FACP Toprol XL 01/03/2013 Hx Tablets ER 100mg 30tabs 1 tab daily 401. Yosvany - 24HR 9 Pachikara, 01/03/2013 MGibson Wellbutrin XL 01/03/2013 Hx Tablets ER 150mg 30tabs 1 po qd x2 311 [place] - 24HR weeks then Pachikara, 02/01/2013 2/day Am M.DSylwia Glipizide 01/03/2013 Hx Tablets 10mg 60tabs 1 tab bid Yosvany - [place], 06/23/2013 M.Vladimir Metoprolol Tartrate 01/03/2013 Hx Tablets 50mg 60tabs Take One Tablet Andrea - By Mouth Twice Vladimir Engle, 02/28/2014 A Day Doc,FACP Citalopram 12/02/2012 Hx Tablets 20mg 30tabs 1 po qd [place] Hydrobromide - Pachikara, 12/02/2012 M.Vladimir Citalopram 12/02/2012 Hx Tablets 20mg 30tabs 1 po qd [place] Hydrobromide - Pachikara, 01/03/2013 MGibson Celebrex 12/01/2012 Hx Capsules 200mg 30caps 1 po qd Yosvany - [place], 01/03/2013 Doc Flexeril 12/01/2012 Hx Tablets 10mg 20tabs Take One Tablet Andrea - By Mouth Twice DSylwia Engle, 07/27/2014 A Day as MGibson,FACP Needed; Maximum 2 Per Day Cymbalta 10/28/[address] 60mg 1 po qd Barry Lofton, 11/24/2012 MGibson Celebrex 09/08/2012 Hx Capsules 200mg 30caps 1 po qd 722. [place] - 93 Pachikara, 11/24/2012 Doc Lidoderm 09/08/2012 Hx Patches 5% 30unit one patch daily 722. Yosvany - s on for 12 h 93 Pachikara, 02/08/2013 MGibson Toprol XL 08/30/2012 Hx Tablets ER 50mg 30tabs 1 po qd 401. Yosvany - 24HR 9 Pachikara, 02/01/2013 MGibson Heating Pad For Low 07/05/2012 Hx 1units as ditected 722. Yosvany Back - 93 P[place]ara, 11/24/2012 M.DSylwia Losartan 05/03/2012 Hx Tablets 100-25 30tabs 1 tab po every [place] Potassium/Hydrochlor - mg day Pachikara, othiazide 01/04/2013 MGibson Toprol XL 03/10/2012 Hx Tablets ER 25mg 30tabs 1 tablet by Nelia - 24HR mouth daily Bear, 08/30/2012 D.OSylwia Flexeril 03/09/2012 Hx Tablets 10mg 30tabs 1 po bid prn 722. Almaz - 93 Presley, 11/24/2012 MGibson Chantix Starting 03/03/2012 Hx Tablets 0.5mg 1tabs use as directed 305. Yosvany Leblanc Luke - X 11 & 1 Pachikara, 05/21/2012 1 mg X M.D. Azithromycin 03/02/2012 Hx Tablets 250mg 6tabs 2 tab today and Yosvany - then 1tab daily Pachikara, 05/21/2012 MGibson Nicorette 12/24/2011 Hx Gum 4mg 120uni upto 4 times Yosvany - ts daily Pachikara, 07/19/2012 MGibson Nicoderm CQ 12/17/2011 Hx Patches 14mg/2 30unit once daily 305. Yosvany - 24HR 4HR s 1 Lissethika, 12/24/2011 MGibson Proair HFA 12/17/2011 Hx Aerosol 108(90 1units 2 puffs ih q6h Sofiya - Base) prn Lawanda, 01/06/2013 mcg/ac Dco Sanctura 11/27/2011 Hx Tablets 20mg 30tabs 1 tab po 788. Almaz - everyday 33 [place]wood, 12/17/2011 MGibson Amlodipine Besylate 10/15/2011 Hx Tablets 5mg 30tabs 1 po qd Yosvany - Lissethikara, 12/17/2011 MGibson Tecturna 09/17/2011 Hx 150mg 30unit once daily 401. Yosvany - s 9 Pachikara, 10/15/2011 MGibson Pulmicort Flexhaler 09/11/2011 Hx Aerosol 180mcg 1mon 2 puffs twice Andrea - /Act daily Vladimir Engle, 07/07/2013 Doc,FACP Diovan HCT 08/26/2011 Hx Tablets 320-25 30tabs 1 po qd 401. [place] - mg 9 Pachikara, 05/21/2012 Doc BP Machine 08/26/2011 Hx 401. [place] - 9 Pachikara, 05/21/2012 Doc Opana ER 08/04/2011 Hx Tablets ER 10mg 60tabs 1 po q12hrs 717. Yosvany - 12HR 85 Pachikara, 12/17/2011 Doc Opana 08/04/2011 Hx Tablets 5mg 90tabs 1 tab q 4h prn 717. Yosvany - 85 P[place], 12/17/2011 Doc Mobic 07/09/2011 Hx Tablets 15mg 30tabs once daily 719. Yosvany - 41 Pachik[place], 03/02/2012 Doc Diovan HCT 05/15/2011 Hx Tablets 320-25 90tabs 1 po qd 401. Almaz - mg 9 Presley, 06/02/2011 Doc Vesicare 05/15/2011 Hx Tablets 5mg 30tabs 1 tab po every 788. Almaz - day 30 Presley, 06/02/2011 Doc Chantix Starter Pack 04/23/2011 Hx Tablets 1tabs use as directed 305. [place] - 1 Pachikara, 03/03/2012 Doc Asmanex 30 Metered 03/14/2011 Hx Aerosol 110mcg 1mon 1 inhalation qd [place] Doses - /Inh Pachikara, 09/11/2011 MGibson Zithromax Z-Luke 03/12/2011 Hx Tablets 250mg 1tabs 2tab today and 466. Yosvany - 1tab daily x 0 Pachikara, 03/26/2011 4days M.DSylwia Freestyle Lite Test 01/29/2011 Hx 100uni two times daily 250. Paulie Strips - ts or as needed 00 DIANA Brito 06/15/2015 diagnosis: 250.02 Onglyza 01/22/2011 Hx Tablets 5mg 30tabs once daily 250. Yosvany - 00 Pachikara, 03/12/2011 Doc Metformin HCL 01/22/2011 Hx Tablets 500mg 120tab 2tab po bid 250. [place] - s 00 Pachikara, 12/17/2011 Doc Mobic 11/25/2010 Hx Tablets 15mg 30tabs once daily [place] - Pachikara, 01/29/2011 oDc Levaquin 11/19/2010 Hx Tablets 750mg 7tabs once daily 466. [place] - 0 Pachikara, 01/22/2011 Doc Kombiglyze XR 11/19/2010 Hx Tablets ER 2.5-10 60tabs 2 po qam Yosvany - 24HR 00mg Pachikara, 01/22/2011 MGibson Glipizide XL 09/25/2010 Hx Tablets ER 10mg 60tabs 1 tab po bid [place] - 24HR Pachikara, 06/23/2013 Doc Diovan HCT 09/25/2010 Hx Tablets 320-25 90tabs 1 po qd Yosvany - mg Pachikara, 03/12/2011 MGibson Simvastatin 09/25/2010 Hx Tablets 80mg 90tabs 1/2 po qhs Yosvany - P[place], 03/12/2011 Doc Citalopram 09/25/2010 Hx Tablets 20mg 30tabs 1 po qd Yosvany Hydrobromide - Pach[place], 10/28/2012 MGibson Metformin HCL ER 09/25/2010 Hx Tablets ER 750mg 90tabs Take 2 tabs [place] - 24HR daily Pachikara, 11/19/2010 MGibson Flexeril 09/25/2010 Hx Tablets 10mg 60tabs 1 po tid prn Yosvany - Pach[place], 06/02/2011 Doc Opana 09/25/2010 Hx Tablets 10mg 90tabs po q4h prn 719. [place] - 46 Pachikara, 08/04/2011 MGibson Ibuprofen 12/01/2008 Hx Tablets 400mg 50tabs po q4-6h prn Maksim Isidro, 01/22/2011 MGibson Flexeril 12/01/2008 Hx Tablets 10mg 40tabs 1 po tid prn Maksim Isidro, 01/22/2011 Spasms Doc Ultram 10/24/2008 Hx Tablets 50mg 50tabs 1 Or 2 Tabs Q 4 Maksim M. - Hours prn Pain Zupruk, 11/25/2010 Doc Aleve Hx Tablets 220mg po qday Unknown - 01/29/2011 Ventolin HFA Hx Aerosol 108(90 1month 2 puffs po qid Yosvany Bob) prn Pachikara, 12/17/2011 mcg/ac Doc Metformin HCL Hx Tablets 500mg 60tabs 1 po bid Andrea Engle, 08/25/2013 Doc,FACP Metoprolol Succinate Hx Tablets ER 25mg 30tabs 2 qd Unknown ER - 24HR 06/23/2013 Oxymorphone Hx Tablets 5mg 90tabs 1 po Q 8HRS Unknown Hydrochloride - 07/05/2012 Januvia Hx Tablets 100mg 30tabs 1 po qd Yosvany - Nasima, 08/25/2013 Doc Thera Flu Hx Unknown - 09/08/2012 Oxycodone HCL Hx Capsules 10mg 240cap 1-2 qid prn Unknown - s 04/19/2015 Immunizations CPT Code Status Date Vaccine Lot # [id number] Given 06/17/2017 Influenza Virus Vaccine, Quadrivalent, Split, [id number] Preservative Free 12373 Given 07/17/2015 Influenza Virus Vaccine, Quadrivalent, Split, [id number] Preservative Free 13399 Given 07/27/2014 Flu Vaccine Split Virus Preservative Free For [id number] Indiv 3Yr Older 46556 Given 08/25/2013 Flu Vaccine Split Virus Preservative Free For [id number] Indiv 3Yr Older 80806 Given 06/09/2012 Pneumonia Vaccine [id number] Given 06/09/2012 Influenza Virus 3Yrs & Over 64471 Given 07/09/2011 Influenza Virus 3Yrs & Over [id number] Vital Signs Date Vital Result Comment 01/18/2019 10:59am Height 64 inches 5'4" Weight 274.00 lb Heart Rate 105 /min BP Systolic Sitting 157 mmHg BP Diastolic Sitting 98 mmHg BMI (Body Mass Index) 47.0 kg/m2 12/15/2018 10:01am Height 64 inches 5'4" Weight 276.00 lb w/shoes Heart Rate 87 /min BP Systolic Sitting 171 mmHg BP Diastolic Sitting 100 mmHg BP Systolic Lying Down 158 mmHg at end of intake BP Diastolic Lying Down 90 mmHg at end of intake BMI (Body Mass Index) 47.4 kg/m2 10/27/2018 9:56am Height 64 inches 5'4" Weight 277.00 lb Heart Rate 76 /min BP Systolic Sitting 138 mmHg BP Diastolic Sitting 96 mmHg O2 % BldC Oximetry 96 % BMI (Body Mass Index) 47.5 kg/m2 09/22/2018 9:04am Height 64 inches 5'4" Weight 279.12 lb Heart Rate 95 /min BP Systolic 141 mmHg BP Diastolic 95 mmHg Body Temperature 96.8 F O2 % BldC Oximetry 94 % BMI (Body Mass Index) 47.9 kg/m2 09/15/2018 9:16am Height 64 inches 5'4" Weight [...] Result H/L Range Note Laboratory test finding 12/15/2018 [employer] In House Glucose Random 105 Hemoglobin A1c 7.3 High 5-7 Drug Abuse 20 10/27/2018 [facility] Urine Amphetamine Negative ng/mL [address] [place] [address] [phone] Urine Barbiturates Negative ng/mL 2 Urine Benzodiazepines Negative ng/mL 3 Urine Cocaine Negative ng/mL 4 Urine Phencyclidine Negative ng/mL Cutoff: 25 Urine Tetrahydrocannabinol Negative ng/mL Cutoff: 50 5 Creatinine, Urine 63.9 mg/dL Specific [place] 1.014 pH 5.6 Oxidants Negative 6 Adulterants Comment Normal Codeine, Ur Not Detected ng/mL Cutoff: 25 7 Dtnytbr-6-qydm-glucuronide, Ur Not Detected ng/mL 8 Morphine, Ur Not Detected ng/mL Cutoff: 25 9 Xkfcgjjx-2-fcai-glucuronide, U Not Detected ng/mL 10 6-monoacetylmorphine, Ur Not Detected ng/mL Cutoff: 25 11 Hydrocodone, Ur Not Detected ng/mL Cutoff: 25 12 Norhydrocodone, Ur Not Detected ng/mL Cutoff: 25 13 Dihydrocodeine, Ur Not Detected ng/mL Cutoff: 25 14 Hydromorphone, Ur Not Detected ng/mL Cutoff: 25 15 Fclrirpxpkpxs1ovebiwqjgkkhrsq Not Detected ng/mL 16 Oxycodone, Ur Not Detected ng/mL Cutoff: 25 17 Noroxycodone, Ur Not Detected ng/mL Cutoff: 25 18 Oxymorphone, Ur Present ng/mL Abnormal Cutoff: 25 19 Bxzmqcggutm-0-gdmt-glucuronide Present ng/mL Abnormal 20 Noroxymorphone, Ur Not Detected ng/mL Cutoff: 25 21 Fentanyl, Ur Not Detected ng/mL Cutoff: 2 22 Norfentanyl, Ur Not Detected ng/mL Cutoff: 2 23 Meperidine, Ur Not Detected ng/mL Cutoff: 25 24 Normeperidine, Ur Not Detected ng/mL Cutoff: 25 25 Naloxone, Ur Not Detected ng/mL Cutoff: 25 26 Irwpilln-6-zfji-glucuronide, U Not Detected ng/mL 27 Methadone, Ur Not Detected ng/mL Cutoff: 25 28 Eddp, Ur Not Detected ng/mL Cutoff: 25 29 Propoxyphene, Ur Not Detected ng/mL Cutoff: 25 30 Norpropoxyphene, Ur Not Detected ng/mL Cutoff: 25 31 Tramadol, Ur Not Detected ng/mL Cutoff: 25 32 O-desmethyltramadol, Ur Not Detected ng/mL Cutoff: 25 33 Tapentadol, Ur Not Detected ng/mL Cutoff: 25 34 N-desmethyltapentadol, Ur Not Detected ng/mL Cutoff: 50 35 Ovezjyongo-cnpm-eoaefbcevym, U Not Detected ng/mL 36 Buprenorphine, Ur Not Detected ng/mL Cutoff: 5 37 Norbuprenorphine, Ur Not Detected ng/mL Cutoff: 5 38 Norbuprenorphine glucuronide Not Detected ng/mL Cutoff: 20 39 Opioid Interpretation See Comment 40 Comp Metabolic Panel 09/22/2018 [facility] Sodium 141 mmol/L N 135-[address] [place] [address] [phone] Potassium 4.1 mmol/L N 3.5-5.0 Chloride 107 mmol/L N 101-111 Co2 Carbon Dioxide 27 mmol/L N 22-32 Anion Gap 7 mmol/L N 2-11 Glucose 138 mg/dL High 70-100 Blood Urea Nitrogen 12 mg/dL N 6-24 Creatinine 0.79 mg/dL N 0.51-0.95 BUN/Creatinine Ratio 15.2 N 8-20 Calcium 9.4 mg/dL N 8.6-10.3 Total Protein 6.6 g/dL N 6.4-8.9 Albumin 3.9 g/dL N 3.2-5.2 Globulin 2.7 g/dL N 2-4 Albumin/Globulin Ratio 1.4 N 1-3 Total Bilirubin 0.40 mg/dL N 0.2-1.0 Alkaline Phosphatase 92 U/L N 34-104 Alt 14 U/L N 7-52 Ast 16 U/L N 13-39 Egfr Non- 74.5 >60 Egfr 90.1 >60 41 Lipid Profile 09/22/2018 [facility] Triglycerides 219 mg/dL 42 (Trig/Chol/HDL) [address] [place] [address] [phone] Cholesterol 167 mg/dL 43 HDL Cholesterol 42.5 mg/dL 44 LDL Cholesterol 81 mg/dL 45 Laboratory test 09/19/2018 [facility] Magnesium 2.0 mg/dL N 1.9-2.[address] [place] [address] [phone] Amylase 53 U/L N 29-103 Lipase 13 U/L N 11.0-82.0 C Reactive Protein 40.40 mg/L High <8.01 CBC Auto Diff 09/19/2018 [facility] White Blood 7.1 10^3/uL N 3.5-10.[address] [place] [address] [phone] Red Blood Count 5.28 10^6/uL N 4.00-5.40 Hemoglobin 14.9 g/dL N 12.0-16.0 Hematocrit 45 % N 35-47 Mean Corpuscular Volume 85 fL N 80-97 Mean Corpuscular Hemoglobin 28 pg N 27-31 Mean Corpuscular HGB Conc 33 g/dL N 31-36 Red Cell Distribution Width 16 % High 10.5-15 Platelet Count 208 10^3/uL N 150-450 Mean Platelet Volume 8.7 fL N 7.4-10.4 Abs Neutrophils 6.3 10^3/uL N 1.5-7.7 Abs Lymphocytes 0.5 10^3/uL Low 1.0-4.8 Abs Monocytes 0.2 10^3/uL N 0-0.8 Abs Eosinophils 0.1 10^3/uL N 0-0.6 Abs Basophils 0 10^3/uL N 0-0.2 Abs Nucleated RBC 0 10^3/uL Granulocyte % 89.4 % Lymphocyte % 6.7 % Monocyte % 2.2 % Eosinophil % 1.4 % Basophil % 0.3 % Nucleated Red Blood Cells % 0 Comp Metabolic Panel 09/19/2018 [facility] Sodium 143 mmol/L N 135-145 [address] [place] [address] [phone] Potassium 4.3 mmol/L N 3.5-5.0 Chloride 107 mmol/L N 101-111 Co2 Carbon Dioxide 28 mmol/L N 22-32 Anion Gap 8 mmol/L N 2-11 Glucose 205 mg/dL High 70-100 Blood Urea Nitrogen 17 mg/dL N 6-24 Creatinine 0.85 mg/dL N 0.51-0.95 BUN/Creatinine Ratio 20.0 N 8-20 Calcium 9.8 mg/dL N 8.6-10.3 Total Protein 7.2 g/dL N 6.4-8.9 Albumin 4.0 g/dL N 3.2-5.2 Globulin 3.2 g/dL N 2-4 Albumin/Globulin Ratio 1.3 N 1-3 Total Bilirubin 0.50 mg/dL N 0.2-1.0 Alkaline Phosphatase 85 U/L N 34-104 Alt 14 U/L N 7-52 Ast 13 U/L N 13-39 Egfr Non- 68.5 >60 Egfr 82.8 >60 46 Laboratory test 09/19/2018 [facility] Lactic Acid 1.9 mmol/L N 0.5-2.0 [address] [place] [address] [phone] Laboratory test 09/15/2018 [facility] Glucose 151 finding Random Hemoglobin A1c 7.5 High 5-7 Laboratory test finding 07/15/2018 [facility] House Glucose Random 80 Laboratory test finding 07/15/2018 [facility] Glucose Random 60 Laboratory test finding 07/15/2018 [facility] Glucose Random 77 Laboratory test finding 07/15/2018 [facility] Glucose Random 56 Lipid Profile 06/29/2018 [facility] Triglycerides 289 mg/dL 48 (Trig/Chol/HDL) [address] [place] [address] [phone] Cholesterol 220 mg/dL 49 HDL Cholesterol 45.4 mg/dL 50 LDL Cholesterol 117 mg/dL 51 Urine Microalbumin 06/28/2018 [facility] Ur Microalbumin < 15.[address] (mg/L) [place] [address] [phone] Urine Creatinine 19.61 mg/dL Urine Microalbumin/Creatinine TNP <31 52 Laboratory test 06/28/2018 [facility] Hemoglobin A1c 8.6 High 5-7 finding Laboratory test 03/26/2018 [facility] Hemoglobin A1c 9.1 High 5-7 finding Laboratory test 12/24/2017 [facility] Hemoglobin A1c 8.9 High 5-7 finding Comp Metabolic 12/11/2017 [facility] Sodium 138 mmol/L N 133- [address] [place] [address] [phone] Potassium 4.3 mmol/L N 3.5-5.0 Chloride 108 [...] Egfr Non- 54.8 >60 Egfr 70.5 >60 53 Laboratory test 12/11/2017 [facility] C Reactive 28.37 mg/L High < 5.00 [address] [place] [address] [phone] CBC Auto Diff 12/11/2017 [facility] White Blood 6.1 N 3.5- 10.[address] Count 10^3/[place] [address] [phone] Red Blood Count 4.40 10^6/uL N 4.0-5.4 [...] Red Blood Cells % 0.1 Inr/Protime 12/11/2017 [facility] Inr 0.87 N 0.77-1.[address] [place] [address] [phone] Laboratory test 12/11/2017 [facility] B-Type 17 pg/mL [address] [place] [address] Peptide BNP [phone] CBC Auto Diff 11/23/2017 [facility] White Blood 4.0 N 3.5- 10.[address] Count 10^3/[place] [address] [phone] Red Blood Count 4.87 10^6/uL N 4.0-5.4 [...] Cells % 0.1 Comp Metabolic Panel 11/23/2017 [facility] Sodium 139 mmol/L N 133-[address] [place] [address] [phone] Potassium 4.5 mmol/L N 3.5-5.0 Chloride 106 [...] Egfr Non- 57.4 >60 Egfr 73.8 >60 56 Laboratory test 09/16/2017 [facility] Hemoglobin A1c 10.3 High 5-7 finding Laboratory test 07/14/2017 [facility] Point of Care 82 mg/dL N 70-100 [address] [place] [address] [phone] Laboratory test 07/14/2017 [facility] Clotest SEE RESULT [address] [place] [address] [phone] Laboratory test 07/14/2017 [facility] Surgical SEE RESULT [address] [place] [address] [phone] Laboratory test 06/16/2017 [facility] Hemoglobin A1c 11.1 % High Less than [address] (Glyco HGB) 6.0 [place] [address] [phone] Urine Microalbumin 06/16/2017 [facility] Urine 102.50 N Random [address] Creatinine mg/[place] [address] [phone] Ur Microalbumin (mg/L) 52.5 mg/L N Urine Microalbumin/Creatinine 51.2 ug/mg High <31 Lipid Profile 06/16/2017 [facility] Triglycerides 318 mg/dL N 61 (Trig/Chol/HDL) [address] [place] [address] [phone] Cholesterol 234 mg/dL N 62 HDL Cholesterol 43.3 mg/dL N 63 LDL Cholesterol 127 mg/dL N 64 Laboratory test 03/05/2017 [facility] Hemoglobin A1c 8.0 High 5-7 finding Laboratory test 12/10/2016 [facility] Hemoglobin A1c 8.9 % High Less than [address] (Glyco HGB) 6.0 [place] [address] [phone] Comp Metabolic 12/10/2016 [facility] Sodium 139 N 133-[address] mmol/[place] [address] [phone] Potassium 4.5 mmol/L N 3.5-5.0 Chloride 107 [...] 71.6 N >60 Egfr 92.1 N >60 66 Bariatric Panel 10/14/2016 [facility] Ferritin 188.7 ng/mL N 11-307 Pre-Op [address] [place] [address] [phone] Vitamin B12 367 pg/mL N 180-914 67 Folic Acid (Folate) 10.80 ng/mL N >3.99 Vitamin D Total 25(Oh) 14.8 ng/mL Low 30-50 Vitamin B1 (Whole Blood) 94 nmol/L N 70-180 68 Vitamin E Level 11.3 mg/L N 5.5 - 17.0 69 TSH (Thyroid Stim Horm) 1.40 mcIU/mL N 0.34-5.60 Cortisol 10.29 ?g/dL N 70 Comp Metabolic Panel 10/14/2016 [facility] Sodium 138 mmol/L N 133-[address] [place] [address] [phone] Potassium 4.3 mmol/L N 3.5-5.0 Chloride 107 [...] 86.2 N >60 Egfr 110.9 N >60 71 Laboratory test 10/14/2016 [facility] Hemoglobin A1c 9.5 % High Less than [address] (Glyco HGB) 6.0 [place] [address] [phone] Iron & Iron 10/14/2016 [facility] Iron 52 N 50-[address] g/[place] [address] [phone] Unsaturated Iron Binding 302 g/dL N Total Iron Binding Capacity 354 g/dL N 250-450 % Iron Saturation 15 % N 15-55 CBC Auto Diff 10/14/2016 [facility] White Blood 7.4 10^3/uL N 3.5-10.[address] [place] [address] [phone] Red Blood Count 4.69 10^6/uL N 4.0-5.4 [...] Cells % 0 N Laboratory test 09/17/2016 [facility] Hemoglobin A1c 11.0 High 5-7 finding Laboratory test 07/16/2016 [facility] Hemoglobin A1c 14.0 High 5-7 finding Laboratory test 03/21/2016 [facility] Hemoglobin A1c 11.5 % High Less than [address] (Glyco HGB) 6.0 [place] [address] [phone] Lipid Profile 03/21/2016 [facility] Triglycerides 330 mg/dL N 74 (Trig/Chol/HDL) [address] [place] [address] [phone] Cholesterol 212 mg/dL N 75 HDL Cholesterol 39.9 mg/dL N 76 LDL Cholesterol 106 mg/dL N 77 Comp Metabolic Panel 03/21/2016 [facility] Sodium 136 mmol/L N 133-[address] [place] [address] [phone] Potassium 4.3 mmol/L N 3.5-5.0 Chloride 102 [...] 82.2 N >60 Egfr 105.7 N >60 78 Urine Microalbumin 03/21/2016 [facility] Ur Microalbumin 15.0 mg /L N Random [address] (mg/L) [place] [address] [phone] Urine Creatinine 31.25 mg/dL N Urine Microalbumin/Creatinine 48.0 ug/mg High <31 Urine Microalbumin 03/20/2016 [facility] Ur Microalbumin 40.0 mg /L N Random [address] (mg/L) [place] [address] [phone] Urine Creatinine 167.49 mg/dL N Urine Microalbumin/Creatinine 23.8 ug/mg N <31 Laboratory 03/20/2016 [facility] Hemoglobin A1c 10.7 High 5-7 test finding Laboratory 11/15/2014 [facility] Hemoglobin A1c 13.2 High 5-7 test finding HIV 1/2 AB 07/27/2014 [facility] HIV 1 2 Antibody Nonreactive N Nonreactive [address] [place] [address] [phone] Laboratory 07/27/2014 [facility] Hepatitis C Nonreactive N Nonreactive test finding [address] [place] [address] [phone] Lipid Profile 07/27/2014 [facility] Triglycerides 192 mg/dL N 80 (Trig/Chol/HDL [address] ) [place], [place] [id number] [phone] Cholesterol 199 mg/dL N 81 HDL Cholesterol 52.1 mg/dL N 82 LDL Cholesterol 109 mg/dL N 83 Basic Metabolic Panel 07/27/2014 [facility] Sodium 138 mmol/L N 133-[address] [place], [place] [id number] [phone] Potassium 4.3 mmol/L N 3.7-5.6 Chloride 101 mmol/L N 101-111 Co2 Carbon Dioxide 28 mmol/L N 22-32 Anion Gap 9 mmol/L N 2-11 Glucose 101 mg/dL High 70-100 Blood Urea Nitrogen 8 mg/dL N 6-24 Creatinine 0.78 mg/dL N 0.51-0.95 BUN/Creatinine Ratio 10.3 N 8-20 Calcium 9.9 mg/dL N 8.6-10.3 Egfr Non- 76.7 N >60 Egfr 98.6 N >60 84 Laboratory test 07/27/2014 [facility] Hemoglobin A1c 10.5 High 5-7 finding Laboratory test 02/28/2014 [facility] Hemoglobin A1c 13.7 High 5-7 finding Urine Microalbumin 02/28/2014 [facility] Ur Microalbumin 24.0 mg /dL N <[address] (mg/L) [place] [address] [phone] Urine Creatinine 109.59 mg/dL N Urine Microalbumin/Creatinine 21.8 N Less Than 31 Ua Routine 08/25/2013 [facility] Ua Specific Granby 1.025 Ua PH 5 Ua Color yellow Ua Appera clear Ua WBC neg Ua Protein neg Ua Glucose neg Ua Ketones neg Ua Bilirubin neg Ua Urobilinogen neg Ua Nitrite neg Ua Occult Blood neg Laboratory test 08/25/2013 [facility] Hemoglobin A1c 12.3 High 5-7 finding Laboratory test 04/26/2013 [facility] Hemoglobin A1c 9.6 High 5-7 finding Laboratory test 02/08/2013 [facility] Cytology RUN DATE: [address] 02/09/ [place] [address] <SEE NOTE> [phone] Urine Microalbumin 02/01/2013 [facility] Ur Microalbumin 1.0 mg/ L [address] (Mg/L) [place] [address] [phone] Urine Creatinine < 6 mg/dL Urine Microalbumin/Creatinine 0 ug/mg Less Than 31 Laboratory test 01/03/2013 [facility] Hemoglobin A1c 8.5 High 5-7 finding Comp Metabolic 08/30/2012 [facility] Sodium 139 mmol/L 133- [address] [place] [address] [phone] Potassium 4.5 mmol/L 3.5-5.0 Chloride 109 mmol/L [...] 1.6 1-3 Total Bilirubin 0.4 mg/dL 0.1-1.0 88 Alkaline Phosphatase 85 U/L 30-110 Alt 19 U/L 14-54 Ast 18 U/L 12-42 Egfr Non- 87.5 >60 Egfr 112.6 >60 89 Lipid Profile 08/30/2012 [facility] Triglycerides 169 mg/dL 40-200 (Trig/Chol/HDL) [address] [place] [address] [phone] Cholesterol 211 mg/dL High Less than 200 HDL Cholesterol 47 mg/dL 40-60 90 Cholesterol/HDL Ratio 4.5 AVERAGE High 1-4.44 LDL Cholesterol 130.2 mg/dL High Less Than 100 91 Laboratory test 05/21/2012 [facility] Hemoglobin A1c 6.9 5-7 finding CBC Auto Diff 05/15/2012 [facility] White Blood 11.4 CUMM High 4.8-10.[address] [place] [address] [phone] Red Cell Count 4.58 CUMM 4.2-5.4 Hemoglobin [...] Basophils 0.1 0-0.2 Comp Metabolic Panel 05/15/2012 [facility] Sodium 135 mmol/L 135-[address] [place] [address] [phone] Potassium 4.2 mmol/L 3.5-5.0 Chloride 104 mmol/L 101-111 Co2 (Carbon Dioxide) 22.0 mmol/L 22-32 Anion Gap 9.0 mmol/L 2-11 93 Glucose 235 mg/dL High 70-100 BUN 15 mg/dL 6-24 Creatinine 1.1 mg/dL 0.50-1.40 One Over Creatinine 0.90 BUN/Creatinine Ratio 13.6 8-20 Calcium 9.9 mg/dL 8.1-9.9 Total Protein 6.9 GM/DL 6.2-8.1 Albumin 3.8 GM/DL 3.6-5.4 Globulin 3.1 GM/DL 2-4 Albumin/Globulin Ratio 1.2 1-3 Bilirubin Total 0.8 mg/dL 0.4-1.5 94 Alkaline Phosphatase 88 U/L 30-110 Alt (SGPT) 18 U/L 14-54 Ast (Sgot) 22 U/L 12-42 eGFR Non- 52.0 > 60 eGFR 66.8 > 60 95 Laboratory test 05/15/2012 [facility] C Reactive 4.5 mg/dL High Less Than finding [address] Protein 0.5 [place] [address] [phone] Protime 05/15/2012 [facility] Inr 0.89 0.88-1.[address] [place] [address] [phone] Protime 10.6 SEC 10.3-13.5 97 Laboratory test 05/15/2012 [facility] PTT (Aptt) 29.0 SEC 25.1-38.[address] [place] [address] [phone] Culture And 04/26/2012 [facility] M --------- [address] ------- [place] [address] <SEE [phone] NOTE> Laboratory test 04/26/2012 [facility] PTT (Aptt) 27.0 SEC 25.1-38.[address] [place] [address] [phone] International 04/26/2012 [facility] Inr 0.82 Low 0.88-1.13 [address] [place] [address] [phone] Protime 9.7 SEC Low 10.3-13.5 100 CBC Auto Diff 04/24/2012 [facility] White Blood 5.0 CUMM 4.8- 10.[address] [place] [address] [phone] Red Cell Count 4.25 CUMM 4.2-5.4 Hemoglobin [...] 0-0.6 Abs Basophils 0.1 0-0.2 Comments 1 101 Culture And 04/24/2012 [facility] M <SEE [address] NOTE> [place], [place] [id number] [phone] Comp Metabolic 04/24/2012 [facility] Sodium 140 mmol/L 135-[address] 45 [place] [address] [phone] Potassium 4.2 mmol/L 3.5-5.0 Chloride 110 mmol/L 101-111 Co2 (Carbon Dioxide) 25.0 mmol/L 22-32 Anion Gap 5.0 mmol/L 2-11 103 Glucose 129 mg/dL High 70-100 BUN 12 mg/dL 6-24 Creatinine 0.7 mg/dL 0.50-1.40 One Over Creatinine 1.42 BUN/Creatinine Ratio 17.1 8-20 Calcium 9.1 mg/dL 8.1-9.9 Total Protein 7.1 GM/DL 6.2-8.1 Albumin 3.7 GM/DL 3.6-5.4 Globulin 3.4 GM/DL 2-4 Albumin/Globulin Ratio 1.1 1-3 Bilirubin Total 0.8 mg/dL 0.4-1.5 104 Alkaline Phosphatase 87 U/L 30-110 Alt (SGPT) 18 U/L 14-54 Ast (Sgot) 23 U/L 12-42 eGFR Non- 87.5 > 60 eGFR 112.6 > 60 105 Laboratory test 04/24/2012 [facility] C Reactive 1.2 mg/dL High Less Than finding [address] Protein 0.5 [place] [address] [phone] Erythrocyte Sed Rate 35 MM/HR High 0-30 Blood Culture 04/24/2012 [facility] M <SEE [address] NOTE> [place] [address] [phone] CBC No Diff 03/17/2012 [facility] White 6.6 CUMM 4.8-[address] Blood 0.8 [place] [address] Count [phone] Red Cell Count 4.68 CUMM 4.2-5.4 Hemoglobin 13.6 g/dL 12.0-16.0 Hematocrit 40 % 35-47 Mean Corpuscular Volume 84 um3 79-97 Mean Corpuscular Hemoglob 29 pg 27-31 Mean Corpuscular HGB Cone 34 g/dL 32-36 Redcell Distribution WDTH 15 % 10.5-15 Platelet Count 187 CUMM 150-450 Mean Platelet Volume 10.1 um3 7.4-10.4 Comp Metabolic Panel 03/17/2012 [facility] Sodium 137 mmol/L 135-145 [address] [place] [address] [phone] Potassium 4.0 mmol/L 3.5-5.0 Chloride 104 mmol/L 101-111 Co2 (Carbon Dioxide) 27.0 mmol/L 22-32 Anion Gap 6.0 mmol/L 2-11 107 Glucose 102 mg/dL High 70-100 BUN 11 mg/dL 6-24 Creatinine 0.8 mg/dL 0.50-1.40 One Over Creatinine 1.25 BUN/Creatinine Ratio 13.8 8-20 Calcium 9.7 mg/dL 8.1-9.9 Total Protein 6.5 GM/DL 6.2-8.1 Albumin 3.7 GM/DL 3.6-5.4 Globulin 2.8 GM/DL 2-4 Albumin/Globulin Ratio 1.3 1-3 Bilirubin Total 0.5 mg/dL 0.4-1.5 108 Alkaline Phosphatase 90 U/L 30-110 Alt (SGPT) 20 U/L 14-54 Ast (Sgot) 20 U/L 12-42 eGFR Non- 75.0 > 60 eGFR 96.5 > 60 109 Type And Screen 03/17/2012 [facility] Patient Blood B POSITIVE (Pre-Adm) [address] [place] [address] [phone] Antibody Screen NEGATIVE Specimen Discard Date 03/31/12 110 Laboratory test 03/17/2012 [facility] PTT (Aptt) 30.4 SEC 25.1-38.5 finding [address] [place] [address] [phone] Protime 03/17/2012 [facility] Inr 0.85 Low 0.88-1.13 111 [address] [place] [address] [phone] Protime 10.0 SEC Low 10.3-13.5 112 Urinalysis 03/17/2012 [facility] Ua Color YELLOW Yellow [address] [place] [address] [phone] Appearance-Urine TURBID Clear Specific [place]-Ur 1.027 1.010-1.030 Esterase-Urine NEGATIVE Negative Nitrite NEGATIVE Negative [id number] NEGATIVE Negative Protein-Urine NEGATIVE Negative PH-Urine 5.0 5-9 Blood-Urine NEGATIVE Negative Ketones-Urine NEGATIVE Negative Bilirubin-Ur NEGATIVE Negative Glucose-Urine NEGATIVE Negative Protime 03/02/2012 [facility] Inr 0.84 Low 0.88-1.13 113 [address] [place] [address] [phone] Protime 9.9 SEC Low 10.3-13.5 114 Manual Differential 03/02/2012 [facility] Polysegmented 63 % 38-83 [address] [facility] [address] [phone] Lymphocyte 32 % 25-47 Eosinophil 5 % 0-6 RBC Morphology NORMAL Laboratory test 03/02/2012 [facility] PTT (Aptt) 28.3 SEC 25.1-38.5 finding [address] [place] [address] [phone] Comp Metabolic 03/02/2012 [facility] Sodium 137 mmol/L 135- 145 Panel [address] [place] [address] [phone] Potassium 4.4 mmol/L 3.5-5.0 Chloride 102 mmol/L 101-111 Co2 (Carbon Dioxide) 28.0 mmol/L 22-32 Anion Gap 7.0 mmol/L 2-11 115 Glucose 127 mg/dL High 70-100 BUN 13 mg/dL 6-24 Creatinine 0.8 mg/dL 0.50-1.40 One Over Creatinine 1.25 BUN/Creatinine Ratio 16.3 8-20 Calcium 9.6 mg/dL 8.1-9.9 Total Protein 6.8 GM/DL 6.2-8.1 Albumin 3.8 GM/DL 3.6-5.4 Globulin 3.0 GM/DL 2-4 Albumin/Globulin Ratio 1.3 1-3 Bilirubin Total 0.4 mg/dL 0.4-1.5 116 Alkaline Phosphatase 93 U/L 30-110 Alt (SGPT) 20 U/L 14-54 Ast (Sgot) 40 U/L 12-42 eGFR Non- 75.0 > 60 eGFR 96.5 > 60 117 CBC Auto Diff 03/02/2012 [facility] White Blood 5.8 CUMM 4.8- 10.[address] [place] [address] [phone] Red Cell Count 4.56 CUMM 4.2-5.4 Hemoglobin 13.1 g/dL 12.0-16.0 Hematocrit 39 % 35-47 Mean Corpuscular Volume 85 um3 79-97 Mean Corpuscular Hemoglob 29 pg 27-31 Mean Corpuscular HGB Cone 34 g/dL 32-36 Redcell Distribution WDTH 15 % 10.5-15 Platelet Count 202 CUMM 150-450 Mean Platelet Volume 10.1 um3 7.4-10.4 Absolute Neutrophil Count 3.7 1.5-7.7 118 Laboratory test 03/02/2012 [facility] Hemoglobin A1c 6.8 5-7 finding Lipid Panel - JFM 12/17/2011 [facility] CPK (Creatine 202 U/L High 0-[address] Kinase) [place] [address] [phone] Comp Metabolic 12/17/2011 [facility] Sodium 138 mmol/L 135- [address] [place] [address] [phone] Potassium 4.5 mmol/L 3.5-5.0 Chloride 104 mmol/L 101-111 Co2 (Carbon Dioxide) 27.0 mmol/L 22-32 Anion Gap 7.0 mmol/L 2-11 119 Glucose 167 mg/dL High 70-100 BUN 10 mg/dL 6-24 Creatinine 0.8 mg/dL 0.50-1.40 One Over Creatinine 1.25 BUN/Creatinine Ratio 12.5 8-20 Calcium 9.6 mg/dL 8.1-9.9 Total Protein 7.0 GM/DL 6.2-8.1 Albumin 3.9 GM/DL 3.6-5.4 Globulin 3.1 GM/DL 2-4 Albumin/Globulin Ratio 1.3 1-3 Bilirubin Total 0.4 mg/dL 0.4-1.5 120 Alkaline Phosphatase 86 U/L 30-110 Alt (SGPT) 21 U/L 14-54 Ast (Sgot) 19 U/L 12-42 eGFR Non- 75.0 > 60 eGFR 96.5 > 60 121 Lipid Profile 12/17/2011 [facility] Triglyceride 173 mg/dL 40 -200 (Trig/Chol/HDL) [address] [place] [address] [phone] Cholesterol 206 mg/dL High Less Than 200 122 High Density Lipoprotein 49 mg/dL 40-60 123 Cholesterol/HDL Ratio 4.20 AVERAGE 1-4.44 Low Density Lipoprotein 122 mg/dL High Less Than 100 124 Urine Microalbumin 12/17/2011 [facility] Microalbumin 17.0 mg/L [address] (MG/L) [place] [address] [phone] Urine Creatinine 118.0 mg/dL Lloyd Alb/Creatinine Ratio 14.4 UG/MG Less Than 30 125 Laboratory test finding 12/17/2011 [facility] Cortisol 8.6 g/ dL [address] [place] [address] [phone] TSH 1.77 MIU/ML 0.34-5.60 Laboratory test 11/27/2011 [facility] Hemoglobin A1c 7.4 High 5-7 finding Laboratory test 08/04/2011 [facility] Hemoglobin A1c 6.9 5-7 finding Drug Abuse 20 08/04/2011 [facility] Urine Ampetamines Negative ng/mL () [address] [place] [address] [phone] Urine Barbiturates Negative ng/mL () 128 Urine Benzodiazepines Negative ng/mL () 129 Urine Cocaine Negative ng/mL () 130 Urine Methadone Negative ng/mL () 131 Urine Opiates Negative ng/mL () 132 Urine Phencyclidine Negative ng/mL Cutoff: 25 Urine Propoxyphene Negative ng/mL () 133 Urine Tetrahydrocannabinol Negative ng/mL Cutoff: 20 134 Oxycodone/Oxymorphone 08/04/2011 [facility] Oxycodone NEGATIVE () Quant [address] Quantitation ng/[place] [address] [phone] Oxymorphone Quant NEGATIVE ng/mL () 135 Urine Microalbumin 07/09/2011 [facility] Microalbumin 15.0 mg/L Random [address] (MG/L) [place] [address] [phone] Urine Creatinine 57.79 mg/dL Lloyd Alb/Creatinine Ratio 25.9 UG/MG Less Than 30 136 Laboratory test 06/02/2011 [facility] Hemoglobin A1c 8.3 High 5-7 finding Laboratory test 05/15/2011 [facility] Cytology [address] ------ [place] [address] <SEE NOTE> [phone] Laboratory test 01/22/2011 [facility] Hemoglobin A1c 9.4 High 5-7 finding Lipid Profile 11/25/2010 [facility] Triglyceride 200 mg/dL 40 -200 (Trig/Chol/HDL) [address] [place] [address] [phone] Cholesterol 171 mg/dL Less Than 200 138 High Density Lipoprotein 49 mg/dL 40-60 139 Cholesterol/HDL Ratio 3.49 AVERAGE 1-4.44 Low Density Lipoprotein 82 mg/dL Less Than 100 140 Lipid Panel - 11/25/2010 [facility] CPK (Creatine 187 U/L High 0-[address] Kinase) [place] [address] [phone] Comp Metabolic 11/25/2010 [facility] Sodium 137 135-[address] mmol/[place] [address] [phone] Potassium 4.4 mmol/L 3.5-5.0 Chloride 105 mmol/L 101-111 Co2 (Carbon Dioxide) 22.0 mmol/L 22-32 Anion Gap 10.0 mmol/L 2-11 141 Glucose 188 mg/dL High 70-100 BUN 11 mg/dL 6-24 Creatinine 0.70 mg/dL 0.50-1.40 One Over Creatinine 1.40 BUN/Creatinine Ratio 15.7 8-20 Calcium 9.0 mg/dL 8.1-9.9 Total Protein 6.3 GM/DL 6.2-8.1 Albumin 3.8 GM/DL 3.6-5.4 Globulin 2.5 GM/DL 2-4 Albumin/Globulin Ratio 1.5 1-3 Bilirubin Total 0.6 mg/dL 0.4-1.5 142 Alkaline Phosphatase 95 U/L 30-110 Alt (SGPT) 37 U/L 14-54 Ast (Sgot) 35 U/L 12-42 eGFR Non- 87.9 > 60 eGFR 113.0 > 60 143 Laboratory test finding 10/22/2010 [facility] Hemoglobin A1c 10.3 High 5-7 1 REFERENCE VALUE Cutoff: 500 2 REFERENCE VALUE Cutoff: 200 3 REFERENCE VALUE Cutoff: 100 4 REFERENCE VALUE Cutoff: 150 5 ADDITIONAL INFORMATION This report is intended for use in clinical monitoring or management of patients. It is not intended for use in employment-related testing. 6 REFERENCE VALUE Cutoff: 200 mg/L 7 Tylenol 3 8 Metabolite of codeine REFERENCE VALUE Cutoff: 100 9 Arabella Goldsmith, MS Contin; Also a minor metabolite (10%) of codeine and can be seen in low concentrations (<2,000 ng/mL) with poppy seed ingestion. 10 Metabolite of morphine REFERENCE VALUE Cutoff: 100 11 Metabolite of heroin 12 Lortab, Randle, Vicodin; Also a very minor metabolite of codeine and impurity (<1%) of oxycodone. 13 Metabolite of hydrocodone 14 Metabolite of hydrocodone 15 Dilaudid, Exalgo; Also a metabolite of hydrocodone and a minor (<5%) metabolite of morphine. 16 Metabolite of hydromorphone REFERENCE VALUE Cutoff: 100 17 Endocet, Percocet, Oxycontin 18 Metabolite of oxycodone 19 Numorphan, Opana; Also a metabolite of oxycodone. 20 Metabolite of oxymorphone REFERENCE VALUE Cutoff: 100 21 Metabolite of oxymorphone 22 Actiq, Duragesic, Fentora 23 Metabolite of fentanyl 24 Demerol 25 Metabolite of meperidine 26 Narcan 27 Metabolite of naloxone REFERENCE VALUE Cutoff: 100 28 Dolophine 29 Metabolite of methadone 30 Darvon, Darvocet 31 Metabolite of propoxyphene 32 Tradol, Ultram, Ultracet 33 Metabolite of tramadol 34 Nucynta 35 Metabolite of tapentadol 36 Metabolite of tapentadol REFERENCE VALUE Cutoff: 100 37 Buprenex, Suboxone 38 Metabolite of buprenorphine 39 Metabolite of buprenorphine 40 Test detected the presence of oxymorphone and one of its metabolites ([id number]). Suspect use of oxymorphone within the past three days. ADDITIONAL INFORMATION This test was developed and its performance characteristics determined by [facility] in a manner consistent with CLIA requirements. This test has not been cleared or approved by the U.[place]. Food and Drug Administration. Test Performed by: [facility] [address] [place] [address] 41 Because ethnic data is not always readily [...] 15-29 5 Kidney failure <15 (or dialysis) 42 Desirable: <150 Borderline High: 150-199 High: 200-499 Very High: >500 43 Desirable: <200 Borderline High: 200-239 High: >239 44 Low: <40 Desirable: 40-60 High: >60 45 Desirable: <100 Near Optimal: 100-129 Borderline High: 130-159 High: 160-189 Very High: >189 46 Because ethnic data is not always readily [...] 15-29 5 Kidney failure <15 (or dialysis) 47 [facility] Severe Sepsis and Septic Shock Management Bundle Measure requires all lactic acids initially measuring >2.0 mmol/L be repeated. 48 Desirable: <150 Borderline High: 150-199 High: 200-499 Very High: >500 49 Desirable: <200 Borderline High: 200-239 High: >239 50 Low: <40 Desirable: 40-60 High: >60 51 Desirable: <100 Near Optimal: 100-129 Borderline High: 130-159 High: 160-189 Very High: >189 52 Unable to calculate due to low microalbumin 53 Because ethnic data is not always readily [...] 15-29 5 Kidney failure <15 (or dialysis) 54 Acute inflammation: >10.00 55 >100 to <200 pg/mL: likely compensated congestive heart failure (CHF) 200 to 400 pg/mL: likely moderate CHF >400 pg/mL: likely moderate to severe CHF 56 Because ethnic data is not always readily [...] 15-29 5 Kidney failure <15 (or dialysis) 57 Residential Builder: [id number] 58 SEE RESULT BELOW Name: JEFFERSONCHASITY : [address]: Robbie Buck MD Acct: [id number] Unit: [id number] AGE: 56 Location: ENDO Re07/14/17 SEX: F Status: REG REF SPEC: [id number] GEORGINA: 07/14/17 [facility] DR: Robbie Buck MD REQ: [id number] RECD: 07/14/17 STATUS: LEWIS CASTILLO DR: Andrea Engle MD _ SOURCE: GAS ANTRUM SPDESC: ORDERED: Clotest Procedure Result Reported Site Clotest Final 07/14/17- 1512 ML Clotest Positive * ML - MAIN LAB (PSC1) . END OF REPORT * ML=Testing performed at Main Lab DEPARTMENT OF PATHOLOGY, [address] [place] [address] Kev Tyler M.D. Director [facility] # [id number] 57 SEE RESULT BELOW Name: CHASITY JEFFERSON : [address]: Robbie Buck MD Acct: [id number] Unit: [id number] AGE: 56 Location: ENDO Re07/14/17 SEX: F Status: DEP REF SPEC: [id number] GEORGINA: 07/14/1734 [facility] DR: Robbie Buck MD REQ: [id number] RECD: 07/14/17 STATUS: LADONNA CASTILLO DR: Andrea [...] performed at Main Lab DEPARTMENT OF PATHOLOGY, [address] [place] [address] Kev Tyler M.D. Director [facility] # [id number] 60 Therapeutic target for the treatment of diabetes Mellitus patients is <7% HBA1C, and in selective patients <6.0%.Please refer to [place] [employer] Diabetic care guidelines for further information. 61 Desirable <150 Borderline high 150-199 High 200-499 Very High >500 62 Desirable <200 Borderline high 200-239 High >239 63 Low <40 Desirable: 40-60 High: >60 64 Desirable: <100 mg/dL Near Optimal: 100-129 mg/dL Borderline High: 130-159 mg/dL High: 160-189 mg/dL Very High: >189 mg/dL 65 Therapeutic target for the treatment of diabetes Mellitus patients is <7% HBA1C, and in selective patients <6.0%.Please refer to [place] [employer] Diabetic care guidelines for further information. 66 Because ethnic data is not always readily [...] 15-29 5 Kidney failure <15 (or dialysis) 67 Normal Range 180 to 914 Indeterminate Range 145 to 180 Deficient Range <145 68 ADDITIONAL INFORMATION This test was developed and its performance characteristics determined by [facility] in a manner consistent with CLIA requirements. This test has not been cleared or approved by the U.S. Food and Drug Administration. Test Performed by: [address] [address] Rope Cutter: Pierre Park II, M.D., Ph.D. 69 ADDITIONAL INFORMATION This test was developed and its performance characteristics determined by [facility] in a manner consistent with CLIA requirements. This test has not been cleared or approved by the U.S. Food and Drug Administration. Test Performed by: [address] [address] Rope Cutter: Pierre Park II, M.D., Ph.D. 70 AM 8.7-22.4 PM <10 71 Because ethnic data is not always readily [...] 15-29 5 Kidney failure <15 (or dialysis) 72 Therapeutic target for the treatment of diabetes Mellitus patients is <7% HBA1C, and in selective patients <6.0%.Please refer to [place] [employer] Diabetic care guidelines for further information. 73 Therapeutic target for the treatment of diabetes Mellitus patients is <7% HBA1C, and in selective patients <6.0%.Please refer to [place] [employer] Diabetic care guidelines for further information. 74 Desirable <150 Borderline high 150-199 High 200-499 Very High >500 75 Desirable <200 Borderline high 200-239 High >239 76 Low <40 Desirable: 40-60 High: >60 77 Desirable: <100 mg/dL Near Optimal: 100-129 mg/dL Borderline High: 130-159 mg/dL High: 160-189 mg/dL Very High: >189 mg/dL 78 Because ethnic data is not always readily [...] 15-29 5 Kidney failure <15 (or dialysis) 79 It is recognized that currently available assays [...] 95% confidence interval of 99.78 to 99.96%. 80 Desirable <150 Borderline high 150-199 High 200-499 Very High >500 81 Desirable <200 Borderline high 200-239 High >239 82 Low <40 Desirable: 40-60 High: >60 83 Desirable <100 Near Optimal 100-129 Borderline high 130-159 High 160-189 Very High >189 84 Because ethnic data is not always [...] 5 Kidney failure <15 (or dialysis) 85 Microalbuminuria in a random sample is defined as: Microalbumin/Creatinine ratio of 30-299 ug/mg. 86 RUN DATE: 02/09/13 [facility] LAB LIVE PAGE 1 RUN TIME: [address] [place] [address] Specimen Inquiry Name: CHASITY JEFFERSON : [address]: Sofiya Webber MD Acct: [id number] Unit: [id number] AGE: 52 Location: [facility] Re02/08/13 SEX: F Status: REG REF SPEC: [id number] GEORGINA: 02/08/13-1454 [facility] DR: Sofiya Webber MD REQ: [id number] RECD: 02/08/130394 STATUS: SOUT _ ORDERED: IMAGE ANALYSIS FINAL DIAGNOSIS Negative for Intraepithelial lesion or Malignancy A. Ectocervical/Endocervical Specimen Adequacy: Satisfactory of evaluation Transformation zone component not identified Patient Information: HPV: Thin Layer Pap Test w/reflex to high risk HPV DNA testing when ASCUS Actual Specimen Date: 02/08/13 Post Menopausal?: Y Previous Abnormal Pap Smears?:N Signed (signature on file) Aron Benson, CT (ASC) 02/09 1558 This Pap test was evaluated with the assistance of the eBooxPrep Test Imaging System. Due to cytologic findings at the middle school special education teacher microscope, comprehensive manual rescreening by a Electronic Assembler Group Leader may be required. The Pap Smear is [...] performed at Main Lab DEPARTMENT OF PATHOLOGY, [address] [place] [address] Kev Tyler M.D. Director [facility] Permit #[id number] 87 Microalbuminuria in a random sample is defined as: Microalbumin/Creatinine ratio of 30-299 ug/mg. 88 A metabolite of Naproxen, O-desmethylnaproxen, has been shown to interfere with the Jendrassik-Kandiyohi method for measuring total bilirubin. Samples from patients who have taken Naproxen have shown spurious elevation in total bilirubin levels. 89 Because ethnic data is not always readily [...] 15-29 5 Kidney failure <15 (or dialysis) 90 HDL Interpretation: Undesirable: High Risk: Less than 40 MG/DL Desirable: Low Risk: Greater than 60 MG/DL 91 LDL Interpretation: Low Risk Optimal Level: LDL Less than 100 MG/DL Near or Above Optimal: LDL 100-129 MG/DL Borderline High Risk: LDL 130-159 MG/DL High Risk: LDL 160-189 MG/DL Very High Risk: LDL Greater than 189 MG/DL 92 COMMENTS: U 93 Anion gap measurement may be of limited value in the presence of any alkalosis, especially in a combined acid base disorder. . 94 A metabolite of Naproxen, O-desmethylnaproxen, has been shown to interfere with the Jendrassik-Kand[place] method for measuring total bilirubin. Samples from patients who have taken Naproxen have shown spurious elevation in total bilirubin levels. 95 Because ethnic data is not always readily [...] 15-29 5 Kidney failure <15 (or dialysis) 96 Recommended INR for Patients on Oral Anticoagulants Prophylaxis 2.0 - 3.0 Treatment of thrombosis 2.0 - 3.0 Prevention of embolism 2.0 - 3.0 Prevention of embolism from prosthetic heart valves 2.5 - 3.5 97 DIAGNOSIS,TREATMENT,AND THERAPY MUST BE BASED ON THE INR VALUE ALONE. 98 RUN DATE: 04/27/12 [facility] NMI LIVE PAGE 1 RUN TIME: 1128 Specimen Inquiry RUN USER: INTERFACE Name: JEFFERSONCHASITY Status: [facility] Re04/26/12 Age/Sex: 51/F Unit#: [id number] Location: [facility] : 56 SPEC #: [id number] GEORGINA: 04/26/12 STATUS: RES REQ #: [id number] RECD: 04/26/[address]: Kia DANIELLE,Alan Thompson SOURCE: WOUND ENTR: 04/26/[address]: Nasima DANIELLE, Yosvany Bowden SPDESC: KNEE,RIGHT ORDERED: CULT SENS/GS, ANAEROBIC CULT COMMENTS: LOOK FOR MRSA VRE ACT WKST: B 04/27/12 #1 Procedure Result Verified Site > CULTURE SENSITIVITY Preliminary 04/27/12- 1126 ML PRELIMINARY: NO GROWTH DAY 1 > GRAM STAIN SMEAR Final 04/26/12- 1514 ML POLYS FEW SMEAR: NO ORGANISMS SEEN BY DIRECT SMEAR > ANAEROBIC CULTURE Preliminary 04/27/12- 1126 ML PRELIMINARY: NO GROWTH DAY 1 ML - [facility] Permit #[id number] Formerly named [facility] [employer] [place] [address] DEPARTMENT OF PATHOLOGY, Formerly named [facility] [employer] [place] [address] [facility] Permit #[id number] Doc Franco M.D. Sled Maker 99 Recommended INR for Patients on Oral Anticoagulants Prophylaxis 2.0 - 3.0 Treatment of thrombosis 2.0 - 3.0 Prevention of embolism 2.0 - 3.0 Prevention of embolism from prosthetic heart valves 2.5 - 3.5 100 DIAGNOSIS,TREATMENT,AND THERAPY MUST BE BASED ON THE INR VALUE ALONE. 101 [id number] 102 RUN DATE: 04/26/12 [facility] NMI LIVE PAGE 1 RUN TIME: 1220 Specimen Inquiry RUN USER: INTERFACE Name: JEFFERSONCHASITY Status: EMILY [facility] Re04/24/12 Age/Sex: 51/F Unit#: [id number] Location: [facility] Erazo. : 56 SPEC #: [id number] GEORGINA: 04/24/12 STATUS: LEWIS REQ #: [id number] RECD: 04/24/12 [facility] DR: Ed DANIELLE,Jaylon Thompson SOURCE: WOUND ENTR: 04/24/[address]: Nasima DANIELLE, Yosvany Bowden SPDESC: KNEE,RIGHT ORDERED: CULT SENS/GS ACT WKST: B 04/26/12 #1 Procedure Result Verified Site > CULTURE SENSITIVITY Final 04/26/12- 1220 ML NORMAL CUTANEOUS ERVIN SUGGEST RESUBMISSION. > GRAM STAIN SMEAR Final 04/25/12- 718 ML POLYS RARE SMEAR: FEW EPITHELIAL CELLS MANY GRAM POSITIVE COCCI MANY GRAM POSITIVE BACILLI ML - [facility] Permit #[id number] [address] [place] [address] DEPARTMENT OF PATHOLOGY, [address] [place] [address] [facility] Permit #[id number] Kev Tyler M.D. Director Dede Mendoza M.D. Sled Maker 103 Anion gap measurement may be of limited value in the presence of any alkalosis, especially in a combined acid base disorder. . 104 A metabolite of Naproxen, O-desmethylnaproxen, has been shown to interfere with the Jendrassik-Morro method for measuring total bilirubin. Samples from patients who have taken Naproxen have shown spurious elevation in total bilirubin levels. 105 Because ethnic data is not always readily [...] 15-29 5 Kidney failure <15 (or dialysis) 106 RUN DATE: 04/29/12 [facility] NMI LIVE PAGE 1 RUN TIME: 1643 Specimen Inquiry RUN USER: INTERFACE Name: JEFFERSONCHASITY Status: EMILY [facility] Re04/24/12 Age/Sex: 51/F Unit#: [id number] Location: [facility] Gilbert : 56 SPEC #: [id number] GEORGINA: 04/24/12 STATUS: COMP REQ #: [id number] RECD: 04/24/12-[address]: Ed DANIELLE,Jaylon Thompson SOURCE: BLOOD ENTR: 04/24/12-[address]: Nasima DANIELLE, Yosvany Bowden SPDESC: BLOOD,VENO ORDERED: BLOOD CULTURE ACT WKST: 04/25/12 #1 Procedure Result Verified Site > AEROBIC CULTURE BOTTLE Final 04/29/121642 ML NO GROWTH AFTER 5 DAYS > ANAEROBIC CULTURE BOTTLE Final 04/29/121642 ML NO GROWTH AFTER 5 DAYS - [facility] Permit #[id number] Formerly named [facility] [employer] [place] [address] DEPARTMENT OF PATHOLOGY, [address] [place] [address] [facility] Permit #[id number] Doc Franco M.D. Sled Maker 107 Anion gap measurement may be of limited value in the presence of any alkalosis, especially in a combined acid base disorder. . 108 A metabolite of Naproxen, O-desmethylnaproxen, has been shown to interfere with the Jendrassik-Morro method for measuring total bilirubin. Samples from patients who have taken Naproxen have shown spurious elevation in total bilirubin levels. 109 Because ethnic data is not always readily [...] 15-29 5 Kidney failure <15 (or dialysis) 110 PREADMISSION TESTING SAMPLES FOR BLOOD BANK WILL [...] WITHIN 3 DAYS OF THE SURGERY DATE. 111 Recommended INR for Patients on Oral Anticoagulants Prophylaxis 2.0 - 3.0 Treatment of thrombosis 2.0 - 3.0 Prevention of embolism 2.0 - 3.0 Prevention of embolism from prosthetic heart valves 2.5 - 3.5 112 DIAGNOSIS,TREATMENT,AND THERAPY MUST BE BASED ON THE INR VALUE ALONE. 113 Recommended INR for Patients on Oral Anticoagulants Prophylaxis 2.0 - 3.0 Treatment of thrombosis 2.0 - 3.0 Prevention of embolism 2.0 - 3.0 Prevention of embolism from prosthetic heart valves 2.5 - 3.5 114 DIAGNOSIS,TREATMENT,AND THERAPY MUST BE BASED ON THE INR VALUE ALONE. 115 Anion gap measurement may be of limited value in the presence of any alkalosis, especially in a combined acid base disorder. . 116 A metabolite of Naproxen, O-desmethylnaproxen, has been shown to interfere with the Jendrassik-Kandiyohi method for measuring total bilirubin. Samples from patients who have taken Naproxen have shown spurious elevation in total bilirubin levels. 117 Because ethnic data is not always readily [...] 15-29 5 Kidney failure <15 (or dialysis) 118 Imm. NE 1 119 Anion gap measurement may be of limited value in the presence of any alkalosis, especially in a combined acid base disorder. . 120 A metabolite of Naproxen, O-desmethylnaproxen, has been shown to interfere with the Jendrassik-Morro method for measuring total bilirubin. Samples from patients who have taken Naproxen have shown spurious elevation in total bilirubin levels. 121 Because ethnic data is not always readily [...] 15-29 5 Kidney failure <15 (or dialysis) 122 CHOLESTEROL INTERPRETATION: Desirable: Less than 200 MG/DL Borderline-High Risk: 200-239 MG/DL High-Risk: 240 MG/DL and over 123 HDL INTERPRETATION: Undesirable: High Risk: Less than 40 MG/DL Desirable: Low Risk: Greater than 60 MG/DL 124 LDL INTERPRETATION: Low Risk Optimal Level: LDL Less than 100 MG/DL Near or Above Optimal: LDL 100-129 MG/DL Borderline High Risk: LDL 130-159 MG/DL High Risk: LDL 160-189 MG/DL Very High Risk: LDL Greater than 189 MG/DL 125 MICROALBUMINURIA IN A RANDOM SAMPLE IS DEFINED : MICROALBUMIN/CREATININE RATIO OF 30-299 ug/mg. . 126 REFERENCE RANGE: AM 8.7-22.4 PM LESS THAN 10 . 127 -- REFERENCE VALUE -- Cutoff: 500 128 -- REFERENCE VALUE -- Cutoff: 200 129 -- REFERENCE VALUE -- Cutoff: 200 130 -- REFERENCE VALUE -- Cutoff: 300 131 -- REFERENCE VALUE -- Cutoff: 300 132 -- REFERENCE VALUE -- Cutoff: 300 133 -- REFERENCE VALUE -- Cutoff: 300 134 This report is intended for use in clinical monitoring or management of patients. It is not intended for use in employment-related testing. Test Performed by: [facility] Dpt of Lab Med and Pathology [address] [place] [address] Rope Cutter: Ash Kline III, M.D. 135 Reference ranges have not been established for urine specimens. This specimen was handled by [employer] as a forensic specimen under chain of custody protocol. Test Performed by:[employer], [employer]. [address] [place] [address] 136 MICROALBUMINURIA IN A RANDOM SAMPLE IS DEFINED : MICROALBUMIN/CREATININE RATIO OF 30-299 ug/mg. . 137 ----- [facility] DATE: 05[facility]16/11 [facility] TIME: 1507 Specimen Inquiry RUN USER: INTERFACE -- Name: CHASITY JEFFERSON Yolanda Accsilke#: [id number] Status: REG REF Re05/15/11 Age/Sex: 50/F Unit#: [id number] Location: [facility] : 56 -- Specimen: [id number] SOUT Spec Date: 05/15/[address]: Almaz [...] years. Final Interpretation electronically signed by: Yolanda CARDONA(ASC) 05/16/11 150 6 -- -- DEPARTMENT OF PATHOLOGY, [address] [place] [address] [facility] Permit #[id number] Kev Tyler M.D. Director Dede Mendoza M.D. Solar Energy Consultant And Designer Dir sheridan -- 138 CHOLESTEROL INTERPRETATION: Desirable: Less than 200 MG/DL Borderline-High Risk: 200-239 MG/DL High-Risk: 240 MG/DL and over 139 HDL INTERPRETATION: Undesirable: High Risk: Less than 40 MG/DL Desirable: Low Risk: Greater than 60 MG/DL 140 LDL INTERPRETATION: Low Risk Optimal Level: LDL Less than 100 MG/DL Near or Above Optimal: LDL 100-129 MG/DL Borderline High Risk: LDL 130-159 MG/DL High Risk: LDL 160-189 MG/DL Very High Risk: LDL Greater than 189 MG/DL 141 Anion gap measurement may be of limited value in the presence of any alkalosis, especially in a combined acid base disorder. . 142 A metabolite of Naproxen, O-desmethylnaproxen, has been shown to interfere with the Jendrassik-Morro method for measuring total bilirubin. Samples from patients who have taken Naproxen have shown spurious elevation in total bilirubin levels. 143 Because ethnic data is not always readily [...] dialysis) Procedures Date Code Description Status 07/12/2018 [id number] Diabetic Foot Exam Completed 07/14/2017 85560635 Colonoscopy Completed 12/08/2016 08490948 Mammogram Completed 11/14/2016 134307489 Diabetic Retinal Eye Exam Completed 12/21/2014 93846 Diffusing Capacity Completed 12/21/2014 67136 Plethysmography Determination Lung Volumes & Per Completed Airway Resist 12/21/2014 39701 Pulmonary Function><Bronchodil Completed 09/20/2013 989387700 Diabetic Retinal Eye Exam Completed 03/14/2013 89724 Pulse Oximetry-Mutl Determ Completed 03/14/2013 77073 Inhalation TX For Acute Airway Obstruction Completed W/Nebulizer/Inhaler 01/13/2013 94629210 Mammogram Completed 03/12/2012 98074 Color Flow Doppler/Interp & Reprt Completed 03/12/2012 49022 Pulse Wave/Continuous-Interp.RPT Completed 03/12/2012 89841 ECHO Transthorasic Realtime 2D W Doppler & Color Flow Completed Hosp 03/02/2012 61940 EKG Tracing & Interpretation Completed 05/21/2011 89770805 Mammogram Completed 02/27/2011 44688 Stress Test Supervsn W/Out I/R Completed 02/27/2011 70301 Treadmill Interp/Report Only Completed 01/22/2011 28679 EKG Tracing & Interpretation Completed 10/12/2008 02338828 Colonoscopy Completed 09/13/2008 05226 Deposition Completed Encounters Type Date Location Provider Dx Diagnosis Office Visit 12/15/2018 [place] Carlos Manuel and Shoaib Azul MD E11.9 Type 2 diabetes 9:20a [facility] mellitus without complications Z79.4 [facility] (current) use of insulin I10 Essential (primary) hypertension E78.5 Hyperlipidemia, unspecified Office Visit 10/27/2018 10:00a [facility] Internal Andrea Gilbert G89.4 Chronic pain Medicine - [place] Doc Engle,FACP syndrome Rd E11.22 Type 2 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 Office Visit 09/22/2018 9:40a [facility] Internal Alana Auguste MD K29.00 Acute gastritis Medicine - [place] without bleeding Rd R11.0 Nausea Office Visit 09/15/2018 9:20a [place] Carlos Manuel and Shoaib Azul 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 [facility] D[facility] (current) use of insulin E11.9 Type 2 diabetes mellitus without complications E78.5 Hyperlipidemia, unspecified I10 Essential (primary) hypertension Office Visit 07/28/2018 9:40a [facility] Internal Andrea Gilbert M54.41 Lumbago with Tina Engle M.D.,FACP sciatica, right [address] [address] side E11.40 Type 2 diabetes mellitus with diabetic neuropathy, unsp E66.01 Morbid (severe) obesity due to excess calories Office Visit 07/27/2018 3:00p [facility] Internal Alana Auguste, M79.604 Pain in right Medicine - [place] [address] leg Office Visit 07/15/2018 1:00p [place] Diabetes and Cramer Coch, E11.22 Type 2 [facility] 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 E78.5 Hyperlipidemia, unspecified E11.621 Type 2 diabetes mellitus with foot ulcer E11.40 Type 2 diabetes mellitus with diabetic neuropathy, unsp Office Visit 06/28/2018 9:00a [facility] Internal Kandace Marker, E11.22 Type 2 diabetes Medicine - [place] RPA-C 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 Z72.0 Tobacco use M25.562 Pain in left knee 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 (current) use of insulin Office Visit 03/26/2018 10:00a [facility] Internal Andrea Gilbetr E11.22 Type 2 diabetes Medicine - Tbn[place] Engle M.D.,FACP 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 I10 Essential (primary) hypertension Z12.2 Encntr screen for malignant neoplasm of respiratory organs Z72.0 Tobacco use Office Visit 12/24/2017 11:00a [facility] Internal Andrea Gilbert E11.22 Type 2 diabetes Medicine - T[place] Engle M.D.,FACP 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 J44.1 Chronic obstructive pulmonary disease w (acute) exacerbation I10 Essential (primary) hypertension R04.0 Epistaxis Office Visit 11/23/2017 10:40a [facility] Internal Medicine - Erika Oliver, DIANA R[address] N93.9 Abnormal uterine and vaginal bleeding, unspecified R11.2 Nausea with vomiting, unspecified Office Visit 11/11/2017 9:40a [facility] Internal Andrea Gilbret E11.22 Type 2 diabetes Tina - Tbneno Engle M.D.,FACP 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 G89.4 Chronic pain syndrome J45.41 Moderate persistent asthma with (acute) exacerbation Office Visit 09/16/2017 8:20a [facility] Internal Andrea Gilbert E11.22 Type 2 diabetes Tina Engle M.D.,FACP 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 Office Visit 06/17/2017 11:20a [facility] Maki Gilbert E11.22 Type 2 diabetes Tina Engle M.D.,FACP 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 E78.2 Mixed hyperlipidemia I10 Essential (primary) hypertension E66.01 Morbid (severe) obesity due to excess calories Z23 Encounter for immunization Office Visit 03/05/2017 8:30a [facility] Maki Gilbert Z00.01 Encounter for Tina Engle M.D.,FACP general adult [address] medical exam w abnormal findings E11.65 Type 2 diabetes mellitus with hyperglycemia J44.9 Chronic obstructive pulmonary disease, unspecified E66.01 Morbid (severe) obesity due to excess calories M48.06 Spinal stenosis, lumbar region Z12.11 Encounter for screening for malignant neoplasm of colon Office Visit 12/10/2016 [facility] Maki Gilbert Z01.810 Encounter for 1:00p Tina Engle M.D.,FACP preprocedural [address] cardiovascular examination E11.65 Type 2 diabetes mellitus with hyperglycemia H33.311 Horseshoe tear of retina without detachment, right eye J44.9 Chronic obstructive pulmonary disease, unspecified Office Visit 11/10/2016 8:30a Surgical Rishi Higuera E66.01 Morbid (severe) [facility] MD, obesity due to FACS excess calories E11.65 Type 2 diabetes mellitus with hyperglycemia Z71.3 Dietary counseling and surveillance Office Visit 10/31/2016 9:40a [facility] Maki Gilbert E11.65 Type 2 diabetes Tina [...] stenosis, lumbar region Office Visit 09/17/2016 2:20p [facility] Maki NunezPaul D. E11.65 Type 2 diabetes Tina Engle M.D.,FACP mellitus with [address] hyperglycemia E66.01 Morbid (severe) obesity due to excess calories I10 Essential (primary) hypertension Office Visit 07/16/2016 2:00p [facility] Internal Andrea Gilbert E11.65 Type 2 diabetes Tina Engle M.D.,FACP mellitus with [address] hyperglycemia Z12.2 Encntr screen for malignant neoplasm of respiratory organs Z72.0 Tobacco use Office Visit 04/23/2016 2:40p [facility] Internal Andrea Gilbert E11.65 Type 2 diabetes Tina Engle M.D.,FACP mellitus with [address] hyperglycemia M48.06 Spinal stenosis, lumbar region Office Visit 03/27/2016 Neurosurgery Dipak Chavarria, M48.06 Spinal stenosis , 11:15a [facility] lumbar region Office Visit 03/20/2016 [facility] Internal Andrea Gilbert E11.65 Type 2 diabetes 3:00p Medicine - [place] Kad[place], mellitus with Rd Doc,FACP hyperglycemia M54.42 Lumbago with sciatica, left side Office Visit 03/11/2016 11:20a [facility] Internal Paulie Brito, M54.42 Lumbago with Medicine - FIRST OFFICER sciatica, left [address] side Office Visit 10/26/2015 4:00p [facility] Internal Paulie Brito, K12.2 Cellulitis and Medicine - FIRST OFF[employer] abscess of mouth [address] Office Visit 07/17/2015 1:00p [facility] Internal Paulie Brito, J06.9 Acute upper Medicine - FIRST OFFIC[facility] respiratory [address] infection, unspecified R05 Cough Z23 Encounter for immunization 493.00 Asthma Extrinsic Unspecified Office Visit 04/18/2015 3:00p [facility] Andrea Gilbert 716.98 Arthropathy Tina Engle M.D.,FACP Unspec Other Spec [address] Sites 724.4 Neuritis Or Radiculitis Thoracic Or Lumbosacral Unspec Office Visit 01/24/2015 10:30a [facility] Paulie Brito, 461.0 Sinusitis Acute Medicine - [place] [address] 786.07 Wheezing 786.2 Cough 305.1 Tobacco Use Disorder Office Visit 12/20/2014 9:30a [facility] Paulie Brito, 401.9 Hypertension Unspec Medicine - FIRST OFFIC[address] 250.02 Diabetes Mellitus W/O Compl Type II Or Unspec Type Uncontrol 278.01 Obesity Morbid 493.00 Asthma Extrinsic Unspecified 305.1 Tobacco Use Disorder 401.1 Hypertension Benign 493.90 Asthma Unspec W/O Status Asthmaticus Office Visit 11/15/2014 11:50a [facility] Andrea Gilbert 250.02 Diabetes Tina Engle M.D.,FACP Mellitus W/O [address] Compl Type II Or Unspec Type Uncontrol 715.16 Osteoarthrosis Localized Prim Lower Leg 535.51 Gastritis & Gastroduodenitis Unspec W/ Hemorrhage 490 Bronchitis Acute Or Chronic Not Spec 786.30 Hemoptysis, Unspecified Office Visit 07/27/2014 10:10a [facility] Andrea Gilbert 250.02 Diabetes Tina Engle M.D.,FACP Mellitus W/O Compl Type II Or Unspec Type Uncontrol 721.3 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 535.41 Gastritis Other Spec W/ Hemorrhage V65.44 Human Immunodeficiency Virus (HIV) Counseling 618.2 Prolapse Uterovaginal Incomplete V02.62 Hepatitis C Carrier V04.81 Need For Prophylactic Vaccination & Inoculation/Influenza Office Visit 02/28/2014 10:30a [facility] Andrea Gilbert 250.02 Diabetes Tina Engle M.D.,FACP Mellitus W/O Compl Type II Or Unspec Type Uncontrol Office Visit 10/19/2013 10:30a [facility] Corie 366.8 Cataract Other Medicine Andrea, N.P. 786.50 Pain Chest Unspec 794.31 Electrocardiogram (ECG) (EKG) Abnormal 250.02 Diabetes Mellitus W/O Compl Type II Or Unspec Type Uncontrol 272.4 Hyperlipidemia Other Unspec 401.9 Hypertension Unspec 305.1 Tobacco Use Disorder Office Visit 08/25/2013 9:50a [facility] Andrea Gilbert 250.02 Diabetes Tina Engle M.D.,FACP Mellitus W/O Compl Type II Or Unspec Type Uncontrol 788.39 Incontinence Urinary Other 305.1 Tobacco Use Disorder V04.81 Need For Prophylactic Vaccination & Inoculation/Influenza 788.41 Urinary Frequency Office Visit 06/23/2013 10:10a [facility] Andrea Gilbert 250.02 Diabetes Mellitus Tina Engle M.D.,FACP W/O Compl Type II Or Unspec Type Uncontrol Office Visit 04/26/2013 1:23p [facility] [place] 722.93 Disc Disorder Tina Del Real M.D. Other & Unspec Lumbar Region Office Visit 04/26/2013 1:40p [facility] [place] 250.00 Diabetes Mellitus Tina Del Real M.D. W/O Compl Type II Or Unspec Controlled 311 Depressive Disorder Not Elsewhere Spec 535.40 Gastritis Other Spec W/O Hemorrhage 496 COPD Airway Obstruction Chronic Not Class Elsewhere Office Visit 03/14/2013 9:20a [facility] Yosvany Nasima, 535.40 Gastritis Other Medicine [place]ibson Spec W/O Hemorrhage 496 COPD Airway Obstruction Chronic Not Class Elsewhere 311 Depressive Disorder Not Elsewhere Spec Office Visit 02/08/2013 2:30p [facility] Sofiya Webber, V76.2 Screening Medicine Doc Malignant Neoplasm Cervix 625.6 Stress Incontinence Female 401.9 Hypertension Unspec V72.31 Routine Pourer Crane Ladle Examination Office Visit 02/08/2013 1:00p [facility] Maki Del Real, 721.3 Spondylosis Medicine Doc Lumbar W/O Myelopathy 722.93 Disc Disorder Other & Unspec Lumbar Region Office Visit 02/01/2013 9:40a [facility] [place] 401.9 Hypertension Tina Del Real M.D. Unspec 272.4 Hyperlipidemia Other Unspec 496 COPD Airway Obstruction Chronic Not Class Elsewhere 305.1 Tobacco Use Disorder 311 Depressive Disorder Not Elsewhere Spec 278.01 Obesity Morbid V70.0 Examination General Medical Routine AT Health Care Facility 250.00 Diabetes Mellitus W/O Compl Type II Or Unspec Controlled Office Visit 01/03/2013 [facility] [place] 272.4 Hyperlipidemia Other 10:40a Tina Del Real M.D. Unspec 401.9 Hypertension Unspec 401.9 Hypertension Unspec 272.4 [...] Spec 278.01 Obesity Morbid Office Visit 11/24/2012 [facility] Andrea Gilbert 721.3 Spondylosis 9:30a Tina Engle M.D.,FACP Lumbar W/O Myelopathy Office Visit 11/03/2012 Neurosurgery Georges Kim 721.3 Spondylosis 9:00a Services Of Lianet Lora M.D. Lumbar W/O Myelopathy 721.3 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 Office Visit 10/28/2012 10:40a [facility] Barry Hardy 722.93 Disc Disorder Other Medicine Doc [place] & Unspec Lumbar Region Office Visit 09/08/2012 10:00a [facility] Yosvany 722.93 Disc Disorder Other Medicine [place], & Unspec Lumbar M.D. Region Office Visit 08/30/2012 8:20a [facility] Yosvany 401.9 Hypertension Unspec Tina Del Real M.D. 272.4 Hyperlipidemia Other Unspec 496 COPD Airway Obstruction Chronic Not Class Elsewhere 250.00 Diabetes Mellitus W/O Compl Type II Or Unspec Controlled 278.00 Obesity Unspec Office Visit 07/19/2012 8:40a [facility] Yosvany Del Real 722.93 Disc Disorder Medicine Doc Other & Unspec Lumbar Region Office Visit 07/05/2012 10:40a [facility] Yosvany Del Real 722.93 Disc Disorder Medicine Doc Other & Unspec Lumbar Region Office Visit 06/23/2012 8:00a [facility] Yosvany Del Real, 250.00 Diabetes Medicine MGibson Mellitus W/O Compl Type II Or Unspec Controlled 041.19 Staphylococcus Other Office Visit 06/09/2012 8:00a [facility] Yosvany Del Real, 250.00 Diabetes Medicine Doc Mellitus W/O Compl Type II Or Unspec Controlled 278.00 Obesity Unspec 305.1 Tobacco Use Disorder 401.9 Hypertension Unspec V03.82 Streptococcus Pneumoniae Vaccination Spec Other V04.81 Need For Prophylactic Vaccination & Inoculation/Influenza Office Visit 05/21/2012 [facility] Almaz Sherwood, 250.00 Diabetes Mellitus 11:20a Medicine Doc W/O Compl Type II Or Unspec Controlled Office Visit 03/10/2012 Shagufta Pickens V72.81 Examination 1:40p Cardiology Ceci Sifuentes Preoperative Cardiovascular 794.31 Electrocardiogram (ECG) (EKG) Abnormal 786.09 Dyspnea & Respiratory Abnormalities Other 401.9 Hypertension Unspec 250.00 Diabetes Mellitus W/O Compl Type II Or Unspec Controlled 496 COPD Airway Obstruction Chronic Not Class Elsewhere 466.0 Bronchitis Acute 272.4 Hyperlipidemia Other Unspec Office Visit 03/09/2012 1:40p [facility] Yosvany 722.93 Disc Disorder Medicine Nasima M.D. Other & Unspec Lumbar Region Office Visit 03/02/2012 8:20a [facility] [place] 401.9 Hypertension Tina Del Real M.D. 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 Other & Unspec Lumbar Region Office Visit 12/17/2011 8:20a [facility] [place] 401.9 Hypertension Tina Del Real M.D. Unspec 250.00 Diabetes Mellitus W/O Compl Type II Or Unspec Controlled 496 COPD Airway Obstruction Chronic Not Class Elsewhere 305.1 Tobacco Use Disorder 278.00 Obesity Unspec Office Visit 11/27/2011 9:40a [facility] Almaz Sherwood, 250.00 Diabetes Mellitus Tina Roach W/O Compl Type II Or Unspec Controlled 788.33 Incontinence Mixed (Male) (Female) Office Visit 08/26/2011 9:00a DO Not Use Power System Dispatcher Yosvany Del Real, 717.85 Disruption Old AT [facility] M.D. Other Ligaments Of Knee 401.9 Hypertension Unspec Office Visit 08/04/2011 8:00a DO Not Use Power System Dispatcher [place] Nasima, 719.41 Pain Joint AT [facility] M.D. 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 Shoulder Region 717.85 Disruption Old Other Ligaments Of Knee v04.81 Need For Prophylactic Vaccination & Inoculation/Influenza Office Visit 06/02/2011 11:40a DO Not Use Power System Dispatcher Yosvany 401.9 Hypertension AT Garvinarian Del Real M.D. Unspec 250.00 Diabetes Mellitus W/O Compl Type II Or Unspec Controlled 278.00 Obesity Unspec 305.1 Tobacco Use Disorder 311 Depressive Disorder Not Elsewhere Spec Office Visit 05/15/2011 9:40a DO Not Use Power System Dispatcher Almaz Sherwood, V76.19 Screening Breast AT [facility] Exam Malignant Neoplasms Other V76.2 Screening Malignant Neoplasm Cervix V76.51 Special Screening For Malignant Neoplasms Colon 401.9 Hypertension Unspec 788.30 Incontinence Urinary Unspec V70.0 Examination General Medical Routine AT Health Care Facility Office Visit 04/23/2011 8:40a DO Not Use Power System Dispatcher Yosvany [place], V76.9 Screening AT [facility] Malignant Neoplasm Unspec 278.00 Obesity Unspec 466.0 Bronchitis Acute 305.1 Tobacco Use Disorder 717.85 Disruption Old Other Ligaments Of Knee Office Visit 03/12/2011 8:00a DO Not Use Power System Dispatcher [place], 250.00 Diabetes AT [facility] Mellitus W/O Compl Type II Or Unspec Controlled 466.0 Bronchitis Acute Office 02/27/2011 [place] Qukeanu Butt 794.31 Electrocardiogram Visit 10:30a Cardiology Doc Tadeo (ECG) (EKG) Abnormal 786.50 Pain Chest Unspec 272.4 Hyperlipidemia Other Unspec 401.1 Hypertension Benign Office Visit 01/29/2011 8:40a DO Not Use Power System Dispatcher [place], 250.00 Diabetes AT [facility] Mellitus W/O Compl Type II Or Unspec Controlled Office Visit 01/22/2011 8:00a DO Not Use Power System Dispatcher Yosvany [place], 250.00 Diabetes AT [facility] Mellitus W/O Compl Type II Or Unspec Controlled 401.9 Hypertension Unspec 272.4 Hyperlipidemia Other Unspec 278.00 Obesity Unspec 305.1 Tobacco Use Disorder V72.84 Examination Preoperative Unspec 311 Depressive Disorder Not Elsewhere Spec Office Visit 12/25/2010 9:30a Orthopedic Jeffry Cabezas, 716.96 Arthropathy Unspec Services Of M.D. Lower Leg C.M.A. Office Visit 11/25/2010 8:20a DO Not Use Power System Dispatcher AT [place] 717.85 Disruption Old [facility] [place], Other Ligaments Of M.D. Knee 250.00 Diabetes Mellitus W/O Compl Type II Or Unspec Controlled V70.0 Examination General Medical Routine AT Health Care Facility 466.0 Bronchitis Acute Office Visit 11/19/2010 DO Not Use Power System Dispatcher Yosvany 466.0 Bronchitis Acute 9:20a AT [facility] Doc Del Real Office Visit 11/06/2010 Orthopedic Jeffry Cabezas M.D. 716.96 Arthropathy 9:00a Services Of Unspec Lower Leg C.M.A. Office Visit 10/22/2010 DO Not Use [facility] [place] 717.85 Disruption Old 9:20a AT Jennifer Del Real M.D. Other Ligaments Of Knee Office Visit 09/25/2010 DO Not Use Power System Dispatcher [place] 719.46 Pain Joint Lower 10:20a AT Jennifer Del Real M.D. Leg 250.00 Diabetes Mellitus W/O Compl Type II Or Unspec Controlled 401.9 Hypertension Unspec 272.4 Hyperlipidemia Other Unspec 278.00 Obesity Unspec 305.1 Tobacco Use Disorder Office Visit 02/16/2009 1:00p Neurosurgery Maksim Cancino 847.2 Sprains & Services Of Lianet Isidro M.D. Strains Lumbar 805.6 FX Sacrum & Coccyx Closed W/O Spinal Cord Injury Office Visit 01/11/2009 10:00a Neurosurgery Maksim Cancino 847.2 Sprains & Services Of Lianet Isidro M.D. Strains Lumbar Office Visit 12/01/2008 10:00a Neurosurgery Maksim Cancino 847.2 Sprains & Services [...] Spinal Cord Injury Plan of Treatment Future Appointment(s):04/20/2019 11:20 am - Alana Auguste MD at [facility] [place]75/06/2019 9:40 am - Shoaib Azul MD at [place] [facility]01/18/2019 - Alana Auguste [id number] Essential (primary) hypertensionNew Medication:Lisinopril 20 mg - take 1 tablet by mouth 2x dailyComments:I increased your lisinopril to 2x/day (morning and night)E11.9 Type 2 diabetes mellitus without complicationsComments:your blood sugar is well controlled on the current medications, continue them as nwxhkxpsE79.4 Chronic pain ndflmkrmU28.00 Encounter for general adult medical examination without abnoFollow up:AWV April
[2019-01-24 23:39] LABS: Albumin 3.8 g/dL (3.2-5.2); Albumin/Globulin Ratio 1.4 (1-3); BUN/Creatinine Ratio 10.8 (8-20); C Reactive Protein 11.67 mg/L (<8.01); EGFR African American 84.8 (>60); EGFR Non-African American 70.1 (>60); Globulin 2.8 g/dL (2-4); Potassium 3.8 mmol/L (3.5-5.0); Total Bilirubin 0.3 mg/dL (0.2-1.0); Total Protein 6.6 g/dL (6.4-8.9)
[2019-01-24 23:40] LABS: Troponin I 0.01 ng/mL (<0.04)
--- NOTE | 2019-01-25 00:05 | ED ---
GI/ HPI - HPI Summary HPI Summary: 58-year-old female presents with nausea and vomiting for the past couple days. She is unable to keep anything down. Also has been having diarrhea. She states she's been having crampy lower abdominal pain. She's never had this before. she denies any history of diverticulitis or colitis. She is a diabetic. She denies any known fever. did not eating anything different. has not been on antibiotics recently. She denies chest pain shortness breath or cough. She states that she laid on the floor she felt better and she may have passed out but she is unsure. States she just feels very weak. - History of Current Complaint Chief Complaint: EDAbdPain Time Seen by Provider: 01/24/19 22:42 Stated Complaint: NAUSEA/VOMITING PER EMS Pain Intensity: 3 - Allergy/Home Medications Allergies/Adverse Reactions: Allergies Allergy/AdvReac Type Severity Reaction Status Date / Time nut - unspecified Allergy Severe Swelling Verified 12/11/17 14:22 Of Face,Lips,& Throat pregabalin [From Lyrica] Allergy Unknown Verified 09/19/18 23:03 Reaction Details varenicline [From Chantix] Allergy Unknown Verified 09/19/18 23:03 Reaction Details Home Medications: Home Medications Citalopram Hydrobromide [Citalopram HBr] 20 mg PO DAILY 01/25/19 [History Confirmed 01/25/19] Empaglifozin (NF) [Jardiance] 25 mg PO DAILY 01/25/19 [History Confirmed ] Ezetimibe 10 mg PO DAILY 01/25/19 [History Confirmed 01/25/19] Insulin Glargine (Nf) [Toujeo Solostar Pen (NF)] 65 units SUBCUT DAILY 01/25/19 [History Confirmed 01/25/19] Lisinopril 20 mg PO DAILY 01/25/19 [History Confirmed 01/25/19] Semaglutide [Ozempic] 0.5 mg SUBCUT WEEKLY 01/25/19 [History Confirmed 01/25/19] PMH/Surg Hx/FS Hx/Imm Hx Endocrine/Hematology History: Reports: Hx Diabetes - TYPE II- ORAL AND INSULIN Cardiovascular History: Reports: Hx Hypertension Denies: Hx Pacemaker/ICD, Other Cardiovascular Problems/Disorders Respiratory History: Reports: Hx Asthma - ROUTINE NEBULIZER AND PRN INHALER, Hx Chronic Obstructive Pulmonary Disease (COPD) Denies: Hx Pulmonary Embolism History: Denies: Hx Renal Disease Musculoskeletal History: Reports: Hx Arthritis Sensory History: Reports: Hx Cataracts - LEFT EYE, Hx Contacts or Glasses - GLASSES Denies: Hx Hearing Aid Opthamlomology History: Reports: Hx Cataracts - LEFT EYE, Hx Contacts or Glasses - GLASSES Psychiatric History: Reports: Hx Depression Denies: Hx Panic Disorder - Cancer History Hx Chemotherapy: No Hx Radiation Therapy: No - Surgical History Surgery Procedure, Year, and Place: right knee REPLACEMENT march 2012. 2010- RIGHT EYE CATARACT REMOVED, UN SUCCESSFUL FOR Lt EYE. Xs 4 Hx Anesthesia Reactions: No Infectious Disease History: No Infectious Disease History: Denies: Traveled Outside the [place] in Last 30 Days - Family History Known Family History: Positive: Other - uterine CA (mother) - Social History Alcohol Use: None Substance Use Type: Reports: None Smoking Status (MU): Light Every Day Tobacco Smoker Review of Systems Negative: Fever Negative: Chest Pain Negative: Shortness Of Breath Positive: Abdominal Pain, Vomiting, Diarrhea, Nausea Positive: Syncope All Other Systems Reviewed And Are Negative: Yes Physical Exam Triage Information Reviewed: Yes Vital Signs On Initial Exam: Initial Vitals Temp Pulse Resp BP Pulse Ox 97.9 F 89 18 173/99 96 01/24/19 22:42 01/24/19 22:42 01/24/19 22:42 01/24/19 22:42 01/24/19 22:42 Vital Signs Reviewed: Yes Appearance: Positive: Well-Appearing Skin: Positive: Warm, Dry Head/Face: Positive: Normal Head/Face Inspection Eyes: Positive: Normal, Conjunctiva Clear ENT: Positive: Pharynx normal Respiratory/Lung Sounds: Positive: Clear to Auscultation, Breath Sounds Present Cardiovascular: Positive: Normal, RRR Abdomen Description: Positive: Soft, Other: - tenderness in lower abd Bowel Sounds: Positive: Present Musculoskeletal: Positive: Normal Neurological: Positive: Normal Psychiatric: Positive: Normal Diagnostics - Vital Signs Vital Signs Temp Pulse Resp BP Pulse Ox 01/24/19 22:42 97.9 F 89 18 173/99 96 - Laboratory Lab Results: Lab Results 01/24/19 01/24/19 01/24/19 Range/Units 23:12 23:12 23:12 WBC 7.8 (3.5-10.8) 10^3/uL RBC 5.06 H (3.70-4.87) 10^6 /uL Hgb 13.9 (12.0-16.0) g/dL Hct 43 H (33-41) % MCV 85 (80-97) fL MCH 28 (27-31) pg MCHC 32 (31-36) g/dL RDW 16 H (10.5-15) % Plt Count 194 (150-450) 10^3/uL MPV 9.1 (7.4-10.4) fL Neut % (Auto) 71.9 % Lymph % (Auto) 21.0 % [place] % (Auto) 4.5 % Eos % (Auto) 2.0 % Baso % (Auto) 0.6 % Absolute Neuts (auto) 5.6 (1.5-7.7) 10^3/ul Absolute Lymphs (auto) 1.6 (1.0-4.8) 10^3/ul Absolute Monos (auto) 0.3 (0-0.8) 10^3/ul Absolute Eos (auto) 0.2 (0-0.6) 10^3/ul Absolute Basos (auto) 0 (0-0.2) 10^3/ul Absolute Nucleated RBC 0 10^3/ul Nucleated RBC % 0 Sodium 140 (135-145) mmol/L Potassium 3.8 (3.5-5.0) mmol/L Chloride 110 (101-111) mmol/L Carbon Dioxide 23 (22-32) mmol/L Anion Gap 7 (2-11) mmol/L BUN 9 (6-24) mg/dL Creatinine 0.83 (0.51-0.95) mg/dL Est GFR ( Amer) 84.8 (>60) Est GFR (Non-Af Amer) 70.1 (>60) BUN/Creatinine Ratio 10.8 (8-20) Glucose 166 H (70-100) mg/dL Lactic Acid 2.2 H* (0.5-2.0) mmol/L Calcium 9.0 (8.6-10.3) mg/dL Magnesium 2.0 (1.9-2.7) mg/dL Total Bilirubin 0.30 (0.2-1.0) mg/dL AST 13 (13-39) U/L ALT 12 (7-52) U/L Alkaline Phosphatase 81 (34-104) U/L Troponin I 0.01 (<0.04) ng/mL C-Reactive Protein 11.67 H (<8.01) mg/L Total Protein 6.6 (6.4-8.9) g/dL Albumin 3.8 (3.2-5.2) g/dL Globulin 2.8 (2-4) g/dL Albumin/Globulin Ratio 1.4 (1-3) Lipase 20 (11.0-82.0) U/L Result Diagrams: 01/24/19 23:12 01/24/19 23:12 Lab Statement: Any lab studies that have been ordered have been reviewed, and results considered in the medical decision making process. - CT abd CT Interpretation Completed By: Radiologist Summary of CT Findings: IMPRESSION: No CT findings to correlate with patient's symptomatology. - EKG No standard instances Cardiac Rate: NL EKG Rhythm: Sinus Rhythm Summary of EKG Findings: sinus rhythm Re-Evaluation - Re-Evaluation First Eval Re-Evaluation Time: 00:04 Comment: currently a sleep in room Second Eval Re-Evaluation Time: 01:07 Change: Worse Comment: woke up and had diarrhea and pain returned Third Eval Re-Evaluation Time: 02:31 Comment: patient is falling a sleep GIGU Course/Dx - Course Course Of Treatment: 58-year-old female presents with nausea and vomiting for the past couple days. She is unable to keep anything down. Also has been having diarrhea. She states she's been having crampy lower abdominal pain. She 's never had this before. she denies any history of diverticulitis or colitis. She is a diabetic. She denies any known fever. did not eating anything different. has not been on antibiotics recently. She denies chest pain shortness breath or cough. She states that she laid on the floor she felt better and she may have passed out but she is unsure. States she just feels very weak. On exam has lower abdominal pain. wbc normal. electrolytes normal. gave fluids and reglan and patient fell a sleep. wbc normal. crp elevated. electrolytes normal. CT abd normal. patient able to walk to the bathroom without any symptoms or difficulty. patient continues to fall asleep in the room but is arousable and A&Ox3 and states she is tired; with presentation here it is more likely that patient fell a sleep while on the floor rather than syncopal episode. will discharge with zofran. patient understand and agrees with plan. - Diagnoses Differential Diagnoses - Female: Colitis, Gastroenteritis (Viral), Gastroenteritis (Bacterial) Provider Diagnoses: Nausea vomiting and diarrhea Discharge - Sign-Out/Discharge Documenting (check all that apply): Patient Departure Patient Received Moderate/Deep Sedation with Procedure: No - Discharge Plan Condition: Good Disposition: HOME Prescriptions: Ondansetron ODT TAB* [Zofran 4 MG Odt TAB*] 4 mg PO Q6H PRN #16 tab.odt PRN Reason: Nausea Patient Education Materials: Gastroenteritis (ED) Referrals: Andrea Engle MD [Primary Care Provider] - Additional Instructions: symptoms likely due to gastroenteritis Can take Zofran every 6 hours as needed for nausea Drink small amounts of fluid as tolerated When able to eat follow BRAT diet: Bananas, rice, applesauce, toast Take Tylenol for pain as needed every 6 hours Follow up with primary within 5 days Return to ED if develop any new or worsening symptoms - Billing Disposition and Condition Condition: GOOD Disposition: Home
[2019-01-25] MEDS ORDERED: Iodixanol* (CONTRAST) 320 MG/ML 100 ML SDV IV ONE (00:59)
[2019-01-25] MEDS ORDERED: Ondansetron INJ* 2 MG/ML VIAL IV ONE (01:06)
[2019-01-25 02:46] VITALS: BP 124/96
== END 2019-01-25 02:45 | disposition home or self-care (01) ==
LOC: ED 22:08
DX: R11.2 Nausea with vomiting, unspecified (principal); R19.7 Diarrhea, unspecified; R55 Syncope and collapse; R10.9 Unspecified abdominal pain
CPT/HCPCS: 36415; 74177; 80053; 83605; 83690; 83735; 84484; 85025; 86140; 96361; 96374; 96375; 99283; J2270; J2765; Q9967

== ENCOUNTER 2019-11-03 21:55 | Emergency (ER) | payer MEDICARE, MEDICAID ==
[2019-11-03] MEDS ORDERED: NS 0.9% 1000 ML** 2,000 ML IV ONE (22:00)
[2019-11-03] MEDS ORDERED: Ondansetron INJ* 2 MG/ML VIAL IV ONE (22:01)
[2019-11-03] MEDS ORDERED: Morphine 10 MG/ML VIAL (1 ml) IV ONE (22:01)
[2019-11-03] MEDS ORDERED: Dicyclomine CAP* 10 MG PO ONE (22:06)
[2019-11-03] MEDS ORDERED: Al Hydrox/Mg Hydrox/Simet LIQ* 30 ML UDC PO ONE (22:06)
--- NOTE | 2019-11-03 22:12 | ED ---
Abdominal Pain/Female - HPI Summary HPI Summary: Patient is a 58 y/o F presenting to the ED via EMS for a chief complaint of abdominal pain that began on 10/31/19. Patient describes the abdominal pain as a sore sensation that is rated as a 7/10 in severity. She notes decreased appetite, generalized weakness, nausea, vomiting, diarrhea, and headache. Patient is unsure if she has had any blood in her stool. Any aggravating or alleviating factors are denied. PMHx is significant for DM. PSHx is significant for , but she denies any other abdominal surgeries. - History of Current Complaint Chief Complaint: EDAbdPain Stated Complaint: NAUSEA/VOMITING PER EMS Time Seen by Provider: 11/03/19 21:59 Hx Obtained From: Patient Onset/Duration: Sudden Onset Timing: Constant Severity Initially: Severe Severity Currently: Severe Pain Intensity: 7 Pain Scale Used: 0-10 Numeric Location: Diffuse Radiates: No Character: Other: - Sore Aggravating Factor(s): Nothing Alleviating Factor(s): Nothing Associated Signs and Symptoms: Positive: Decreased Appetite, Nausea, Vomiting, Diarrhea Allergies/Adverse Reactions: Allergies Allergy/AdvReac Type Severity Reaction Status Date / Time nut - unspecified Allergy Severe Swelling Verified 12/11/17 14:22 Of Face,Lips,& Throat pregabalin [From Lyrica] Allergy Unknown Verified 09/19/18 23:03 Reaction Details varenicline [From Chantix] Allergy Unknown Verified 09/19/18 23:03 Reaction Details PMH/Surg Hx/FS Hx/Imm Hx Previously Healthy: Yes Endocrine/Hematology History: Reports: Hx Diabetes - TYPE II- ORAL AND INSULIN Cardiovascular History: Reports: Hx Hypertension Denies: Hx Pacemaker/ICD, Other Cardiovascular Problems/Disorders Respiratory History: Reports: Hx Asthma - ROUTINE NEBULIZER AND PRN INHALER, Hx Chronic Obstructive Pulmonary Disease (COPD) Denies: Hx Pulmonary Embolism History: Denies: Hx Renal Disease Musculoskeletal History: Reports: Hx Arthritis Sensory History: Reports: Hx Cataracts - LEFT EYE, Hx Contacts or Glasses - GLASSES Denies: Hx Legally Blind, Hx Deafness, Hx Hearing Aid Opthamlomology History: Reports: Hx Cataracts - LEFT EYE, Hx Contacts or Glasses - GLASSES Denies: Hx Legally Blind EENT History: Denies: Hx Deafness Psychiatric History: Reports: Hx Depression Denies: Hx Panic Disorder - Cancer History Hx Chemotherapy: No Hx Radiation Therapy: No - Surgical History Surgical History: Yes Surgery Procedure, Year, and Place: right knee REPLACEMENT march 2012. 2010- RIGHT EYE CATARACT REMOVED, UN SUCCESSFUL FOR Lt EYE. Xs 4 Hx Anesthesia Reactions: No Infectious Disease History: No Infectious Disease History: Denies: Traveled Outside the [place] in Last 30 Days - Family History Known Family History: Positive: Other - uterine CA (mother) - Social History Occupation: Disabled Alcohol Use: None Hx Substance Use: No Substance Use Type: Reports: None Hx Tobacco Use: Yes Smoking Status (MU): Light Every Day Tobacco Smoker Review of Systems Positive: Other - Positive decreased appetite Positive: Abdominal Pain, Vomiting, Diarrhea, Nausea Positive: Headache, Weakness - Generalized All Other Systems Reviewed And Are Negative: Yes Physical Exam - Summary Physical Exam Summary: Appearance: Well-appearing, morbidly obese woman, lying in bed comfortably Skin: Warm, dry, no obvious rash Eyes: sclera anicteric, no conjunctival pallor ENT: mucous membranes moist, pharynx appears normal Neck: Supple, nontender Respiratory: Clear to auscultation, no signs of respiratory distress Cardiovascular: Normal S1, S2. No murmurs. Normal distal pulses in tibial and radial bilaterally. Abdomen: Soft, normal active bowel sounds present, morbidly obese which limits exam of the abdomen, mild diffuse tenderness of the abdomen, but nothing that is reliably focal. Musculoskeletal: Normal, Strength/ROM Intact Neurological: A&Ox3, awake and alert, mentation is normal, speech is fluent and appropriate Psychiatric: affect is normal, does not appear anxious or depressed Triage Information Reviewed: Yes Vital Signs On Initial Exam: Initial Vitals Temp Pulse Resp BP Pulse Ox 97.4 F 80 22 152/86 96 11/03/19 22:02 11/03/19 22:02 11/03/19 22:02 11/03/19 22:02 11/03/19 22:02 Vital Signs Reviewed: Yes Procedures - Sedation Patient Received Moderate/Deep Sedation with Procedure: No Diagnostics - Vital Signs Vital Signs Temp Pulse Resp BP Pulse Ox 11/03/19 22:02 97.4 F 80 22 152/86 96 - Laboratory Result Diagrams: 11/03/19 22:26 11/03/19 23:30 Lab Statement: Any lab studies that have been ordered have been reviewed, and results considered in the medical decision making process. - CT Abdomen/Pelvis CT CT Interpretation Completed By: Radiologist Summary of CT Findings: Abdomen/Pelvis CT IMPRESSION: Essentially negative CT abdomen/pelvis with little change from 01/25/2019. Reviewed by Dr. Laws. Abdominal Pain Fem Course/Dx - Course Course Of Treatment: Patient is a 58 y/o F presenting to the ED via EMS for a chief complaint of abdominal pain that began on 10/31/19. Patient describes the abdominal pain as a sore sensation that is rated as a 7/10 in severity. She notes decreased appetite, generalized weakness, nausea, vomiting, diarrhea, and headache. Patient is unsure if she has had any blood in her stool. Any aggravating or alleviating factors are denied. PMHx is significant for DM. PSHx is significant for , but she denies any other abdominal surgeries. On exam, morbidly obese which limits exam of the abdomen, mild diffuse tenderness of the abdomen, but nothing that is reliably focal. In the ED course, patient was given Zofran 8 mg IV, morphine 10 mg IV, Bentyl 20 mg PO, Maalox 30 ml PO, visipaque 141 ml IV, and IV fluids. Laboratory abnormal findings: RDW 16, AST 12. Abdomen/Pelvis CT IMPRESSION: Essentially negative CT abdomen/pelvis with little change from 01/25/2019. Patient will be discharged with a diagnosis of gastroenteritis, and acute nausea and vomiting. Follow up with PCP as needed. - Diagnoses Provider Diagnoses: Gastroenteritis, Nausea and vomiting Discharge ED - Sign-Out/Discharge Documenting (check all that apply): Patient Departure - Discharge - Discharge Plan Condition: Improved Disposition: HOME Prescriptions: Dicyclomine CAP* [Bentyl CAP*] 10 mg PO TID PRN #15 cap PRN Reason: Abdominal pain Ondansetron ODT TAB* [Zofran 4 MG Odt TAB*] 8 mg PO Q6H PRN #12 tab.odt PRN Reason: Nausea Prochlorperazine 10 mg TAB [Compazine 10 mg TAB] 10 mg PO Q6H PRN #10 tab PRN Reason: Nausea Patient Education Materials: Gastroenteritis (ED), Acute Nausea and Vomiting ( ED) Referrals: Alana Auguste MD [Primary Care Provider] - - Billing Disposition and Condition Condition: IMPROVED Disposition: Home - Attestation Statements Document Initiated by Scribe: Yes Documenting Scribe: Kecia Florentino Provider For Whom Ezequiel is Documenting (Include Credential): Jaylon Laws MD Scribe Attestation: IKecia, scribed for Jaylon Laws MD on 11/04/19 at 0220. Scribe Documentation Reviewed: Yes Provider Attestation: The documentation as recorded by the Kecia wheat accurately reflects the service I personally performed and the decisions made by me, Jyalon Laws MD Status of Scribe Document: Viewed
[2019-11-03 22:40] LABS: ABS Eosinophils 0.2 10^3/ul (0-0.6); ABS Lymphocytes 1.5 10^3/ul (1.0-4.8); ABS Monocytes 0.3 10^3/ul (0-0.8); ABS Neutrophils 5.9 10^3/ul (1.5-7.7); Eosinophil % 2.5 %; Hematocrit 40 % (35-47); Hemoglobin 13.2 g/dL (12.0-16.0); Lymphocyte % 18.8 %; Mean Corpuscular HGB Conc 33 g/dL (31-36); Mean Corpuscular Hemoglobin 28 pg (27-31); Mean Corpuscular Volume 86 fL (80-97); Mean Platelet Volume 8.8 fL (7.4-10.4); Nucleated Red Blood Cells % 0.2; Platelet Count 201 10^3/uL (150-450); Red Cell Distribution Width 16 % (10-15); White Blood Count 7.9 10^3/uL (3.5-10.8)
[2019-11-03 22:49] LABS: ALT 10 U/L (7-52); Albumin/Globulin Ratio 1.4 (1-3); Alkaline Phosphatase 76 U/L (34-104); BUN/Creatinine Ratio 13.2 (8-20); Blood Urea Nitrogen 10 mg/dL (6-24); C Reactive Protein 7.72 mg/L (<8.01); CO2 Carbon Dioxide 23 mmol/L (22-32); Calcium 9.1 mg/dL (8.6-10.3); Chloride 108 mmol/L (101-111); EGFR African American 93.9 (>60); EGFR Non-African American 77.6 (>60); Globulin 2.8 g/dL (2-4); Glucose 131 mg/dL (70-100); Sodium 138 mmol/L (135-145); Total Protein 6.8 g/dL (6.4-8.9)
[2019-11-03 22:57] LABS: Anion Gap 7 mmol/L (2-11)
--- OUTSIDE RECORDS SUMMARY | 2019-11-03 23:38 | XMS REPORT | Continuity of Care Document ---
:1960 External Reference #:[id number] Author Name Sofiya Webber M.D. (transmitted by agent of provider Mikala Parrish) Address [address] [facility], [place] [address] Care Team Providers Name Role Phone Joe Shanks MD - Interventional Care Team Information District Administrative Assistant Pain Medicine Alan Adam MD - Orthopaedic Care Team Information District Administrative Assistant Surgery Marck Licona MD - Ophthalmology Care Team Information District Administrative Assistant Kate Antonio MD - Obstetrics & Care Team Information District Administrative Assistant Gynecology David Bauer M.D. - Pulmonary Disease Care Team Information District Administrative Assistant [phone] Michael Velázquez MD - Care Team Information District Administrative Assistant [phone] Ophthalmology Alana Auguste M.D. - Family Medicine Care Team Information District Administrative Assistant [facility] - Care Team Information District Administrative Assistant [phone] Binder Lockstitch Problems Active Problems Provider Date Type II diabetes mellitus uncontrolled Andrea Engle M.D.,FACP Onset: Essential hypertension Almaz Sherwood M.D. Onset: 06/02/2011 Tobacco user Yosvany Del Real M.D. Onset: 06/02/2011 Hyperlipidemia Milagros Tadeo M.D. Onset: 06/02/2011 Depressive disorder Yosvany Del Real M.D. Onset: 06/02/2011 Shoulder joint pain Yosvany Del Real M.D. Onset: 08/04/2011 Chronic obstructive lung disease Yosvany Del Real M.D. Onset: 08/04/2011 Disorder of lumbar disc Yosvany Del Real M.D. Onset: 09/17/2011 Morbid obesity Yosvany Del Real M.D. Onset: 01/03/2013 Lumbosacral spondylosis without Yosvany Del Real M.D. Onset: 02/08/2013 myelopathy Osteoarthritis of knee Andrea Engle M.D.,FAC Onset: 11/15/2014 Note: LEFT Spinal stenosis of lumbar region Dipak Chavarria M.D. Onset: 03/27/2016 Microalbuminuria due to type 2 Andrea Engle M.D.,FAC Onset: 04/23/2016 diabetes mellitus Social History Type Date Description Comments Sex Unknown Tobacco Use Start: Unknown Former Cigarette Smoker End: Unknown 2 Packs Daily Cigarette Use Pack Years - 33 1-2 PPD from age [age], then cut down Tobacco Use Reviewed: 03/05/17 Patient is a current 3 cigarettes per day cigarette smoker, smokes every day Smoking Status Reviewed: 09/19/19 Patient is a current 3 cigarettes per day cigarette smoker, smokes every day ETOH Use 10/27/2018 Rarely consumes alcohol on special occassions Recreational Drug Use Denies Drug Use Tobacco Use Start: Unknown Light tobacco smoker 5-6 cig daily (10 or fewer cigarettes/day) Exercise Type/Frequency Exercises sporadically house cleaning Allergies, Adverse Reactions, Alerts Active Allergies Reaction Severity Comments Date cashews Moderate throat swelling 09/25/2010 Cymbalta dizziness, burning sensation in 11/24/2012 back. Celebrex 01/03/2013 Prandin vomiting 03/20/2016 Lyrica swelling 03/20/2016 Inactive Allergies No Known Drug Allergy 12/17/2011 Medications Active Medications SIG Qnty Indications Ordering Date Provider Losartan Potassium 1 by mouth every day 30tabs E11.9 Alana Auguste, 2018 100mg Tablets Bupropion Take 1 Tablet By 90tabs Alana Auguste, 07/08/2019 Hydrochloride ER Mouth Every Day (SR) 150mg Tablets ER 12HR Ozempic 1mg injection once 3ml E11.22 Cramerjyothi Azul, 06/21/2019 1mg/Dose weekly MD Solution Pen-Inject Rosuvastatin Calcium 40mg daily 30tabs E11.9 Cramer Coch, 06/21/2019 MD 40mg Tablets Oxcip-7-Dbhv Ethyl 1 capsules 2 x/day, 180caps E78.2 Alana Auguste, 2018 Esters with food MD 1gm Capsules Shingrix 0.5 milliliters 2units Andrea Gilbert 10/27/2018 50mcg/0.5ML intramuscular now [place], Suspension Rec and 2-3 months later MGibson,FACP repeat Nortriptyline HCL Take 2 AT Bedtime 60caps Andrea Gilbert 07/28/2018 PO [place], 10mg Capsules M.D.,FACP Ezetimibe take 10mg by mouth 30tabs E78.5 Shoaib Azul, 07/15/2018 10mg daily MD Tablets [employer] Pen Needle Use as Directed 100units Andrea Gilbert 01/15/2018 8mm 31G Three Times Daily [place], For Toujeo And Doc,FACP [place] Nebulizer use for albuterol 1units J44.1 Andrea Gilbert 12/31/2017 Device nebulized solution [place], up to 4 times a day. Doc,FACP last visit: 12/24/17 J45.40 Opana by mouth four times a 120tabs M54.42 Neema Geiger, 11/16/2017 10mg Tablets day as needed MGibson, FACP Jardiance take 1 tablet by 90tabs Alana Auguste, 09/16/2017 25mg Tablets mouth every day MD Cyclobenzaprine HCL take 1 tablet by 60tabs Alana Auguste, 12/12/2016 10mg mouth two times daily MD Tablets as needed maximum daily dose of 2 per day Flovent HFA inhale 2 puffs by 12units Alana Auguste, 12/10/2016 110mcg/Act mouth two times daily MD Aerosol Vitamin D 2 tabs once a day in 30tabs Andrea Gilbert 10/31/2016 (Cholecalciferol) fall/winter, 1 [place], 1000Unit tab/day MGibson,FACP Tablets spring/summer( pt has not been taking) Onetouch Ultra 2 test 3 times a day 1units E11.65 Andrea Gilbert 09/17/2016 w/Device and as needed. dx: Dami Engle e11.65 last visit Doc,[facility] 09/17/16 Onetouch Ultra Blue test up to 3 times a 200units Andrea Gilbert 09/17/2016 Strips day or as directed Kadie, dx: e11.65, type 2 M.DSylwia,[facility] diabetes mellitus w/hyperglycemia last visit date: 09/17/16 Toujemichelle Solostar Inject 65 Units 13.5units E11.65 Alana Auguste, 07/16/2016 300Unit/ML Subcutaneously (Under MD Solution Pen-Inject The Skin) Every Day Alcohol Swabs use as directed for 1box E11.9 Paulie Brito, 06/15/2015 Pads dm testing [employer] Metoprolol Tartrate -take 1 and 1/2 90tabs Alana Auguste, 03/28/2014 50mg tablets by mouth two MD Tablets times daily Metformin HCL take 2 tablets by 120tabs Alana Auguste, 10/19/2013 500mg Tablets mouth two times daily MD Albuterol Sulfate use 1 vial via 120units J44.9 Andrea Gilbert 03/14/2013 nebulizer every 4 [place], (2.5mg/3ML) 0.083% hours as needed last M.DSylwia,[facility] Nebulizer visit: 12/24/17 Citalopram Hydrobromide take 1 tablet by 90tabs F33.9 Alana Auguste, 2012 mouth every day MD 20mg Tablets Proair HFA inhale 2 puffs by 8.5units Alana Auguste, 01/06/2013 108(90Base) mouth every 6 hours mcg/Act Aerosol as needed History Medications Losartan Potassium 50mg daily 30tabs E11.9 Shoaib Azul MD 06/21/2019 - 07/25/2019 50mg Tablets Cephalexin 1 tab every 8 30tabs L03.011 Sofiya Webber, 05/24/2019 - 500mg hours for 10 M.D. 06/03/2019 Tablets days Immunizations CPT Code Status Date Vaccine Lot # [id number] Given 06/26/2019 Influ Virus Vaccine, Quadrivalent, Split Virus, [place] [address] Given 06/26/2019 Pneumococcal Conjugate Vaccine 13 Valent For Intramuscular Use 76731 Given 06/17/2017 Influenza Virus Vaccine, Quadrivalent, Split, [id number] Preservative Free 27963 Given 07/17/2015 Influenza Virus Vaccine, Quadrivalent, Split, [id number] Preservative Free 13721 Given 07/27/2014 Flu Vaccine Split Virus Preservative Free For [id number] Indiv 3Yr Older 19506 Given 08/25/2013 Flu Vaccine Split Virus Preservative Free For [id number] Indiv 3Yr Older 48185 Given 06/09/2012 Pneumonia Vaccine [id number] 45880 Given 06/09/2012 Influenza Virus 3Yrs & Over 29154 Given 07/09/2011 Influenza Virus 3Yrs & Over [id number] Vital Signs Date Vital Result Comment 09/19/2019 11:34am Height 64 inches 5'4" Weight 269.00 lb Heart Rate 99 /min BP Systolic Sitting 152 mmHg BP Diastolic Sitting 88 mmHg O2 % BldC Oximetry 95 % BMI (Body Mass Index) 46.2 kg/m2 07/25/2019 9:29am Height 64 inches 5'4" Weight 268.00 lb Heart Rate 88 /min BP Systolic Sitting 153 mmHg Rue reg cuff BP Diastolic Sitting 100 mmHg Rue reg cuff O2 % BldC Oximetry 98 % BMI (Body Mass Index) 46.0 kg/m2 Results Test Acquired Date Facility Test Result H/L Range Note Laboratory test 07/21/2019 [facility] Hemoglobin A1c 7.6 % High 4.0-5.[address] (Glyco HGB) [place] [address] [phone] Comp Metabolic 07/21/2019 [facility] Sodium 141 mmol/L Normal 135-[address] [place] [address] [phone] Potassium 4.4 mmol/L Normal 3.5-5.0 Chloride 109 mmol/L Normal 101-111 Co2 Carbon Dioxide 28 mmol/L Normal 22-32 Anion Gap 4 mmol/L Normal 2-11 Glucose 125 mg/dL High 70-100 Blood Urea Nitrogen 11 mg/dL Normal 6-24 Creatinine 0.81 mg/dL Normal 0.51-0.95 BUN/Creatinine Ratio 13.6 Normal 8-20 Calcium 9.3 mg/dL Normal 8.6-10.3 Total Protein 6.2 g/dL Low 6.4-8.9 Albumin 3.7 g/dL Normal 3.2-5.2 Globulin 2.5 g/dL Normal 2-4 Albumin/Globulin Ratio 1.5 Normal 1-3 Total Bilirubin 0.30 mg/dL Normal 0.2-1.0 Alkaline Phosphatase 91 U/L Normal 34-104 Alt 33 U/L Normal 7-52 Ast 22 U/L Normal 13-39 Egfr Non- 72.1 >60 Egfr 87.3 >60 2 Lipid Profile 07/21/2019 [facility] Triglycerides 164 mg/dL 3 (Trig/Chol/HDL) [address] [place], [place] [id number] [phone] Cholesterol 104 mg/dL 4 HDL Cholesterol 39.8 mg/dL 5 LDL Cholesterol 31 mg/dL 6 Laboratory test 04/20/2019 [facility] Cytology SEE RESULT [address] [place] [address] [phone] Lipid Profile 03/30/2019 [facility] Triglycerides 316 mg/dL 8 (Trig/Chol/HDL) [address] [place], [place] [id number] [phone] Cholesterol 207 mg/dL 9 HDL Cholesterol 39.2 mg/dL 10 LDL Cholesterol 105 mg/dL 11 Comp Metabolic 03/30/2019 [facility] Sodium 139 mmol/L Normal 135-[address] [place], [place] [id number] [phone] Potassium 4.5 mmol/L Normal 3.5-5.0 Chloride 107 mmol/L Normal 101-111 Co2 Carbon Dioxide 24 mmol/L Normal 22-32 Anion Gap 8 mmol/L Normal 2-11 Glucose 142 mg/dL High 70-100 Blood Urea Nitrogen 26 mg/dL High 6-24 Creatinine 1.10 mg/dL High 0.51-0.95 BUN/Creatinine Ratio 23.6 High 8-20 Calcium 10.2 mg/dL Normal 8.6-10.3 Total Protein 7.2 g/dL Normal 6.4-8.9 Albumin 4.1 g/dL Normal 3.2-5.2 Globulin 3.1 g/dL Normal 2-4 Albumin/Globulin Ratio 1.3 Normal 1-3 Total Bilirubin 0.40 mg/dL Normal 0.2-1.0 Alkaline Phosphatase 85 U/L Normal 34-104 Alt 13 U/L Normal 7-52 Ast 16 U/L Normal 13-39 Egfr Non- 50.7 >60 Egfr 61.3 >60 12 Laboratory 03/30/2019 [facility] TSH (Thyroid 2.71 Normal 0.34 -5.60 test finding [address] Stim Horm) mcIU/[place] [address] [phone] Hemoglobin A1c (Glyco HGB) 8.0 % High 4.0-5.6 13 Urine Microalbumin 03/30/2019 [facility] Ur Microalbumin 17.6 mg /L Random [address] (mg/L) [place] [address] [phone] Urine Creatinine 132.29 mg/dL Urine Microalbumin/Creatinine 13.3 Normal <31 1 Therapeutic target for the treatment of diabetes mellitus patients is <7% HBA1C, and in selective patients <6.0%. Please refer to [place] [employer] diabetic care guidelines for further information. 2 Because ethnic data is not always readily [...] 15-29 5 Kidney failure <15 (or dialysis) 3 Desirable: <150 Borderline High: 150-199 High: 200-499 Very High: >500 4 Desirable: <200 Borderline High: 200-239 High: >239 5 Low: <40 Desirable: 40-60 High: >60 6 Desirable: <100 Near Optimal: 100-129 Borderline High: 130-159 High: 160-189 Very High: >189 7 SEE RESULT BELOW Name: CHASITY JOHNSON Yolanda : [address]: Alana Auguste MD Acct: [id number] Unit: [id number] AGE: 58 Location: [facility] Re04/20/19 SEX: F Status: REG REF SPEC: [id number] GEORGINA: 04/20/[address]: Alana Auguste MD REQ: [id number] RECD: 04/21/19 STATUS: SOUT _ ORDERED: TP IMAGE ANALYS, HPV/Thin Prep COMMENTS: [id number] Negative for Intraepithelial lesion or Malignancy Date Time Test Result Flag (u) Normal Range 04/21/19 122 HPV RNA Negative Negative The high-risk HPV types detected by the assay include: 16, 18, 31, 33, 35, 39, 45, 51, 52, 56, 58, 59, 66, and 68. A. Ectocervical/Endocervical Specimen Adequacy: Satisfactory of evaluation Transformation zone component identified Patient Information: HPV: High risk HPV RNA testing regardless of pap results. Actual Specimen Date: 04/20/19 Post Menopausal?: Y Hysterectomy?: N Previous Abnormal Pap Smears?:N Signed by and Reported on: DARRON Jeffers (ASCP) 3020 This Pap test was evaluated with the assistance of the [employer] Test Imaging System. Due to cytologic findings at the corporate sales representative microscope, comprehensive manual rescreening by a Electrocardiograph Repairer may be required. The Pap Smear is a screening test designed to aid in the detection of premalignant and malignant conditions of the uterine cervix. It is not a diagnostic procedure and should not be used as the sole means of detecting cervical cancer. Both false- positive and false- negative reports do occur. Depending on your risk status, a Pap smear should be obtained and evaluated every 1-3 years. END OF REPORT DEPARTMENT OF PATHOLOGY, [address] [place] [address] Kev Tyler M.D. Director [facility] # [id number] 8 Desirable: <150 Borderline High: 150-199 High: 200-499 Very High: >500 9 Desirable: <200 Borderline High: 200-239 High: >239 10 Low: <40 Desirable: 40-60 High: >60 11 Desirable: <100 Near Optimal: 100-129 Borderline High: 130-159 High: 160-189 Very High: >189 12 Because ethnic data is not always [...] 5 Kidney failure <15 (or dialysis) 13 Therapeutic target for the treatment of diabetes mellitus patients is <7% HBA1C, and in selective patients <6.0%. Please refer to [place] [employer] diabetic care guidelines for further information. Procedures Date Code Description Status 08/03/2019 563400027 Diabetic Foot Exam Completed 06/28/2019 [id number] Diabetic Retinal Eye Exam Completed 05/11/2019 [id number] Mammogram Completed 07/12/2018 [id number] Diabetic Foot Exam Completed 07/14/2017 [id number] Colonoscopy Completed 12/08/2016 [id number] Mammogram Completed 11/14/2016 [id number] Diabetic Retinal Eye Exam Completed 09/20/2013 [id number] Diabetic Retinal Eye Exam Completed 01/13/2013 [id number] Mammogram Completed 05/21/2011 [id number] Mammogram Completed 10/12/2008 [id number] Colonoscopy Completed Medical Devices Description No Information Available Encounters Type Date Location Provider Dx Diagnosis Office Visit 07/25/2019 [facility] Internal Alana Auguste MD I10 Essential ( primary) 9:40a Medicine - [facility] hypertension E11.9 Type 2 diabetes mellitus without complications E78.5 Hyperlipidemia, unspecified F17.210 Nicotine dependence, cigarettes, uncomplicated Office Visit 06/21/2019 [facility] Cramer Coch, E11.9 Type 2 diabetes 9:40a Endocrinology of MD mellitus without [facility] complications I10 Essential (primary) hypertension E78.2 Mixed hyperlipidemia Z79.4 halfway (current) use of insulin Office Visit 05/24/2019 12:10p [facility] Internal Sofiya L03.011 Cellulitis of Medicine - Doc Webber right finger [facility]cmob Assessments Date Code Description Provider 09/19/2019 H35.341 Macular cyst, hole, or pseudohole, right eye Sofiya Webber M.D. 07/25/2019 I10 Essential (primary) hypertension Alana Auguste MD 07/25/2019 E11.9 Type 2 diabetes mellitus without Alana Auguste MD complications 07/25/2019 E78.5 Hyperlipidemia, unspecified Alana Auguste MD 07/25/2019 F17.210 Nicotine dependence, cigarettes, Alana Auguste MD uncomplicated 06/21/2019 E11.9 Type 2 diabetes mellitus without Shoaib Azul MD complications 06/21/2019 I10 Essential (primary) hypertension Shoaib Azul MD 06/21/2019 E78.2 Mixed hyperlipidemia Shoaib Azul MD 06/21/2019 Z79.4 halfway (current) use of insulin Shoaib Azul MD 05/24/2019 L03.011 Cellulitis of right finger Sofiya Webber M.D. 04/20/2019 Z00.00 Encounter for general adult medical Alana Auguste MD examination without abno 04/20/2019 I10 Essential (primary) hypertension Alana Auguste MD 04/20/2019 E11.9 Type 2 diabetes mellitus without Alana Auguste MD complications 04/20/2019 E78.2 Mixed hyperlipidemia Alana Auguste MD 04/20/2019 Z12.4 Encounter for screening for malignant Alana Auguste MD neoplasm of cervix 04/20/2019 Z12.31 Encounter for screening mammogram for Alana Auguste MD malignant neoplasm of 04/20/2019 R41.3 Other amnesia Alana Auguste MD Plan of Treatment Future Appointment(s):02/10/2020 10:00 am - [facility] - Shoaib Azul MD at [facility]09/19/2019 - Sofiya Webber M.D.H35.341 Macular cyst, hole , or pseudohole, right eyeReferral:Esteban Duran MD, Ophthalmology Functional Status Description No Information Available Mental Status Description No Information Available Referrals Refer to Reason for Referral Status Appt Date Esteban Duran MD LM for answering service to have someone call me Created back when office is open. [address] [facility] [address] [place], [place] [address] [phone] Edwin Aldrich DPM diabetic neuropathy Closed 08/03/[address] [place] [id number] [phone]
[2019-11-03 23:51] LABS: Potassium Redraw 3.9 mmol/L (3.5-5.0)
[2019-11-03] MEDS ORDERED: Iodixanol* (CONTRAST) 320 MG/ML 100 ML SDV IV ONE (23:52)
[2019-11-04] MEDS ORDERED: PROCHLORPERAZINE INJ 5 MG/ML 2 ML VIAL IV ONE (01:42)
[2019-11-04 02:15] VITALS: BP 118/85
== END 2019-11-04 02:00 | disposition home or self-care (01) ==
LOC: ED 21:55
DX: K52.9 Noninfective gastroenteritis and colitis, unspecified (principal); E11.9 Type 2 diabetes mellitus without complications; I10 Essential (primary) hypertension; J44.9 Chronic obstructive pulmonary disease, unspecified; F32.9 Major depressive disorder, single episode, unspecified; F17.200 Nicotine dependence, unspecified, uncomplicated; Z96.651 Presence of right artificial knee joint; Z79.4 Long term (current) use of insulin; Z88.8 Allergy status to other drugs, medicaments and biological substances
CPT/HCPCS: 36415; 74177; 80053; 83605; 83690; 85025; 86140; 96361; 96374; 96375; 99283; A9270-GY; J0780; J2270; J2405; Q9967

== ENCOUNTER 2019-12-02 02:08 | Emergency (ER) | payer MEDICARE, MEDICAID ==
--- NOTE | 2019-12-02 03:01 | ED ---
Abdominal Pain/Female - HPI Summary HPI Summary: This pt is a 59 Y/O F presenting to [facility] with a CC of N/V/D and diffuse abdominal pain that has been present for the last 3 weeks and is currently rated an 8/10 in severity. She states that the pain worsened at 1400 12/01/2019 and was alleviated by diarrhea. She states that the pain radiated from her stomach into her chest during this episode. She then began vomiting at 1500 after eating wanton soup and was unable to make it to the bathroom. She states that this was accompanied by weakness. She states that since the onset she has been having a decreased appetite due to an inability to eat food without vomiting the substance back up soon afterwards. She denies any urinary issues, fevers, headaches, SOB, and chills. She states that eating aggravates her symptoms and diarrhea or vomiting alleviates her pain. She has a PMHx of HTN and Type 2 DM. She states that she lost 60 pounds over the course of a year and dropped from 312 pounds to 250 pounds. She was recently seen here and had a full work up, including CT abd, which were negative. She has no pain at this time. Home Medications Medication Instructions Recorded Confirmed Type Albuterol 2.5MG/3ML (0.083%)* 2.5 mg INH Q4H PRN 10/14/13 01/25/19 History [Ventolin 2.5 MG/3 ML NEB.KAM*] Albuterol HFA INHALER* [Proair Hfa 2 puff INH Q6H PRN 10/14/13 01/25/19 History Inhaler*] Bupropion HCl [Bupropion HCl Xl] 150 mg PO DAILY 10/14/13 01/25/19 History Fluticasone HFA 110 mcg(NF) 2 puff INH BID 10/14/13 01/25/19 History [Flovent HFA 110 mcg(NF)] Hydrochlorothiazide TAB* 25 mg PO DAILY 10/14/13 01/25/19 History [Hydrodiuril TAB*] Metoprolol Tartrate TAB* 75 mg PO BID 10/14/13 01/25/19 History [Lopressor TAB*] Pravastatin (NF) [Pravachol (NF)] 20 mg PO BEDTIME 10/14/13 01/25/19 History metFORMIN* [Glucophage*] 1,000 mg PO BID 10/14/13 01/25/19 History Exenatide [Byetta] 10 mcg SC BID 03/20/17 01/25/19 History Oxymorphone HCl [Opana] 10 mg PO Q4H PRN 03/20/17 01/25/19 History Citalopram Hydrobromide 20 mg PO DAILY 01/25/19 01/25/19 History [Citalopram HBr] Empaglifozin (NF) [Jardiance] 25 mg PO DAILY 01/25/19 01/25/19 History Ezetimibe 10 mg PO DAILY 01/25/19 01/25/19 History Insulin Glargine (Nf) [Toujeo 65 units SUBCUT DAILY 01/25/19 01/25/19 History Solostar Pen 300 units/ml 1.5 ml x 3 Pens (NF)] Ondansetron ODT TAB* [Zofran 4 MG 4 mg PO Q6H PRN #16 tab.odt 01/25/19 Rx Odt TAB*] Semaglutide [Ozempic] 0.5 mg SUBCUT WEEKLY 01/25/19 01/25/19 History lisinopriL [Lisinopril] 20 mg PO DAILY 01/25/19 01/25/19 History Dicyclomine CAP* [Bentyl CAP*] 10 mg PO TID PRN #15 cap 11/04/19 Rx Ondansetron ODT TAB* [Zofran 4 MG 8 mg PO Q6H PRN #12 tab.odt 11/04/19 Rx Odt TAB*] Prochlorperazine 10 mg TAB 10 mg PO Q6H PRN #10 tab 11/04/19 Rx [Compazine 10 mg TAB] - History of Current Complaint Chief Complaint: EDAbdPain Stated Complaint: GENERAL ILLNESS PER EMS Time Seen by Provider: 12/02/19 02:57 Hx Obtained From: Patient Hx Last Menstrual Period: Menopause ?: No Onset/Duration: Gradual Onset, Lasting Weeks - 3, Still Present, Worse Since - 1400 12/01/2019 Timing: Weeks - 3 Severity Initially: Moderate Severity Currently: Severe Pain Intensity: 8 Pain Scale Used: 0-10 Numeric Location: Diffuse Radiates: Yes Radiates to: Chest Aggravating Factor(s): Food Alleviating Factor(s): Vomiting, Bowel Movement Associated Signs and Symptoms: Positive: Negative - headaches, SOB, and chills, Chest Pain, Nausea, Vomiting, Diarrhea, Other: - POSITVE: weakness. Negative: Fever, Urinary Symptoms Allergies/Adverse Reactions: Allergies Allergy/AdvReac Type Severity Reaction Status Date / Time nut - unspecified Allergy Severe Swelling Verified 12/02/19 02:24 Of Face,Lips,& Throat pregabalin [From Lyrica] Allergy Unknown Verified 12/02/19 02:24 Reaction Details varenicline [From Chantix] Allergy Unknown Verified 12/02/19 02:24 Reaction Details Home Medications: Home Medications Albuterol 2.5MG/3ML (0.083%)* [Ventolin 2.5 MG/3 ML NEB.KAM*] 2.5 mg INH Q4H PRN 10/14/13 [History Confirmed 01/25/19] Albuterol HFA INHALER* [Proair Hfa Inhaler*] 2 puff INH Q6H PRN 10/14/13 [ History Confirmed 01/25/19] Bupropion HCl [Bupropion HCl Xl] 150 mg PO DAILY 10/14/13 [History Confirmed ] Fluticasone HFA 110 mcg(NF) [Flovent HFA 110 mcg(NF)] 2 puff INH BID 10/14/13 [ History Confirmed 01/25/19] Hydrochlorothiazide TAB* [Hydrodiuril TAB*] 25 mg PO DAILY 10/14/13 [History Confirmed 01/25/19] Metoprolol Tartrate TAB* [Lopressor TAB*] 75 mg PO BID 10/14/13 [History Confirmed 01/25/19] Pravastatin (NF) [Pravachol (NF)] 20 mg PO BEDTIME 10/14/13 [History Confirmed 01/25/19] metFORMIN* [Glucophage*] 1,000 mg PO BID 10/14/13 [History Confirmed 01/25/19] Exenatide [Byetta] 10 mcg SC BID 03/20/17 [History Confirmed 01/25/19] Oxymorphone HCl [Opana] 10 mg PO Q4H PRN 03/20/17 [History Confirmed 01/25/19] Citalopram Hydrobromide [Citalopram HBr] 20 mg PO DAILY 01/25/19 [History Confirmed 01/25/19] Empaglifozin (NF) [Jardiance] 25 mg PO DAILY 01/25/19 [History Confirmed ] Ezetimibe 10 mg PO DAILY 01/25/19 [History Confirmed 01/25/19] Insulin Glargine (Nf) [Toujeo Solostar Pen 300 units/ml 1.5 ml x 3 Pens (NF)] 65 units SUBCUT DAILY 01/25/19 [History Confirmed 01/25/19] Ondansetron ODT TAB* [Zofran 4 MG Odt TAB*] 4 mg PO Q6H PRN #16 tab.odt [Rx] Semaglutide [Ozempic] 0.5 mg SUBCUT WEEKLY 01/25/19 [History Confirmed 01/25/19] lisinopriL [Lisinopril] 20 mg PO DAILY 01/25/19 [History Confirmed 01/25/19] Dicyclomine CAP* [Bentyl CAP*] 10 mg PO TID PRN #15 cap 11/04/19 [Rx] Ondansetron ODT TAB* [Zofran 4 MG Odt TAB*] 8 mg PO Q6H PRN #12 tab.odt [Rx] Prochlorperazine 10 mg TAB [Compazine 10 mg TAB] 10 mg PO Q6H PRN #10 tab [Rx] Ondansetron ODT TAB* [Zofran 4 MG Odt TAB*] 4 mg PO Q8H PRN #20 tab.odt [Rx] Pantoprazole TAB * [Protonix TAB*] 40 mg PO DAILY #30 tab 12/02/19 [Rx] PMH/Surg Hx/FS Hx/Imm Hx Previously Healthy: Yes Endocrine/Hematology History: Reports: Hx Diabetes - TYPE II- ORAL AND INSULIN Cardiovascular History: Reports: Hx Hypertension Denies: Hx Pacemaker/ICD, Other Cardiovascular Problems/Disorders Respiratory History: Reports: Hx Asthma - ROUTINE NEBULIZER AND PRN INHALER, Hx Chronic Obstructive Pulmonary Disease (COPD) Denies: Hx Pulmonary Embolism History: Denies: Hx Renal Disease Musculoskeletal History: Reports: Hx Arthritis Sensory History: Reports: Hx Cataracts - LEFT EYE, Hx Contacts or Glasses - GLASSES Denies: Hx Legally Blind, Hx Deafness, Hx Hearing Aid Opthamlomology History: Reports: Hx Cataracts - LEFT EYE, Hx Contacts or Glasses - GLASSES Denies: Hx Legally Blind Psychiatric History: Reports: Hx Depression Denies: Hx Panic Disorder - Cancer History Hx Chemotherapy: No Hx Radiation Therapy: No - Surgical History Surgical History: Yes Surgery Procedure, Year, and Place: right knee REPLACEMENT march 2012. 2010- RIGHT EYE CATARACT REMOVED, UN SUCCESSFUL FOR Lt EYE. Xs 4 Hx Anesthesia Reactions: No - Immunization History Date of Influenza Vaccine: Fall 2018 Immunizations Up to Date: Yes Infectious Disease History: No Infectious Disease History: Denies: Traveled Outside the [place] in Last 30 Days - Family History Known Family History: Positive: Other - uterine CA (mother) - Social History Occupation: Disabled, Retired Lives: Alone Alcohol Use: Rare Alcohol Amount: States once a year on holiday Hx Substance Use: No Substance Use Type: Reports: None Hx Tobacco Use: Yes Smoking Status (MU): Light Every Day Tobacco Smoker Amount Used/How Often: "States that if she drinks" Review of Systems Negative: Fever, Chills Positive: Chest Pain Negative: Shortness Of Breath Positive: Abdominal Pain, Vomiting, Diarrhea, Nausea Genitourinary: Negative Negative: Headache All Other Systems Reviewed And Are Negative: Yes Physical Exam Triage Information Reviewed: Yes Vital Signs On Initial Exam: Initial Vitals Temp Pulse Resp BP Pulse Ox 97.7 F 90 16 163/126 99 12/02/19 02:13 12/02/19 02:13 12/02/19 02:13 12/02/19 02:13 12/02/19 02:13 Vital Signs Reviewed: Yes Procedures - Sedation Patient Received Moderate/Deep Sedation with Procedure: No Diagnostics - Vital Signs Vital Signs Temp Pulse Resp BP Pulse Ox 12/02/19 02:16 89 163/126 99 12/02/19 02:13 97.7 F 97 16 163/126 98 - Laboratory Result Diagrams: 12/02/19 03:27 12/02/19 03:27 Lab Statement: Any lab studies that have been ordered have been reviewed, and results considered in the medical decision making process. - EKG 0217 Cardiac Rate: NL EKG Rhythm: Sinus Rhythm - [address] Segment: Non-Specific Summary of EKG Findings: EKG at 0214 shows Normal sinus rhythm at 86 bpm, normal AR, normal QRS, normal QTc, Left axis deviation, ST are elevated in leads V2 and V3, normal T-waves, non-specific EKG. Interpreted by Dr. Almaz Rosenthal MD at 0324 12/02/2019. Re-Evaluation - Re-Evaluation First Eval Re-Evaluation Time: 04:47 Change: Unchanged Comment: Pt was unable to provide a clean urine sample due to diarrhea at same time. Able to tolerate ambulation, unable to tolerate PO intake. Second Eval Re-Evaluation Time: 06:24 Change: Improved Comment: Pt reported that Zofran allevaited her nausea. She was able to handle PO intake of Saltine crackers without aggravation. Third Eval Re-Evaluation Time: 06:28 Change: Improved Comment: Pt is agreeable to discharge plan. Abdominal Pain Fem Course/Dx - Course Course Of Treatment: This pt is a 59 Y/O F presenting to [facility] with a CC of N/V/ D and diffuse abdominal pain that has been present for the last 2 weeks and is currently rated an 8/10 in severity. She states that the pain worsened at 1400 and was alleviated by diarrhea. Her PE found that she has no acute abnormalities. Her abdomen has no tenderness, RUQ tenderness, Mcburney's tenderness, no rebound, and shows no sign of infection or Dz. She received an EKG upon arrival to [facility] which showed: EKG at 0214 shows Normal sinus rhythm at 86 bpm, normal AR, normal QRS, normal QTc, Left axis deviation, ST are elevated in leads V2 and V3, normal T-waves, non-specific EKG. She has no abnormal labratory values that are pertinent for this CC. 0447: Pt was unable to provide a clean urine sample due to diarrhea at same time. Able to tolerate ambulation, unable to tolerate PO intake. She was given Zofran 6mgs. Will be reassesed later. 0624: Pt reported that Zofran allevaited her nausea. She was able to handle PO intake of Saltine crackers without aggravation. She will be discharged home with a Dx of subacute abdomial pain, N/V/D. - Diagnoses Provider Diagnoses: Acute abdominal pain, Nausea vomiting and diarrhea Discharge ED - Sign-Out/Discharge Documenting (check all that apply): Patient Departure - discharge - Discharge Plan Condition: Good Disposition: HOME Prescriptions: Ondansetron ODT TAB* [Zofran 4 MG Odt TAB*] 4 mg PO Q8H PRN #20 tab.odt PRN Reason: Nausea Pantoprazole TAB * [Protonix TAB*] 40 mg PO DAILY #30 tab Patient Education Materials: Abdominal Pain (ED) Print Language: SLOVENIAN Referrals: Sukumar Gomez MD [Medical Doctor] - Alana Auguste MD [Primary Care Provider] - - Billing Disposition and Condition Condition: GOOD Disposition: Home - Attestation Statements Document Initiated by Ezequiel: Yes Documenting Scribe: Devonte Browning Provider For Whom Ezequiel is Documenting (Include Credential): Almaz Suarez Scribe Attestation: Devonte Camarena, scribed for Almaz Rosenthal on 12/02/19 at 0737. Scribe Documentation Reviewed: Yes Provider Attestation: The documentation as recorded by the [email or web address] accurately reflects the service I personally performed and the decisions made by , Almaz Rosenthal Status of Scribe Document: Viewed
[2019-12-02 03:37] LABS: ABS Eosinophils 0.3 10^3/ul (0-0.6); ABS Lymphocytes 1.4 10^3/ul (1.0-4.8); ABS Monocytes 0.4 10^3/ul (0-0.8); ABS Neutrophils 5.3 10^3/ul (1.5-7.7); Hematocrit 41 % (35-47); Hemoglobin 13.3 g/dL (12.0-16.0); Lymphocyte % 19.2 %; Mean Corpuscular HGB Conc 33 g/dL (31-36); Mean Corpuscular Hemoglobin 28 pg (27-31); Mean Corpuscular Volume 86 fL (80-97); Mean Platelet Volume 8.4 fL (7.4-10.4); Nucleated Red Blood Cells % 0.1; Platelet Count 191 10^3/uL (150-450); Red Blood Count 4.71 10^6 /uL (3.70-4.87); Red Cell Distribution Width 15 % (10-15); White Blood Count 7.5 10^3/uL (3.5-10.8)
[2019-12-02 03:54] LABS: Albumin 4.1 g/dL (3.2-5.2); Albumin/Globulin Ratio 1.4 (1-3); BUN/Creatinine Ratio 16.9 (8-20); C Reactive Protein 25.79 mg/L (<8.01); Calcium 9.4 mg/dL (8.6-10.3); EGFR African American 84.6 (>60); EGFR Non-African American 69.9 (>60); Globulin 2.9 g/dL (2-4); Magnesium 2.2 mg/dL (1.9-2.7); Potassium 4.3 mmol/L (3.5-5.0); Total Bilirubin 0.4 mg/dL (0.2-1.0)
[2019-12-02 03:55] LABS: Troponin I 0.01 ng/mL (<0.03)
[2019-12-02] MEDS ORDERED: NS 0.9% 1000 ML** 1,000 ML IV ONE (04:49)
[2019-12-02] MEDS ORDERED: Ondansetron ODT TAB* 4 MG PO ONE (04:51)
[2019-12-02 06:28] VITALS: BP 126/88
== END 2019-12-02 06:30 | disposition home or self-care (01) ==
LOC: ED 02:08
DX: R10.9 Unspecified abdominal pain (principal); I10 Essential (primary) hypertension; E11.9 Type 2 diabetes mellitus without complications; F32.9 Major depressive disorder, single episode, unspecified; R11.2 Nausea with vomiting, unspecified; F17.210 Nicotine dependence, cigarettes, uncomplicated; R94.31 Abnormal electrocardiogram [ECG] [EKG]; Z79.4 Long term (current) use of insulin; Z79.84 Long term (current) use of oral hypoglycemic drugs; Z96.651 Presence of right artificial knee joint; Z79.899 Other long term (current) drug therapy
CPT/HCPCS: 36415; 80053; 83605; 83690; 83735; 83880; 84484; 85025; 86140; 93005; 96360; 99284; A9270-GY

== ENCOUNTER 2020-01-20 12:36 | Emergency (ER) | payer MEDICARE, MEDICAID ==
--- OUTSIDE RECORDS SUMMARY | 2020-01-20 12:51 | XMS REPORT | Continuity of Care Document ---
:1960 External Reference #:[id number] Author Name Veronica Caruso PA-C (transmitted by agent of provider Savanna Ravi) Address [address] [place], [place] [id number] Care Team Providers Name Role Phone Andrea Engle MD - Internal Care Team Information F[employer] [phone] Medicine Problems Active Problems Provider Date Asthma without status asthmaticus HANG Pelayo Onset: 11/04/2016 Essential hypertension HANG Pelayo Onset: 11/04/2016 Type 1 diabetes mellitus HANG Pelayo Onset: 11/04/2016 Nausea and vomiting Veronica Caruso PA-C Onset: 12/13/2019 Early satiety Veronica Caruso PA-C Onset: 12/13/2019 Weight decreased Veronica Caruso PA-C Onset: 12/13/2019 Flatulence, eructation and gas pain Veronica Caruso PA-C Onset: 2019 Loss of appetite Veronica Caruso PA-C Onset: 12/13/2019 Generalized abdominal pain Veronica Caruso PA-C Onset: 12/13/2019 Gastroesophageal reflux disease Veronica Caruso PA-C Onset: 12/13/2019 Social History Type Date Description Comments Sex Unknown ETOH Use Denies alcohol use Tobacco Use Start: Unknown Light tobacco smoker (10 or fewer cigarettes/day) Smoking Status Reviewed: 12/13/19 Light tobacco smoker (10 or fewer cigarettes/day) Allergies, Adverse Reactions, Alerts Active Allergies Reaction Severity Comments Date Repaglinide 03/20/2016 Pregabalin 03/20/2016 Celecoxib 01/03/2013 Cymbalta dizziness, burning sensation in back. 11/24/2012 Lisinopril 12/13/2019 Inactive Allergies NKDA 11/04/2016 Medications Active Medications SIG Qnty Indications Ordering Date Provider Clarithromycin 1 by mouth twice 28tabs Isha 12/15/2019 500mg a day x 14 days MD Susana Tablets Metronidazole 1 tablet by 42tabs Isha 12/15/2019 500mg Tablets mouth tid for 14 MD Susana days Ondansetron Q8H 20tabs Unknown 12/02/2019 4mg Tablets Dispers Pantoprazole Sodium 1 tab PO bid at 60tabs Isha 12/02/2019 40mg least 30min MD Susana Tablets DR prior to meals Citalopram Hydrobromide Every Day Unknown 01/25/2019 20mg Tablets Jardiance Every Day Unknown 01/25/2019 25mg Tablets Toujeo Solostar Every Day Unknown 01/25/2019 300Unit/ML Solution Pen-Inject Ozempic (0.25 Or 0.5 Weekly Unknown 01/25/2019 MG/Dose) 2mg/1.5ML Solution Pen-Inject Opana by mouth four 120tabs M54.42 Andrea Engle, 11/16/2017 10mg Tablets times a day as MD needed Cyclobenzaprine HCL take 1 tablet by 60tabs Alana Auguste, 12/12/2016 10mg mouth two times M.D. Tablets daily as needed maximum daily dose of 2 per day Vitamin D 2 tabs once a 30tabs Andrea Engle, 10/31/2016 (Cholecalciferol) day in MD 1000Unit fall/winter, 1 Tablets tab/day spring/summer Alcohol Swabs use as directed 1units 250.00 Paulie Brito NP 06/15/2015 70% Pads for dm testing Metoprolol Tartrate Take 1 And 1/2 90tabs Andrea Engle, 03/28/2014 50mg Tablets By Mouth Tablets Two Times Daily Bupropion HCL ER (XL) Take 1 Tablet By 90tabs Andrea Engle, 01/23/2014 150mg Mouth Every Day Tablets ER 24HR Metformin HCL Take 2 Tablets 120tabs Andrea Engle, 10/19/2013 500mg Tablets By Mouth Two MD Times Daily Losartan Potassium Daily Unknown 100mg Tablets Crestor 1 by mouth every Unknown 40mg Tablets day in the morning History Medications Ondansetron Q6H 12tabs Unknown 11/04/2019 - 4mg Tablets Dispers 12/13/2019 Prochlorperazine Maleate Q6H 10tabs Unknown 11/04/2019 - 10mg Tablets 12/13/2019 Dicyclomine HCL Three Times Daily 15caps Unknown 11/04/2019 - 10mg Capsules 12/13/2019 Immunizations CPT Code Status Date Vaccine Lot # [id number] Given 06/17/2017 Influenza Virus Vaccine, Quadrivalent, Split, Preservative Free 08377 Given 07/17/2015 Influenza Virus Vaccine, Quadrivalent, Split, Preservative Free 31821 Given 07/27/2014 Influenza Virus Vaccine Split Virus Use For Individual 3Yr Older 03120 Given 08/25/2013 Influenza Virus Vaccine Split Virus Use For Individual 3Yr Older 80498 Given 06/09/2012 Pneumovax 11279 Given 06/09/2012 Influenza [place], [place] [address] Given 07/09/2011 Influenza Virus Vaccine, Split Virus, Im Vital Signs Date Vital Result Comment 12/13/2019 10:13am Height 64.5 inches 5'4.50" Weight 258.00 lb BP Systolic 164 mmHg BP Diastolic 102 mmHg Heart Rate 102 /min BMI (Body Mass Index) 43.6 kg/m2 11/04/2016 7:55am Height 64.5 inches 5'4.50" Weight 270.00 lb BP Systolic 138 mmHg BP Diastolic 78 mmHg Heart Rate 72 /min BMI (Body Mass Index) 45.6 kg/m2 Results Test Acquired Facility Test Result H/L Range Note Date Laboratory test [facility] [place] Pylori Positive Abnormal Negative 1 , 2 finding 0 Antigen- Stool Serum or plasma N2N/CCD Import Serum or plasma 109 101-111 chloride 0 chloride mmol/L measurement measurement (moles/volume (moles/volume) Serum or plasma N2N/CCD Import Serum or plasma 27 mmol/L 22- 32 carbon dioxide, 0 carbon dioxide, total measurement total measurement (moles/volume) Serum or plasma N2N/CCD Import Serum or plasma 5 mmol/L 2-11 anion gap 0 anion gap Serum glucose N2N/CCD Import Serum glucose 133 mg/dL 70-100 measurement 0 measurement (mass/volume) (mass/volume) Serum or plasma N2N/CCD Import Serum or plasma 14 mg/dL 6-24 urea nitrogen 0 urea nitrogen measurement measurement (mass/vo (mass/volume) Serum or plasma N2N/CCD Import Serum or plasma 0.83 0.51-0.95 creatinine 0 creatinine mg/dL measurement measurement (mass/volum (mass/volume) Serum or plasma N2N/CCD Import Serum or plasma 16.9 8-20 urea 0 urea nitrogen/creatinin nitrogen/creatini e ratio ne ratio Serum or plasma N2N/CCD Import Serum or plasma 9.4 mg/dL 8.6- 10.3 calcium 0 calcium measurement measurement (mass/volume) (mass/volume) Serum or plasma N2N/CCD Import Serum or plasma 2.2 mg/dL 1.9- 2.7 magnesium 0 magnesium measurement measurement (mass/volume (mass/volume) Serum total N2N/CCD Import Serum total 7.0 g/dL 6.4-8.9 protein 0 protein measurement measurement (mass/volume) (mass/volume) Serum or plasma N2N/CCD Import Serum or plasma 4.1 g/dL 3.2- 5.2 albumin 0 albumin measurement by measurement by bromocresol bromocresol green (BCG) dye binding method (ma Lab Results N2N/CCD Import Globulin 2.9 g/dL 2-4 0 Serum or plasma N2N/CCD Import Serum or plasma 1.4 1-3 albumin/globulin 0 albumin/globulin mass ratio mass ratio Serum or plasma N2N/CCD Import Serum or plasma 0.40 0.2-1.0 total bilirubin 0 total bilirubin mg/dL measurement (mass/ measurement (mass/volume) Serum or plasma N2N/CCD Import Serum or plasma 1.1 0.5-2.0 lactate 0 lactate mmol/L measurement measurement (moles/volume) (moles/volume) Serum or plasma N2N/CCD Import Serum or plasma 89 U/L 34-104 alkaline 0 alkaline phosphatase phosphatase measurement ( measurement (enzymatic activity/volume) Serum or plasma N2N/CCD Import Serum or plasma 10 U/L 7-52 alanine 0 alanine aminotransferase aminotransferase measureme measurement (enzymatic activity/volume) Serum or plasma N2N/CCD Import Serum or plasma 11 U/L 13-39 aspartate 0 aspartate aminotransferase aminotransferase measure measurement (enzymatic activity/volume) Serum or plasma N2N/CCD Import Serum or plasma 17 U/L 11.0- 82.0 lipase measurement 0 lipase (enzymatic acti measurement (enzymatic activity/volume) Serum or plasma N2N/CCD Import Serum or plasma 0.01 troponin i.cardiac 0 troponin ng/mL measurement (ma i.cardiac measurement (mass/volume) Estimated N2N/CCD Import Estimated 69.9 glomerular 0 glomerular filtration rate filtration rate (GFR) non-Afr (GFR) non- Lab Results N2N/CCD Import Estimated GFR 84.6 0 () Serum or plasma N2N/CCD Import Serum or plasma 14 pg/mL <100 natriuretic 0 natriuretic peptide B peptide B measurement measurement (mass/volume) Serum or plasma C N2N/CCD Import Serum or plasma C 25.79 0- 8.00 reactive protein 0 reactive protein mg/L measurement (ma measurement (mass/volume) Automated blood N2N/CCD Import Automated blood 7.5 3.5-10.8 leukocytes count 0 leukocytes count 10^3/uL corrected for nuc corrected for nucleated erythrocytes (number/volume) Automated blood N2N/CCD Import Automated blood 4.71 3.70-4.87 erythrocyte count 0 erythrocyte count 10^6/uL (number/volume) (number/volume) Blood hemoglobin N2N/CCD Import Blood hemoglobin 13.3 g/dL 12.0-16.0 measurement 0 measurement (mass/volume) (mass/volume) Automated blood N2N/CCD Import Automated blood 41 % 35-47 hematocrit 0 hematocrit (percentage) (percentage) Automated N2N/CCD Import Automated 86 fL 80-97 erythrocyte mean 0 erythrocyte mean corpuscular volume corpuscular volume Automated N2N/CCD Import Automated 28 pg 27-31 erythrocyte mean 0 erythrocyte mean corpuscular corpuscular hemoglobin hemoglobin (mass per erythrocyte) Automated N2N/CCD Import Automated 33 g/dL 31-36 erythrocyte mean 0 erythrocyte mean corpuscular corpuscular hemoglobin hemoglobin concentration measurement (mass/vol Automated N2N/CCD Import Automated 15 % 10-15 erythrocyte 0 erythrocyte distribution width distribution ratio width ratio Automated blood N2N/CCD Import Automated blood 191 150-450 platelet count 0 platelet count 10^3/uL (number/volume) (number/volume) Automated blood N2N/CCD Import Automated blood 8.4 fL 7.4- 10.4 platelet mean 0 platelet mean volume measurement volume measurement Lymphocyte N2N/CCD Import Lymphocyte 5.3 1.5-7.7 proliferation test 0 proliferation 10^3/ul test Blood lymphocytes N2N/CCD Import Blood lymphocytes 1.4 1.0- 4.8 automated count 0 automated count 10^3/ul (number/volume) (number/volume) Serum or plasma N2N/CCD Import Serum or plasma 4.3 3.5-5.0 potassium 0 potassium mmol/L measurement measurement (moles/volum (moles/volume) Serum or plasma N2N/CCD Import Serum or plasma 141 135-145 sodium measurement 0 sodium mmol/L (moles/volume) measurement (moles/volume) Automated blood N2N/CCD Import Automated blood 0.1 nucleated 0 nucleated erythrocytes erythrocytes detection detection Automated blood N2N/CCD Import Automated blood 0.6 % basophils/100 0 basophils/100 leukocytes leukocytes Automated blood N2N/CCD Import Automated blood 4.0 % eosinophils/100 0 eosinophils/100 leukocytes leukocytes Automated blood N2N/CCD Import Automated blood 5.4 % monocytes/100 0 monocytes/100 leukocytes leukocytes Automated blood N2N/CCD Import Automated blood 19.2 % lymphocytes/100 0 lymphocytes/100 leukocytes leukocytes Automated blood N2N/CCD Import Automated blood 70.8 % neutrophils/100 0 neutrophils/100 leukocytes leukocytes Blood nucleated N2N/CCD Import Blood nucleated 0.0 erythrocytes 0 erythrocytes 10^3/ul automated count automated count (numb (number/volume) Automated blood N2N/CCD Import Automated blood 0.0 0-0.2 basophil count 0 basophil count 10^3/ul (number/volume) (number/volume) Automated blood N2N/CCD Import Automated blood 0.3 0-0.6 eosinophil count 0 eosinophil count 10^3/ul (number/volume) (number/volume) Blood monocytes N2N/CCD Import Blood monocytes 0.4 0-0.8 automated count 0 automated count 10^3/ul (number/volume) (number/volume) Serum total N2N/CCD Import Serum total 6.8 g/dL 6.4-8.9 protein 0 protein measurement measurement (mass/volume) (mass/volume) Serum or plasma N2N/CCD Import Serum or plasma 9.1 mg/dL 8.6- 10.3 calcium 0 calcium measurement measurement (mass/volume) (mass/volume) Serum or plasma N2N/CCD Import Serum or plasma 13.2 8-20 urea 0 urea nitrogen/creatinin nitrogen/creatini e ratio ne ratio Serum or plasma N2N/CCD Import Serum or plasma 0.76 0.51-0.95 creatinine 0 creatinine mg/dL measurement measurement (mass/volum (mass/volume) Serum or plasma N2N/CCD Import Serum or plasma 10 mg/dL 6-24 urea nitrogen 0 urea nitrogen measurement measurement (mass/vo (mass/volume) Serum glucose N2N/CCD Import Serum glucose 131 mg/dL 70-100 measurement 0 measurement (mass/volume) (mass/volume) Serum or plasma N2N/CCD Import Serum or plasma 7 mmol/L 2-11 anion gap 0 anion gap Serum or plasma N2N/CCD Import Serum or plasma 23 mmol/L 22- 32 carbon dioxide, 0 carbon dioxide, total measurement total measurement (moles/volume) Serum or plasma N2N/CCD Import Serum or plasma 108 101-111 chloride 0 chloride mmol/L measurement measurement (moles/volume (moles/volume) Serum or plasma N2N/CCD Import Serum or plasma 138 135-145 sodium measurement 0 sodium mmol/L (moles/volume) measurement (moles/volume) Automated blood N2N/CCD Import Automated blood 0.2 nucleated 0 nucleated erythrocytes erythrocytes detection detection Serum or plasma N2N/CCD Import Serum or plasma 4.0 g/dL 3.2- 5.2 albumin 0 albumin measurement by measurement by bromocresol bromocresol green (BCG) dye binding method (ma Lab Results N2N/CCD Import Globulin 2.8 g/dL 2-4 0 Serum or plasma N2N/CCD Import Serum or plasma 1.4 1-3 albumin/globulin 0 albumin/globulin mass ratio mass ratio Serum or plasma N2N/CCD Import Serum or plasma 0.40 0.2-1.0 total bilirubin 0 total bilirubin mg/dL measurement (mass/ measurement (mass/volume) Serum or plasma N2N/CCD Import Serum or plasma 1.0 0.5-2.0 lactate 0 lactate mmol/L measurement measurement (moles/volume) (moles/volume) Serum or plasma N2N/CCD Import Serum or plasma 76 U/L 34-104 alkaline 0 alkaline phosphatase phosphatase measurement ( measurement (enzymatic activity/volume) Serum or plasma N2N/CCD Import Serum or plasma 10 U/L 7-52 alanine 0 alanine aminotransferase aminotransferase measureme measurement (enzymatic activity/volume) Serum or plasma N2N/CCD Import Serum or plasma 50 U/L 11.0- 82.0 lipase measurement 0 lipase (enzymatic acti measurement (enzymatic activity/volume) Estimated N2N/CCD Import Estimated 77.6 glomerular 0 glomerular filtration rate filtration rate (GFR) non-Afr (GFR) non- Lab Results N2N/CCD Import Estimated GFR 93.9 0 () Serum or plasma C N2N/CCD Import Serum or plasma C 7.72 mg/L 0 -8.00 reactive protein 0 reactive protein measurement (ma measurement (mass/volume) Serum or plasma N2N/CCD Import Serum or plasma 3.9 3.5-5.0 potassium 0 potassium mmol/L measurement measurement (moles/volum (moles/volume) Serum or plasma N2N/CCD Import Serum or plasma 12 U/L 13-39 aspartate 0 aspartate aminotransferase aminotransferase measure measurement (enzymatic activity/volume) Automated blood N2N/CCD Import Automated blood 7.9 3.5-10.8 leukocytes count 0 leukocytes count 10^3/uL corrected for nuc corrected for nucleated erythrocytes (number/volume) Automated blood N2N/CCD Import Automated blood 4.70 3.70-4.87 erythrocyte count 0 erythrocyte count 10^6/uL (number/volume) (number/volume) Blood hemoglobin N2N/CCD Import Blood hemoglobin 13.2 g/dL 12.0-16.0 measurement 0 measurement (mass/volume) (mass/volume) Automated blood N2N/CCD Import Automated blood 40 % 35-47 hematocrit 0 hematocrit (percentage) (percentage) Automated N2N/CCD Import Automated 86 fL 80-97 erythrocyte mean 0 erythrocyte mean corpuscular volume corpuscular volume Automated N2N/CCD Import Automated 28 pg 27-31 erythrocyte mean 0 erythrocyte mean corpuscular corpuscular hemoglobin hemoglobin (mass per erythrocyte) Automated N2N/CCD Import Automated 33 g/dL 31-36 erythrocyte mean 0 erythrocyte mean corpuscular corpuscular hemoglobin hemoglobin concentration measurement (mass/vol Automated N2N/CCD Import Automated 16 % 10-15 erythrocyte 0 erythrocyte distribution width distribution ratio width ratio Automated blood N2N/CCD Import Automated blood 201 150-450 platelet count 0 platelet count 10^3/uL (number/volume) (number/volume) Automated blood N2N/CCD Import Automated blood 8.8 fL 7.4- 10.4 platelet mean 0 platelet mean volume measurement volume measurement Lymphocyte N2N/CCD Import Lymphocyte 5.9 1.5-7.7 proliferation test 0 proliferation 10^3/ul test Blood lymphocytes N2N/CCD Import Blood lymphocytes 1.5 1.0- 4.8 automated count 0 automated count 10^3/ul (number/volume) (number/volume) Blood monocytes N2N/CCD Import Blood monocytes 0.3 0-0.8 automated count 0 automated count 10^3/ul (number/volume) (number/volume) Automated blood N2N/CCD Import Automated blood 0.2 0-0.6 eosinophil count 0 eosinophil count 10^3/ul (number/volume) (number/volume) Automated blood N2N/CCD Import Automated blood 0.0 0-0.2 basophil count 0 basophil count 10^3/ul (number/volume) (number/volume) Blood nucleated N2N/CCD Import Blood nucleated 0.0 erythrocytes 0 erythrocytes 10^3/ul automated count automated count (numb (number/volume) Automated blood N2N/CCD Import Automated blood 74.3 % neutrophils/100 0 neutrophils/100 leukocytes leukocytes Automated blood N2N/CCD Import Automated blood 18.8 % lymphocytes/100 0 lymphocytes/100 leukocytes leukocytes Automated blood N2N/CCD Import Automated blood 4.0 % monocytes/100 0 monocytes/100 leukocytes leukocytes Automated blood N2N/CCD Import Automated blood 2.5 % eosinophils/100 0 eosinophils/100 leukocytes leukocytes Automated blood N2N/CCD Import Automated blood 0.4 % basophils/100 0 basophils/100 leukocytes leukocytes 1 1541.@Sample frozen by [id number] at 1310 on 12/14/19. 2 Test Performed by: [place] [address] Form Raiser: Pierre Park M.D. Ph.D.; CLIA# [id number] Procedures Description No Information Available Medical Devices Description No Information Available Encounters Type Date Location Provider Dx Diagnosis Office Visit 12/13/2019 Gastroenter[facility] Veronica Thompson K21.9 [facility]- [facility] 10[facility] reflux disease without esophagitis R10.84 Generalized abdominal pain R63.0 Anorexia R14.2 Eructation R63.4 Abnormal weight loss R68.81 Early satiety R11.2 Nausea with vomiting, unspecified Assessments Date Code Description Provider 12/13/2019 K21.9 Gastro-esophageal reflux disease without Veronica Caruso PA-C esophagitis 12/13/2019 R10.84 Generalized abdominal pain Veronica Caruso PA-C 12/13/2019 R63.0 Anorexia Veronica Caruso PA-C 12/13/2019 R14.2 Eructation Veronica Caruso PA-C 12/13/2019 R63.4 Abnormal weight loss Veronica Caruso PA-C 12/13/2019 R68.81 Early satiety Veronica Caruso PA-C 12/13/2019 R11.2 Nausea with vomiting, unspecified [facility] Plan of Treatment Future Appointment(s):01/16/2020 10:30 am - Veronica Caruso [facility]-C [facility]12/13/2019 - [facility] CK21.9 Gastro-esophageal reflux disease without bzsaraylepvN21.84 Generalized abdominal painR63.0 RlszkzhcA89.2 QiwzhzliqzN81.4 Abnormal weight lossR68.81 Early njbjoblU93.2 Nausea with vomiting, unspecified Functional Status Description No Information Available Mental Status Description No Information Available Referrals Description No Information Available
[2020-01-20] MEDS ORDERED: Benzocaine/Butamben/Tetracain* SPRAY TOPICAL ONE (13:02)
--- NOTE | 2020-01-20 13:06 | ED ---
Throat Pain/Nasal Congestion - HPI Summary HPI Summary: 59-year-old female presents with dental abscess for the past couple days. She started on amoxicillin on Thursday and abscess gotten worse. She was sent in by primary to get it drained. She denies any fevers or chills. States the pain does radiate up his jaw. she states because of the abscess she has not been able to eat or drink well. Denies any chest or shortness breath. She did have a cough with some hemoptysis that has resolved after starting antibiotics. She has not followed up with a dentist. - History of Current Complaint Chief Complaint: EDDentalPain Time Seen by Provider: 01/20/20 12:53 - Allergies/Home Medications Allergies/Adverse Reactions: Allergies Allergy/AdvReac Type Severity Reaction Status Date / Time nut - unspecified Allergy Severe Swelling Verified 12/02/19 02:24 Of Face,Lips,& Throat pregabalin [From Lyrica] Allergy Unknown Verified 12/02/19 02:24 Reaction Details varenicline [From Chantix] Allergy Unknown Verified 12/02/19 02:24 Reaction Details Home Medications: Home Medications Albuterol HFA INHALER* [Proair Hfa Inhaler*] 2 puff INH Q6H PRN 10/14/13 [ History Confirmed 01/20/20] Fluticasone HFA 110 mcg(NF) [Flovent HFA 110 mcg(NF)] 2 puff INH BID 10/14/13 [ History Confirmed 01/20/20] Metoprolol Tartrate TAB* [Lopressor TAB*] 75 mg PO BID 10/14/13 [History Confirmed 01/20/20] metFORMIN* [Glucophage*] 1,000 mg PO BID 10/14/13 [History Confirmed 01/20/20] Oxymorphone HCl [Opana] 10 mg PO QID PRN 03/20/17 [History Confirmed 01/20/20] Citalopram Hydrobromide [Citalopram HBr] 20 mg PO DAILY 01/25/19 [History Confirmed 01/20/20] Empagliflozin (NF) [Jardiance] 25 mg PO DAILY 01/25/19 [History Confirmed ] Insulin Glargine (Nf) [Touangel Solostar Pen 300 units/ml 1.5 ml x 3 Pens (NF)] 65 units SUBCUT DAILY 01/25/19 [History Confirmed 01/20/20] Semaglutide [Ozempic] 1 mg SUBCUT WEEKLY 01/25/19 [History Confirmed 01/20/20] Amoxicillin/Clavulanate TAB* [Augmentin TAB 500 mg*] 500 mg PO BID 01/20/20 [ History Confirmed 01/20/20] Benzonatate CAP* [Tessalon 100 MG CAP*] 100 - 200 mg PO Q8H PRN 01/20/20 [ History Confirmed 01/20/20] Cholecalciferol TAB* [Vitamin D TAB*] 1,000 units PO DAILY 01/20/20 [History Confirmed 01/20/20] Clindamycin Cap(NF) [Clindamycin Cap 300 mg Cap(NF)] 300 mg PO TID #29 cap 01/19 [Rx] Cyclobenzaprine TAB* [Flexeril 10 MG TAB*] 10 mg PO BID PRN 01/20/20 [History Confirmed 01/20/20] Losartan Potassium 100 mg PO DAILY 01/20/20 [History Confirmed 01/20/20] Nortriptyline CAP* [Pamelor CAP*] 20 mg PO BEDTIME 01/20/20 [History Confirmed 01/20/20] Rosuvastatin Calcium 40 mg PO DAILY 01/20/20 [History Confirmed 01/20/20] buPROPion SR TAB* [Wellbutrin SR TAB*] 150 mg PO DAILY 01/20/20 [History Confirmed 01/20/20] PMH/Surg Hx/FS Hx/Imm Hx Endocrine/Hematology History: Reports: Hx Diabetes - TYPE II- ORAL AND INSULIN Cardiovascular History: Reports: Hx Hypertension Denies: Hx Pacemaker/ICD, Other Cardiovascular Problems/Disorders Respiratory History: Reports: Hx Asthma - ROUTINE NEBULIZER AND PRN INHALER, Hx Chronic Obstructive Pulmonary Disease (COPD) Denies: Hx Pulmonary Embolism History: Denies: Hx Renal Disease Musculoskeletal History: Reports: Hx Arthritis Sensory History: Reports: Hx Cataracts - LEFT EYE, Hx Contacts or Glasses - GLASSES Denies: Hx Legally Blind, Hx Deafness, Hx Hearing Aid Opthamlomology History: Reports: Hx Cataracts - LEFT EYE, Hx Contacts or Glasses - GLASSES Denies: Hx Legally Blind Psychiatric History: Reports: Hx Depression Denies: Hx Panic Disorder - Cancer History Hx Chemotherapy: No Hx Radiation Therapy: No - Surgical History Surgery Procedure, Year, and Place: right knee REPLACEMENT march 2012. 2010- RIGHT EYE CATARACT REMOVED, UN SUCCESSFUL FOR Lt EYE. Xs 4 Hx Anesthesia Reactions: No - Immunization History Date of Influenza Vaccine: Fall 2018 Infectious Disease History: No Infectious Disease History: Denies: Traveled Outside the [place] in Last 30 Days - Family History Known Family History: Positive: Other - uterine CA (mother) - Social History Alcohol Use: Rare Alcohol Amount: States once a year on holiday Hx Substance Use: No Substance Use Type: Reports: None Hx Tobacco Use: Yes Smoking Status (MU): Light Every Day Tobacco Smoker Amount Used/How Often: "States that if she drinks" Review of Systems Negative: Fever, Chills Positive: Dental Pain Positive: Cough - resolved All Other Systems Reviewed And Are Negative: Yes Physical Exam Triage Information Reviewed: Yes Vital Signs On Initial Exam: Initial Vitals Temp Pulse Resp BP Pulse Ox 97.7 F 111 18 172/112 98 01/20/20 12:37 01/20/20 12:37 01/20/20 12:37 01/20/20 12:37 01/20/20 12:37 Vital Signs Reviewed: Yes Appearance: Positive: Well-Appearing Skin: Positive: Warm, Dry Head/Face: Positive: Normal Head/Face Inspection Eyes: Positive: Normal, Conjunctiva Clear ENT: Positive: Pharynx normal Dental: Positive: Gross Decay/Caries @ - throughout, Other - abscess to roof of mouth Respiratory/Lung Sounds: Positive: Clear to Auscultation, Breath Sounds Present Cardiovascular: Positive: Normal, RRR Musculoskeletal: Positive: Normal Neurological: Positive: Normal Psychiatric: Positive: Normal Procedures - Sedation Patient Received Moderate/Deep Sedation with Procedure: No - Incision and Drainage mouth Site: mouth Anesthesia: Topical Instrument(s): Needle Diagnostics - Vital Signs Vital Signs Temp Pulse Resp BP Pulse Ox 01/20/20 12:37 97.7 F 111 18 172/112 98 - Laboratory Lab Statement: Any lab studies that have been ordered have been reviewed, and results considered in the medical decision making process. EENT Course/Dx - Course Course Of Treatment: 59-year-old female presents with dental abscess for the past couple days. She started on amoxicillin on Thursday and abscess gotten worse. She was sent in by primary to get it drained. She denies any fevers or chills. States the pain does radiate up his jaw. she states because of the abscess she has not been able to eat or drink well. Denies any chest or shortness breath. She did have a cough with some hemoptysis that has resolved after starting antibiotics. She has not followed up with a dentist. On exam has abscess noted to her upper mouth. needle aspirated area and got 2cc pus. will place on clindamycin. sent culture. patient understand and agrees with plan. - Differential Diagnoses Differential Diagnoses: Dental Abscess, Dental Caries, Fractured Tooth - Diagnoses Provider Diagnoses: Dental abscess Discharge ED - Sign-Out/Discharge Documenting (check all that apply): Patient Departure - Discharge Plan Condition: Good Disposition: HOME Prescriptions: Clindamycin Cap(NF) [Clindamycin Cap 300 mg Cap(NF)] 300 mg PO TID #29 cap Patient Education Materials: Dental Abscess (ED) Referrals: Alana Auguste MD [Primary Care Provider] - Additional Instructions: Take clindamycin three times a day for 10 days Take tyenlol every 6 hours for pain as needed Avoid hard, crunchy food until seen by dentist Return to ED if develop fever, shortness of breath, pain with eye movement or swelling around eye follow up with dentist - Billing Disposition and Condition Condition: GOOD Disposition: Home - Attestation Statements Provider Attestation: I was available for consultation for this patient. I did not evaluate the patient or participate in any medical decision making or disposition decisions unless I am specifically named in the chart as having consulted on the patient. If I have consulted on the patient, please see my own ED note on the patient encounter. Monica Chaney MD
[2020-01-20] MEDS ORDERED: oxyCODONE/Acetamin 5/325 MG* TAB PO ONE (13:08)
[2020-01-20] MEDS ORDERED: Benzocaine/Butamben/Tetracain (CETACAINE - SINGLE USE) 5 gm TOPICAL ONE (13:30)
[2020-01-20] MEDS ORDERED: Clindamycin CAP* 150 MG PO ONE (13:33)
[2020-01-20 13:57] VITALS: BP 130/87
== END 2020-01-20 13:57 | disposition home or self-care (01) ==
LOC: ED 12:36
DX: K04.7 Periapical abscess without sinus (principal); E11.9 Type 2 diabetes mellitus without complications; I10 Essential (primary) hypertension; J44.9 Chronic obstructive pulmonary disease, unspecified; F32.9 Major depressive disorder, single episode, unspecified; F17.200 Nicotine dependence, unspecified, uncomplicated; Z96.651 Presence of right artificial knee joint; Z79.4 Long term (current) use of insulin; Z79.899 Other long term (current) drug therapy; Z88.8 Allergy status to other drugs, medicaments and biological substances
CPT/HCPCS: 41800; 87070; 87076; 87205; 87640; 87641; 99282; A9270-GY